=== PATIENT | female | born 1945 | race African-American/Black ===

== ENCOUNTER → 2017-09-26 | Day surgery (SDC) | payer OTHER, MEDICARE ==
--- NOTE | 2017-09-26 11:56 | RAD REPORT ---
EXAM DESCRIPTION: US - Guided FNA Non Breast - 09/26/2017 11:23 am CLINICAL HISTORY: E04.1 COMPARISON: Diagnostic ultrasound September 16 TECHNIQUE: Patient presents for ultrasound-guided fine-needle aspiration of left-sided thyroid nodul arity. Knee ultrasound-guided FNA procedure, risks and alternatives were discussed with the patient i n detail. After answering all questions, both oral and written consent were obtained. Time out proced ure was performed. Patient is on 81 milligram daily aspirin therapy. Preliminary imaging again identified the 2.4 centimeter mixed solid and cystic nodule filling much of the left lobe. The 9 x 4 mm nodule possibly containing calcifications is positioned deep to the iqra nant nodule. Anterior left neck was prepped and draped in the usual sterile fashion. Skin and deeper tissues were anesthetized with 1% lidocaine. Under direct sonographic visualization, a 25 gauge needle was advance d into the nodule. Multiple to and fro excursions of the needle tip were made directed to the solid c omponents within the nodule. Liver for additional 25 gauge needle aspirations of the nodule again all directed towards the solid components. During the course of the procedure small amount of intra cyst ic hemorrhage was observed layering in the dependent portion of the cyst. Over the course of the exam ination and when observed 5-10 minutes after conclusion of the procedure, overall size of the mixed s olid and cystic nodule had not changed. The smaller 9 x 4 millimeter nodule could not be accessed. The nodule was only 4 mm in transverse jose meter which would be the pathway of the needle. Additionally, the dominant nodule would have to be tr aversed in order to access the smaller nodule. This would increase the likelihood of additional hemor rhage both within and outside of the nodule. There was no hematoma or hemorrhagic component in the tolentino perficial neck soft tissues along the needle pathway. IMPRESSION: Ultrasound-guided fine-needle aspiration was performed of the dominant 2.4 centimeter so lid and cystic nodule. All obtained material was given to pathology for histology/ cytology assessmen t. A small amount of hemorrhage was observed within the substance of the nodule. This did not cause over all enlargement of the nodule and was contained within the nodule itself. The previously detailed smaller 9 x 4 mm nodule with possible calcification could not be accessed due to the deep positioning, small 4 millimeter transverse diameter needle pass and the need to repeated ly traverse the dominant nodule in order to access the smaller nodule.
== END ==
LOC: FNA 10:10
PROVIDERS: ATTEND Otolaryngology
PROC: 0G9G3ZX Drainage of Left Thyroid Gland Lobe, Percutaneous Approach, Diagnostic (ICD-10-PCS; principal; 2017-09-26)
PROC: BG44ZZZ Ultrasonography of Thyroid Gland (ICD-10-PCS; 2017-09-26)
DX: E04.1 Nontoxic single thyroid nodule (principal)
CPT/HCPCS: 76942; 88162

== ENCOUNTER 2017-10-28 10:39 | Emergency (ER) | payer OTHER, MEDICARE ==
--- NOTE | 2017-10-28 12:44 | RAD REPORT ---
EXAM DESCRIPTION: Najma Single View10/28/2017 12:11 pm CLINICAL HISTORY: Chest pain COMPARISON: Two 3 FINDINGS: Calcified granulomas are present within the left lung. The lungs appear clear of acute inf iltrate. The heart is mildly enlarged IMPRESSION: No acute abnormalities displayed
[2017-10-28 12:52] LABS: Absolute Lymphocytes (CBC) 1.4 K/uL (0.7-4.9); Absolute Monocytes 0.3 K/uL (0.1-1.3); Absolute Neutrophil 2.1 K/uL (1.8-8.0); Eosinophils % 2.5 % (0-4.4); Hematocrit 38.6 % (36.0-45.0); Lymphocytes % 34.6 % (15.3-44.8); MCH 32.2 pg (27.0-35.0); MCV 96.9 fL (80-100); Monocytes % 8.7 % (3.3-12.3); RBC Red Blood Cell Count 3.98 M/uL (3.86-4.86)
[2017-10-28 12:57] LABS: Protime INR 1.13
[2017-10-28 13:04] LABS: Potassium 3.8 mEq/L (3.6-5.0)
[2017-10-28 13:10] LABS: Albumin 3.8 g/dL (3.2-5.5); Bilirubin Direct 0.1 mg/dL (0-0.2); Bilirubin Total 0.7 mg/dL (0.3-1.2); Protein, Total 7.5 g/dL (6.0-8.3)
[2017-10-28 13:13] LABS: CKMB Creatine Kinase MB 1.1 ng/ml (0.3-4.0)
[2017-10-28 14:09] LABS: Urine Blood NEGATIVE (NEG); Urine Glucose NEGATIVE (NEG); Urine Protein NEGATIVE (NEG); Urine Specific Gravity 1.015 (1.005-1.030)
--- NOTE | 2017-10-28 14:53 | RAD REPORT ---
EXAM DESCRIPTION: CT - Head Brain Wo Cont - 10/28/2017 2:41 pm CLINICAL HISTORY: Weakness, dizziness, syncope COMPARISON: MRI August 2017 TECHNIQUE: Axial 5 mm thick images of the head were obtained without IV contrast. All CT scans are performed using dose optimization technique as appropriate and may include automated exposure control or mA/KV adjustment according to patient size. FINDINGS: No intracranial hemorrhage, mass, edema or shift of mid-line structures. No acute cortical based infarction. No cortical edema or sulcal effacement. Atrophy and chronic ischemic changes are m ild and match the recent MRI study. Arterial and physiologic calcifications are present. Ventricles a re normal in size. Mastoid air cells are clear. Right side ethmoid mucosal thickening present. No acute bony findings. IMPRESSION: Mild atrophy and chronic ischemic change matching the August MRI study. No acute intracra nial finding.
--- NOTE | 2017-10-28 15:03 | ER ---
Nurse's Notes [facility] Name: Lisa Camacho Age: 72 yrs Sex: Female : 1945 Arrival Date: 10/28/2017 Time: 10:44 Bed 7 Private MD: Quincy Cabrera V Diagnosis: Weakness Presentation: 10/28 10:47 Presenting complaint: Patient states: "I have been having dizzy spells and no energy hb for a few weeks now, the last few days it has been worse and I feel weak all over." Denies headache/fever. Ambulated triage with steady gait, - facial droop, - slurred speech, - arm drift, bilat excelsior cutter strong and equal. 10:47 Method Of Arrival: Ambulatory hb 10:50 Transition of care: patient was not received from another setting of care. Onset of hb symptoms is unknown. Risk Assessment: Do you want to hurt yourself or someone else? Patient reports no desire to harm self or others. 10:50 Acuity: ERIKA 3 hb 10:52 Initial Sepsis Screen: Does the patient meet any 2 criteria? No. Patient's initial hb sepsis screen is negative. Does the patient have a suspected source of infection? No. Patient's initial sepsis screen is negative. Care prior to arrival: None. Historical: - Allergies: 10:50 PENICILLINS; hb - PMHx: 10:50 Hyperlipidemia; Hypertension; hb - PSHx: 10:50 Hysterectomy; Cholecystectomy; back side growth removed; hb - Immunization history:: Adult Immunizations up to date. - Social history:: Smoking status: Patient/guardian denies using tobacco. - Ebola Screening: : No symptoms or risks identified at this time. Screenin:33 Abuse screen: Denies threats or abuse. Nutritional screening: No deficits noted. tw2 Tuberculosis screening: No symptoms or risk factors identified. Fall Risk None identified. Assessment: 11:35 General: Appears in no apparent distress. obese, well groomed, Behavior is calm, tw2 cooperative, appropriate for age. Pain: Denies pain. Neuro: Level of Consciousness is awake, alert, obeys commands, Oriented to person, place, time, situation. Cardiovascular: Denies diaphoresis, shortness of breath, Heart tones S1 S2 Capillary refill < 3 seconds Patient's skin is warm and dry. Respiratory: Airway is patent Respiratory effort is even, unlabored, Respiratory pattern is regular, symmetrical, Breath sounds are clear bilaterally. GI: No signs and/or symptoms were reported involving the gastrointestinal system. Abdomen is round non-distended, obese, Bowel sounds present X 4 quads. : No signs and/or symptoms were reported regarding the genitourinary system. Derm: Skin is intact, is healthy with good turgor, Skin temperature is warm. Musculoskeletal: Range of motion: intact in all extremities. 11:54 Reassessment: Patient appears in no apparent distress at this time. No changes from tw2 previously documented assessment. Patient and/or family updated on plan of care and expected duration. Pain level reassessed. Patient is alert, oriented x 3, equal unlabored respirations, skin warm/dry/pink. 13:26 Reassessment: Patient appears in no apparent distress at this time. No changes from tw2 previously documented assessment. Patient and/or family updated on plan of care and expected duration. Pain level reassessed. Patient is alert, oriented x 3, equal unlabored respirations, skin warm/dry/pink. 13:58 Reassessment: provider notified, pt would like update of results at this time. tw2 14:22 Reassessment: Patient appears in no apparent distress at this time. No changes from tw2 previously documented assessment. Patient and/or family updated on plan of care and expected duration. Pain level reassessed. Patient is alert, oriented x 3, equal unlabored respirations, skin warm/dry/pink. Vital Signs: 10:49 BP 148 / 103; Pulse 82; Resp 18; Temp 97.4; Pulse Ox 100% on R/A; Weight 86.64 kg; hb Height 5 ft. 3 in. (160.02 cm); Pain 0/10; 11:53 BP 103 / 46; Pulse 88; Resp 17; Pulse Ox 97% on R/A; tw2 12:38 BP 124 / 75; Pulse 57; Resp 15; Pulse Ox 100% ; em1 13:26 BP 131 / 76; Pulse 61; Resp 16; Pulse Ox 95% on R/A; tw2 14:22 BP 147 / 75; Pulse 54; Resp 17; Pulse Ox 98% on R/A; tw2 10:49 Body Mass Index 33.83 (86.64 kg, 160.02 cm) ED Course: 10:44 Patient arrived in ED. sb2 10:44 Quincy Cabrera MD is Private Physician. sb2 10:48 Cheko Joshua MD is Attending Physician. kdr 10:52 Triage completed. hb 10:53 Arm band placed on left wrist. hb 11:30 Placed in gown. Bed in low position. Adult w/ patient. manager underwriting on. Pulse ox on. tw2 NIBP on. Warm blanket given. 11:32 Carito Godwin, WINSTON is Primary Nurse. tw2 12:12 XRAY Chest (1 view) In Process Unspecified. EDMS 12:15 Missed attempt(s): 22 gauge in right antecubital area. per Rafa, Tech. Bleeding tw2 controlled, band aid applied, catheter tip intact. Missed attempt(s): 20 gauge in left antecubital area. per Rafa, Tech. Bleeding controlled, band aid applied, catheter tip intact. Missed attempt(s): 20 gauge in right antecubital area. SCOTTIE Jason Adv student with direct observation by Rafa, Tech at this time.. Missed attempt(s): 22 gauge in right antecubital area. per SCOTTIE Jason Adv student with direct observation by Rafa, Tech. 12:30 Missed attempt(s): 22 gauge in left forearm. Charge nurse Ramona, notified of need for tw2 IV at this time.. Bleeding controlled, band aid applied, catheter tip intact. 14:27 Basic Metabolic Panel Sent. sv 14:27 Ckmb Sent. sv 14:27 CPK Sent. sv 14:27 LFT's Sent. sv 14:41 CT Head Brain wo Cont In Process Unspecified. EDMS 15:02 Quincy Cabrera MD is Referral Physician. kdr 15:14 No provider procedures requiring assistance completed. IV discontinued, intact, tw2 bleeding controlled, No redness/swelling at site. Pressure dressing applied. Administered Medications: No medications were administered Outcome: 15:03 Discharge ordered by . kdr 15:15 Discharged to home ambulatory, with family. tw2 15:15 Condition: stable 15:15 Discharge instructions given to patient, family, Instructed on discharge instructions, follow up and referral plans. Demonstrated understanding of instructions, follow-up care. 15:15 Patient left the ED. tw2 Signatures: Dispatcher [facility] Pinky Alcocer, RN RN Cheko Joshua MD MD [facility] Rafa Avery em1 Teresa Miramontes RN RN Carito Godwin RN RN tw2 Chata Patel sb2 Corrections: (The following items were deleted from the chart) 10:52 10:47 Presenting complaint: Patient states: "I have no energy and have been having hb dizzy spells for a few weeks." Denies headache/fever hb 10:54 10:47 Presenting complaint: Patient states: "I have been having dizzy spells and no hb energy for a few weeks now, the last few days it has been worse and I feel weak all over." Denies headache/fever. Ambulated triage with steady gait, - facial droop, - slurred speech, bilat excelsior cutter strong and equal hb
--- NOTE | 2017-10-28 15:03 | EDPHYS ---
Physician Documentation [facility] Name: Lisa Camacho Age: 72 yrs Sex: Female : 1945 Arrival Date: 10/28/2017 Time: 10:44 Bed 7 Private MD: Quincy Cabrera V ED Physician Cheko Joshua HPI: 10/28 20:04 This 72 yrs old Black Female presents to ER via Ambulatory with complaints of Weakness. kdr 20:04 The patient presents to the emergency department with weakness of the entire body, kdr generalized weakness. Onset: The symptoms/episode began/occurred suddenly, 10 day(s) ago. Context: occurred at home, occurred while the patient was doing normal activity. Associated signs and symptoms: Pertinent positives: dizziness, Pertinent negatives: altered mental status, chills, fever, headache, neck stiffness, double vision, visual field changes, loss of vision. Severity of symptoms: At their worst the symptoms were mild in the emergency department the symptoms have resolved. Patient's baseline: Neuro: alert and fully oriented, Motor: no deficits, Ambulation: walks with assist only, Speech: normal for age. The patient has not experienced similar symptoms in the past. The patient has not recently seen a physician. Historical: - Allergies: 10:50 PENICILLINS; hb - PMHx: 10:50 Hyperlipidemia; Hypertension; hb - PSHx: 10:50 Hysterectomy; Cholecystectomy; back side growth removed; hb - Immunization history:: Adult Immunizations up to date. - Social history:: Smoking status: Patient/guardian denies using tobacco. - Ebola Screening: : No symptoms or risks identified at this time. ROS: 20:04 Constitutional: Negative for fever, chills, and weight loss, Eyes: Negative for injury, kdr pain, redness, and discharge, ENT: Negative for injury, pain, and discharge, Neck: Negative for injury, pain, and swelling, Cardiovascular: Negative for chest pain, palpitations, and edema, Respiratory: Negative for shortness of breath, cough, wheezing, and pleuritic chest pain, Abdomen/GI: Negative for abdominal pain, nausea, vomiting, diarrhea, and constipation, Back: Negative for injury and pain, : Negative for injury, bleeding, discharge, and swelling, MS/Extremity: Negative for injury and deformity, Skin: Negative for injury, rash, and discoloration, Psych: Negative for depression, anxiety, suicide ideation, homicidal ideation, and hallucinations, Allergy/Immunology: Negative for hives, rash, and allergies, Endocrine: Negative for neck swelling, polydipsia, polyuria, polyphagia, and marked weight changes, Hematologic/Lymphatic: Negative for swollen nodes, abnormal bleeding, and unusual bruising. 20:04 Neuro: Positive for dizziness, weakness, Negative for altered mental status, gait disturbance, headache, hearing loss, loss of consciousness, numbness, seizure activity, speech changes, syncope, near syncope, tingling, tinnitus, tremor, visual changes. Exam: 20:04 Constitutional: This is a well developed, well nourished patient who is awake, alert, kdr and in no acute distress. Head/Face: Normocephalic, atraumatic. Eyes: Pupils equal round and reactive to light, extra-ocular motions intact. Lids and lashes normal. Conjunctiva and sclera are non-icteric and not injected. Cornea within normal limits. Periorbital areas with no swelling, redness, or edema. Neck: Trachea midline, no thyromegaly or masses palpated, and no cervical lymphadenopathy. Supple, full range of motion without nuchal rigidity, or vertebral point tenderness. No Meningismus. Chest/axilla: Normal chest wall appearance and motion. Nontender with no deformity. No lesions are appreciated. Cardiovascular: Regular rate and rhythm with a normal S1 and S2. No gallops, murmurs, or rubs. Normal PMI, no JVD. No pulse deficits. Respiratory: Lungs have equal breath sounds bilaterally, clear to auscultation and percussion. No rales, rhonchi or wheezes noted. No increased work of breathing, no retractions or nasal flaring. Abdomen/GI: Soft, non-tender, with normal bowel sounds. No distension or tympany. No guarding or rebound. No evidence of tenderness throughout. Back: No spinal tenderness. No costovertebral tenderness. Full range of motion. Skin: Warm, dry with normal turgor. Normal color with no rashes, no lesions, and no evidence of cellulitis. MS/ Extremity: Pulses equal, no cyanosis. Neurovascular intact. Full, normal range of motion. Psych: Awake, alert, with orientation to person, place and time. Behavior, mood, and affect are within normal limits. 20:04 Neuro: Orientation: is normal, Mentation: is normal, Memory: appropriate for stated age, Cranial nerves: is grossly normal based on the patient's age, no acute changes, Motor: is normal, Sensation: is normal, Gait: appropriate for age, needs assistance. Vital Signs: 10:49 BP 148 / 103; Pulse 82; Resp 18; Temp 97.4; Pulse Ox 100% on R/A; Weight 86.64 kg; hb Height 5 ft. 3 in. (160.02 cm); Pain 0/10; 11:53 BP 103 / 46; Pulse 88; Resp 17; Pulse Ox 97% on R/A; tw2 12:38 BP 124 / 75; Pulse 57; Resp 15; Pulse Ox 100% ; em1 13:26 BP 131 / 76; Pulse 61; Resp 16; Pulse Ox 95% on R/A; tw2 14:22 BP 147 / 75; Pulse 54; Resp 17; Pulse Ox 98% on R/A; tw2 10:49 Body Mass Index 33.83 (86.64 kg, 160.02 cm) hb MDM: 15:03 Patient medically screened. kdr 20:04 Data reviewed: vital signs, nurses notes, lab test result(s), EKG, radiologic studies. kdr Counseling: I had a detailed discussion with the patient and/or guardian regarding: the historical points, exam findings, and any diagnostic results supporting the discharge/admit diagnosis, lab results, radiology results, the need for outpatient follow up. Special discussion: I discussed with the patient/guardian in detail that at this point there is no indication for admission to the hospital. It is understood, however, that if the symptoms persist or worsen the patient needs to return immediately for re-evaluation. 10/28 11:38 Order name: Basic Metabolic Panel [facility] 10/28 11:38 Order name: BNP; Complete Time: 14: [facility] 10/28 11:38 Order name: CBC with Diff; Complete Time: 14: [facility] 10/28 11:38 Order name: Ckmb [facility] 10/28 11:38 Order name: CPK [facility] 10/28 11:38 Order name: LFT's [facility] 10/28 11:38 Order name: Magnesium; Complete Time: 14: [facility] 10/28 11:38 Order name: PT-INR; Complete Time: 14: [facility] 10/28 11:38 Order name: Ptt, Activated; Complete Time: 14: [facility] 10/28 11:38 Order name: Troponin (emerg Dept Use Only); Complete Time: 14: [facility] 10/28 11:39 Order name: Basic Metabolic Panel; Complete Time: 14: [facility] 10/28 11:39 Order name: CKMB Creatine Kinase MB; Complete Time: 14: [facility] 10/28 11:39 Order name: Creatine Phosphokinase; Complete Time: 14: [facility] 10/28 11:39 Order name: Liver (Hepatic) Function; Complete Time: 14: [facility] 10/28 11:38 Order name: XRAY Chest (1 view); Complete Time: 14: [facility] 10/28 11:38 Order name: EKG; Complete Time: 11:39 [facility] 10/28 11:38 Order name: Cardiac monitoring; Complete Time: 11:55 [facility] 10/28 11:38 Order name: EKG - Nurse/Tech; Complete Time: 11:55 [facility] 10/28 11:38 Order name: IV Saline Lock; Complete Time: 11:55 [facility] 10/28 11:38 Order name: Labs collected and sent; Complete Time: 11:55 [facility] 10/28 11:38 Order name: O2 Per Protocol; Complete Time: 11:55 [facility] 10/28 11:38 Order name: O2 Sat Monitoring; Complete Time: 11:55 [facility] 10/28 11:38 Order name: Urine Dipstick-Ancillary (obtain specimen); Complete Time: 13:56 [facility] 10/28 14:02 Order name: CT Head Brain wo Cont; Complete Time: 14:55 [facility] 10/28 14:05 Order name: Urine Dipstick--Ancillary (enter results); Complete Time: 14:35 ag Administered Medications: No medications were administered Disposition: 10/28/17 15:03 Discharged to Home. Impression: Weakness. - Condition is Stable. - Discharge Instructions: Weakness, [id number]. - Medication Reconciliation Form, Thank You Letter form. - Follow up: Quincy Cabrera MD; When: 48 Hours; Reason: If symptoms return, Further diagnostic work-up, Recheck today's complaints, Continuance of care, Re-evaluation by your physician. - Problem is an ongoing problem. - Symptoms are resolved. Signatures: Dispatcher [employer] EDReinaldo Sigalain, MD MD kdr Teresa Miramontes, WINSTON RN Carito Godwin RN RN tw2 Corrections: (The following items were deleted from the chart) 15:15 15:03 10/28/2017 15:03 Discharged to Home. Impression: Weakness. Condition is Stable. tw2 Forms are Medication Reconciliation Form, Thank You Letter, Antibiotic Education, Prescription Opioid Use. Follow up: Quincy Cabrera; When: 48 Hours; Reason: If symptoms return, Further diagnostic work-up, Recheck today's complaints, Continuance of care, Re-evaluation by your physician. Problem is an ongoing problem. Symptoms are resolved. kdr
--- NOTE | 2017-10-28 16:10 | EKG ---
Test Date: 2017-10-28 Test Time: 11:34:17 Sugar Trucker: SYDNEY MEASUREMENT RESULTS: Intervals: Rate: 60 WI: 140 QRSD: 102 QT: 418 QTc: 418 [place]: P: 22 WI: 140 QRS: 46 T: 54 INTERPRETIVE STATEMENTS: Normal sinus rhythm Normal ECG Compared to ECG 11/03/2015 15:43:17 Sinus bradycardia no longer present Electronically Signed On 10-28-17 16:09:15 CDT by Theo Fajardo
== END 2017-10-28 15:15 | disposition home or self-care (01) ==
LOC: ER 10:39
DX: R53.1 Weakness (principal); I10 Essential (primary) hypertension; Z88.0 Allergy status to penicillin
CPT/HCPCS: 36415; 70450; 71045; 80048; 80076; 81003; 82550; 82553; 83735; 83880; 84484; 85025; 85610; 85730; 93005; 99284

== ENCOUNTER 2017-11-10 06:45 | Emergency (ER) | payer OTHER, MEDICARE ==
[2017-11-10 07:35] LABS: Absolute Lymphocytes (CBC) 0.8 K/uL (0.7-4.9); Absolute Monocytes 0.6 K/uL (0.1-1.3); Absolute Neutrophil 2.7 K/uL (1.8-8.0); Basophils % 0.9 % (0-1.3); Eosinophils % 2.2 % (0-4.4); Hematocrit 31.8 % (36.0-45.0); Lymphocytes % 18.5 % (15.3-44.8); MCH 32.2 pg (27.0-35.0); MCV 97.2 fL (80-100); MPV 12.2 fL (7.6-11.3); Monocytes % 14.5 % (3.3-12.3); RBC Red Blood Cell Count 3.27 M/uL (3.86-4.86)
[2017-11-10 07:55] LABS: ALT/SGPT 22 U/L (12-78); AST/SGOT 34 U/L (15-37); Albumin 2.7 g/dL (3.4-5.0); Alkaline Phosphatase 47 U/L (45-117); BUN Blood Urea Nitrogen 15 mg/dL (7-18); Bicarbonate 29 mmol/L (21-32); Bilirubin Direct 0.2 mg/dL (0-0.2); Bilirubin Total 0.7 mg/dL (0.2-1.0); Glucose Level 77 mg/dL (74-106); Lipase 41 U/L (73-393); Potassium 3.4 mmol/L (3.5-5.1); Sodium Level 137 mmol/L (136-145)
--- NOTE | 2017-11-10 08:13 | RAD REPORT ---
EXAM DESCRIPTION: CT - Stone Protocol - 11/10/2017 7:33 am CLINICAL HISTORY: Left-sided back and flank pain for 1 month, prior hysterectomy and cholecystectomy COMPARISON: CT imaging October 2013 TECHNIQUE: Axial 5 mm thick images were obtained without oral or IV contrast. The [id number] span s the entirety of the system including uppermost abdomen and lung bases. All CT scans are performed using dose optimization technique as appropriate and may include automated exposure control or mA/KV adjustment according to patient size. FINDINGS: No hydronephrosis is present and no obstructing ureteral calculi. No suspicious renal mass es. Isodense masses and pyelonephritis are not excluded on a stone protocol CT scan. Urinary bladder is mostly contracted. Numerous pelvic floor phleboliths are present. Uterus is absent. Ovaries are po gregorio visualized and probably atrophic. Ovaries are potentially surgically absent. In the left-side of the abdomen and pelvis there is a 15 cm CC x 11 cm AP x 12 cm TR heterogeneous so lid mass. There is some heterogeneity in attenuation. Enhancement characteristics cannot be assessed. A single 5 mm calcification is seen centrally within this mass. There is some stranding or edema ebony ng the margins. The mass appears to be intraperitoneal rather than retroperitoneal in origin. The mas s displaces adjacent structures. Masses unassociated with the kidney. No bulky lymphadenopathy seen. Imaged portions of the liver, spleen and pancreas show no suspicious findings on non-contrast imaging . Cholecystectomy clips are present. No biliary tree dilatation. No significant adrenal finding. No acute bowel finding identifiable. The appendix is seen and normal. No hernia identified. No free air, pneumatosis or free fluid. Disc and bony degenerative changes are present. Prominent facet joint changes are seen. No acute or p athologic bone process identified. Minimal scarring and atelectasis changes in each lung base. No acute lung base finding. Heart size is upper normal. Minimal pericardial thickening or effusion. Findings telephoned to the referring clinician [id number] hours. IMPRESSION: Large 15 centimeter soft tissue mass in the left side abdomen and pelvis displacing flavio cent structures. Calcification is present within the central portion of the mass. The mass, which appears to be intraperitoneal rather than retroperitoneal, does not have a specific o rgan of origin. By history the patient indicated no anticoagulation history. Sarcoma, lymphoma or oth er malignant mass primary considerations. Hematoma is possible though is usually more heterogeneous a t this size. Enhancement characteristics cannot be made on a noncontrast study. No hydronephrosis, obstructing calculus or acute finding. Isodense masses and pyelonephritis are n ot excluded.
[2017-11-10 08:55] LABS: Urine Bacteria 20-50 /HPF (<20); Urine Culture Reflex Order NOT NEEDED
[2017-11-10 08:56] LABS: Urine Amorphous Sediment 1+ /HPF (NONE SEEN); Urine Mucus 1+ /HPF (NONE SEEN)
[2017-11-10 09:29] LABS: Blood Morphology Comment NOT SEEN (NOT SEEN); Platelet Estimate DECR; Urine White Blood Cell Casts OK
[2017-11-10] MEDS ORDERED: ONDANSETRON 4 MG/2 ML VIAL ONE (09:39)
[2017-11-10] MEDS ORDERED: MORPHINE 4 MG/ML SYR ONE (09:39)
--- NOTE | 2017-11-10 10:12 | EDPHYS ---
Physician Documentation [facility] Name: Lisa Camacho Age: 72 yrs Sex: Female : 1945 Arrival Date: 11/10/2017 Time: 06:46 Bed 15 Private MD: Quincy Cabrera V ED Physician Joel Du HPI: 11/10 07:30 This 72 yrs old Black Female presents to ER via EMS with complaints of Abdominal Pain, pm1 flank pain. 07:30 The patient presents with abdominal pain in the left lower quadrant. Onset: The pm1 symptoms/episode began/occurred 6 month(s) ago. The symptoms do not radiate. Associated signs and symptoms: Pertinent positives: urinary frequency with small amounts, Pertinent negatives: nausea, vomiting, and diarrhea, fever. The symptoms are described as achy. Modifying factors: The symptoms are alleviated by nothing, the symptoms are aggravated by nothing. Severity of pain: in the emergency department the pain is unchanged. The patient has not experienced similar symptoms in the past. The patient has been recently seen by a physician: the patient's primary care provider, 2 week(s) ago, with similar presenting complaints. Historical: - Allergies: 06:59 PENICILLINS; ea - Home Meds: 06:59 carvedilol oral oral [Active]; pravastatin oral oral [Active]; ea - PMHx: 06:59 Hyperlipidemia; Hypertension; ea - PSHx: 06:59 Hysterectomy; Cholecystectomy; back side growth removed; ea - Immunization history:: Adult Immunizations up to date. - Social history:: Smoking status: Patient/guardian denies using tobacco. - Ebola Screening: : No symptoms or risks identified at this time. ROS: 07:30 Constitutional: Negative for fever, chills, and weight loss, Eyes: Negative for injury, pm1 pain, redness, and discharge, ENT: Negative for injury, pain, and discharge, Neck: Negative for injury, pain, and swelling, Cardiovascular: Negative for chest pain, palpitations, and edema, Respiratory: Negative for shortness of breath, cough, wheezing, and pleuritic chest pain. 07:30 MS/Extremity: Negative for injury and deformity, Skin: Negative for injury, rash, and discoloration, Neuro: Negative for headache, weakness, numbness, tingling, and seizure. 07:30 Abdomen/GI: Positive for abdominal pain, Negative for nausea, vomiting, and diarrhea. 07:30 Back: Positive for flank pain, bilaterally, Negative for decreased range of motion, radiated pain. 07:30 : Positive for urinary frequency, small amounts. Exam: 07:30 Constitutional: This is a well developed, well nourished patient who is awake, alert, pm1 and in no acute distress. Head/Face: Normocephalic, atraumatic. 07:30 Eyes: Pupils equal round and reactive to light, extra-ocular motions intact. Lids and pm1 lashes normal. Conjunctiva and sclera are non-icteric and not injected. Cornea within normal limits. Periorbital areas with no swelling, redness, or edema. ENT: Nares patent. No nasal discharge, no septal abnormalities noted. Tympanic membranes are normal and external auditory canals are clear. Oropharynx with no redness, swelling, or masses, exudates, or evidence of obstruction, uvula midline. Mucous membranes moist. Neck: Trachea midline, no thyromegaly or masses palpated, and no cervical lymphadenopathy. Supple, full range of motion without nuchal rigidity, or vertebral point tenderness. No Meningismus. Chest/axilla: Normal chest wall appearance and motion. Nontender with no deformity. No lesions are appreciated. Cardiovascular: Regular rate and rhythm with a normal S1 and S2. No gallops, murmurs, or rubs. No pulse deficits. Respiratory: Lungs have equal breath sounds bilaterally, clear to auscultation and percussion. No rales, rhonchi or wheezes noted. No increased work of breathing, no retractions or nasal flaring. 07:30 Back: No spinal tenderness. No costovertebral tenderness. Full range of motion. Skin: Warm, dry with normal turgor. Normal color with no rashes, no lesions, and no evidence of cellulitis. MS/ Extremity: Pulses equal, no cyanosis. Neurovascular intact. Full, normal range of motion. 07:30 Abdomen/GI: Inspection: abdomen appears normal, Bowel sounds: normal, Palpation: abdomen is soft and non-tender, mass, that is nontender, of the left upper quadrant and left lower quadrant, rebound tenderness, is not appreciated. 07:30 Neuro: Orientation: is normal, Motor: is normal, moves all fours, Gait: is steady, at a normal pace, without difficulty. Vital Signs: 06:46 BP 132 / 77; Pulse 71; Resp 18 S; Temp 99.6(O); Pulse Ox 99% on R/A; Weight 86.64 kg jd3 (R); Height 5 ft. 3 in. (160.02 cm); Pain 8/10; 07:56 BP 139 / 75; Pulse 68; Resp 16 S; Pulse Ox 98% on R/A; Pain 10/10; aa5 08:30 BP 145 / 70; Pulse 64; Resp 16 S; Pulse Ox 98% on R/A; aa5 09:26 BP 154 / 75; Pulse 78; Resp 18 S; Pulse Ox 97% on R/A; aa5 10:40 BP 150 / 71; Pulse 70; Resp 16 S; Temp 98.9(TE); Pulse Ox 98% on R/A; Pain 10/10; aa5 06:46 Body Mass Index 33.83 (86.64 kg, 160.02 cm) jd3 MDM: 06:47 Patient medically screened. pm1 09:46 Data reviewed: vital signs. Data interpreted: Pulse oximetry: on room air is 97 %. pm1 Interpretation: normal. 09:46 Physician consultation: Tim Travis MD was contacted at 09:35, regarding consult, pm1 patient's condition, in the emergency department to see patient at 09:35, Told Dr. Travis that she does not want to stay in the hospital. Dr. Travis evaluated the patient and believes it is appropriate for the patient to follow up on outpatient basis with him if she does not want to stay in the hospital. 11/10 06:53 Order name: Basic Metabolic Panel; Complete Time: 08:03 pm11/10 06:53 Order name: CBC with Diff; Complete Time: 09:45 pm1 11/10 06:53 Order name: Creatinine for Radiology; Complete Time: 08:03 pm1 11/10 06:53 Order name: Hepatic Function; Complete Time: 08:03 pm1 11/10 06:53 Order name: Lipase; Complete Time: 08:03 pm11/10 07:38 Order name: CBC Smear Scan; Complete Time: 09:45 EDMS 11/10 06:53 Order name: IV Saline Lock; Complete Time: 07:31 pm1 11/10 06:53 Order name: CT Stone Protocol; Complete Time: 08:16 pm1 11/10 07:46 Order name: Urine Dipstick--Ancillary (enter results) bd 11/10 07:46 Order name: Urine Microscopic Only; Complete Time: 08:56 bd 11/10 07:46 Order name: Urine Culture bd 11/10 06:53 Order name: Labs collected and sent; Complete Time: 07:31 pm1 11/10 06:53 Order name: Urine Dipstick-Ancillary (obtain specimen); Complete Time: 07:56 pm1 Administered Medications: 10:00 Not Given (Patient Refused): morphine 4 mg IVP once aa5 10:01 Not Given (Patient Refused): Zofran 4 mg IVP once; over 2 minutes aa5 Disposition: 11/10/17 10:11 Discharged to Home. Impression: Intraperitoneal abdominal mass, Urinary tract infection, site not specified. - Condition is Stable. - Discharge Instructions: Abdominal Pain, Adult, Urinary Tract Infection. - Prescriptions for Cipro 500 mg Oral Tablet - take 1 tablet by ORAL route every 12 hours for 7 days; 14 tablet. Tramadol 50 mg Oral Tablet - take 1 tablet by ORAL route every 8 hours as needed; 12 tablet. - Medication Reconciliation Form, Thank You Letter, Antibiotic Education, Prescription Opioid Use form. - Follow up: Emergency Department; When: As needed; Reason: Worsening of condition. Follow up: Quincy aCbrera MD; When: 2 - 3 days; Reason: Recheck today's complaints, Continuance of care, Re-evaluation by your physician. Follow up: Tim Travis MD; When: 2 - 3 days; Reason: Recheck today's complaints, Continuance of care, Re-evaluation by your physician. - Problem is new. - Symptoms have improved. Addendum: 11/11/2017 13:27 Co-signature as Attending Physician, Joel Du MD Available for consultation at p s1 all times. . Signatures: Dispatcher [employer] Colleen Montgomery RN RN iw Stevan Huerta NP CAR RACER pm1 Melva Simms RN RN ea Singer, Phillip, MD MD ps1 Carolina Batista RN aa5 Corrections: (The following items were deleted from the chart) 11/10 10:12 10:11 11/10/2017 10:11 Discharged to Home. Impression: Intraperitoneal abdominal pm1 massUrinary tract infection, site not specified. Condition is Stable. Forms are Medication Reconciliation Form, Thank You Letter, Antibiotic Education, Prescription Opioid Use. Follow up: Emergency Department; When: As needed; Reason: Worsening of condition. Follow up: Quincy Cabrera; When: 2 - 3 days; Reason: Recheck today's complaints, Continuance of care, Re-evaluation by your physician. Follow up: Tim Travis; When: 2 - 3 days; Reason: Recheck today's complaints, Continuance of care, Re-evaluation by your physician. pm1 11:13 10:12 11/10/2017 10:11 Discharged to Home. Impression: Intraperitoneal abdominal iw massUrinary tract infection, site not specified. Condition is Stable. Forms are Medication Reconciliation Form, Thank You Letter, Antibiotic Education, Prescription Opioid Use. Follow up: Emergency Department; When: As needed; Reason: Worsening of condition. Follow up: Quincy Cabrera; When: 2 - 3 days; Reason: Recheck today's complaints, Continuance of care, Re-evaluation by your physician. Follow up: Tim Travis; When: 2 - 3 days; Reason: Recheck today's complaints, Continuance of care, Re-evaluation by your physician. Problem is new. Symptoms have improved. pm1
--- NOTE | 2017-11-10 10:12 | ER ---
Nurse's Notes [facility] Name: Lisa Camacho Age: 72 yrs Sex: Female : 1945 Arrival Date: 11/10/2017 Time: 06:46 Bed 15 Private MD: Quincy Cabrera V Diagnosis: Urinary tract infection, site not specified;Intraperitoneal abdominal mass Presentation: 11/10 06:42 Presenting complaint: EMS states: Pt complaining of lower abdominal lower back pain for ea a month, reported she has had abdominal pain for a month but today it was worse. Transition of care: patient was not received from another setting of care. Onset of symptoms was November 10, 2017. Risk Assessment: Do you want to hurt yourself or someone else? Patient reports no desire to harm self or others. Initial Sepsis Screen: Does the patient meet any 2 criteria? No. Patient's initial sepsis screen is negative. Does the patient have a suspected source of infection? No. Patient's initial sepsis screen is negative. Care prior to arrival: None. 06:42 Method Of Arrival: EMS: [facility] ea 06:42 Acuity: ERIKA 3 ea Triage Assessment: 06:59 General: Appears uncomfortable, Behavior is calm, cooperative, appropriate for age. ea Pain: Complains of pain in lumbar area, left low back and right low back Pain currently is 8 out of 10 on a pain scale. Quality of pain is described as aching. EENT: No signs and/or symptoms were reported regarding the EENT system. Neuro: Level of Consciousness is awake, alert, obeys commands, Oriented to person, place, time, situation. Cardiovascular: Heart tones S1 S2 present Patient's skin is warm and dry. Respiratory: Airway is patent Respiratory effort is even, unlabored, Respiratory pattern is regular, symmetrical, Breath sounds are clear bilaterally. GI: Abdomen is Bowel sounds present X 4 quads. Abd is soft X 4 quads Abdomen is tender to palpation in suprapubic area. : Reports urinary frequency. Derm: Skin is dry, Skin is normal, Skin temperature is warm. Musculoskeletal: No signs and/or symptoms reported regarding the musculoskeletal system. Historical: - Allergies: 06:59 PENICILLINS; ea - Home Meds: 06:59 carvedilol oral oral [Active]; pravastatin oral oral [Active]; ea - PMHx: 06:59 Hyperlipidemia; Hypertension; ea - PSHx: 06:59 Hysterectomy; Cholecystectomy; back side growth removed; ea - Immunization history:: Adult Immunizations up to date. - Social history:: Smoking status: Patient/guardian denies using tobacco. - Ebola Screening: : No symptoms or risks identified at this time. Screenin:53 Abuse screen: Denies threats or abuse. Nutritional screening: No deficits noted. jd3 Tuberculosis screening: No symptoms or risk factors identified. Fall Risk Ambulatory Aid- None/Bed Rest/Nurse Assist (0 pts). Gait- Normal/Bed Rest/Wheelchair (0 pts) Mental Status- Oriented to own ability (0 pts). Assessment: 07:20 General: Appears comfortable, Behavior is calm, cooperative. Pain: Complains of pain in aa5 low back area, RLQ, and LLQ Pain does not radiate. Pain currently is 10 out of 10 on a pain scale. Quality of pain is described as pt states "it's a nagging pain" Pain began 3-4 months ago Is continuous. Neuro: Level of Consciousness is awake, alert, obeys commands, Oriented to person, place, time, situation. Cardiovascular: Heart tones S1 S2 present Rhythm is regular. Respiratory: Airway is patent Respiratory effort is even, unlabored, Respiratory pattern is regular, symmetrical, Breath sounds are clear bilaterally. GI: Abdomen is round non-distended, Bowel sounds present X 4 quads. Abd is soft X 4 quads Abdomen is tender to palpation in left lower quadrant. : Reports urinary incontinence x 2-3 months ago Denies burning with urination. EENT: No signs and/or symptoms were reported regarding the EENT system. Derm: Skin is dry, Skin is normal, Skin temperature is warm. Musculoskeletal: Range of motion: intact in all extremities. 07:57 Reassessment: Patient and/or family updated on plan of care and expected duration. Pain aa5 level reassessed. Pain: Pain currently is 10 out of 10 on a pain scale. Neuro: Level of Consciousness is awake, alert, obeys commands, Oriented to person, place, time, situation. Respiratory: Airway is patent Respiratory effort is even, unlabored, Respiratory pattern is regular, symmetrical. Derm: Skin is dry, Skin is normal, Skin temperature is warm. 08:30 Reassessment: Patient and/or family updated on plan of care and expected duration. Pain aa5 level reassessed. Reassessment: Pt currently sitting up in bed watching TV. . Pain: Pain currently is 10 out of 10 on a pain scale. Neuro: Level of Consciousness is awake, alert, obeys commands, Oriented to person, place, time, situation. Respiratory: Airway is patent Respiratory effort is even, unlabored, Respiratory pattern is regular, symmetrical. Derm: Skin is dry, Skin is normal, Skin temperature is warm. 09:00 Reassessment: BALLISTICS TESTER speaking to pt about need for admission and about CT findings. Pt aa5 appears upset pt states "I was just here two weeks ago for the same thing and they didn't find out anything wrong and now you guys are basically telling me I have cancer, I can't believe someone just found this out, it is unbelievable". Pt states "I want to wait for my son to make a decision about the admission to the hospital".. 09:30 Reassessment: Pt refused morphine. Pt states "the surgeon came and he said he is going aa5 to send me home" . Neuro: Level of Consciousness is awake, alert, obeys commands, Oriented to person, place, time, situation. Respiratory: Airway is patent Respiratory effort is even, unlabored, Respiratory pattern is regular, symmetrical. Derm: Skin is dry, Skin is normal, Skin temperature is warm. 10:30 Reassessment: Pt requesting for BALLISTICS TESTER to speak to her son about plan of care. BALLISTICS TESTER was aa5 notified. . 10:30 Neuro: Level of Consciousness is awake, alert, obeys commands, Oriented to person, aa5 place, time, situation. Respiratory: Airway is patent Respiratory effort is even, unlabored, Respiratory pattern is regular, symmetrical. Derm: Skin is dry, Skin is normal, Skin temperature is warm. Vital Signs: 06:46 BP 132 / 77; Pulse 71; Resp 18 S; Temp 99.6(O); Pulse Ox 99% on R/A; Weight 86.64 kg jd3 (R); Height 5 ft. 3 in. (160.02 cm); Pain 8/10; 07:56 BP 139 / 75; Pulse 68; Resp 16 S; Pulse Ox 98% on R/A; Pain 10/10; aa5 08:30 BP 145 / 70; Pulse 64; Resp 16 S; Pulse Ox 98% on R/A; aa5 09:26 BP 154 / 75; Pulse 78; Resp 18 S; Pulse Ox 97% on R/A; aa5 10:40 BP 150 / 71; Pulse 70; Resp 16 S; Temp 98.9(TE); Pulse Ox 98% on R/A; Pain 10/10; aa5 06:46 Body Mass Index 33.83 (86.64 kg, 160.02 cm) jd3 ED Course: 06:42 Patient has correct armband on for positive identification. Bed in low position. Call ea light in reach. Side rails up X2. 06:42 Patient placed in an exam room, on a stretcher, on pulse oximetry. ea 06:46 Patient arrived in ED. ds1 06:46 Quincy Cabrera MD is Private Physician. ds1 06:47 Stevan Huerta NP is PHCP. pm1 06:47 Joel Du MD is Attending Physician. pm1 06:55 Triage completed. ea 07:12 Carolina Batista, WINSTON is Primary Nurse. aa5 07:25 Initial lab(s) drawn, by vt, sent to lab. Inserted saline lock: 22 gauge in left wrist, aa5 using aseptic technique. 07:33 CT completed. Patient moved to CT via wheelchair. Patient moved back from CT. cw1 07:34 CT Stone Protocol In Process Unspecified. EDMS 08:02 No provider procedures requiring assistance completed. aa5 10:07 Quincy Cabrera MD is Referral Physician. pm1 10:07 Tim Travis MD is Referral Physician. pm1 11:05 IV discontinued, intact, bleeding controlled, No redness/swelling at site. Pressure aa5 dressing applied. Administered Medications: 10:00 Not Given (Patient Refused): morphine 4 mg IVP once aa5 10:01 Not Given (Patient Refused): Zofran 4 mg IVP once; over 2 minutes aa5 Outcome: 10:11 Discharge ordered by . pm1 11:10 Discharged to home ambulatory, with family. aa5 11:10 Condition: stable 11:10 Discharge instructions given to patient, family, Instructed on discharge instructions, follow up and referral plans. medication usage, Demonstrated understanding of instructions, follow-up care, medications, Prescriptions given X 2. 11:13 Patient left the ED. iw Addendum: 11/14/2017 07:39 Addendum: Culture Results: Positive urine culture. Bacteria is resistant to, has i w intermediate sensitivity, or is not tested against prescribed antibiotics. Report given to IRAM for further evaluation and then to wind energy engineer for follow up with patient. Phone call Attempt #1 no answer, busy signal. Signatures: Dispatcher [employer] EDUT Modesta Ulloa ds1 Colleen Chan, RN RN iw Carolina Batista RN RN aa5 Reva Bower cw1 Stevan Huerta NP BALLISTICS TESTER pm1 Melva Simms RN RN ea Davies, Jonathon RN RN jd3 Corrections: (The following items were deleted from the chart) 11/10 08:02 07:20 : Reports urinary incontinence x 2-3 months ago aa5 aa5 09:00 Reassessment: BALLISTICS TESTER speaking to pt about need for admission and about CT findings. aa5 Pt appears upset pt states "I was just here two weeks ago for the same thing and they didn't find out anything wrong and now you guys are basically telling me I have cancer, I can't believe someone just found this out, it is unbelievable". Pt states "I want to wait for my son to make a decision about the admission to the hospital".. iw
--- NOTE | 2017-11-10 10:43 | CON ---
Date of Consultation: 11/10/2017 Brief History Of Present Illness: The patient is a 72-year-old female, who presents to the hospital with worsening back pain on the left and right flank area beginning yesterday. She states that the pain got significantly worse. She woke up due to the pain this morning and had some profuse sweating. She came to the emergency room with weakness and swelling and the above-stated fla nk pain. She does not have significant abdominal pain, but she does have abdominal tenderness by her description on the left side. She has been having this problem off and on for approximately 1 year. She has had a 70-pound weight loss over the past year. Denies night sweats. Prior to this, she kaur s started eating healthier, but she has not been on any significant exercise plan or weight loss paxton men per se. She has had no change in bowel or bladder habits other than having some incontinence of gas. She has had no burning, dysuria or urinary tract symptoms; however, she does have occasional in continence to urine at times to which she starts wearing adult undergarments for protection. She has had no fever or chills. She has had decreased appetite, but no nausea or vomiting. No sick contact s. No recent travel. She has no other complaints at this time. Past Medical History: Significant for hyperlipidemia, hypertension. Allergies: PENICILLIN. Past Surgical History: Includes hysterectomy, cholecystectomy, and an epidermal cyst removal and cat aract surgery. Home Medications: The patient cannot recall her medications at this time. Family History: Noncontributory. Social History: She denies smoking, alcohol, recreational drug use. Review of Systems: A 10-point review of systems other than HPI, denies. Physical Examination: General: At the time of my examination, she is awake, alert, oriented. Psychiatric: She is appropriate and conversive. HEENT: She is normocephalic. Her sclerae are anicteric. Her mucous members are moist. Her orophar ynx is clear. Neck: Supple. No JVD. Chest: Symmetric. Cardiovascular: Regular rate and rhythm. Pulmonary: Clear to auscultation bilaterally. Abdomen: Soft. There is a palpable mass in the left lower quadrant/left upper quadrant of the abdom en, large, firm and tender to palpation. It does not cross the midline, but is easily palpable corre sponding to CT findings below. She has no rebound, no guarding, no peritoneal signs. Her abdomen is generally obese. Extremities: No clubbing, cyanosis, or edema. Skin: Warm and dry. Laboratory Data: Reveals white blood cell count of 4.2, hemoglobin 10.6, hematocrit 31.8, platelet c ount is 98, neutrophils are 63.9. Her sodium is 137, potassium 3.4, chloride 103, carbon dioxide 29, BUN 15, creatinine 0.7, glucose is 77, calcium 8.5. Total bilirubin 0.7, AST 34, ALT 22, alk phos 4 7, lipase is 41. Her urinalysis is currently pending; however, 20/ bacteria have been returned. S he had a CT scan for the abdomen and pelvis without contrast, officially read as a large 15 cm soft t issue mass in the left side of abdomen and pelvis displacing adjacent structures calcifications prese nt within the central portion of mass. The mass which appears to be intraperitoneal rather than retr operitoneal does not have a specific origin by history. The patient indicated no anticoagulation his tory, sarcoma lymphoma, or other malignancy masses, primary consideration. Hematoma is possible, alt gaetano usually more heterogeneous at this size, enhancement characteristics cannot be made on a noncon trast study. No hydronephrosis, obstructing calculus, or other findings. Isodense mass or pyelon ephritis is not excluded. The patient had a colonoscopy with Dr. Blue by report 2-3 years ago, i she states she believes was normal. Assessment And Plan: This is a 72-year-old female, who presents with a large abdominal mass and some minimal flank pain at this time. 1.IV fluid hydration. 2.The patient requires workup for this intraabdominal mass; however, her clinical exam is not signif icant necessitating an admission by my examination. She is desiring to leave and go home at this [facility] and continue workup as an outpatient. I have stated that as long as her pain is under control and she is able to tolerate diet and liquids, I would agree that she would be a candidate for an outpatie nt workup for this large mass, which has likely been there for a significant period of time. Therefo re, I have recommended the patient to follow up with me this week for continued workup and we will or omaira additional imaging and workup for this mass. I explained risks, benefits, and alternatives of th e above stated plan. The patient agrees to proceed as indicated. Thank you for this interesting consultation. ROBERTA/ROMINA Voice ID: [id number] Report ID: [id number]
[2017-11-10 14:20] LABS: Urine Blood 1+ (NEG); Urine Glucose NEGATIVE (NEG); Urine Protein 1+ (NEG); Urine Specific Gravity 1.015 (1.005-1.030); Urine pH 5.5 (5.0-7.0)
== END 2017-11-10 11:13 | disposition home or self-care (01) ==
LOC: ER 06:45
DX: N39.0 Urinary tract infection, site not specified (principal); R19.09 Other intra-abdominal and pelvic swelling, mass and lump; I10 Essential (primary) hypertension; E78.5 Hyperlipidemia, unspecified; Z88.0 Allergy status to penicillin
CPT/HCPCS: 36415; 74176; 76377; 80048; 80076; 81003; 81015; 83690; 85025; 87077; 87086; 87088; 87186; 99284; J2405

== ENCOUNTER 2018-04-17 10:07 | Emergency (ER) | payer OTHER, MEDICARE ==
--- OUTSIDE RECORDS SUMMARY | 2018-04-17 10:10 | XMS REPORT | Clinical Summary ---
:1945 Author Organization [facility] Address [address] [place] [address] Care Team Providers Name Role Phone Asked, No Pcp Primary Care Provider Unavailable Allergies Active Allergy Reactions Severity Noted Date Comments Penicillins Itching 2007 unknown Medications Medication Sig Dispensed Refills Start Date End Date Status traMADol (ULTRAM) Take 50 mg by 0 Active 50 mg tablet mouth every 6 (six) hours as needed for moderate pain. escitalopram Take 10 mg by 0 Active (LEXAPRO) 10 MG mouth daily. tablet oxybutynin Take 5 mg by 0 Active (DITROPAN) 5 MG mouth 3 (three) tablet times a day. aspirin (ECOTRIN) Take 81 mg by 0 Active 81 MG enteric mouth daily. coated tablet pravastatin Take 10 mg by 0 Active (PRAVACHOL) 10 MG mouth 2 (two) tablet times a day. carvedilol (COREG) Take 12.5 mg by 0 Active 12.5 MG tablet mouth 2 (two) times a day with meals. ciprofloxacin Take 500 mg by 0 Active (CIPRO) 500 MG mouth 2 (two) tablet times a day. magnesium oxide Take 400 mg by 0 11/22/19 Discontinued (MAG-OX) 400 mg mouth daily. 18 tablet acetaminophen Take 1 tablet 30 tablet 0 11/29/2017 12/15/19 (TYLENOL EXTRA (500 mg total) by 18 STRENGTH) 500 MG mouth every 6 tablet (six) hours as needed for mild pain for up to 15 days. docusate sodium Take 1 capsule 60 capsule 0 11/29/2017 11/30/19 Discontinued (COLACE) 100 MG (100 mg total) by 18 capsule mouth 2 (two) times a day for 30 days. docusate sodium Take 1 capsule 60 capsule 0 11/29/2017 12/30/19 (COLACE) 100 MG (100 mg total) by 18 capsule mouth 2 (two) times a day as needed for constipation for up to 30 days. 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 Anesthesia Event General Surgery Natalia Mcdowell MD 11/21/2017 Surgery General Surgery Roni Jamison EXPLORATORY MD Matteo LAPAROTOMY WITH EXCISION OF INTRA ABDOMINAL MASS 11/21/2017 - Hospital Encounter General Surgery Roni Jamison Abdominal mass, 11/29/2017 MD Matteo unspecified abdominal location 11/12/2017 Pre-Admit Testing Pre-Admission Roni Jamison Preop examination Appointment Testing MD Matteo (Primary Dx) 11/12/2017 Office Visit General Surgery Roni Jamison Left lower quadrant MD Matteo abdominal mass (Primary Dx) after 04/16/2017 Social History Tobacco Use Types Packs/Day Years Used Date Never Smoker Smokeless Tobacco: Never Used Alcohol Use Drinks/Week oz/Week Comments No Sex Assigned at Date Recorded Not on file Job Start Date Occupation Industry Not on file Not on file Not on file Travel History Travel Start Travel End No recent travel history available. Last Filed Vital Signs Vital Sign Reading Time Taken Blood Pressure 126/75 12/05/2017 3:46 PM CDT Pulse 73 12/05/2017 3:46 PM CDT Temperature 36.9 C (98.4 F) 11/29/2017 12:36 PM CDT Respiratory Rate 18 11/29/2017 12:36 PM CDT Oxygen Saturation 94% 11/29/2017 12:36 PM CDT Inhaled Oxygen Concentration - - Weight 78 kg (172 lb) 12/05/2017 3:46 PM CDT Height 160 cm (5' 3") 12/05/2017 3:46 PM CDT Body Mass Index 30.47 12/05/2017 3:46 PM CDT Plan of Treatment Health Maintenance Due Date Last Done Comments BREAST CANCER SCREENING 1995 COLON CANCER SCREENING 1995 SHINGRIX VACCINE (1 of 2) 1995 ZOSTER VACCINE 2005 PNEUMOCOCCAL POLYSACCHARIDE VACCINE AGE 65 AND OVER 2010 PNEUMOCOCCAL-13 2010 INFLUENZA VACCINE 12/18/2017 Procedures Procedure Name Priority Date/Time Associated Comments Diagnosis ZZESTIMATED GFR Routine 11/29/2017 4:00 Results for this AM CDT procedure are in the results section. PHOSPHORUS LEVEL Routine 11/29/2017 4:00 Results for this AM CDT procedure are in the results section. MAGNESIUM LEVEL Routine 11/29/2017 4:00 Results for this AM CDT procedure are in the results section. HC COMPLETE BLD COUNT Routine 11/29/2017 4:00 Results for this W/AUTO DIFF AM CDT procedure are in the results section. BASIC METABOLIC PANEL Routine 11/29/2017 4:00 Results for this AM CDT procedure are in the results section. HC COMPLETE BLD COUNT Routine 11/28/2017 5:25 Results for this W/AUTO DIFF AM CDT procedure are in the results section. ZZESTIMATED GFR Routine 11/28/2017 4:00 Results for this AM CDT procedure are in the results section. PHOSPHORUS LEVEL Routine 11/28/2017 4:00 Results for this AM CDT procedure are in the results section. MAGNESIUM LEVEL Routine 11/28/2017 4:00 Results for this AM CDT procedure are in the results section. BASIC METABOLIC PANEL Routine 11/28/2017 4:00 Results for this AM CDT procedure are in the results section. LACTIC ACID LEVEL Timed 11/27/2017 6:56 Results for this AM CDT procedure are in the results section. LACTIC ACID LEVEL Timed 11/27/2017 12:56 Results for this AM CDT procedure are in the results section. ZZESTIMATED GFR STAT 11/26/2017 9:40 Results for this PM CDT procedure are in the results section. PHOSPHORUS LEVEL STAT 11/26/2017 9:40 Results for this PM CDT procedure are in the results section. HC COMPLETE BLD COUNT STAT 11/26/2017 9:40 Results for this W/AUTO DIFF PM CDT procedure are in the results section. LACTIC ACID LEVEL STAT 11/26/2017 9:40 Results for this PM CDT procedure are in the results section. MAGNESIUM LEVEL STAT 11/26/2017 9:40 Results for this PM CDT procedure are in the results section. BASIC METABOLIC PANEL STAT 11/26/2017 9:40 Results for this PM CDT procedure are in the results section. XR CHEST 1 VW STAT 11/26/2017 7:34 Results for this PORTABLE PM CDT procedure are in the results section. CT ABDOMEN PELVIS WO STAT 11/26/2017 1:07 Results for this CONTRAST PM CDT procedure are in the results section. XR ABDOMEN 1 VW STAT 11/26/2017 10:05 Results for this PORTABLE AM CDT procedure are in the results section. ZZESTIMATED GFR Routine 11/26/2017 3:24 Results for this AM CDT procedure are in the results section. HC COMPLETE BLD COUNT Routine 11/26/2017 3:24 Results for this W/AUTO DIFF AM CDT procedure are in the results section. PHOSPHORUS LEVEL Routine 11/26/2017 3:24 Results for this AM CDT procedure are in the results section. MAGNESIUM LEVEL Routine 11/26/2017 3:24 Results for this AM CDT procedure are in the results section. BASIC METABOLIC PANEL Routine 11/26/2017 3:24 Results for this AM CDT procedure are in the results section. ZZESTIMATED GFR Routine 11/25/2017 3:00 Results for this AM CDT procedure are in the results section. BASIC METABOLIC PANEL Routine 11/25/2017 3:00 Results for this AM CDT procedure are in the results section. HC COMPLETE BLD COUNT Routine 11/24/2017 4:30 Results for this W/AUTO DIFF AM CDT procedure are in the results section. ZZESTIMATED GFR Routine 11/24/2017 4:00 Results for this AM CDT procedure are in the results section. MAGNESIUM LEVEL Routine 11/24/2017 4:00 Results for this AM CDT procedure are in the results section. PHOSPHORUS LEVEL Routine 11/24/2017 4:00 Results for this AM CDT procedure are in the results section. BASIC METABOLIC PANEL Routine 11/24/2017 4:00 Results for this AM CDT procedure are in the results section. ZZESTIMATED GFR Routine 11/23/2017 4:00 Results for this AM CDT procedure are in the results section. BASIC METABOLIC PANEL Routine 11/23/2017 4:00 Results for this AM CDT procedure are in the results section. PHOSPHORUS LEVEL Routine 11/23/2017 4:00 Results for this AM CDT procedure are in the results section. MAGNESIUM LEVEL Routine 11/23/2017 4:00 Results for this AM CDT procedure are in the results section. HC COMPLETE BLD COUNT Routine 11/23/2017 3:45 Results for this W/AUTO DIFF AM CDT procedure are in the results section. ZZESTIMATED GFR Routine 11/22/2017 12:05 Results for this AM CDT procedure are in the results section. BASIC METABOLIC PANEL Routine 11/22/2017 12:05 Results for this AM CDT procedure are in the results section. PHOSPHORUS LEVEL Routine 11/22/2017 12:05 Results for this AM CDT procedure are in the results section. MAGNESIUM LEVEL Routine 11/22/2017 12:05 Results for this AM CDT procedure are in the results section. HC COMPLETE BLD COUNT Routine 11/22/2017 12:05 Results for this W/AUTO DIFF AM CDT procedure are in the results section. SURGICAL PATHOLOGY Routine 11/21/2017 1:16 Results for this REQUEST PM CDT procedure are in the results section. [place] AN ELECTIVE Routine 11/21/2017 8:34 ENDOTRACHEAL AIRWAY AM CDT Procedure Note - Natalia Mcdowell, MD - 11/21/2017 8:34 AM CDT Airway Performed by: NATALIA MCDOWELL Authorized by: NATALIA MCDOWELL Location: OR Urgency: Elective Difficult Airway: No Preoxygenated with 100% O2: Yes C-spine Precautions Maintained Throughout: Yes Mask Ventilation: Easy mask Final Airway Type: Endotracheal airway Final Endotracheal Airway: ETT Technique Used: Direct laryngoscopy Blade Type: Hernandez Laryngoscope Blade/Videolaryngoscope Blade Size: 2 ETT Size (mm): 7.0 Measured from: Lips ETT to Lips (cm): 21 Placement Verified by: CO2 detection, direct visualization and equal breath sounds Laryngoscopic view: Grade I - full view of glottis Rapid Sequence Induction (RSI): No Modified RSI: No Number of Attempts at Approach: 1 CYSTO STENT INSERTION 11/21/2017 7:30 AM CDT Abdominal mass, unspecified abdominal location Case Notes DR. MONTESINOS WORKING 1ST EST [address] MONTESINOS WORKING 1ST EST 30 MINS LAPAROTOMY, EXPLORATORY 11/21/2017 7:30 AM CDT Abdominal mass, unspecified abdominal location Case Notes DR. MONTESINOS WORKING 1ST EST [address] MONTESINOS WORKING 1ST EST 30 MINS ECG PRE/POST OP Routine 11/12/2017 5:53 PM Preop examination Results for this CDT procedure are in the results section. PREPARE RBC Routine 11/12/2017 5:44 PM Results for this CDT procedure are in the results section. ZZESTIMATED GFR Routine 11/12/2017 5:44 PM Results for this CDT procedure are in the results section. PROTHROMBIN TIME WITH Routine 11/12/2017 5:44 PM Preop examination Results for this INR CDT procedure are in the results section. PARTIAL THROMBOPLASTIN Routine 11/12/2017 5:44 PM Preop examination Results for this TIME (PTT) CDT procedure are in the results section. TYPE AND SCREEN Routine 11/12/2017 5:44 PM Preop examination Results for this CDT procedure are in the results section. HEMOGLOBIN A1C Routine 11/12/2017 5:44 PM Preop examination Results for this CDT procedure are in the results section. HC COMPLETE BLD COUNT Routine 11/12/2017 5:44 PM Preop examination Results for this W/AUTO DIFF CDT procedure are in the results section. COMPREHENSIVE METABOLIC Routine 11/12/2017 5:44 PM Preop examination Results for this PANEL CDT procedure are in the results section. CT ABD/PELVIC EXTERNAL Routine 11/10/2017 7:29 AM Results for this STUDY CDT procedure are in the results section. after 04/16/2017 Results Estimated GFR (11/29/2017 4:00 AM CDT)Only the most recent of9 resultswithin the time period is included. GFR Non Af Amer >90 mL/min/1.73 m2 [facility] DEPARTMENT OF PATHOLOGY AND GENOMIC MEDICINE GFR Af Amer >90 mL/min/1.73 m2 [facility] DEPARTMENT OF Comment: PATHOLOGY AND GENOMIC Chronic kidney disease: <60 mL/min/1.73m2 MEDICINE Kidney failure: <15 mL/min/1.73m2 The estimated GFR is calculated from the IDMS-traceable Modification of Diet in Renal Disease Equation. The accuracy of the calculation is poor when the creatinine is normal. Calculated values >90 mL/min/1.73m2 are not reported. This equation has not been validated in children (<18 years), women, the elderly (>70 years), or ethnic groups other than Caucasians and Americans. Specimen Plasma specimen Performing Organization Address City/State/Zipcode Phone Number [facility] DEPARTMENT OF PATHOLOGY AND [address] [place] [address] [place] [facility] CBC with platelet and differential (11/29/2017 4:00 AM CDT)Only the most recent of8 resultswithin the time period is included. WBC 7.38 4.50 - 11.00 k/uL [facility] DEPARTMENT OF PATHOLOGY AND GENOMIC MEDICINE RBC 2.90 (L) 4.20 - 5.50 m/uL [facility] DEPARTMENT OF PATHOLOGY AND GENOMIC MEDICINE HGB 9.5 (L)Comment: 12.0 - 16.0 g/dL [facility] DEPARTMENT OF [facility] PATHOLOGY AND GENOMIC checked. MEDICINE HCT 29.3 (L) 37.0 - 47.0 % [facility] DEPARTMENT OF PATHOLOGY AND GENOMIC MEDICINE MCV 101.0 (H) 82.0 - 100.0 fL [facility] DEPARTMENT OF PATHOLOGY AND GENOMIC MEDICINE MCH 32.8 27.0 - 34.0 pg [facility] DEPARTMENT OF PATHOLOGY AND GENOMIC MEDICINE MCHC 32.4 31.0 - 37.0 g/dL [facility] DEPARTMENT OF PATHOLOGY AND GENOMIC MEDICINE RDW - SD 50.6 37.0 - 55.0 fL [facility] DEPARTMENT OF PATHOLOGY AND GENOMIC MEDICINE MPV 11.6 8.8 - 13.2 fL [facility] DEPARTMENT OF PATHOLOGY AND GENOMIC MEDICINE Platelet count 226 150 - 400 k/uL [facility] DEPARTMENT OF PATHOLOGY AND GENOMIC MEDICINE Nucleated RBC 0.00 /100 WBC [facility] DEPARTMENT OF PATHOLOGY AND GENOMIC MEDICINE Neutrophils 56.2 39.0 - 69.0 % [facility] DEPARTMENT OF PATHOLOGY AND GENOMIC MEDICINE Lymphocytes 24.1 (L) 25.0 - 45.0 % [facility] DEPARTMENT OF PATHOLOGY AND GENOMIC MEDICINE Monocytes 9.6 0.0 - 10.0 % [facility] DEPARTMENT OF PATHOLOGY AND GENOMIC MEDICINE Eosinophils 9.2 (H) 0.0 - 5.0 % [facility] DEPARTMENT OF PATHOLOGY AND GENOMIC MEDICINE Basophils 0.4 0.0 - 1.0 % [facility] DEPARTMENT OF PATHOLOGY AND GENOMIC MEDICINE Immature granulocytes 0.5Comment: "Immature 0.0 - 1.0 % [facility] DEPARTMENT OF granulocytes" PATHOLOGY AND GENOMIC (promyelocytes, MEDICINE myelocytes, metamyelocytes) Specimen Blood Performing Organization Address City/[facility]/Zipcode Phone Number [facility] DEPARTMENT OF PATHOLOGY AND [address] [place] [address] Phosphorus level (11/29/2017 4:00 AM CDT)Only the most recent of7 resultswithin the time period is included. Phosphorus 2.8 2.4 - 4.5 mg/dL [facility] DEPARTMENT OF PATHOLOGY AND GENOMIC MEDICINE Specimen Plasma specimen Performing Organization Address [facility] Phone Number [facility] DEPARTMENT OF PATHOLOGY AND [address] [place] [address] Magnesium level (11/29/2017 4:00 AM CDT)Only the most recent of7 resultswithin the time period is included. Magnesium 1.9 1.6 - 2.4 mg/dL [facility] DEPARTMENT OF PATHOLOGY AND GENOMIC MEDICINE Specimen Plasma specimen Performing Organization Address [facility] Phone Number [facility] DEPARTMENT OF PATHOLOGY AND [address] [place] [address] Basic metabolic panel (11/29/2017 4:00 AM CDT)Only the most recent of8 resultswithin the time period is included. Sodium 140 135 - 148 mEq/L [facility] DEPARTMENT OF PATHOLOGY AND GENOMIC MEDICINE Potassium 3.6 3.5 - 5.0 mEq/L [facility] DEPARTMENT OF PATHOLOGY AND GENOMIC MEDICINE Chloride 103 98 - 112 mEq/L [facility] DEPARTMENT OF PATHOLOGY AND GENOMIC MEDICINE CO2 29 24 - 31 mEq/L [facility] DEPARTMENT OF PATHOLOGY AND GENOMIC MEDICINE Anion gap 8@ANIO 7 - 15 mEq/L [facility] DEPARTMENT OF PATHOLOGY AND GENOMIC MEDICINE BUN 3 (L) 8 - 23 mg/dL [facility] DEPARTMENT OF PATHOLOGY AND GENOMIC MEDICINE Creatinine 0.6 0.5 - 0.9 mg/dL [facility] DEPARTMENT OF PATHOLOGY AND GENOMIC MEDICINE Glucose 92 65 - 99 mg/dL [facility] DEPARTMENT OF PATHOLOGY AND GENOMIC MEDICINE Calcium 8.3 (L) 8.8 - 10.2 mg/dL [facility] DEPARTMENT OF PATHOLOGY AND GENOMIC MEDICINE Specimen Plasma specimen Performing Organization Address [facility] Phone Number [facility] DEPARTMENT OF PATHOLOGY AND [address] [place] [address] Lactic acid level (11/27/2017 6:56 AM CDT)Only the most recent of3 resultswithin the time period is included. Lactic acid 1.5 0.5 - 2.2 mmol/L [facility] DEPARTMENT OF PATHOLOGY AND GENOMIC MEDICINE Specimen Blood Performing Organization Address [facility] Phone Number [facility] DEPARTMENT OF PATHOLOGY AND [address] [place] [address] GENOMIC MEDICINE XR Chest 1 Vw Portable (11/26/2017 7:34 PM CDT) Narrative Performed At EXAMINATION:XR CHEST 1 VW PORTABLE [facility] CLINICAL HISTORY:Cough, Hypoxia COMPARISON:None IMPRESSION: There is a poor inspiratory effort.There is cardiomegaly and mild mediastinal widening.Pulmonary vessels are minimally prominent with only basilar atelectasis and no infiltrate. [facility]-[id number] Procedure Note Interface, Radiology Results Incoming - 11/26/2017 7:46 PM CDT EXAMINATION: XR CHEST 1 VW PORTABLE CLINICAL HISTORY: Cough, Hypoxia COMPARISON: None IMPRESSION: There is a poor inspiratory effort. There is cardiomegaly and mild mediastinal widening. Pulmonary vessels are minimally prominent with only basilar atelectasis and no infiltrate. [facility]-[id number] Performing Organization Address [facility] Phone Number [facility] [address] [place] [address] CT Abdomen Pelvis Wo Contrast (11/26/2017 1:07 PM CDT) Narrative Performed At EXAMINATION:CT ABDOMEN PELVIS WO CONTRAST [facility] CLINICAL HISTORY:Abd distension TECHNIQUE: Multiple axial images of the abdomen and pelvis were obtained without intravenous administration of iodinated contrast. Sagittal and coronal computerized reformatted images were also obtained. The lack of intravenous contrast reduces the sensitivity of detecting solid organ disease.. All CT images were acquired using low-dose technique with automated exposure control. COMPARISON: November 10, 2017 FINDINGS: Abdomen: 1.There are postsurgical changes involving the abdomen with superficial amber anteriorly and interval resection of a left retroperitoneal mass. 2.Air and fluid filled distention proximal to mid small bowel loops and gaseous distention of the stomach. Distal small bowel loops in the right abdomen are decompressed. Findings are concerning for a low-grade small bowel obstruction or partial obstruction. Large bowel loops are of normal caliber or relatively decompressed and therefore ileus is thought to be unlikely. 3.Mild wall thickening at the gastroduodenal junction may relate to mild inflammatory change. The appearance is unchanged relative to November 10, 2017.. 4.Limited images to the lung bases demonstrates cardiomegaly with small bilateral pleural effusions and patchy volume loss in the lung bases bilaterally. 5.There is mild to moderate degree mesenteric edema and subcutaneous edema with a small amount of intraperitoneal fluid. 6.No evidence for free intraperitoneal air. 7.Cholecystectomy. Kidneys appear normal. No hydronephrosis. Pancreas and adrenal glands are unremarkable. Pelvis: 1.Small focus of air within the bladder likely relates to recent instrumentation. 2.A pelvic mass or fluid collection is not identified. 3.Osseous structures are unchanged relative to prior. IMPRESSION: 1.Fluid and air filled distention of proximal to mid small bowel loops in addition to gaseous distention of the stomach. Positioning of an NG tube is satisfactory. The findings are likely related to low-grade small bowel obstruction or partial small bowel obstruction. Large bowel loops are of normal caliber. [facility]-[id number] Procedure Note [facility], Radiology Results - 11/26/2017 1:40 PM CDT EXAMINATION: CT ABDOMEN PELVIS WO CONTRAST CLINICAL HISTORY: Abd distension TECHNIQUE: Multiple axial images of the abdomen and pelvis were obtained without intravenous administration of iodinated contrast. Sagittal and coronal computerized reformatted images were also obtained. The lack of intravenous contrast reduces the sensitivity of detecting solid organ disease.. All CT images were acquired using low-dose technique with automated exposure control. COMPARISON: November 10, 2017 FINDINGS: Abdomen: 1. There are postsurgical changes involving the abdomen with superficial amber anteriorly and interval resection of a left retroperitoneal mass. 2. Air and fluid filled distention proximal to mid small bowel loops and gaseous distention of the stomach. Distal small bowel loops in the right abdomen are decompressed. Findings are concerning for a low-grade small bowel obstruction or partial obstruction. Large bowel loops are of normal caliber or relatively decompressed and therefore ileus is thought to be unlikely. 3. Mild wall thickening at the gastroduodenal junction may relate to mild inflammatory change. The appearance is unchanged relative to November 10, 2017.. 4. Limited images to the lung bases demonstrates cardiomegaly with small bilateral pleural effusions and patchy volume loss in the lung bases bilaterally. 5. There is mild to moderate degree mesenteric edema and subcutaneous edema with a small amount of intraperitoneal fluid. 6. No evidence for free intraperitoneal air. 7. Cholecystectomy. Kidneys appear normal. No hydronephrosis. Pancreas and adrenal glands are unremarkable. Pelvis: 1. Small focus of air within the bladder likely relates to recent instrumentation. 2. A pelvic mass or fluid collection is not identified. 3. Osseous structures are unchanged relative to prior. IMPRESSION: 1. Fluid and air filled distention of proximal to mid small bowel loops in addition to gaseous distention of the stomach. Positioning of an NG tube is satisfactory. The findings are likely related to low-grade small bowel obstruction or partial small bowel obstruction. Large bowel loops are of normal caliber. [facility]-[id number] Performing Organization Address City/[facility]/Zipcode Phone Number [facility] [address] [place] [address] XR Abdomen 1 Vw Portable (11/26/2017 10:05 AM CDT) Narrative Performed At EXAM:XR ABDOMEN 1 VW PORTABLE [facility] CLINICAL:nausea vomiting COMPARISON:None. IMPRESSION: 1.Dilated loops of small bowel in the midabdomen. Small air noted in the colon. Likely marked ileus versus small bowel obstruction. Recommend attention on follow-up. 2.Cholecystectomy. Surgical clips in the left abdomen and midline skin amber. 3.Degenerative changes in the spine most prominent in the lower lumbar levels. 4.Limited evaluation with hemidiaphragms incompletely imaged but no appreciable free air. [facility]-[id number] Procedure Note [facility], Radiology Results Incoming - 11/26/2017 10:28 AM CDT EXAM: XR ABDOMEN 1 VW PORTABLE CLINICAL: nausea vomiting COMPARISON: None. IMPRESSION: 1. Dilated loops of small bowel in the midabdomen. Small air noted in the colon. Likely marked ileus versus small bowel obstruction. Recommend attention on follow-up. 2. Cholecystectomy. Surgical clips in the left abdomen and midline skin amber. 3. Degenerative changes in the spine most prominent in the lower lumbar levels. 4. Limited evaluation with hemidiaphragms incompletely imaged but no appreciable free air. [facility]-[id number] Performing Organization Address City/[facility]/Zipcode Phone Number [facility] [address] [place] [address] Surgical pathology request (11/21/2017 1:16 PM CDT) [facility] DEPARTMENT OF PATHOLOGY AND GENOMIC MEDICINE Surgical pathology report See link below for PDF [facility] DEPARTMENT OF Lab Report PATHOLOGY AND GENOMIC MEDICINE Result status This is Final Report to [facility] DEPARTMENT OF [id number] PATHOLOGY AND GENOMIC MEDICINE Performing Organization Address City/State/Zipcode Phone Number [facility] DEPARTMENT OF PATHOLOGY AND [address] [place] [id number] [facility] [employer] ECG Pre/Post Op (11/12/2017 5:53 PM CDT) Ventricular rate 54 [facility] MUSE Atrial rate 54 [facility] MUSE W[place] interval 96 [facility] MUSE QRSD interval 104 [facility] MUSE QT interval 424 [facility] MUSE QTC interval 402 [facility] MUSE P axis 1 41 [facility] MUSE QRS axis 1 18 [facility] MUSE T wave axis 5 [facility] MUSE EKG impression Sinus bradycardia with short [place]-Moderate voltage criteria for LVH, may be normal variant-Inferior infarct , age undetermined-Anterolateral infarct , age undetermined-Abnormal ECG-No previous ECGs availa [facility] MUSE ble- Performing Organization Address City/[facility] Phone Number [facility] MUSE [address] [place] [address] Partial thromboplastin time, activated (11/12/2017 5:44 PM CDT) PTT 39.8 (H) 23.0 - 36.0 sec [facility] DEPARTMENT OF PATHOLOGY Comment: AND [employer] [facility] PTT therapeutic range for unfractionated heparin is 61.0-112.0 seconds which corresponds to Anti-Xa 0.3-0.7 U/ml. Specimen Blood Performing Organization Address City/[facility] Phone Number [facility] DEPARTMENT OF PATHOLOGY AND [address] [place] [phone] [facility] Prothrombin time with INR (11/12/2017 5:44 PM CDT) Prothrombin time 14.9 12.0 - 15.0 sec [facility] DEPARTMENT OF PATHOLOGY AND GENOMIC MEDICINE INR 1.2 [facility] DEPARTMENT OF Comment: PATHOLOGY AND GENOMIC The International Normalized Ratio (INR) is a therapeutic MEDICINE monitoring tool for patients who are stable on oral anticoagulant therapy. An INR of 2.0-3.0 is suggested for deep vein thrombosis/pulmonary embolism. Specimen Blood Performing Organization Address City/[facility]/Zipcode Phone Number [facility] DEPARTMENT OF PATHOLOGY AND [address] [place] [address] [employer] Prepare RBC (11/12/2017 5:44 PM CDT) Product name Red Blood Cells -1, [facility] DEPARTMENT OF Leukored PATHOLOGY AND GENOMIC MEDICINE Unit number [id number] [facility] DEPARTMENT OF PATHOLOGY AND GENOMIC MEDICINE Product code [id number] [facility] DEPARTMENT OF PATHOLOGY AND GENOMIC MEDICINE Dispense status Returned to BB not [facility] DEPARTMENT OF transfused PATHOLOGY AND GENOMIC MEDICINE Blood expiration date [facility] DEPARTMENT OF PATHOLOGY AND GENOMIC MEDICINE Blood type code 6200 [facility] DEPARTMENT OF PATHOLOGY AND GENOMIC MEDICINE Blood type A POSITIVE [facility] DEPARTMENT OF PATHOLOGY AND GENOMIC MEDICINE Product name Red Blood Cells -1, [facility] DEPARTMENT OF Leukored PATHOLOGY AND GENOMIC MEDICINE Unit number [id number] [facility] DEPARTMENT OF PATHOLOGY AND GENOMIC MEDICINE Product code [id number] [facility] DEPARTMENT OF PATHOLOGY AND GENOMIC MEDICINE Dispense status Returned to BB not [facility] DEPARTMENT OF transfused PATHOLOGY AND GENOMIC MEDICINE Blood expiration date [facility] DEPARTMENT OF PATHOLOGY AND GENOMIC MEDICINE Blood type code 6200 [facility] DEPARTMENT OF PATHOLOGY AND GENOMIC MEDICINE Blood type A POSITIVE [facility] DEPARTMENT OF PATHOLOGY AND GENOMIC MEDICINE Performing Organization Address City/State/Zipcode Phone Number [facility] DEPARTMENT OF PATHOLOGY AND [address] [place] [address] GENOMIC MEDICINE Type and screen (11/12/2017 5:44 PM CDT) ABO grouping A [facility] DEPARTMENT OF PATHOLOGY AND GENOMIC MEDICINE Rh type POS [facility] DEPARTMENT OF PATHOLOGY AND GENOMIC MEDICINE Antibody screen (gel) NEG [facility] DEPARTMENT OF PATHOLOGY AND GENOMIC MEDICINE Specimen Blood Performing Organization Address City/[facility] Phone Number [facility] DEPARTMENT OF PATHOLOGY AND [address] [place], [place] [phone] [facility] Hemoglobin A1c (11/12/2017 5:44 PM CDT) Hemoglobin A1C 4.7 4.0 - 5.6 % [facility] DEPARTMENT OF PATHOLOGY Comment: AND GENOMIC MEDICINE HbA1c cutoffs for diagnosing diabetes: 4.0% - 5.6%=normal 5.7% - 6.4%=increased risk for diabetes (prediabetes) >=6.5%=diabetes Goals for glycemic control (ADA 2016) < 7.0%Target for non adults with diabetes. More or less stringent targets may be appropriate for individual patients. <7.5% Target for Children and adolescents with type 1 diabetes. Specimen Blood Performing Organization Address City/State/Zipcode Phone Number [facility] DEPARTMENT OF PATHOLOGY AND [address] [place] [phone] [facility] [facility] Comprehensive metabolic panel (11/12/2017 5:44 PM CDT) Sodium 137 135 - 148 mEq/L [facility] DEPARTMENT OF PATHOLOGY AND GENOMIC MEDICINE Potassium 3.8 3.5 - 5.0 mEq/L [facility] DEPARTMENT OF PATHOLOGY AND GENOMIC MEDICINE Chloride 96 (L) 98 - 112 mEq/L [facility] DEPARTMENT OF PATHOLOGY AND GENOMIC MEDICINE CO2 31 24 - 31 mEq/L [facility] DEPARTMENT OF PATHOLOGY AND GENOMIC MEDICINE Anion gap 10@ANIO 7 - 15 mEq/L [facility] DEPARTMENT OF PATHOLOGY AND GENOMIC MEDICINE BUN 9 8 - 23 mg/dL [facility] DEPARTMENT OF PATHOLOGY AND GENOMIC MEDICINE Creatinine 0.6 0.5 - 0.9 mg/dL [facility] DEPARTMENT OF PATHOLOGY AND GENOMIC MEDICINE Glucose 78 65 - 99 mg/dL [facility] DEPARTMENT OF PATHOLOGY AND GENOMIC MEDICINE Calcium 8.9 8.8 - 10.2 mg/dL [facility] DEPARTMENT OF PATHOLOGY AND GENOMIC MEDICINE Protein 6.9 6.3 - 8.3 g/dL [facility] DEPARTMENT OF Comment: PATHOLOGY AND GENOMIC [place] 4.6-7.0 g/dL MEDICINE 1 week 4.4-7.6 g/dL 7 months-1year5.1-7.3 g/dL 1-2 years5.6-7.5 g/dL >3 years6.0-8.0 g/dL 18-150 6.3-8.3 g/dL Albumin 2.9 (L) 3.5 - 5.0 g/dL [facility] DEPARTMENT OF PATHOLOGY AND GENOMIC MEDICINE A/G ratio 0.7 0.7 - 3.8 [facility] DEPARTMENT OF PATHOLOGY AND GENOMIC MEDICINE Alkaline phosphatase 46 35 - 104 U/L [facility] DEPARTMENT OF PATHOLOGY AND GENOMIC MEDICINE AST 21 10 - 35 U/L [facility] DEPARTMENT OF PATHOLOGY AND GENOMIC MEDICINE ALT 16 5 - 50 U/L [facility] DEPARTMENT OF PATHOLOGY AND GENOMIC MEDICINE Total bilirubin 0.3 0.0 - 1.2 mg/dL [facility] DEPARTMENT OF PATHOLOGY AND GENOMIC MEDICINE Specimen Plasma specimen Performing Organization Address City/State/Zipcode Phone Number [facility] DEPARTMENT OF PATHOLOGY AND [address] [place] [address] [facility] CT Abd/Pelvic External Study (11/10/2017 7:29 AM CDT) Narrative Performed At This exam was not acquired at a [facility] facility and has not been [facility] interpreted by a [facility] Provider.The exam was imported into our imaging system for comparisons purposes. Performing Organization Address City/State/Zipcode Phone Number [facility] [address] [facility] [place] [address] after 04/16/2017 Insurance Payer Benefit Plan / Group Subscriber ID Type Phone Address MEDICARE MEDICARE PART A AND B xxxxxxxxxx Medicare [place], [place] A[place] AARP SUPPLEMENT xxxxxxxxxxx Commercial ([place]) [address] [place] [phone] Advance Directives Patient has advance care planning documents on file. For more information, please contact:Isael Espinoza[address] [place] [address]
--- NOTE | 2018-04-17 11:03 | RAD REPORT ---
EXAM DESCRIPTION: CT - Head C Spine Mpr Wo Con - 04/17/2018 10:36 am CLINICAL HISTORY: Head and neck injury status post fall. Head and neck pain COMPARISON: October 2017 TECHNIQUE: Computed axial tomography of the head and cervical spine was obtained. Sagittal and coronal reconstruction was performed. All CT scans are performed using dose optimization technique as appropriate and may include automated exposure control or mA/KV adjustment according to patient size. FINDINGS: A left parietal scalp hematoma is present without underlying skull fracture. An intracranial bleed is not seen. The ventricles are normal in caliber. An extra-axial fluid collect ion is not noted.Fluid within the visualized sinuses and mastoids is not seen A cervical fracture is not visualized. No dislocation is noted. Spondylosis involves the cervical spi ne. 26 millimeter nodule is present within the left lobe of the thyroid gland. In was visualized on a thy roid ultrasound August 2017 IMPRESSION: No acute intracranial abnormality is seen. A cervical fracture is not visualized. If the patient continues to have symptoms to suggest intracra nial /spinal cord pathology then MRI would be recommended
--- NOTE | 2018-04-17 11:57 | ER ---
Nurse's Notes [facility] Name: Lisa Camacho Age: 73 yrs Sex: Female : 1945 Arrival Date: 04/17/2018 Time: 10:10 Bed 2 Private MD: Diagnosis: Other slipping, tripping and stumbling and falls;Superficial injury of head;Scalp hematoma Presentation: 04/17 10:10 Presenting complaint: EMS states: FALL IN PARKING LOT. Transition of care: patient was bp not received from another setting of care. Onset of symptoms was April 17, 2018 at 09:30. Risk Assessment: Do you want to hurt yourself or someone else? Patient reports no desire to harm self or others. Initial Sepsis Screen: Does the patient meet any 2 criteria? No. Patient's initial sepsis screen is negative. Does the patient have a suspected source of infection? No. Patient's initial sepsis screen is negative. Care prior to arrival: BANDAGE. 10:10 Method Of Arrival: EMS: [facility] bp 10:10 Acuity: ERIKA 3 bp Triage Assessment: 10:12 General: Appears in no apparent distress. comfortable, Behavior is calm, cooperative, bp appropriate for age. Pain: Complains of pain in back of head. Historical: - Allergies: 10:12 PENICILLINS; bp - Home Meds: 10:12 carvedilol Oral [Active]; pravastatin Oral [Active]; bp - PMHx: 10:12 Hyperlipidemia; Hypertension; bp - Immunization history:: Adult Immunizations up to date, Last tetanus immunization: unknown. - Social history:: Smoking status: Patient/guardian denies using tobacco. - Ebola Screening: : Patient negative for fever greater than or equal to 101.5 degrees Fahrenheit, and additional compatible Ebola Virus Disease symptoms Patient denies exposure to infectious person Patient denies travel to an Ebola-affected area in the 21 days before illness onset No symptoms or risks identified at this time. Screenin:44 Abuse screen: Denies threats or abuse. Denies injuries from another. Nutritional bp screening: No deficits noted. Tuberculosis screening: No symptoms or risk factors identified. Fall Risk None identified. Assessment: 10:15 General: Appears in no apparent distress. comfortable, Behavior is calm, cooperative, bp appropriate for age. General: SEE TRIAGE NOTE. 73YO BF S/P FALL FROM STANDING, NO LOC, NOT ON BLOOD THINNERS. 12:27 Reassessment: D/C ON HOLD, SCALP LAC REBLEEDING. bp 13:46 Reassessment: BLEEDING CONTROLLED, NEW DRESSING IN PLACE. PT D/C HOME WITH FAMILY, DX bp WITH SCALP INJURY. Vital Signs: 10:12 BP 188 / 77; Pulse 53; Resp 16; Temp 98; Pulse Ox 100% ; Weight 72.57 kg; Height 5 ft. bp 3 in. (160.02 cm); 11:55 BP 190 / 78; Pulse 64; Resp 16; Pulse Ox 100% ; bp 13:47 BP 189 / 78; Pulse 51; Resp 16; Pulse Ox 98% ; bp 10:12 Body Mass Index 28.34 (72.57 kg, 160.02 cm) bp ED Course: 10:10 Patient arrived in ED. bp 10:11 Triage completed. bp 10:16 Arm band placed on. bp 10:27 Cheko Joshua MD is Attending Physician. kdr 10:36 CT completed. Patient tolerated procedure well. Patient moved to CT via stretcher. jg6 10:37 Head C Spine Mpr Wo Con In Process Unspecified. EDMS 10:43 Jeremi Francois, RN is Primary Nurse. bp 10:44 Patient has correct armband on for positive identification. Bed in low position. Call bp light in reach. Side rails up X2. 11:00 Wound care: to laceration located on back of head was cleaned with Hibiclens, Patient bp tolerated well. 11:54 Wound care: to laceration located on back of head was dressed with Neosporin. bp 13:47 No provider procedures requiring assistance completed. Patient did not have IV access bp during this emergency room visit. Administered Medications: No medications were administered Outcome: 11:56 Discharge ordered by . kdr 13:46 Discharged to home via wheelchair, with family. bp 13:46 Condition: stable 13:46 Discharge instructions given to patient, family, Instructed on discharge instructions, follow up and referral plans. medication usage, wound care, Demonstrated understanding of instructions, follow-up care, medications, wound care, Prescriptions given X 1. 13:52 Patient left the ED. bp Signatures: Dispatcher [employer] EDMS Cheko Joshua MD MD kdr Jeremi Francois, RN RN Marnie Brown jg6
--- NOTE | 2018-04-17 11:57 | EDPHYS ---
Physician Documentation [facility] Name: Lisa Camacho Age: 73 yrs Sex: Female : 1945 Arrival Date: 04/17/2018 Time: 10:10 Bed 2 Private MD: ED Physician Cheko Joshua HPI: 04/17 11:51 This 73 yrs old Black Female presents to ER via EMS with complaints of Fall Injury. kdr 11:51 Details of fall: The patient fell from an upright position, while walking. Onset: The kdr symptoms/episode began/occurred suddenly, just prior to arrival. Associated injuries: The patient sustained injury to the head, contusion, hematoma, laceration, pain, swelling, tenderness. Severity of symptoms: At their worst the symptoms were mild, in the emergency department the symptoms are unchanged. The patient has not experienced similar symptoms in the past. The patient has not recently seen a physician. The patient was walking up stairs and lost her balance and fell backwards down two steps. No LOC, no other injuries. Historical: - Allergies: 10:12 PENICILLINS; bp - Home Meds: 10:12 carvedilol Oral [Active]; pravastatin Oral [Active]; bp - PMHx: 10:12 Hyperlipidemia; Hypertension; bp - Immunization history:: Adult Immunizations up to date, Last tetanus immunization: unknown. - Social history:: Smoking status: Patient/guardian denies using tobacco. - Ebola Screening: : Patient negative for fever greater than or equal to 101.5 degrees Fahrenheit, and additional compatible Ebola Virus Disease symptoms Patient denies exposure to infectious person Patient denies travel to an Ebola-affected area in the 21 days before illness onset No symptoms or risks identified at this time. ROS: 11:51 Constitutional: Negative for fever, chills, and weight loss, Eyes: Negative for injury, kdr pain, redness, and discharge, ENT: Negative for injury, pain, and discharge, Neck: Negative for injury, pain, and swelling, Cardiovascular: Negative for chest pain, palpitations, and edema, Respiratory: Negative for shortness of breath, cough, wheezing, and pleuritic chest pain, Abdomen/GI: Negative for abdominal pain, nausea, vomiting, diarrhea, and constipation, Back: Negative for injury and pain, : Negative for injury, bleeding, discharge, and swelling, MS/Extremity: Negative for injury and deformity, Neuro: Negative for headache, weakness, numbness, tingling, and seizure activity. Psych: Negative for depression, anxiety, suicide ideation, homicidal ideation, and hallucinations, Allergy/Immunology: Negative for hives, rash, and allergies, Endocrine: Negative for neck swelling, polydipsia, polyuria, polyphagia, and marked weight changes, Hematologic/Lymphatic: Negative for swollen nodes, abnormal bleeding, and unusual bruising. 11:51 Skin: Positive for ecchymosis, hematoma, laceration(s), swelling, of the left parietal area and right parietal area. Exam: 11:51 Constitutional: This is a well developed, well nourished patient who is awake, alert, kdr and in no acute distress. Eyes: Pupils equal round and reactive to light, extra-ocular motions intact. Lids and lashes normal. Conjunctiva and sclera are non-icteric and not injected. Cornea within normal limits. Periorbital areas with no swelling, redness, or edema. ENT: Nares patent. No nasal discharge, no septal abnormalities noted. Tympanic membranes are normal and external auditory canals are clear. Oropharynx with no redness, swelling, or masses, exudates, or evidence of obstruction, uvula midline. Mucous membranes moist. Neck: Trachea midline, no thyromegaly or masses palpated, and no cervical lymphadenopathy. Supple, full range of motion without nuchal rigidity, or vertebral point tenderness. No Meningismus. Chest/axilla: Normal chest wall appearance and motion. Nontender with no deformity. No lesions are appreciated. Cardiovascular: Regular rate and rhythm with a normal S1 and S2. No gallops, murmurs, or rubs. Normal PMI, no JVD. No pulse deficits. Respiratory: Lungs have equal breath sounds bilaterally, clear to auscultation and percussion. No rales, rhonchi or wheezes noted. No increased work of breathing, no retractions or nasal flaring. Abdomen/GI: Soft, non-tender, with normal bowel sounds. No distension or tympany. No guarding or rebound. No evidence of tenderness throughout. Back: No spinal tenderness. No costovertebral tenderness. Full range of motion. Skin: Warm, dry with normal turgor. Normal color with no rashes, no lesions, and no evidence of cellulitis. MS/ Extremity: Pulses equal, no cyanosis. Neurovascular intact. Full, normal range of motion. Neuro: Awake and alert, GCS 15, oriented to person, place, time, and situation. Cranial nerves II-XII grossly intact. Motor strength 5/5 in all extremities. Sensory grossly intact. Cerebellar exam normal. Normal gait. Psych: Awake, alert, with orientation to person, place and time. Behavior, mood, and affect are within normal limits. 11:51 Head/face: Noted is abrasion(s), that are mild, of the left side of the back of head and left occipital area, contusion, hematoma, swelling, of the left side of the back of head and left occipital area, tenderness. Vital Signs: 10:12 BP 188 / 77; Pulse 53; Resp 16; Temp 98; Pulse Ox 100% ; Weight 72.57 kg; Height 5 ft. bp 3 in. (160.02 cm); 11:55 BP 190 / 78; Pulse 64; Resp 16; Pulse Ox 100% ; bp 13:47 BP 189 / 78; Pulse 51; Resp 16; Pulse Ox 98% ; bp 10:12 Body Mass Index 28.34 (72.57 kg, 160.02 cm) bp MDM: 11:51 Data reviewed: vital signs, nurses notes, radiologic studies. Counseling: I had a kdr detailed discussion with the patient and/or guardian regarding: the historical points, exam findings, and any diagnostic results supporting the discharge/admit diagnosis, radiology results, the need for outpatient follow up. 11:56 Patient medically screened. [facility] 04/17 10:37 Order name: Head C Spine Mpr Wo Con; Complete Time: 11:51 EDMS Administered Medications: No medications were administered Disposition: 04/17/18 11:56 Discharged to Home. Impression: Other slipping, tripping and stumbling and falls, Superficial injury of head, Scalp hematoma. - Condition is Stable. - Discharge Instructions: Hematoma, Acaw-[id number], Head Injury, Adult, Jiru-ef-Rgyn, Facial or Scalp Contusion, [id number]-ci-[id number]. - Prescriptions for Clindamycin HCl 150 mg Oral Capsule - take 1 capsule by ORAL route every 6 hours for 3 days; 12 capsule. - Medication Reconciliation Form, Thank You Letter, Antibiotic Education form. - Follow up: Private Physician; When: 2 - 3 days; Reason: If symptoms return, Further diagnostic work-up, Recheck today's complaints, Continuance of care, Re-evaluation by your physician. - Problem is new. - Symptoms have improved. Signatures: Dispatcher [employer] [facility] Cheko Joshua MD MD kdr Jeremi Francois, RN RN bp Corrections: (The following items were deleted from the chart) 10:37 10:17 Head Brain Wo Cont+CT.RAD.BRZ ordered. [facility] 13:52 11:56 04/17/2018 11:56 Discharged to Home. Impression: Other slipping, tripping and bp stumbling and falls; Superficial injury of head; Scalp hematoma. Condition is Stable. Forms are Medication Reconciliation Form, Thank You Letter, Antibiotic Education, Prescription Opioid Use. Follow up: Private Physician; When: 2 - 3 days; Reason: If symptoms return, Further diagnostic work-up, Recheck today's complaints, Continuance of care, Re-evaluation by your physician. Problem is new. Symptoms have improved. kdr
== END 2018-04-17 13:52 | disposition home or self-care (01) ==
LOC: ER 10:07
DX: S00.03XA Contusion of scalp, initial encounter (principal); W10.8XXA Fall (on) (from) other stairs and steps, initial encounter; Y93.01 Activity, walking, marching and hiking; Y92.9 Unspecified place or not applicable; Z88.0 Allergy status to penicillin; I10 Essential (primary) hypertension; E78.5 Hyperlipidemia, unspecified
CPT/HCPCS: 70450; 72125; 99284

== ENCOUNTER 2018-08-20 12:58 | Emergency (ER) | payer OTHER, MEDICARE ==
--- NOTE | 2018-08-20 14:20 | RAD REPORT ---
EXAM DESCRIPTION: CT - Head Brain Wo Cont - 08/20/2018 2:11 pm CLINICAL HISTORY: HEADACHE COMPARISON: Head Brain Wo Cont dated 10/28/2017; Sinus Wo Cont dated 10/23/2016 TECHNIQUE: All CT scans are performed using dose optimization technique as appropriate and may inclu de automated exposure control or mA/KV adjustment according to patient size. FINDINGS: No intracranial hemorrhage, hydrocephalus or extra-axial fluid collection. Mild generalize d brain atrophy is present with mild periventricular and deep white matter chronic microvascular isch emic changes. No areas of brain edema or evidence of midline shift. Right ethmoid air cells are opacified. The paranasal sinuses and mastoids otherwise clear. The calvar ium is intact. IMPRESSION: No acute intracranial abnormality. Right ethmoid air cell opacification, chronic.
--- NOTE | 2018-08-20 15:12 | ER ---
Nurse's Notes [facility] Name: Lisa Camacho Age: 73 yrs Sex: Female : 1945 Arrival Date: 08/20/2018 Time: 13:01 Bed 26 Private MD: Kathleen Phelan F Diagnosis: Headache Presentation: 08/20 13:05 Presenting complaint: Patient states: headache to back of head that began this morning, aa5 denies nausea/denies vomiting. Transition of care: patient was not received from another setting of care. Onset of symptoms was August 20, 2018. Risk Assessment: Do you want to hurt yourself or someone else? Patient reports no desire to harm self or others. Initial Sepsis Screen: Does the patient meet any 2 criteria? No. Patient's initial sepsis screen is negative. Does the patient have a suspected source of infection? No. Patient's initial sepsis screen is negative. Care prior to arrival: None. 13:05 Method Of Arrival: Ambulatory aa5 13:05 Acuity: ERIKA 3 aa5 Triage Assessment: 15:15 Headache History: Denies prior headaches. General: Appears in no apparent distress. rv comfortable, Behavior is calm, cooperative. Pain: Pain Pain began today Also complains of no other associated symptoms. Historical: - Allergies: 13:06 PENICILLINS; aa5 - Home Meds: 15:10 escitalopram oxalate 10 mg oral tab 1 tab once daily [Active]; tramadol 50 mg Oral tab rv 1 tab as needed [Active]; carvedilol 3.125 mg oral tab .5 tab 2 times per day [Active]; donepezil 5 mg oral tab 1 tab once daily [Active]; losartan-hydrochlorothiazide 100-12.5 mg oral tab 1 tab once daily [Active]; aspirin 81 mg Oral chew 1 tab once daily [Active]; atorvastatin 10 mg oral tab 1 tab once daily [Active]; ampicillin 500 mg Oral cap 1 cap every 6 hours [Active]; folic acid 1 mg Oral tab 1 tab once daily [Active]; memantine 5 mg oral tab 1 tabs daily [Active]; Vitamin D Oral 2000 unit [Active]; - PMHx: 13:06 Hyperlipidemia; Hypertension; aa5 - PSHx: 15:10 Unable to obtain; rv - Immunization history:: Flu vaccine is up to date. - Social history:: Smoking status: Patient/guardian denies using tobacco. - Ebola Screening: : No symptoms or risks identified at this time. - Family history:: not pertinent. - Hospitalizations: : No recent hospitalization is reported. Screenin:15 Abuse screen: Denies threats or abuse. Denies injuries from another. Nutritional rv screening: No deficits noted. Tuberculosis screening: No symptoms or risk factors identified. Fall Risk None identified. Assessment: 15:14 General: Appears in no apparent distress. comfortable, Behavior is calm, cooperative. rv Pain: Complains of pain in top of head. Neuro: Level of Consciousness is awake, alert, obeys commands, Oriented to person, place, time, situation. Cardiovascular: Capillary refill < 3 seconds. Respiratory: Airway is patent. GI: No signs and/or symptoms were reported involving the gastrointestinal system. : No signs and/or symptoms were reported regarding the genitourinary system. EENT: No signs and/or symptoms were reported regarding the EENT system. Derm: Skin is intact. Musculoskeletal: No signs and/or symptoms reported regarding the musculoskeletal system. Vital Signs: 13:06 BP 166 / 76; Pulse 54; Resp 18 S; Temp 99.0(O); Pulse Ox 96% on R/A; Weight 79.38 kg aa5 (R); Height 5 ft. 3 in. (160.02 cm) (R); Pain 5/10; 13:06 Body Mass Index 31.00 (79.38 kg, 160.02 cm) aa5 Stephanie Coma Score: 15:07 Eye Response: spontaneous(4). Verbal Response: oriented(5). Motor Response: obeys rn commands(6). Total: 15. ED Course: 13:01 Patient arrived in ED. mr 13:01 Quincy Cabrera MD is Private Physician. mr 13:01 Kathleen Phelan MD is Private Physician. mr 13:05 Arm band placed on. aa5 13:06 Triage completed. aa5 14:08 CT completed. Patient tolerated procedure well. Patient moved to CT via wheelchair. [id number] Patient taken to lobby, Patient moved back from CT. 14:11 CT Head Brain wo Cont In Process Unspecified. EDMS 14:55 Kirill Castaneda MD is Attending Physician. rn 15:15 Patient has correct armband on for positive identification. Bed in low position. Call rv light in reach. Side rails up X 1. Pulse ox on. NIBP on. 15:16 No provider procedures requiring assistance completed. Patient did not have IV access rv during this emergency room visit. Administered Medications: No medications were administered Outcome: 15:12 Discharge ordered by . rn 15:16 Discharged to home ambulatory. rv 15:16 Condition: good 15:16 Discharge instructions given to patient, family, Instructed on discharge instructions, follow up and referral plans. Demonstrated understanding of instructions, follow-up care. 16:01 Patient left the ED. rv Signatures: Dispatcher [employer] EDSD Sneha Del Cid Roman, MD MD rn Calderon, Audri, RN RN aa5 ySed Chau RN RN Marnie [id number]
--- NOTE | 2018-08-20 15:12 | EDPHYS ---
Physician Documentation [facility] Name: Lisa Camacho Age: 73 yrs Sex: Female : 1945 Arrival Date: 08/20/2018 Time: 13:01 Bed 26 Private MD: Kathleen Phelan F ED Physician Kirill Castaneda HPI: 08/20 15:07 This 73 yrs old Black Female presents to ER via Ambulatory with complaints of Headache. rn 15:07 The patient complains of pain to the top of head. The patient describes the headache as rn aching. Onset: The symptoms/episode began/occurred 3 week(s) ago. Associated signs and symptoms: Pertinent negatives: altered mental status, fever, neck stiffness, vision changes, vision loss, vomiting, weakness, vertigo. The symptoms are alleviated by nothing. the symptoms are aggravated by nothing. The patient has experienced similar episodes in the past. Reports fell and hit head 3 weeks ago, normal ct head at that time, since then has been having headaches, told to get repeat CT head, lost her order, went back for another order, told to come to ER. Reports intermittent dizziness and feels like has urinary infection, is actually being treated for UTI by pcp. . Historical: - Allergies: 13:06 PENICILLINS; aa5 - Home Meds: 15:10 escitalopram oxalate 10 mg oral tab 1 tab once daily [Active]; tramadol 50 mg Oral tab rv 1 tab as needed [Active]; carvedilol 3.125 mg oral tab .5 tab 2 times per day [Active]; donepezil 5 mg oral tab 1 tab once daily [Active]; losartan-hydrochlorothiazide 100-12.5 mg oral tab 1 tab once daily [Active]; aspirin 81 mg Oral chew 1 tab once daily [Active]; atorvastatin 10 mg oral tab 1 tab once daily [Active]; ampicillin 500 mg Oral cap 1 cap every 6 hours [Active]; folic acid 1 mg Oral tab 1 tab once daily [Active]; memantine 5 mg oral tab 1 tabs daily [Active]; Vitamin D Oral 2000 unit [Active]; - PMHx: 13:06 Hyperlipidemia; Hypertension; aa5 - PSHx: 15:10 Unable to obtain; rv - Immunization history:: Flu vaccine is up to date. - Social history:: Smoking status: Patient/guardian denies using tobacco. - Ebola Screening: : No symptoms or risks identified at this time. - Family history:: not pertinent. - Hospitalizations: : No recent hospitalization is reported. ROS: 15:07 Constitutional: Negative for fever, chills, and weight loss, Eyes: Negative for injury, rn pain, redness, and discharge, Neck: Negative for injury, pain, and swelling, Cardiovascular: Negative for chest pain, palpitations, and edema, Respiratory: Negative for shortness of breath, cough, wheezing, and pleuritic chest pain, Abdomen/GI: Negative for abdominal pain, nausea, vomiting, diarrhea, and constipation, MS/Extremity: Negative for injury and deformity, Skin: Negative for injury, rash, and discoloration, Neuro: + headache, negative for weakness/seizure Exam: 15:07 Constitutional: This is a well developed, well nourished patient who is awake, alert, rn and in no acute distress. Head/Face: Normocephalic, atraumatic. Eyes: Pupils equal round and reactive to light, extra-ocular motions intact. Lids and lashes normal. Conjunctiva and sclera are non-icteric and not injected. Cornea within normal limits. Periorbital areas with no swelling, redness, or edema. Cardiovascular: Regular rate and rhythm, No pulse deficits. Respiratory: Lungs have equal breath sounds bilaterally, clear to auscultation Skin: Warm, dry with normal turgor. Normal color with no rashes, no lesions, and no evidence of cellulitis. MS/ Extremity: Pulses equal, no cyanosis. Neurovascular intact. Full, normal range of motion. Equal circumference. Neuro: Awake and alert, GCS 15, oriented to person, place, time, and situation. Cranial nerves II-XII grossly intact. Motor strength 5/5 in all extremities. Sensory grossly intact. Cerebellar exam normal. Vital Signs: 13:06 BP 166 / 76; Pulse 54; Resp 18 S; Temp 99.0(O); Pulse Ox 96% on R/A; Weight 79.38 kg aa5 (R); Height 5 ft. 3 in. (160.02 cm) (R); Pain 5/10; 13:06 Body Mass Index 31.00 (79.38 kg, 160.02 cm) aa5 Stephanie Coma Score: 15:07 Eye Response: spontaneous(4). Verbal Response: oriented(5). Motor Response: obeys rn commands(6). Total: 15. MDM: 14:55 Patient medically screened. rn 15:07 Differential diagnosis: hypertensive headache, migraine, tension headache, vasomotor rn headache. Data reviewed: vital signs, nurses notes, radiologic studies, CT scan, and as a result, I will discharge patient. Counseling: I had a detailed discussion with the patient and/or guardian regarding: the historical points, exam findings, and any diagnostic results supporting the discharge/admit diagnosis, radiology results, the need for outpatient follow up, to return to the emergency department if symptoms worsen or persist or if there are any questions or concerns that arise at home. Special discussion: I discussed with the patient/guardian in detail that at this point there is no indication for admission to the hospital. It is understood, however, that if the symptoms persist or worsen the patient needs to return immediately for re-evaluation. Based on the history and exam findings, there is no indication for further emergent testing or inpatient evaluation. I discussed with the patient/guardian the need to see the primary care provider for further evaluation of the symptoms. ED course: Normal ct head, already being treated for UTI by PCP, on abx, recommended f/u with pcp for medication reconciliation and evaluation if continues. . 08/20 13:57 Order name: CT Head Brain wo Cont; Complete Time: 14:56 aa5 Administered Medications: No medications were administered Disposition: 08/20/18 15:12 Discharged to Home. Impression: Headache. - Condition is Stable. - Discharge Instructions: General Headache Without Cause, Hypertension. - Medication Reconciliation Form, Thank You Letter, Antibiotic Education, Prescription Opioid Use form. - Follow up: Private Physician; When: As needed; Reason: Recheck today's complaints, Re-evaluation by your physician. - Problem is an ongoing problem. - Symptoms are unchanged. Signatures: Dispatcher [employer] EDMS Kirill Castaneda MD MD rn Calderon, Audri, RN RN aa5 Syed Chau RN RN rv Corrections: (The following items were deleted from the chart) 16:01 15:12 08/20/2018 15:12 Discharged to Home. Impression: Headache. Condition is Stable. rv Forms are Medication Reconciliation Form, Thank You Letter, Antibiotic Education, Prescription Opioid Use. Follow up: Private Physician; When: As needed; Reason: Recheck today's complaints, Re-evaluation by your physician. Problem is an ongoing problem. Symptoms are unchanged. rn
--- OUTSIDE RECORDS SUMMARY | 2018-08-20 16:05 | XMS REPORT | Clinical Summary ---
:1945 Author Organization [facility] Address [address] [place] [address] Care Team Providers Name Role Phone Asked, [...] MD Matteo abdominal mass (Primary Dx) after 08/19/2017 Social History Tobacco Use Types Packs/Day Years [...] CANCER SCREENING 1995 COLON CANCER SCREENING 1995 SHINGLES VACCINES (#1) 1995 65+ PNEUMOCOCCAL VACCINE (1 of 2 - PCV13) 2010 PNEUMOCOCCAL POLYSACCHARIDE VACCINE AGE 65 AND OVER 2010 INFLUENZA VACCINE 12/18/2018 Procedures Procedure Name Priority Date/Time Associated Comments [...] CDT procedure are in the results section. [place] AN ELECTIVE Routine 11/21/2017 8:34 [address]WAY [...] procedure are in the results section. after 08/19/2017 Results Estimated GFR (11/29/2017 4:00 AM CDT)Only the most recent of9 resultswithin the time period is included. GFR Non Af Amer >90 mL/min/1.73 m2 [facility] DEPARTMENT OF PATHOLOGY AND GENOMIC MEDICINE GFR Af Amer >90 mL/min/1.73 m2 [facility] DEPARTMENT OF Comment: PATHOLOGY AND GENOMIC Chronic [...] Americans. Specimen Plasma specimen Performing Organization Address City/[facility]/Zipcode Phone Number [facility] DEPARTMENT OF PATHOLOGY AND [address] [place] [address] GENOMIC MEDICINE CBC with platelet and differential (11/29/2017 4:00 AM CDT)Only the most recent of8 resultswithin the time period is included. WBC 7.38 4.50 - 11.00 k/uL [facility] DEPARTMENT OF PATHOLOGY AND GENOMIC MEDICINE RBC 2.90 (L) 4.20 - 5.50 m/uL [facility] DEPARTMENT OF PATHOLOGY AND GENOMIC MEDICINE HGB 9.5 (L)Comment: 12.0 - 16.0 g/dL [facility] DEPARTMENT OF Results [facility] PATHOLOGY AND GENOMIC checked. MEDICINE HCT 29.3 (L) 37.0 - 47.0 % [facility] DEPARTMENT OF PATHOLOGY AND GENOMIC MEDICINE MCV 101.0 (H) 82.0 - 100.0 fL [facility] DEPARTMENT OF PATHOLOGY AND GENOMIC MEDICINE MCH 32.8 27.0 - 34.0 pg [facility] DEPARTMENT OF PATHOLOGY AND GENOMIC MEDICINE MCHC 32.4 31.0 - 37.0 g/dL [facility] DEPARTMENT OF PATHOLOGY AND GENOMIC MEDICINE RDW - SD 50.6 37.0 - 55.0 fL [facility] DEPARTMENT OF PATHOLOGY AND GENOMIC MEDICINE MPV 11.6 8.8 - 13.2 fL [facility] DEPARTMENT OF PATHOLOGY AND GENOMIC MEDICINE Platelet count 226 150 - 400 k/uL [facility] DEPARTMENT OF PATHOLOGY AND GENOMIC MEDICINE Nucleated RBC 0.00 /100 WBC [facility] DEPARTMENT OF PATHOLOGY AND GENOMIC MEDICINE Neutrophils 56.2 39.0 - 69.0 % [facility] DEPARTMENT OF PATHOLOGY AND GENOMIC MEDICINE Lymphocytes 24.1 (L) 25.0 - 45.0 % [facility] DEPARTMENT OF PATHOLOGY AND GENOMIC MEDICINE Monocytes 9.6 0.0 - 10.0 % [facility] DEPARTMENT OF PATHOLOGY AND GENOMIC MEDICINE Eosinophils 9.2 (H) 0.0 - 5.0 % [facility] DEPARTMENT OF PATHOLOGY AND GENOMIC MEDICINE Basophils 0.4 0.0 - 1.0 % [facility] DEPARTMENT OF PATHOLOGY AND GENOMIC MEDICINE Immature granulocytes 0.5Comment: "Immature 0.0 - 1.0 % [facility] DEPARTMENT OF granulocytes" PATHOLOGY AND GENOMIC (promyelocytes, MEDICINE myelocytes, metamyelocytes) Specimen Blood Performing Organization Address City/State/Zipcode Phone Number [facility] DEPARTMENT OF PATHOLOGY AND [address] [place] [address] GENOMIC [facility] Phosphorus level (11/29/2017 4:00 AM CDT)Only the most recent of7 resultswithin the time period is included. Phosphorus 2.8 2.4 - 4.5 mg/dL [facility] DEPARTMENT OF PATHOLOGY AND GENOMIC MEDICINE Specimen Plasma specimen Performing Organization Address [facility] [place] Phone Number [facility] DEPARTMENT OF PATHOLOGY AND [address] [place] [address] Magnesium level (11/29/2017 4:00 AM CDT)Only the most recent of7 resultswithin the time period is included. Magnesium 1.9 1.6 - 2.4 mg/dL [facility] DEPARTMENT OF PATHOLOGY AND GENOMIC MEDICINE Specimen Plasma specimen Performing Organization Address [facility] [place] Phone Number [facility] DEPARTMENT OF PATHOLOGY AND [address] [place] [address] Basic metabolic panel (11/29/2017 4:00 AM CDT)Only the most recent of8 resultswithin the time period is included. Sodium 140 135 - 148 mEq/L [facility] DEPARTMENT OF PATHOLOGY AND GENOMIC MEDICINE Potassium 3.6 3.5 - 5.0 mEq/L [facility] DEPARTMENT OF PATHOLOGY AND GENOMIC MEDICINE Chloride 103 98 - 112 mEq/L [facility] DEPARTMENT OF PATHOLOGY AND GENOMIC MEDICINE CO2 29 24 - 31 mEq/L [facility] DEPARTMENT OF PATHOLOGY AND GENOMIC MEDICINE Anion gap 8@ANIO 7 - 15 mEq/L [facility] DEPARTMENT OF PATHOLOGY AND GENOMIC MEDICINE BUN 3 (L) 8 - 23 mg/dL [facility] DEPARTMENT OF PATHOLOGY AND GENOMIC MEDICINE Creatinine 0.6 0.5 - 0.9 mg/dL [facility] DEPARTMENT OF PATHOLOGY AND GENOMIC MEDICINE Glucose 92 65 - 99 mg/dL [facility] DEPARTMENT OF PATHOLOGY AND GENOMIC MEDICINE Calcium 8.3 (L) 8.8 - 10.2 mg/dL [facility] DEPARTMENT OF PATHOLOGY AND GENOMIC MEDICINE Specimen Plasma specimen Performing Organization Address [facility] [place] Phone Number [facility] DEPARTMENT OF PATHOLOGY AND [address] [place] [address] Lactic acid level (11/27/2017 6:56 AM CDT)Only the most recent of3 resultswithin the time period is included. Lactic acid 1.5 0.5 - 2.2 mmol/L [facility] DEPARTMENT OF PATHOLOGY AND GENOMIC MEDICINE Specimen Blood Performing Organization Address City/[facility]ode Phone Number [facility] DEPARTMENT OF PATHOLOGY AND [address] [place] [address] GENOMIC MEDICINE XR Chest 1 Vw Portable (11/26/2017 7:34 PM CDT) Narrative Performed At EXAMINATION:XR CHEST 1 VW PORTABLE [facility] CLINICAL HISTORY:Cough, Hypoxia COMPARISON:None IMPRESSION: There is a poor inspiratory effort.There is cardiomegaly and mild mediastinal widening.Pulmonary vessels are minimally prominent with only basilar atelectasis and no infiltrate. [facility]-[id number] Procedure Note Hm Interface, Radiology Results Incoming - 11/26/2017 7:46 PM CDT EXAMINATION: XR CHEST 1 VW PORTABLE CLINICAL HISTORY: Cough, Hypoxia COMPARISON: None IMPRESSION: There is a poor inspiratory effort. There is cardiomegaly and mild mediastinal widening. Pulmonary vessels are minimally prominent with only basilar atelectasis and no infiltrate. [facility]-[id number] Performing Organization Address [facility] Centercoid Phone Number [facility] [address] [place] [address] CT Abdomen Pelvis Wo Contrast (11/26/2017 1:07 [...] Large bowel loops are of normal caliber. [facility]-[id number] Procedure Note [facility], Radiology Results - 11/26/2017 1:40 PM CDT [...] Large bowel loops are of normal caliber. [facility]-[id number] Performing Organization Address City/[facility]/Zipcode Phone Number [facility] [address] [place] [address] XR Abdomen 1 Vw Portable (11/26/2017 10:05 [...] incompletely imaged but no appreciable free air. [facility]-[id number] Procedure Note [facility], Radiology Results Incoming - 11/26/2017 10:28 AM [...] incompletely imaged but no appreciable free air. [facility]-[id number] Performing Organization Address City/State/Zipcode Phone Number [facility] [address] [place] [address] Surgical pathology request (11/21/2017 1:16 PM CDT) [facility] DEPARTMENT OF PATHOLOGY AND GENOMIC MEDICINE Surgical pathology report See link below for PDF [facility] DEPARTMENT OF Lab Report PATHOLOGY AND GENOMIC MEDICINE Result status This is Final Report to [facility] DEPARTMENT OF [id number] PATHOLOGY AND GENOMIC MEDICINE Performing Organization Address City/State/Zipcode Phone Number [facility] DEPARTMENT OF PATHOLOGY AND [address] [place] [address] [facility] [employer] ECG Pre/Post Op (11/12/2017 5:53 PM CDT) Ventricular rate 54 [facility] MUSE Atrial rate 54 [facility] MUSE [place] interval 96 [facility] MUSE QRSD interval 104 [facility] MUSE QT interval 424 [facility] MUSE QTC interval 402 [facility] MUSE P axis 1 41 [facility] MUSE QRS axis 1 18 [facility] MUSE T wave axis 5 [facility] MUSE EKG impression Sinus bradycardia with short [place]-Moderate voltage criteria for LVH, may be normal variant-Inferior infarct , age undetermined-Anterolateral infarct , age undetermined-Abnormal ECG-No previous ECGs availa [facility] MUSE ble- Performing Organization Address City/[facility] Centercode Phone Number [facility] MUSE [address] [place] [address] Partial thromboplastin time, activated (11/12/2017 5:44 PM CDT) PTT 39.8 (H) 23.0 - 36.0 sec [facility] DEPARTMENT OF PATHOLOGY Comment: AND GENOMIC MEDICINE PTT therapeutic range for unfractionated heparin is 61.0-112.0 seconds which corresponds to Anti-Xa 0.3-0.7 U/ml. Specimen Blood Performing Organization Address City/[facility] Centercode Phone Number [facility] DEPARTMENT OF PATHOLOGY AND [address] [place] [address] [facility] Prothrombin time with INR (11/12/2017 5:44 PM CDT) Prothrombin time 14.9 12.0 - 15.0 sec [facility] DEPARTMENT OF PATHOLOGY AND GENOMIC MEDICINE INR 1.2 [facility] DEPARTMENT OF Comment: PATHOLOGY AND GENOMIC The International Normalized Ratio (INR) is a therapeutic MEDICINE monitoring tool for patients who are stable on oral anticoagulant therapy. An INR of 2.0-3.0 is suggested for deep vein thrombosis/pulmonary embolism. Specimen Blood Performing Organization Address City/[facility]/Zipcode Phone Number [facility] DEPARTMENT OF PATHOLOGY AND [address] [place] [address] [employer] Prepare RBC (11/12/2017 5:44 PM CDT) Product name Red Blood Cells -1, [facility] DEPARTMENT OF Leukored PATHOLOGY AND GENOMIC MEDICINE Unit number [id number] [facility] DEPARTMENT OF PATHOLOGY AND GENOMIC MEDICINE Product code [id number] [facility] DEPARTMENT OF PATHOLOGY AND GENOMIC MEDICINE Dispense status Returned to BB not [facility] DEPARTMENT OF transfused PATHOLOGY AND GENOMIC MEDICINE Blood expiration date [facility] DEPARTMENT OF PATHOLOGY AND GENOMIC MEDICINE Blood type code 6200 [facility] DEPARTMENT OF PATHOLOGY AND GENOMIC MEDICINE Blood type A POSITIVE [facility] DEPARTMENT OF PATHOLOGY AND GENOMIC MEDICINE Product name Red Blood Cells -1, [facility] DEPARTMENT OF Leukored PATHOLOGY AND GENOMIC MEDICINE Unit number [id number] [facility] DEPARTMENT OF PATHOLOGY AND GENOMIC MEDICINE Product code [id number] [facility] DEPARTMENT OF PATHOLOGY AND GENOMIC MEDICINE Dispense status Returned to BB not [facility] DEPARTMENT OF transfused PATHOLOGY AND GENOMIC MEDICINE Blood expiration date [facility] DEPARTMENT OF PATHOLOGY AND GENOMIC MEDICINE Blood type code 6200 [facility] DEPARTMENT OF PATHOLOGY AND GENOMIC MEDICINE Blood type A POSITIVE [facility] DEPARTMENT OF PATHOLOGY AND GENOMIC MEDICINE Performing Organization Address City/State/Zipcode Phone Number [facility] DEPARTMENT OF PATHOLOGY AND [address] [place] [address] GENOMIC MEDICINE Type and screen (11/12/2017 5:44 PM CDT) ABO grouping A [facility] DEPARTMENT OF PATHOLOGY AND GENOMIC MEDICINE Rh type POS [facility] DEPARTMENT OF PATHOLOGY AND GENOMIC MEDICINE Antibody screen (gel) NEG [facility] DEPARTMENT OF PATHOLOGY AND GENOMIC MEDICINE Specimen Blood Performing Organization Address City/[facility]ercode Phone Number [facility] DEPARTMENT OF PATHOLOGY AND [address] [place], [place] [id number] [facility] Hemoglobin A1c (11/12/2017 5:44 PM CDT) Hemoglobin A1C 4.7 4.0 - 5.6 % [facility] DEPARTMENT OF PATHOLOGY Comment: AND GENOMIC MEDICINE [...] Blood Performing Organization Address City/State/Zipcode Phone Number [facility] DEPARTMENT OF PATHOLOGY AND [address] [place] [address] [employer] MEDICINE Comprehensive metabolic panel (11/12/2017 5:44 PM CDT) Sodium 137 135 - 148 mEq/L [facility] DEPARTMENT OF PATHOLOGY AND GENOMIC MEDICINE Potassium 3.8 3.5 - 5.0 mEq/L [facility] DEPARTMENT OF PATHOLOGY AND GENOMIC MEDICINE Chloride 96 (L) 98 - 112 mEq/L [facility] DEPARTMENT OF PATHOLOGY AND GENOMIC MEDICINE CO2 31 24 - 31 mEq/L [facility] DEPARTMENT OF PATHOLOGY AND GENOMIC MEDICINE Anion gap 10@ANIO 7 - 15 mEq/L [facility] DEPARTMENT OF PATHOLOGY AND GENOMIC MEDICINE BUN 9 8 - 23 mg/dL [facility] DEPARTMENT OF PATHOLOGY AND GENOMIC MEDICINE Creatinine 0.6 0.5 - 0.9 mg/dL [facility] DEPARTMENT OF PATHOLOGY AND GENOMIC MEDICINE Glucose 78 65 - 99 mg/dL [facility] DEPARTMENT OF PATHOLOGY AND GENOMIC MEDICINE Calcium 8.9 8.8 - 10.2 mg/dL [facility] DEPARTMENT OF PATHOLOGY AND GENOMIC MEDICINE Protein 6.9 6.3 - 8.3 g/dL [facility] DEPARTMENT OF Comment: PATHOLOGY AND GENOMIC [place] 4.6-7.0 g/dL MEDICINE 1 week 4.4-7.6 g/dL 7 months-1year5.1-7.3 g/dL 1-2 years5.6-7.5 g/dL >3 years6.0-8.0 g/dL 18-150 6.3-8.3 g/dL Albumin 2.9 (L) 3.5 - 5.0 g/dL [facility] DEPARTMENT OF PATHOLOGY AND GENOMIC MEDICINE A/G ratio 0.7 0.7 - 3.8 [facility] DEPARTMENT OF PATHOLOGY AND GENOMIC MEDICINE Alkaline phosphatase 46 35 - 104 U/L [facility] DEPARTMENT OF PATHOLOGY AND GENOMIC MEDICINE AST 21 10 - 35 U/L [facility] DEPARTMENT OF PATHOLOGY AND GENOMIC MEDICINE ALT 16 5 - 50 U/L [facility] DEPARTMENT OF PATHOLOGY AND GENOMIC MEDICINE Total bilirubin 0.3 0.0 - 1.2 mg/dL [facility] DEPARTMENT OF PATHOLOGY AND GENOMIC MEDICINE Specimen Plasma specimen Performing Organization Address City/State/Zipcode Phone Number [facility] DEPARTMENT OF PATHOLOGY AND [address] [place] [address] [facility] CT Abd/Pelvic External Study (11/10/2017 7:29 AM CDT) Narrative Performed At This exam was not acquired at a [facility] facility and has not been [facility] interpreted by a [employer] Provider.The exam was imported into our imaging system for comparisons purposes. Performing Organization Address City/State/Zipcode Phone Number [facility] [address] [place] [address] after 08/19/2017 Insurance Payer Benefit Plan / Group Subscriber ID Type Phone Address MEDICARE MEDICARE PART A AND B xxxxxxxxxx Medicare [place], [place] AAR AARP SUPPLEMENT xxxxxxxxxxx [address] ([place]) [address] [place] [address] Advance Directives Patient has advance care planning documents on file. For more information, please contact:Isael Espinoza[address] [place] [address]
== END 2018-08-20 16:01 | disposition home or self-care (01) ==
LOC: ER 12:58
DX: R51 Headache (principal); E78.5 Hyperlipidemia, unspecified; I10 Essential (primary) hypertension; Z88.0 Allergy status to penicillin
CPT/HCPCS: 70450; 99284

== ENCOUNTER 2019-09-11 | Observation (INO) | payer OTHER, MEDICARE | END 2019-09-11 17:10 | disposition home or self-care (01) | PROVIDERS: ADMIT Internal Medicine | CPT/HCPCS: 36415; 70553; 71045; 71275; 80048; 80076; 81015; 83735; 83880; 84484; 85025; 85049; 85610; 87070; 87077; 87081; 87086; 87088; 87186; 87804; 90471; 90670; 93005; 94760; 96365; 96368; 99285; A9577; G0378; J0456; J0696; J1650; J7030; Q9967; U0002 ==

== ENCOUNTER 2019-09-27 09:49 | Emergency (ER) | payer OTHER, MEDICARE ==
--- OUTSIDE RECORDS SUMMARY | 2019-09-27 09:51 | XMS REPORT | Clinical Summary ---
:1945 Author Organization [employer] Address [address] [place] [address] Care Team Providers Name Role Phone Asked, Pcp Primary Care Provider Unavailable Allergies Active Allergy Reactions Severity Noted Date Comments Penicillins Itching 2007 unknown Medications Medication Sig Dispensed Refills Start Date End Date Status traMADol (ULTRAM) 50 mg Take 50 mg by 0 Active tablet mouth every 6 (six) hours as needed for moderate pain. escitalopram (LEXAPRO) Take 10 mg by 0 Active 10 MG tablet mouth daily. oxybutynin (DITROPAN) 5 Take 5 mg by 0 Active MG tablet mouth 3 (three) times a day. aspirin (ECOTRIN) 81 MG Take 81 mg by 0 Active enteric coated tablet mouth daily. pravastatin (PRAVACHOL) Take 10 mg by 0 Active 10 MG tablet mouth 2 (two) times a day. carvedilol (COREG) 12.5 Take 12.5 mg by 0 Active MG tablet mouth 2 (two) times a day with meals. ciprofloxacin (CIPRO) Take 500 mg by 0 Active 500 MG tablet mouth 2 (two) times a day. 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 Last Filed Vital Signs Not on file Plan of Treatment Health Maintenance Due Date Last Done Comments BREAST CANCER SCREENING 1995 COLONOSCOPY SCREENING 1995 SHINGLES VACCINES (#1) 1995 65+ PNEUMOCOCCAL VACCINE (1 of 2 - PCV13) 2010 INFLUENZA VACCINE 12/19/2019 Results Not on fileafter 09/26/2018 Insurance Payer Benefit Plan / Subscriber ID Effective Dates Phone Addre ss Type Group MEDICARE MEDICARE PART A xxxxxxxxxx 2010-Present YASMANY HINES Medicare AND B AARP AARP SUPPLEMENT xxxxxxxxxxx 2017-Present [address] ([address]) [address] [place] [id number] Advance Directives For more information, please contact: [phone] Type Date Recorded Patient [employer] Explanati on Advance Directives, Living Will and 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
--- NOTE | 2019-09-27 11:16 | RAD REPORT ---
EXAM DESCRIPTION: RAD - Chest Single View - 09/27/2019 11:01 am CLINICAL HISTORY: SOB Chest pain. COMPARISON: Chest Single View dated 09/11/2019; Chest Single View dated 10/28/2017; Chest Single View dated 11/03/2015; CHEST SINGLE VIEW dated 11/07/2013 FINDINGS: Portable technique limits examination quality. The lungs are underinflated with atelectasis in the lung bases. The heart is mildly prominent size. N o displaced fractures. IMPRESSION: No acute intrathoracic process suspected.
[2019-09-27 11:46] LABS: Urine Blood NEGATIVE (NEG); Urine Glucose NEGATIVE (NEG); Urine Protein NEGATIVE (NEG)
[2019-09-27 12:04] LABS: Urine Bacteria <20 /HPF (<20); Urine Culture Reflex Order NOT NEEDED; Urine RBC <5 /HPF (NONE SEEN)
[2019-09-27 12:05] LABS: Protime INR 1.02
[2019-09-27 12:08] LABS: Absolute Lymphocytes (CBC) 1.4 K/uL (0.7-4.9); Basophils % 1.1 % (0-1.3); Hematocrit 38.6 % (36.0-45.0); Lymphocytes % 38.1 % (15.3-44.8); MPV 11.9 fL (7.6-11.3); RBC Red Blood Cell Count 3.85 M/uL (3.86-4.86)
--- NOTE | 2019-09-27 12:15 | RAD REPORT ---
EXAM DESCRIPTION: CT - Head Brain Wo Cont - 09/27/2019 12:03 pm CLINICAL HISTORY: HEADACHE Headache, drowsiness COMPARISON: Head Brain Wo Cont dated 08/20/2018; Head Brain Wo Cont dated 10/28/2017; Brain W/Wo Cont d ated 09/11/2019 TECHNIQUE: All CT scans are performed using dose optimization technique as appropriate and may inclu de automated exposure control or mA/KV adjustment according to patient size. FINDINGS: No intracranial hemorrhage, hydrocephalus or extra-axial fluid collection.Mild generalized brain atrophy is present with mild periventricular and deep white matter chronic microvascular ische adam changes.No areas of brain edema or evidence of midline shift. Right anterior ethmoid and frontal sinus is opacified. The calvarium is intact. IMPRESSION: No acute intracranial abnormality.
[2019-09-27 12:18] LABS: ALT/SGPT 33 U/L (12-78); AST/SGOT 24 U/L (15-37); Albumin 3.6 g/dL (3.4-5.0); Alkaline Phosphatase 71 U/L (45-117); BUN Blood Urea Nitrogen 18 mg/dL (7-18); Bicarbonate 28 mmol/L (21-32); Bilirubin Direct 0.2 mg/dL (0-0.2); Bilirubin Total 0.7 mg/dL (0.2-1.0); Glucose Level 79 mg/dL (74-106); Magnesium 2.1 mg/dL (1.8-2.4); NT PRO-BNP 197 pg/mL (<125); Potassium 3.7 mmol/L (3.5-5.1); Protein, Total 7.8 g/dL (6.4-8.2); Sodium Level 142 mmol/L (136-145); Troponin (Emerg Dept Use Only) < 0.02 ng/mL (0.0-0.045)
[2019-09-27 12:31] LABS: Blood Morphology Comment NOT SEEN (NOT SEEN); Platelet Estimate DECR; Urine White Blood Cell Casts OK
[2019-09-27] MEDS ORDERED: ACETAMINOPHEN 325 MG TABLET ONE (12:43)
--- NOTE | 2019-09-27 13:25 | EDPHYS ---
Physician Documentation [facility] Name: Lisa Camacho Age: 74 yrs Sex: Female : 1945 Arrival Date: 09/27/2019 Time: 09:52 Bed 18 Private MD: Quincy Cabrera V ED Physician Joshua Johnson HPI: 09/26 10:51 This 74 yrs old Black Female presents to ER via Wheelchair with complaints of Headache, pm1 Shortness of breath. 10:51 The patient complains of pain to the forehead. The patient describes the headache as pm1 aching. Onset: The symptoms/episode began/occurred 0630 this AM after making breakfast. Associated signs and symptoms: Pertinent positives: malaise, shortness of breath, dizziness, Pertinent negatives: fever, nausea, vomiting, chest pain, cough. The symptoms are alleviated by nothing. the symptoms are aggravated by nothing. Patient called her son and she told him that she did not feel well. Patient's only current symptom is headache. Historical: - Allergies: 10:02 PENICILLINS; hb - Home Meds: 10:02 aspirin 81 mg Oral chew 1 tab once daily [Active]; atorvastatin 10 mg Oral tab 1 tab hb once daily [Active]; carvedilol 3.125 mg Oral tab 0.5 tab 2 times per day [Active]; donepezil 5 mg Oral tab 1 tab once daily [Active]; escitalopram oxalate 10 mg Oral tab 1 tab once daily [Active]; folic acid 1 mg Oral tab 1 tab once daily [Active]; Hydralazine Oral [Active]; losartan-hydrochlorothiazide 100-12.5 mg Oral tab 1 tab once daily [Active]; memantine 5 mg Oral tab 1 tabs daily [Active]; tramadol 50 mg Oral tab 1 tab as needed [Active]; Vitamin D Oral 2000 unit [Active]; - PMHx: 10:02 Hypertension; Hyperlipidemia; sarcoma; Alzheimers; hb - PSHx: 10:02 sarcoma surgery; hb - Immunization history:: Adult Immunizations up to date. - Social history:: Smoking status: Patient denies any tobacco usage or history of. ROS: 10:51 ENT: Negative for injury, pain, and discharge, Neck: Negative for injury, pain, and pm1 swelling, Cardiovascular: Negative for chest pain, palpitations, and edema. 10:51 Abdomen/GI: Negative for abdominal pain, nausea, vomiting, diarrhea, and constipation, Back: Negative for injury and pain, : Negative for injury, bleeding, discharge, and swelling, MS/Extremity: Negative for injury and deformity, Skin: Negative for injury, rash, and discoloration. 10:51 Constitutional: Positive for malaise, Negative for body aches, chills, fever, poor PO intake. 10:51 Respiratory: Positive for shortness of breath, Negative for cough, sputum production, wheezing. 10:51 Neuro: Positive for dizziness, headache, Negative for numbness, tingling, weakness. Exam: 10:51 Constitutional: This is a well developed, well nourished patient who is awake, alert, pm1 and in no acute distress. Head/Face: Normocephalic, atraumatic. Neck: Trachea midline, no thyromegaly or masses palpated, and no cervical lymphadenopathy. Supple, full range of motion without nuchal rigidity, or vertebral point tenderness. No Meningismus. Chest/axilla: Normal chest wall appearance and motion. Nontender with no deformity. No lesions are appreciated. 10:51 Respiratory: Lungs have equal breath sounds bilaterally, clear to auscultation and percussion. No rales, rhonchi or wheezes noted. No increased work of breathing, no retractions or nasal flaring. Abdomen/GI: Soft, non-tender, with normal bowel sounds. No distension or tympany. No guarding or rebound. No evidence of tenderness throughout. 10:51 Back: No spinal tenderness. No costovertebral tenderness. Full range of motion. Skin: Warm, dry with normal turgor. Normal color with no rashes, no lesions, and no evidence of cellulitis. MS/ Extremity: Pulses equal, no cyanosis. Neurovascular intact. Full, normal range of motion. 10:51 Cardiovascular: Exam negative for acute changes, Rate: normal, Rhythm: regular, Pulses: no pulse deficits are appreciated, Heart sounds: normal, Edema: is not appreciated. 10:51 Neuro: Exam negative for acute changes, Orientation: is normal, Mentation: is normal, Motor: is normal, moves all fours, Gait: is steady, at a normal pace, without difficulty. Vital Signs: 10:00 BP 143 / 61; Pulse 59; Resp 16; Temp 97.8; Pulse Ox 95% on R/A; Weight 90.72 kg; Height hb 5 ft. 3 in. (160.02 cm); Pain 10/10; 10:16 BP 152 / 62; Pulse 62; Resp 16; Pulse Ox 100% ; ah 11:30 BP 156 / 80; Pulse 65; Resp 16; Pulse Ox 95% ; ah 12:30 BP 171 / 79; Pulse 57; Resp 17; Pulse Ox 95% ; ah 13:30 BP 165 / 78; Pulse 60; Resp 18; Pulse Ox 96% ; ah 10:00 Body Mass Index 35.43 (90.72 kg, 160.02 cm) hb MDM: 10:09 Patient medically screened. tyrone 13:24 Data reviewed: vital signs. Data interpreted: Pulse oximetry: on room air is 100 %. pm1 Interpretation: normal. Counseling: I had a detailed discussion with the patient and/or guardian regarding: the historical points, exam findings, and any diagnostic results supporting the discharge/admit diagnosis, lab results, radiology results, the need for outpatient follow up, to return to the emergency department if symptoms worsen or persist or if there are any questions or concerns that arise at home. 09/26 10:49 Order name: Basic Metabolic Panel; Complete Time: 12:20 pm1 09/26 10:49 Order name: CBC with Diff; Complete Time: 12:33 pm1 09/26 10:49 Order name: LFT's; Complete Time: 12:20 pm09/26 10:49 Order name: Magnesium; Complete Time: 12:20 pm09/26 10:49 Order name: NT PRO-BNP; Complete Time: 12:20 pm09/26 10:49 Order name: PT-INR; Complete Time: 12:20 pm09/26 10:49 Order name: Troponin (emerg Dept Use Only); Complete Time: 12:20 pm1 09/26 10:49 Order name: XRAY Chest (1 view); Complete Time: 11:27 pm1 09/26 10:49 Order name: EKG; Complete Time: 10:49 pm1 09/26 10:49 Order name: CT Head Brain wo Cont; Complete Time: 12:20 pm09/26 10:49 Order name: Urine Microscopic Only; Complete Time: 12:20 pm09/26 11:43 Order name: Urine Dipstick--Ancillary (enter results); Complete Time: 11:49 tt3 09/26 12:10 Order name: CBC Smear Scan; Complete Time: 12:33 EDMS 09/26 10:49 Order name: Cardiac monitoring; Complete Time: 11:24 pm1 09/26 10:49 Order name: EKG - Nurse/Tech; Complete Time: 12:35 pm1 09/26 10:49 Order name: IV Saline Lock; Complete Time: 12:03 pm1 09/26 10:49 Order name: Labs collected and sent; Complete Time: 12:03 pm1 09/26 10:49 Order name: O2 Per Protocol; Complete Time: 12:03 pm1 09/26 10:49 Order name: O2 Sat Monitoring; Complete Time: 12:03 pm1 09/26 10:49 Order name: Urine Dipstick-Ancillary (obtain specimen); Complete Time: 12:03 pm1 Administered Medications: 12:38 Drug: Tylenol 650 mg Route: PO; 13:42 Follow up: Response: No adverse reaction; Pain is decreased Disposition: 09/27/19 13:25 Discharged to Home. Impression: Headache, Shortness of breath, Malaise and fatigue. - Condition is Stable. - Discharge Instructions: General Headache Without Cause, Shortness of Breath, Fatigue. - Medication Reconciliation Form, Thank You Letter, Antibiotic Education, Prescription Opioid Use form. - Follow up: Emergency Department; When: As needed; Reason: Worsening of condition. Follow up: Private Physician; When: 2 - 3 days; Reason: Recheck today's complaints, Continuance of care, Re-evaluation by your physician. - Problem is new. - Symptoms have improved. Addendum: 09/28/2019 20:21 Co-signature as Attending Physician, Joshua Johnson MD I agree with the assessment and c kaur plan of care. Signatures: Dispatcher [employer] Joshua Thomas MD MD cha Marinas, Patrick, ISAURA NIGHT MONITOR pm1 Teresa Miramontes, RN WINSTON Nicolette Fajardo RN RN Corrections: (The following items were deleted from the chart) 09/26 13:26 13:25 09/27/2019 13:25 Discharged to Home. Impression: Headache; Shortness of breath. pm1 Condition is Stable. Forms are Medication Reconciliation Form, Thank You Letter, Antibiotic Education, Prescription Opioid Use. Follow up: Emergency Department; When: As needed; Reason: Worsening of condition. Follow up: Private Physician; When: 2 - 3 days; Reason: Recheck today's complaints, Continuance of care, Re-evaluation by your physician. Problem is new. Symptoms have improved. pm1 14:29 13:26 09/27/2019 13:25 Discharged to Home. Impression: Headache; Shortness of breath; ah Malaise and fatigue. Condition is Stable. Discharge Instructions: General Headache Without Cause, Shortness of Breath, Fatigue. Forms are Medication Reconciliation Form, Thank You Letter, Antibiotic Education, Prescription Opioid Use. Follow up: Emergency Department; When: As needed; Reason: Worsening of condition. Follow up: Private Physician; When: 2 - 3 days; Reason: Recheck today's complaints, Continuance of care, Re-evaluation by your physician. Problem is new. Symptoms have improved. pm1
--- NOTE | 2019-09-27 13:25 | ER ---
Nurse's Notes [facility] Name: Lisa Camacho Age: 74 yrs Sex: Female : 1945 Arrival Date: 09/27/2019 Time: 09:52 Bed 18 Private MD: Quincy Cabrera V Diagnosis: Headache;Shortness of breath;Malaise and fatigue Presentation: 09/26 10:00 Chief complaint: Malaise, SOB, dizziness, headache, and chest tightness upon waking hb today. Coronavirus screen: Patient denies a cough. Patient reports shortness of breath or difficulty breathing. Patient denies measured and/or subjective temperature greater than 100.4F prior to today's visit. Patient denies travel on a cruise ship or to a country the [facility] currently lists as an affected area. Patient denies contact with known and/or suspected case of COVID-19. Ebola Screen: No symptoms or risks identified at this time. Initial Sepsis Screen: Does the patient meet any 2 criteria? No. Patient's initial sepsis screen is negative. Does the patient have a suspected source of infection? No. Patient's initial sepsis screen is negative. Risk Assessment: Do you want to hurt yourself or someone else? Patient reports no desire to harm self or others. Onset of symptoms was September 27, 2019. 10:00 Method Of Arrival: Wheelchair hb 10:00 Acuity: ERIKA 3 hb Historical: - Allergies: 10:02 PENICILLINS; hb - Home Meds: 10:02 aspirin 81 mg Oral chew 1 tab once daily [Active]; atorvastatin 10 mg Oral tab 1 tab hb once daily [Active]; carvedilol 3.125 mg Oral tab 0.5 tab 2 times per day [Active]; donepezil 5 mg Oral tab 1 tab once daily [Active]; escitalopram oxalate 10 mg Oral tab 1 tab once daily [Active]; folic acid 1 mg Oral tab 1 tab once daily [Active]; Hydralazine Oral [Active]; losartan-hydrochlorothiazide 100-12.5 mg Oral tab 1 tab once daily [Active]; memantine 5 mg Oral tab 1 tabs daily [Active]; tramadol 50 mg Oral tab 1 tab as needed [Active]; Vitamin D Oral 2000 unit [Active]; - PMHx: 10:02 Hypertension; Hyperlipidemia; sarcoma; Alzheimers; hb - PSHx: 10:02 sarcoma surgery; hb - Immunization history:: Adult Immunizations up to date. - Social history:: Smoking status: Patient denies any tobacco usage or history of. Screenin:30 Abuse screen: Denies threats or abuse. Nutritional screening: No deficits noted. Tuberculosis screening: No symptoms or risk factors identified. Fall Risk None identified. Assessment: 10:25 General: Appears in no apparent distress. Behavior is calm, cooperative, appropriate for age. Pain: Complains of pain in generalized headache. Neuro: Level of Consciousness is awake, alert, Oriented to person, place, time. Cardiovascular: Heart tones S1 S2 present Capillary refill < 3 seconds Patient's skin is warm and dry. Pulses are palpable in right radial artery and left radial artery Rhythm is sinus rhythm. Respiratory: Airway is patent Respiratory effort is even, unlabored, Respiratory pattern is regular, symmetrical, Breath sounds are clear bilaterally. GI: No signs and/or symptoms were reported involving the gastrointestinal system. : No signs and/or symptoms were reported regarding the genitourinary system. EENT: No signs and/or symptoms were reported regarding the EENT system. Derm: No signs and/or symptoms reported regarding the dermatologic system. Musculoskeletal: No signs and/or symptoms reported regarding the musculoskeletal system. 11:30 Reassessment: Pt lying in bed resting and awaiting results of labs and radiology at this time. 13:12 Reassessment: Pt assisted out of bed and walked to the restroom. 13:43 Reassessment: Pt given discharge instructions. No prescriptions given. Advised to follow up with PCP soon. Pt voiced understanding. Vital Signs: 10:00 BP 143 / 61; Pulse 59; Resp 16; Temp 97.8; Pulse Ox 95% on R/A; Weight 90.72 kg; Height hb 5 ft. 3 in. (160.02 cm); Pain 10/10; 10:16 BP 152 / 62; Pulse 62; Resp 16; Pulse Ox 100% ; ah 11:30 BP 156 / 80; Pulse 65; Resp 16; Pulse Ox 95% ; 12:30 BP 171 / 79; Pulse 57; Resp 17; Pulse Ox 95% ; 13:30 BP 165 / 78; Pulse 60; Resp 18; Pulse Ox 96% ; 10:00 Body Mass Index 35.43 (90.72 kg, 160.02 cm) hb ED Course: 09:52 Patient arrived in ED. mr 09:52 Quincy Cabrera MD is Private Physician. mr 10:01 Triage completed. hb 10:02 Arm band placed on. hb 10:08 Stevan Huerta NP is PHCP. pm1 10:08 Joshua Johnson MD is Attending Physician. pm1 11:02 XRAY Chest (1 view) In Process Unspecified. EDMS 11:11 Nicolette Fajardo, RN is Primary Nurse. ah 11:47 Radiology exam delayed due to nurse starting iv,etc \T\ this time. umberto to call when bq pts ready. 11:50 Inserted saline lock: 22 gauge in left antecubital area, using aseptic technique. Blood hb collected. 12:01 CT completed. Patient tolerated procedure well. Patient moved back from CT. bq 12:03 CT Head Brain wo Cont In Process Unspecified. EDMS 12:30 Patient has correct armband on for positive identification. Placed in gown. Bed in low ah position. Call light in reach. Side rails up X2. 12:31 environmental monitoring specialist on. Pulse ox on. NIBP on. ah 14:15 No provider procedures requiring assistance completed. IV discontinued, intact, ah bleeding controlled, No redness/swelling at site. Pressure dressing applied. Administered Medications: 12:38 Drug: Tylenol 650 mg Route: PO; ah 13:42 Follow up: Response: No adverse reaction; Pain is decreased Outcome: 13:25 Discharge ordered by MD. pm1 14:20 Discharged to home ambulatory. ah 14:20 Condition: good 14:20 Discharge instructions given to patient, Instructed on discharge instructions, follow up and referral plans. Demonstrated understanding of instructions, follow-up care. 14:29 Patient left the ED. Signatures: Dispatcher [employer] EDAK Sneha Del Cid Betty bq Stevan Huerta, ISAURA SALES PERFORMANCE ANALYST pm1 Umberto Miramontes RN RN Nicolette Fajardo RN RN
[2019-09-27 14:43] VITALS: TEMP 97.8
[2019-09-27 14:49] VITALS: BP 165/78; O2SAT 96
--- NOTE | 2019-09-28 18:47 | EKG ---
Test Date: 2019-09-27 Test Time: 12:27:41 Quenching Car Operator: ZOEY MEASUREMENT RESULTS: Intervals: Rate: 52 NH: 152 QRSD: 100 QT: 426 QTc: 396 Dequincy: P: 33 NH: 152 QRS: 44 T: 52 INTERPRETIVE STATEMENTS: Sinus bradycardia Otherwise normal ECG Compared to ECG 09/11/2019 00:04:36 Sinus arrhythmia no longer present T-wave abnormality no longer present Electronically Signed On 09-28-19 18:44:37 CDT by Jesus Crespo
== END 2019-09-27 14:29 | disposition home or self-care (01) ==
LOC: ER 09:49
DX: R51 Headache (principal); R06.02 Shortness of breath; R53.81 Other malaise; R53.83 Other fatigue; Z88.0 Allergy status to penicillin; I10 Essential (primary) hypertension; E78.5 Hyperlipidemia, unspecified; G30.9 Alzheimer's disease, unspecified
CPT/HCPCS: 36415; 70450; 71045; 80048; 80076; 81003; 81015; 83735; 83880; 84484; 85025; 85610; 93005; 99285

== ENCOUNTER 2019-11-26 14:57 | Observation (INO) | payer OTHER, MEDICARE ==
[2019-11-26] MEDS ORDERED: NA CHLORIDE 0.9% 500 ML ONE (16:29)
--- NOTE | 2019-11-26 17:15 | RAD REPORT ---
EXAM DESCRIPTION: RAD - Chest Single View - 11/26/2019 5:07 pm CLINICAL HISTORY: DIZZINESS Chest pain. COMPARISON: Chest Single View dated 09/27/2019; Chest Single View dated 09/11/2019; Chest Single View dated 10/28/2017; Chest Single View dated 11/03/2015 FINDINGS: Portable technique limits examination quality. Mild interstitial pulmonary edema. The heart is moderately enlarged. No displaced fractures. IMPRESSION: Mild CHF.
[2019-11-26 17:17] LABS: Absolute Lymphocytes (CBC) 0.8 K/uL (0.7-4.9); Hematocrit 37.4 % (36.0-45.0); Lymphocytes % 27.6 % (15.3-44.8); Protime INR 1.09; RBC Red Blood Cell Count 3.66 M/uL (3.86-4.86)
[2019-11-26 17:19] LABS: Albumin 3.3 g/dL (3.4-5.0); Bilirubin Direct 0.3 mg/dL (0-0.2); Bilirubin Total 0.9 mg/dL (0.2-1.0); Magnesium 2.1 mg/dL (1.8-2.4); Potassium 3.5 mmol/L (3.5-5.1); Protein, Total 6.8 g/dL (6.4-8.2); Troponin (Emerg Dept Use Only) 0.02 ng/mL (0.0-0.045)
--- OUTSIDE RECORDS SUMMARY | 2019-11-26 17:41 | XMS REPORT | Clinical Summary ---
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
--- NOTE | 2019-11-26 17:58 | RAD REPORT ---
EXAM DESCRIPTION: CT - Head Brain Wo Cont - 11/26/2019 5:50 pm CLINICAL HISTORY: Dizziness. Headache, drowsiness, dizziness COMPARISON: Head Brain Wo Cont dated 09/27/2019; Head Brain Wo Cont dated 08/20/2018 TECHNIQUE: All CT scans are performed using dose optimization technique as appropriate and may inclu de automated exposure control or mA/KV adjustment according to patient size. FINDINGS: No intracranial hemorrhage, hydrocephalus or extra-axial fluid collection.Small right fron delano area of gliosis is seen. Mild periventricular and deep white matter chronic microvascular ischemi c changes are evident.No areas of brain edema or evidence of midline shift. Right frontal and ethmoid sinus opacification is noted. The paranasal sinuses and mastoids are otherw ise clear. The calvarium is intact. IMPRESSION: No acute intracranial abnormality. Chronic sinusitis right frontoethmoidal region.
--- NOTE | 2019-11-26 19:02 | EDPHYS ---
Physician Documentation [facility] Name: Lisa Camacho Age: 74 yrs Sex: Female : 1945 Arrival Date: 11/26/2019 Time: 15:34 Bed 17 Private MD: ED Physician Cheko Joshua HPI: 11/25 16:20 This 74 yrs old Black Female presents to ER via Ambulatory with complaints of Dizziness.cp 16:20 The patient presents with dizziness, feeling faint, lightheadedness. cp 16:20 Onset: The symptoms/episode began/occurred today. cp 16:20 Context: occurred while the patient was sitting, just prior to the episode the patient cp experienced no apparent symptoms. Modifying factors: the symptoms are aggravated by standing up. Associated signs and symptoms: Pertinent positives: near-syncope, Pertinent negatives: abdominal pain, chest pain, confusion, diaphoresis, numbness, palpitations, shortness of breath, syncope. Severity of symptoms: in the emergency department the symptoms have improved markedly. Patient's baseline: Neuro: alert and fully oriented, Motor: no deficits, Ambulation: walks without assistance, Speech: normal. Historical: - Allergies: 15:44 PENICILLINS; ca1 - Home Meds: 15:44 aspirin 81 mg Oral chew 1 tab once daily [Active]; atorvastatin 10 mg Oral tab 1 tab ca1 once daily [Active]; carvedilol 3.125 mg Oral tab 0.5 tab 2 times per day [Active]; donepezil 5 mg Oral tab 1 tab once daily [Active]; escitalopram oxalate 10 mg Oral tab 1 tab once daily [Active]; folic acid 1 mg Oral tab 1 tab once daily [Active]; Hydralazine Oral [Active]; losartan-hydrochlorothiazide 100-12.5 mg Oral tab 1 tab once daily [Active]; memantine 5 mg Oral tab 1 tabs daily [Active]; tramadol 50 mg Oral tab 1 tab as needed [Active]; Vitamin D Oral 2000 unit [Active]; - PMHx: 15:44 Alzheimers; Hyperlipidemia; Hypertension; sarcoma; ca1 - PSHx: 15:44 sarcoma surgery; ca1 - Immunization history:: Adult Immunizations up to date. - Social history:: Smoking status: Patient denies any tobacco usage or history of. ROS: 16:30 Constitutional: Negative for body aches, chills, fever, poor PO intake. cp 16:30 Eyes: Negative for injury, pain, redness, and discharge. cp 16:30 ENT: Negative for ear pain, sore throat, difficulty swallowing, difficulty handling cp secretions. 16:30 Cardiovascular: Negative for chest pain, edema, palpitations. 16:30 Respiratory: Negative for cough, shortness of breath, wheezing. 16:30 Abdomen/GI: Negative for abdominal pain, nausea, vomiting, and diarrhea, constipation, black/tarry stool, rectal bleeding. 16:30 Back: Negative for radiated pain. 16:30 : Negative for urinary symptoms. 16:30 Neuro: Positive for dizziness, near syncope, Negative for altered mental status, gait disturbance, headache, seizure activity, speech changes, syncope, weakness. 16:30 All other systems are negative. Exam: 16:13 ECG was reviewed by the Attending Physician. cp 16:33 Constitutional: The patient appears in no acute distress, alert, awake, cp non-diaphoretic, non-toxic, well developed, well nourished. 16:33 Head/Face: Normocephalic, atraumatic. cp 16:33 Eyes: Periorbital structures: appear normal, Pupils: equal, round, and reactive to light and accomodation, Extraocular movements: intact throughout, Conjunctiva: normal, no exudate, no injection, Sclera: no appreciated abnormality, Lids and lashes: appear normal, bilaterally. 16:33 ENT: External ear(s): are unremarkable, Ear canal(s): are normal, clear, TM's: dullness, bilaterally, Nose: is normal, Mouth: Lips: moist, Oral mucosa: pink and intact, moist, Posterior pharynx: is normal, airway is patent, no erythema, no exudate. 16:33 Neck: ROM/movement: is normal, is supple, without pain, no range of motions limitations, no nuchal rigidity. 16:33 Chest/axilla: Inspection: normal, Palpation: is normal, no crepitus, no tenderness. 16:33 Cardiovascular: Rate: bradycardic, Rhythm: regular, Pulses: Pulses are 2+ in right radial artery and left radial artery. Edema: is not appreciated, JVD: is not appreciated. 16:33 Respiratory: the patient does not display signs of respiratory distress, Respirations: normal, no use of accessory muscles, no retractions, labored breathing, is not present, Breath sounds: are clear throughout, no decreased breath sounds, no stridor, no wheezing. 16:33 Abdomen/GI: Inspection: abdomen appears normal, Palpation: abdomen is soft and non-tender, in all quadrants. 16:33 Neuro: Orientation: to person, place \T\ time. Mentation: is normal, Cerebellar function: is grossly normal, Motor: moves all fours, strength is normal, Sensation: is normal, Gait: is steady. Vital Signs: 15:40 BP 131 / 90; Pulse 45; Resp 16 S; Temp 98.3(TE); Pulse Ox 95% on R/A; Weight 90.72 kg ca1 (R); Height 5 ft. 0 in. (152.40 cm) (R); 16:17 BP 148 / 67 LA (auto/lg); Pulse 52; Resp 19; Pulse Ox 96% on R/A; jp3 16:50 BP 152 / 63; Pulse 55; Resp 18; Pulse Ox 95% ; ll1 17:30 BP 161 / 72; Pulse 49; Resp 18; Pulse Ox 95% on R/A; ll1 19:39 BP 179 / 89; Pulse 60; Resp 18; Pulse Ox 95% on R/A; ll1 19:44 BP 188 / 73 RA Supine (auto/lg); Pulse 54; Resp 14; Pulse Ox 93% on R/A; jp3 19:46 BP 200 / 71 RA Sitting (auto/lg); Pulse 53; Resp 15; Pulse Ox 96% on R/A; jp3 19:48 BP 190 / 79 RA Standing (auto/lg); Pulse 53; Resp 14; Pulse Ox 93% on R/A; jp3 21:05 BP 167 / 74; Pulse 51; Resp 15; Pulse Ox 94% ; ll1 21:29 BP 167 / 74; Pulse 58; Resp 16; Pulse Ox 95% ; ll1 23:20 BP 166 / 71; Pulse 50; Resp 16; Pulse Ox 95% ; ll1 23:23 Temp 97.5(TE); ll1 15:40 Body Mass Index 39.06 (90.72 kg, 152.40 cm) ca1 MDM: 16:04 Patient medically screened. cp 17:00 Differential diagnosis: cardiac arrhythmia, CVA, GI bleed, hypovolemia, idiopathic cp dizziness, cardiac arrythmia. 18:07 Physician consultation: Quincy Cabrera MD was called at 18:00, left message on voice mail cp to return call to discuss patient. 18:49 Physician consultation: Quincy Cabrera MD was called at 18:45, was contacted at 18:45, cp regarding admission, patient's condition, requests patient be evaluated by DR Puga in ED and re consult to discuss patient. 18:55 Data reviewed: vital signs, nurses notes, lab test result(s), EKG, radiologic studies, cp CT scan, plain films, I have discussed the patient's presentation/case with the attending Emergency Department Physician; and as a result, I will admit patient. 18:55 Test interpretation: by ED physician or midlevel provider: ECG. 11/25 16:17 Order name: Basic Metabolic Panel 11/25 16:17 Order name: CBC with Diff 11/25 16:17 Order name: LFT's 11/25 16:17 Order name: Magnesium 11/25 16:17 Order name: NT PRO-BNP 11/25 16:17 Order name: PT-INR 11/25 16:17 Order name: Troponin (emerg Dept Use Only) 11/25 16:17 Order name: Urine Microscopic Only 11/25 17:19 Order name: Basic Metabolic Panel; Complete Time: 17:33 EDMS 11/25 17:34 Interpretation: Normal except: GFR 81; CA 8.4. 11/25 17:19 Order name: Liver (Hepatic) Function; Complete Time: 17:33 EDMS 11/25 17:34 Interpretation: Normal except: BILID 0.3; ALB 3.3; A/G 0.9. 11/25 17:19 Order name: Troponin (Emerg Dept Use Only); Complete Time: 17:33 EDMS 11/25 17:34 Interpretation: Reviewed. 11/25 17:19 Order name: NT PRO-BNP; Complete Time: 17:33 EDMS 11/25 17:19 Order name: Magnesium; Complete Time: 17:33 EDMS 11/25 17:22 Order name: Protime (+INR); Complete Time: 17:33 EDMS 11/25 16:17 Order name: XRAY Chest (1 view) 11/25 16:17 Order name: CT Head Brain wo Cont cp 11/25 17:18 Order name: RAD; Complete Time: 17:33 EDMS 11/25 17:24 Order name: CBC with Automated Diff; Complete Time: 19:53 EDMS 11/25 17:34 Interpretation: Normal except: WBC 2.9; RBC 3.66; MCV 102.1; PLT 100; MPV 12.0. cp 11/25 19:38 Order name: Urine Dipstick--Ancillary (enter results) mw2 11/25 19:43 Order name: Manual Differential; Complete Time: 19:53 EDMS 11/25 20:14 Order name: Urine Microscopic Only; Complete Time: 21:06 EDMS 11/25 21:06 Interpretation: Normal except: UWBC 5-10. cp 11/25 22:00 Order name: Troponin I EDWV 11/25 22:01 Order name: Urine Dipstick-Ancillary EDWV 11/25 23:27 Order name: Basic Metabolic Panel EDWV 11/25 23:27 Order name: Basic Metabolic Panel EDWV 11/25 23:27 Order name: CBC with Automated Diff EDMS 11/25 23:27 Order name: CBC with Automated Diff EDMS 11/25 23:27 Order name: Troponin I EDWV 11/25 23:27 Order name: Troponin I EDWV 11/25 23:32 Order name: Urine Culture EDWV 11/25 16:17 Order name: EKG; Complete Time: 21:19 11/25 16:17 Order name: Cardiac monitoring; Complete Time: 16:48 11/25 16:17 Order name: EKG - Nurse/Tech; Complete Time: 16:48 11/25 16:17 Order name: IV Saline Lock; Complete Time: 16:48 cp 11/25 16:17 Order name: Labs collected and sent; Complete Time: 16:48 cp 11/25 16:17 Order name: O2 Per Protocol; Complete Time: 16:48 cp 11/25 16:17 Order name: O2 Sat Monitoring; Complete Time: 16:47 cp 11/25 16:17 Order name: Urine Dipstick-Ancillary (obtain specimen); Complete Time: 19:38 cp 11/25 16:39 Order name: Orthostatics; Complete Time: 20:01 cp 11/25 17:58 Order name: CT; Complete Time: 18:53 EDMS 11/25 18:53 Interpretation: Report reviewed. cp 11/25 19:54 Order name: Diet Heart Healthy; Complete Time: 21:23 cp 11/25 23:27 Order name: Regular EDMS 11/25 23:27 Order name: EKG Electrocardiogram EDMS 11/25 23:27 Order name: EKG Electrocardiogram EDMS 11/25 23:27 Order name: EKG Electrocardiogram EDMS 11/25 23:27 Order name: EKG Electrocardiogram EDMS EC:13 Rate is 48 beats/min. Rhythm is regular. OK interval is normal. QRS interval is cp prolonged at 102 msec. QT interval is normal. Interpreted by me. Reviewed by me. Administered Medications: 16:47 Drug: NS 0.9% 250 ml Route: IV; Rate: bolus; Site: left hand; ll1 19:38 Follow up: Response: No adverse reaction; RASS: Alert and Calm (0); IV Status: ll1 Completed infusion; IV Intake: 250ml 16:47 Drug: NS 0.9% 250 ml Route: IV; Rate: 125 ml/hr; Site: left hand; ll1 23:24 Follow up: Response: No adverse reaction; RASS: Alert and Calm (0); IV Status: ll1 Completed infusion; IV Intake: 250ml 20:18 Drug: Tylenol 650 mg Route: PO; ll1 23:24 Follow up: Response: No adverse reaction; Pain is decreased; RASS: Alert and Calm (0) ll1 Disposition: 11/26 15:34 Co-signature as Attending Physician, Cheko Joshua MD I agree with the assessment and kdr plan of care. Disposition: 11/26/19 19:01 Hospitalization ordered by Quincy Cabrera for Observation. Preliminary diagnosis are Dizziness and giddiness, Bradycardia, unspecified. - Bed requested for Telemetry/MedSurg (observation). - Status is Observation. dm5 - Condition is Stable. - Problem is new. - Symptoms have improved. Signatures: Dispatcher [employer] EDMS Halle Ortiz RN RN dmCheko Beltran MD MD kdr Page, Corey, PA PA cp Garcia, Cindy, RN RN Nakita Smyth RN RN [facility] Nataliia Godoy RN RN ll1 Corrections: (The following items were deleted from the chart) 11/25 17:34 17:33 Normal except: GFR 81. cp cp 23:19 19:01 Hospitalization Ordered by Quincy Cabrera MD for Observation. Preliminary diagnosis cg is Dizziness and giddiness; Bradycardia, unspecified. Bed requested for Telemetry/MedSurg (observation). Status is Observation. Condition is Stable. Problem is new. Symptoms have improved. cp 11/26 05:22 11/25 23:19 11/26/2019 19:01 Hospitalization Ordered by Quincy Cabrera MD for cg Observation. Preliminary diagnosis is Dizziness and giddiness; Bradycardia, unspecified. Bed requested for [facility] ER HOLD. Status is Observation. Condition is Stable. Problem is new. Symptoms have improved. cg 11/26 06:42 05:22 11/26/2019 19:01 Hospitalization Ordered by Quincy Cabrera MD for Observation. dm5 Preliminary diagnosis is Dizziness and giddiness; Bradycardia, unspecified. Bed requested for Telemetry/MedSurg (observation). Status is Observation. Condition is Stable. Problem is new. Symptoms have improved. cg
--- NOTE | 2019-11-26 19:02 | ER ---
Nurse's Notes [facility] Name: Lisa Camacho Age: 74 yrs Sex: Female : 1945 Arrival Date: 11/26/2019 Time: 15:34 Bed 17 Private MD: Diagnosis: Dizziness and giddiness;Bradycardia, unspecified Presentation: 11/25 15:40 Chief complaint: Patient states: About 45 minutes ago, started feeling dizzy and ca1 lightheaded. Reports nausea. Denies chest pain. Coronavirus screen: Proceed with normal triage. Patient denies a cough. Patient denies shortness of breath or difficulty breathing. Patient denies measured and/or subjective temperature greater than 100.4F prior to today's visit. Patient denies travel on a cruise ship or to a country the [facility] currently lists as an affected area. Patient denies contact with known and/or suspected case of COVID-19. Ebola Screen: Patient negative for fever greater than or equal to 101.5 degrees Fahrenheit, and additional compatible Ebola Virus Disease symptoms Patient denies exposure to infectious person. Patient denies travel to an Ebola-affected area in the 21 days before illness onset. No symptoms or risks identified at this time. Initial Sepsis Screen: Does the patient meet any 2 criteria? No. Patient's initial sepsis screen is negative. Does the patient have a suspected source of infection? No. Patient's initial sepsis screen is negative. Risk Assessment: Do you want to hurt yourself or someone else? Patient reports no desire to harm self or others. Onset of symptoms was November 26, 2019. 15:40 Method Of Arrival: Ambulatory ca1 15:40 Acuity: ERIKA 2 ca1 Historical: - Allergies: 15:44 PENICILLINS; ca1 - Home Meds: 15:44 aspirin 81 mg Oral chew 1 tab once daily [Active]; atorvastatin 10 mg Oral tab 1 tab ca1 once daily [Active]; carvedilol 3.125 mg Oral tab 0.5 tab 2 times per day [Active]; donepezil 5 mg Oral tab 1 tab once daily [Active]; escitalopram oxalate 10 mg Oral tab 1 tab once daily [Active]; folic acid 1 mg Oral tab 1 tab once daily [Active]; Hydralazine Oral [Active]; losartan-hydrochlorothiazide 100-12.5 mg Oral tab 1 tab once daily [Active]; memantine 5 mg Oral tab 1 tabs daily [Active]; tramadol 50 mg Oral tab 1 tab as needed [Active]; Vitamin D Oral 2000 unit [Active]; - PMHx: 15:44 Alzheimers; Hyperlipidemia; Hypertension; sarcoma; ca1 - PSHx: 15:44 sarcoma surgery; ca1 - Immunization history:: Adult Immunizations up to date. - Social history:: Smoking status: Patient denies any tobacco usage or history of. Screenin:49 Abuse screen: Denies threats or abuse. Nutritional screening: No deficits noted. ll1 Tuberculosis screening: No symptoms or risk factors identified. Fall Risk None identified. IV access (20 points). Ambulatory Aid- None/Bed Rest/Nurse Assist (0 pts). Gait- Weak (10 pts.). Total Martinez Fall Scale indicates Low Risk Score (25-44 pts). Fall prevention measures have been instituted. Side Rails Up X 2 1:1 attendant Assigned to Pt. Frequent Obs/Assesments occuring As available Patient and Family Educated on Fall Prevention Program and strategies. Assessment: 16:48 General: Appears in no apparent distress. Behavior is calm, cooperative, appropriate ll1 for age. Pain: Denies pain. Neuro: Level of Consciousness is awake, alert, obeys commands, Oriented to person, place, time, situation, Family Support Specialist are equal bilaterally Moves all extremities. Full function Gait is steady, Speech is normal, Facial symmetry appears normal, Pupils are PERRLA, Reports dizziness, resolved now. Cardiovascular: No deficits noted. Respiratory: No deficits noted. GI: Abdomen is flat, Bowel sounds present X 4 quads. Abd is soft and non tender X 4 quads. Reports diarrhea. 17:45 Reassessment: Patient appears in no apparent distress at this time. No changes from ll1 previously documented assessment. Patient and/or family updated on plan of care and expected duration. Pain level reassessed. Patient is alert, oriented x 3, equal unlabored respirations, skin warm/dry/pink. 18:45 Reassessment: Patient appears in no apparent distress at this time. No changes from ll1 previously documented assessment. Patient and/or family updated on plan of care and expected duration. Pain level reassessed. Patient is alert, oriented x 3, equal unlabored respirations, skin warm/dry/pink. 19:41 Reassessment: Patient appears in no apparent distress at this time. No changes from ll1 previously documented assessment. Patient and/or family updated on plan of care and expected duration. Pain level reassessed. Patient is alert, oriented x 3, equal unlabored respirations, skin warm/dry/pink. admitted, awaiting room number. 20:40 Reassessment: Patient appears in no apparent distress at this time. No changes from ll1 previously documented assessment. Patient and/or family updated on plan of care and expected duration. Pain level reassessed. Patient is alert, oriented x 3, equal unlabored respirations, skin warm/dry/pink. 21:29 Reassessment: Patient appears in no apparent distress at this time. No changes from ll1 previously documented assessment. Patient and/or family updated on plan of care and expected duration. Pain level reassessed. Patient is alert, oriented x 3, equal unlabored respirations, skin warm/dry/pink. 22:30 Reassessment: No changes from previously documented assessment. Patient and/or family ll1 updated on plan of care and expected duration. Pain level reassessed. Patient is alert, oriented x 3, equal unlabored respirations, skin warm/dry/pink. 23:30 Reassessment: Patient appears in no apparent distress at this time. No changes from ll1 previously documented assessment. Patient and/or family updated on plan of care and expected duration. Pain level reassessed. Patient is alert, oriented x 3, equal unlabored respirations, skin warm/dry/pink. Vital Signs: 15:40 BP 131 / 90; Pulse 45; Resp 16 S; Temp 98.3(TE); Pulse Ox 95% on R/A; Weight 90.72 kg ca1 (R); Height 5 ft. 0 in. (152.40 cm) (R); 16:17 BP 148 / 67 LA (auto/lg); Pulse 52; Resp 19; Pulse Ox 96% on R/A; jp3 16:50 BP 152 / 63; Pulse 55; Resp 18; Pulse Ox 95% ; ll1 17:30 BP 161 / 72; Pulse 49; Resp 18; Pulse Ox 95% on R/A; ll1 19:39 BP 179 / 89; Pulse 60; Resp 18; Pulse Ox 95% on R/A; ll1 19:44 BP 188 / 73 RA Supine (auto/lg); Pulse 54; Resp 14; Pulse Ox 93% on R/A; jp3 19:46 BP 200 / 71 RA Sitting (auto/lg); Pulse 53; Resp 15; Pulse Ox 96% on R/A; jp3 19:48 BP 190 / 79 RA Standing (auto/lg); Pulse 53; Resp 14; Pulse Ox 93% on R/A; jp3 21:05 BP 167 / 74; Pulse 51; Resp 15; Pulse Ox 94% ; ll1 21:29 BP 167 / 74; Pulse 58; Resp 16; Pulse Ox 95% ; ll1 23:20 BP 166 / 71; Pulse 50; Resp 16; Pulse Ox 95% ; ll1 23:23 Temp 97.5(TE); ll1 15:40 Body Mass Index 39.06 (90.72 kg, 152.40 cm) ca1 ED Course: 15:34 Patient arrived in ED. fj1 15:42 Triage completed. ca1 15:44 Arm band placed on right wrist. ca1 15:59 Nataliia Godoy, WINSTON is Primary Nurse. ll1 16:03 Joshua Horne PA is PHCP. cp 16:03 Cheko Joshua MD is Attending Physician. cp 16:11 Patient maintains SpO2 saturation greater than 95% on room air. jp3 16:12 Placed in gown. Bed in low position. Call light in reach. Side rails up X 1. Side rails jp3 up X2. Warm blanket given. Verbal reassurance given. school bus monitor on. Pulse ox on. NIBP on. 16:12 EKG done, by ED staff, reviewed by Joshua NIX. jp3 16:48 Inserted saline lock: 22 gauge in left hand, using aseptic technique. Blood collected. ll1 19:01 Quincy Cabrera MD is Hospitalizing Provider. cp 20:00 Diet: Patient given snack. Patient given water. Tolerated well. jp3 23:25 No provider procedures requiring assistance completed. Patient admitted, IV remains in ll1 place. Administered Medications: 16:47 Drug: NS 0.9% 250 ml Route: IV; Rate: bolus; Site: left hand; ll1 19:38 Follow up: Response: No adverse reaction; RASS: Alert and Calm (0); IV Status: ll1 Completed infusion; IV Intake: 250ml 16:47 Drug: NS 0.9% 250 ml Route: IV; Rate: 125 ml/hr; Site: left hand; 1 23:24 Follow up: Response: No adverse reaction; RASS: Alert and Calm (0); IV Status: ll1 Completed infusion; IV Intake: 250ml 20:18 Drug: Tylenol 650 mg Route: PO; ll1 23:24 Follow up: Response: No adverse reaction; Pain is decreased; RASS: Alert and Calm (0) ll1 Intake: 19:38 IV: 250ml; Total: 250ml. ll1 23:24 IV: 250ml; Total: 500ml. 1 Outcome: 19:01 Decision to Hospitalize by Provider. marta 11/26 06:42 Patient left the ED. dm5 Signatures: Halle Ortiz, RN RN dm5 Joshua Horne PA PA cp Pisarski, Jacob jp3 Nakita Smyth RN RN ca1 Hector Jarquin fj1 Nataliia Godoy RN RN ll1 Corrections: (The following items were deleted from the chart) 11/25 15:51 15:40 Acuity: ERIKA 3 ca1 ca1
[2019-11-26 19:42] LABS: Blood Morphology Comment NOT SEEN (NOT SEEN); Platelet Estimate DECR
[2019-11-26 20:13] LABS: Urine Bacteria <20 /HPF (<20); Urine RBC <5 /HPF (NONE SEEN)
[2019-11-26 20:14] LABS: Urine Culture Reflex Order REFLEXED; Urine Mucus 1+ /HPF (NONE SEEN)
[2019-11-26] MEDS ORDERED: ACETAMINOPHEN 325 MG TABLET ONE (20:21)
[2019-11-26 22:01] LABS: Urine Blood NEGATIVE (NEG); Urine Glucose NEGATIVE (NEG); Urine Protein NEGATIVE (NEG); Urine Specific Gravity 1.015 (1.005-1.030)
[2019-11-27 04:18] LABS: Absolute Lymphocytes (CBC) 1.5 K/uL (0.7-4.9); Basophils % 0.9 % (0-1.3); Hematocrit 37.3 % (36.0-45.0); MPV 11.9 fL (7.6-11.3); RBC Red Blood Cell Count 3.69 M/uL (3.86-4.86)
[2019-11-27 04:36] LABS: Potassium 3.6 mmol/L (3.5-5.1)
[2019-11-27] MEDS ORDERED: ASPIRIN EC 81 MG TAB PO SCH (09:00)
[2019-11-27 10:23] VITALS: BP 186/79; TEMP 98.3
[2019-11-27 10:47] VITALS: O2SAT 98
--- NOTE | 2019-11-27 12:24 | P.SSS ---
Patient History Date of Service: 11/27/19 Reason for admission: DIZZY History of Present Illness: MS. RAMESH HAS HTN, DEMENTIA AND GOT SOMEWHAT DIZZY SO SHE CALLED AMBULANCE. ER DOCTOR HEBER AND PA DECIDED TO ADMIT HER DESPITE MY REFUSAL I DON'T THINK THAT HR OF 45 NEEDS ADMISSION WITH SINUS BRADYCARDIA. I ASKED THEM TO STOP COREG BUT SHE GOT ADMITTED ANY WAY. I TOLD HER NOT TO CALL AMBULANCE OR GO TO ER FOR MINOR ISSUES. SHE LIVES ALONE , SHE GETS SCARED WITH ANY SS AND CALLS AMBULA NCE. Allergies Penicillins Allergy (Verified 09/11/19 06:36) Unknown Home Medications: Atorvastatin Calcium 1 tab PO DAILY 09/11/19 Donepezil HCl 1 tab PO DAILY 09/11/19 Escitalopram [Lexapro*] 10 mg PO DAILY 09/11/19 Folic Acid 1 tab PO DAILY 09/11/19 Hydralazine [Apresoline*] 50 mg PO TID 09/11/19 Memantine HCl 1 tab PO BID 09/11/19 traMADol HCL [Ultram*] 1 tab PO BID PRN 09/11/19 Losartan Potassium 100 mg PO DAILY #90 tablet 11/27/19 - Past Medical/Surgical History Diabetic: No -: Hyperlipidemia -: HTN -: Sarcoma -: Alzheimer's early stage -: sarcoma sx - Family History Mother -: Hypertension - Social History Alcohol use: No CD- Drugs: No Review of Systems 10-point ROS is otherwise unremarkable Physical Examination - Vital Signs Temperature: 98.3 F Blood Pressure: 186/79 Pulse: 54 Respirations: 16 Pulse Ox (%): 99 - Physical Exam General: Alert, In no apparent distress HEENT: Atraumatic, PERRLA, Mucous membr. moist/pink, EOMI, Sclerae nonicteric Neck: Supple, 2+ carotid pulse no bruit, No LAD, Without JVD or thyroid abnormality Respiratory: Clear to auscultation bilaterally, Normal air movement Cardiovascular: Regular rate/rhythm, Normal S1 S2 Gastrointestinal: Normal bowel sounds, No tenderness Musculoskeletal: No tenderness Integumentary: No rashes Neurological: Normal gait, Normal speech, Normal strength at 5/5 x4 extr, Normal tone, Normal affect Lymphatics: No axilla or inguinal lymphadenopathy - Studies Laboratory Data (last 24 hrs) 11/26/19 21:19: Troponin I 0.02 11/26/19 16:45: PT 12.8 H, INR 1.09 11/26/19 16:45: WBC 2.9 L, Hgb 12.4, Hct 37.4, Plt Count 100 L 11/26/19 16:45: Sodium 142, Potassium 3.5, BUN 11, Creatinine 0.83, Glucose 103, Magnesium 2.1, Total Bilirubin 0.9, AST 22, ALT 37, Alkaline Phosphatase 65 11/26/19 16:17: PT Cancelled, INR Cancelled 11/26/19 16:17: WBC Cancelled, Hgb Cancelled, Hct Cancelled, Plt Count Cancelled 11/26/19 16:17: Sodium Cancelled, Potassium Cancelled, BUN Cancelled, Creatinine Cancelled, Glucose Cancelled, Magnesium Cancelled, Total Bilirubin Cancelled, AST Cancelled, ALT Cancelled, Alkaline Phosphatase Cancelled - Diagnosis (Problem(s)) (1) Dizzy Current Visit: Yes Status: Acute Plan: MAY OR MAY NOT BE RELATED TO COREG. STOPPED IT SHE HAS BRADYCARDIA. STOPPED HCTZ ALSO. FU IN OFFICE IN A WEEK. CAROTIDS HAVE NO BRUIT. (2) Alzheimer disease Current Visit: No Status: Chronic (3) HTN (hypertension) Current Visit: No Status: Chronic Qualifiers: - Disposition Disposition: ROUTINE DISCHARGE Condition: FAIR Patient Discharge Instructions: STOP CARVEDILOL. STOP LOSARTAN HCT. START LOSARTAN 100 MG DAILY.
== END 2019-11-27 12:39 | disposition home or self-care (01) ==
LOC: ER 14:57 → ERHOLD 11-27 00:50 → 2ND 11-27 06:30
PROVIDERS: ADMIT Internal Medicine; ATTEND Internal Medicine
DX: R42 Dizziness and giddiness (principal); R00.1 Bradycardia, unspecified; G30.9 Alzheimer's disease, unspecified; F02.80 Dementia in other diseases classified elsewhere, unspecified severity, without behavioral disturbance, psychotic disturbance, mood disturbance, and anxiety; Z11.59 Encounter for screening for other viral diseases; J32.2 Chronic ethmoidal sinusitis; J32.1 Chronic frontal sinusitis; I11.0 Hypertensive heart disease with heart failure; I50.9 Heart failure, unspecified; E78.5 Hyperlipidemia, unspecified; Z79.82 Long term (current) use of aspirin; Z79.899 Other long term (current) drug therapy
CPT/HCPCS: 96361; 87088; 85025 ×2; 87086; 80048 ×2; 36415 ×2; 83735; 85610; 80076; 87077; 87186; 84484 ×3; 83880; 70450; 71045; 96360; 99285; U0002; J7040; G0378 ×2; 81003; 81015

== ENCOUNTER 2020-05-24 06:12 | Emergency (ER) | payer OTHER, MEDICARE ==
--- OUTSIDE RECORDS SUMMARY | 2020-05-24 06:14 | XMS REPORT | Clinical Summary ---
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; Service: General ; Laterality: N/A; CYSTO STENT INSERTION 11/21/2017 N/A Procedure: CYSTO, BILATERAL STENT INSERTION; Surg raimundo: Rudolph Mcguire MD; L ocation: [facility]; Service: Ur ology; Laterality: N/A; Medical History Medical History Date Comments HTN (hypertension) HLD (hyperlipidemia) Anesthesia NHAP/NFHAP Anxiety High cholesterol Back pain found tumor in abdom en Wears dentures full at top and part ial in bottom Social History Tobacco Use Types Packs/Day Years Used Date Never Smoker Smokeless Tobacco: Never Used Alcohol Use Drinks/Week oz/Week Comments No Sex Assigned at Date Recorded Not on file Last Filed Vital Signs Not on file Plan of Treatment Health Maintenance Due Date Last Done Comments COVID-19 VACCINE (#1) 1961 BREAST CANCER SCREENING 1995 COLONOSCOPY SCREENING 1995 SHINGLES VACCINES (#1) 1995 65+ PNEUMOCOCCAL VACCINE (1 of - PPSV23) 2010 INFLUENZA VACCINE 12/19/2019 Results Not on fileafter 05/24/2019 Insurance Payer Benefit Plan / Subscriber ID Effective Dates Phone Addre ss Type Group MEDICARE MEDICARE PART A [id number] 2010-Present YASMANY HINES Medicare AND B AARP AARP SUPPLEMENT [id number] 2017-Present Commercial (Home) [address] [place] [id number] Advance Directives For more information, please contact: [phone] Type Date 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
--- OUTSIDE RECORDS SUMMARY | 2020-05-24 06:15 | XMS REPORT | Continuity of Care Document ---
:1945 Author Organization [facility] t Address [address] [place] [address] Care Team Providers Name Role Phone Shaunna BRADY Primary Care Physician Unavailable SYSTEM, NOT IN Attending Clinician Unavailable Luis Antonio IGLESIAS Attending Clinician Unavailable Shaunna BRADY Attending Clinician Unavailable Payers Payer Name Policy Type Policy Number Effective Date Expiration Date S yesenia MEDICARE PART A [id number] 2010 AND B 00:00:00 AARP-SECONDARY [id number] 2017 ONLY 00:00:00 Problems Condition Condition Condition Status Onset Resolution Last Treating Co mments Source Name Details Category Date Date Treatment Clinician Date Retroperit Retroperit Disease Active [place] resendiz mass resendiz mass 7-05 Me thodi 00:00: st 00 Abdominal Abdominal Disease Active Luis ston mass mass 6-26 Methodi 00:00: st 00 Allergies, Adverse Reactions, Alerts Allergy Allergy Status Severity Reaction(s) Onset Inactive Treating Comm ents Source Name Type Date Date Clinician Penicill Propensi Active Itching unknown [place] ins ty to 927 Methodi adverse 00:00: st reaction 00 s to drug Social History Social Habit Start Date Stop Date Quantity Comments Source Sex Assigned At [facility] ethodi Tobacco use and 2017-12-05 2017-12-05 Never used [facility] ethodist exposure 00:00:00 00:00:00 Alcohol intake 2017-12-05 2017-12-05 Current [facility] thodist 00:00:00 00:00:00 non-drinker of alcohol (finding) Smoking Status Start Date Stop Date Source Never smoker [place] [facility] t Medications Ordered Filled Start Stop Current Ordering Indication Dosage Frequency Signature Comments Components Source Medication Medication Date Date Medication? Clinician (SIG) Name Name traMADol 2018-0 Yes 50mg Q6H Take 50 mg Luis ston (ULTRAM) 50 7-13 by mouth Meth jin mg tablet 14:58: every 6 st 24 (six) hours as needed for moderate pain. escitalopra 2018-0 Yes 10mg QD Take 10 mg [place] m (LEXAPRO) 7-13 by mouth Meth jin 10 MG 14:58: daily. st tablet 24 oxybutynin 2018-0 Yes 5mg [id number] Take 5 mg [place] (DITROPAN) 7-13 [id number] by mouth 3 Methodi 5 MG tablet 14:58: 3D (three) st 24 times a day. aspirin 2018-0 Yes 81mg QD Take 81 mg [place] (ECOTRIN) 7-13 by mouth Method i 81 MG 14:58: daily. st enteric 24 coated tablet pravastatin 2017-0 Yes 10mg Q.5D Take 10 mg [place] (PRAVACHOL) 7-13 by mouth 2 Me thodi 10 MG 14:58: (two) st tablet 24 times a day. carvedilol 2018-0 Yes 12.5mg Q.5D Take 12.5 [place] (COREG) 7-13 mg by Methodi 12.5 MG 14:58: mouth 2 st tablet 24 (two) times a day with meals. ciprofloxac 2017-0 Yes 500mg Q.5D Take 500 [place] in (CIPRO) 7-13 mg by Methodi 500 MG 14:58: mouth 2 st tablet 24 (two) times a day. Vital Signs Vital Name Observation Time Observation Value Comments Source WEIGHT 2020-01-28 10:56:44 89.6 kg Procedures This patient has no known procedures. Plan of Care Planned Activity Planned Date Details Comments Source Future Scheduled 2019-12-19 INFLUENZA VACCINE [facility] acrrillo [facility] 00:00:00 [code = INFLUENZA VACCINE] Future Scheduled 2010 65+ PNEUMOCOCCAL [facility] 00:00:00 VACCINE (1 of 1 - PPSV23) [code = 65+ PNEUMOCOCCAL VACCINE (1 of 1 - PPSV23)] Future Scheduled 1995 BREAST CANCER [facility] thodist Test 00:00:00 SCREENING [code = BREAST CANCER SCREENING] Future Scheduled 1995 COLONOSCOPY SCREENING [place] [facility] 00:00:00 [code = COLONOSCOPY SCREENING] Future Scheduled 1995 SHINGLES VACCINES (#1) [facility] 00:00:00 [code = SHINGLES VACCINES (#1)] Future Scheduled 1961 COVID-19 VACCINE (#1) [facility] 00:00:00 [code = COVID-19 VACCINE (#1)] Encounters Start End Encounter Admission Attending Care Care Encounter Source Date/Time Date/Time Type Type Clinicians Facility Department ID 2020-01-29 Outpatient [facility], GAVINO MANCIA [id number] 20:22:38 LILA carrillo 2020-01-28 2020-01-28 [facility] [id number] 07:11:52 23:59:00 BIANCA carrillo 2020-01-28 2020-01-28 [facility] [id number] 10:15:42 11:42:57 ARAMIS carrillo 2020-01-28 2020-01-28 [facility] [id number] 06:58:36 07:10:00 BIANCA carrillo 2020-01-28 2020-01-28 Outpatient URQUIOLA, [place] MANCIA [id number] 06:31:12 06:57:00 BIANCA carrillo 2019-10-03 2019-10-03 [facility] G[facility] MANCIA [id number] 09:06:18 23:59:00 ARAMIS carrillo Results This patient has no known results.
[2020-05-24 07:51] LABS: Albumin 3.1 g/dL (3.4-5.0); Bilirubin Direct 0.2 mg/dL (0-0.2); Bilirubin Total 0.8 mg/dL (0.2-1.0); Potassium 3.9 mmol/L (3.5-5.1)
[2020-05-24 08:03] LABS: Urine RBC NONE SEEN /HPF (NONE SEEN)
[2020-05-24 08:04] LABS: Urine Bacteria <20 /HPF (<20); Urine Mucus 2+ /HPF (NONE SEEN)
[2020-05-24 08:17] LABS: SARS-COV-2 RT PCR NEGATIVE (NEGATIVE)
[2020-05-24 08:30] LABS: Urine Blood NEGATIVE (NEG); Urine Glucose NEGATIVE (NEG); Urine Protein 1+ (NEG); Urine Specific Gravity >1.030 (1.005-1.030)
--- NOTE | 2020-05-24 08:30 | RAD REPORT ---
EXAM DESCRIPTION: CT - Abdomen Pelvis W Contrast - 05/24/2020 8:11 am CLINICAL HISTORY: Abdominal pain COMPARISON: 2017 TECHNIQUE: Computed axial tomography of the abdomen pelvis was obtained. 100 cc Isovue-300 was admin istered intravenously. Oral contrast was not requested which limits evaluation of bowel. All CT scans are performed using dose optimization technique as appropriate and may include automated exposure control or mA/KV adjustment according to patient size. FINDINGS: The liver, spleen, pancreas, adrenal and kidneys appear unremarkable. Cholecystectomy. Fluid is present throughout large and small bowel. The wall of several loops of small bowel is mildly to moderately thickened. The appendix is fluid filled and mildly dilated. No adjacent stranding Mild anterior subluxation L4 on L5 IMPRESSION: Fluid throughout large and small bowel. The wall of several loops of small bowel is mild ly to moderately thickened probably indicating inflammation. Appendix is fluid-filled and mildly dilated. This probably is secondary to fluid within the adjacent cecum entering a normal appendix. An early appendicitis can also have this appearance and should be c orrelated clinically
[2020-05-24 08:54] LABS: Absolute Lymphocytes (CBC) 0.7 K/uL (0.7-4.9); Basophils % 0.9 % (0-1.3); Lymphocytes % 19.2 % (15.3-44.8); MPV 10.7 fL (7.6-11.3); RBC Red Blood Cell Count 3.82 M/uL (3.86-4.86)
[2020-05-24] MEDS ORDERED: CIPROFLOXACIN 400mg IV 400 MG/200 ML BAG IV ONE (09:17)
[2020-05-24] MEDS ORDERED: METRONIDAZOLE 500mg IVPB 500 MG/100 ML BAG IV ONE (09:18)
--- NOTE | 2020-05-24 09:27 | ER ---
Nurse's Notes [facility] Name: Lisa Camacho Age: 75 yrs Sex: Female : 1945 Arrival Date: 05/24/2020 Time: 06:14 Bed 15 Private MD: Diagnosis: Noninfective gastroenteritis and colitis, unspecified;Abdominal tenderness;Essential (primary) hypertension;Urinary tract infection, site not specified Presentation: 05/24 06:23 Chief complaint: Patient states: I have had yellow, liquid stool that began about two sg weeks ago, worsening over night. pt reports has had to change her brief twice this morning as the liquid stool just keeps coming out. Denies N/V/Fever/Chills or pain for triage, denies no recent use of abx, reports taking her normal medications as ordered. Coronavirus screen: Client denies travel out of the [place] in the last 14 days. At this time, the client does not indicate any symptoms associated with coronavirus-19. Ebola Screen: Patient negative for fever greater than or equal to 101.5 degrees Fahrenheit, and additional compatible Ebola Virus Disease symptoms Patient denies exposure to infectious person. Patient denies travel to an Ebola-affected area in the 21 days before illness onset. No symptoms or risks identified at this time. Initial Sepsis Screen: Does the patient meet any 2 criteria? No. Patient's initial sepsis screen is negative. Does the patient have a suspected source of infection? No. Patient's initial sepsis screen is negative. Risk Assessment: Do you want to hurt yourself or someone else? Patient reports no desire to harm self or others. Onset of symptoms was May 24, 2020. Care prior to arrival: None. Transition of care: patient was not received from another setting of care. 06:23 Method Of Arrival: Ambulatory sg 06:23 Acuity: ERIKA 3 sg Triage Assessment: 07:00 General: Appears in no apparent distress. comfortable, Behavior is cooperative, bp appropriate for age, anxious, RECD REPORT FROM VIDA MONTERO. Pain: Denies pain. EENT: No deficits noted. Neuro: No deficits noted. Cardiovascular: No deficits noted. Respiratory: No deficits noted. GI: Reports diarrhea. : No signs and/or symptoms were reported regarding the genitourinary system. Derm: No deficits noted. Musculoskeletal: No deficits noted. Historical: - Allergies: 06:23 PENICILLINS; sg - PMHx: 06:23 Alzheimers; Hyperlipidemia; Hypertension; sarcoma; sg - PSHx: 06:23 sarcoma surgery; sg - Immunization history:: Adult Immunizations up to date. - Social history:: Smoking status: Patient denies any tobacco usage or history of. - Family history:: not pertinent. - Hospitalizations: : No recent hospitalization is reported. Screenin:00 Abuse screen: Denies threats or abuse. Denies injuries from another. Nutritional bp screening: No deficits noted. Tuberculosis screening: No symptoms or risk factors identified. Fall Risk None identified. Assessment: 07:00 General: SEE TRIAGE NOTE. bp 07:30 Reassessment: Patient appears in no apparent distress at this time. No changes from bp previously documented assessment. Patient and/or family updated on plan of care and expected duration. Pain level reassessed. Patient is alert, oriented x 3, equal unlabored respirations, skin warm/dry/pink. CT ON HOLD FOR PIV PLACEMENT. 08:41 Reassessment: Patient appears in no apparent distress at this time. No changes from bp previously documented assessment. Patient and/or family updated on plan of care and expected duration. Pain level reassessed. Patient is alert, oriented x 3, equal unlabored respirations, skin warm/dry/pink. LABS REDRAWN AND SENT. 09:34 Reassessment: Patient appears in no apparent distress at this time. No changes from bp previously documented assessment. Patient and/or family updated on plan of care and expected duration. Pain level reassessed. Patient is alert, oriented x 3, equal unlabored respirations, skin warm/dry/pink. D/C ON HOLD FOR ABX COMPLETION. 10:46 Reassessment: IV ABX COMPLETED. PT D/C HOME AMBULATORY, DX WITH GASTROENTERITIS AND bp COLITIS. Vital Signs: 06:20 BP 152 / 72; Pulse 89; Resp 16; Temp 97.9; Pulse Ox 100% on R/A; Pain 0/10; sg 07:30 BP 122 / 61; Pulse 57; Resp 16; Pulse Ox 97% ; bp 08:41 BP 125 / 105; Pulse 68; Resp 16; Pulse Ox 98% ; bp 09:30 BP 158 / 79; Pulse 71; Resp 16; Pulse Ox 97% ; bp 10:30 BP 151 / 84; Pulse 66; Resp 17; Temp 98; Pulse Ox 97% ; bp ED Course: 06:14 Patient arrived in ED. ag3 06:18 Kirill Castaneda MD is Attending Physician. rn 06:23 Arm band placed on. sg 06:25 Triage completed. sg 06:38 Vida Edwards RN is Primary Nurse. ll2 07:00 Patient has correct armband on for positive identification. Bed in low position. Call bp light in reach. Side rails up X2. 07:01 Primary Nurse role handed off by Vida Edwards RN bp 07:01 Jeremi Francois, RN is Primary Nurse. bp 07:08 Report given to WINSTON joy. ll2 07:08 COVID swab sent to lab. ll2 07:27 Attending Physician role handed off by Kirill Castaneda MD tyrone 07:27 Joshua Johnson MD is Attending Physician. tyrone 08:02 Inserted saline lock: 22 gauge in right wrist, using aseptic technique. ,using aseptic sv technique. diffusics Flushed right with 2 ml normal saline. 08:11 Abdomen In Process Unspecified. EDMS 09:15 Warm blanket given. Pulse ox on. NIBP on. mh5 09:15 EKG done, by ED staff, reviewed by Joshua Johnson MD. 5 09:27 Quincy Cabrera MD is Referral Physician. tyrone 10:30 No provider procedures requiring assistance completed. IV discontinued, intact, bp bleeding controlled, No redness/swelling at site. Pressure dressing applied. Administered Medications: 09:05 Drug: Flagyl 500 mg Volume: 100 ml; Route: IVPB; Rate: 200 ml/hr; Infused Over: 30 bp mins; Site: right forearm; 10:05 Follow up: IV Status: Completed infusion; IV Intake: 100ml bp 09:40 Drug: Cipro 400 mg Volume: 200 ml; Route: IVPB; Infused Over: 60 mins; Site: right bp forearm; 11:02 Follow up: IV Status: Completed infusion; IV Intake: 200ml bp Intake: 10:05 IV: 100ml; Total: 100ml. bp 11:02 IV: 200ml; Total: 300ml. bp Outcome: :27 Discharge ordered by MD. tyrone 10:30 Discharged to home ambulatory. bp 10:30 Condition: stable 10:30 Discharge instructions given to patient, Instructed on discharge instructions, follow up and referral plans. medication usage, Demonstrated understanding of instructions, follow-up care, medications, Prescriptions given X 4. 11:03 Patient left the ED. bp Signatures: Dispatcher [employer] Pinky Alcocer, RN RN Chuy Quesada RN RN sg Anderson, Corey, MD MD cha Nieto, Roman, MD MD rn Martinez, Maria 5 Jeremi Francois RN RN bp Maricarmen Zhu ag3 Vida Edwards RN RN ll2 Corrections: (The following items were deleted from the chart) 10:47 10:46 Reassessment: PT D/C HOME AMBULATORY, DX WITH DIARRHEA bp bp 10:47 10:46 Reassessment: IV ABX COMPLETED. PT D/C HOME AMBULATORY, DX WITH DIARRHEA bp bp
--- NOTE | 2020-05-24 09:27 | EDPHYS ---
Physician Documentation [facility] Name: Lisa Camacho Age: 75 yrs Sex: Female : 1945 Arrival Date: 05/24/2020 Time: 06:14 Bed 15 Private MD: ALLAN Physician Joshua Johnson HPI: 05/24 06:26 This 75 yrs old Black Female presents to ER via Ambulatory with complaints of Diarrhea. rn 06:26 The patient presents to the emergency department with diarrhea, 4 times today, rn abdominal pain, of the right lower quadrant and left lower quadrant, described as achy, crampy, and does not radiate. Onset: The symptoms/episode began/occurred this morning. Possible causes: unknown. The symptoms are aggravated by nothing. The symptoms are alleviated by nothing. Associated signs and symptoms: Pertinent positives: diarrhea, Pertinent negatives: constipation, fever, GI bleeding. Severity of symptoms: At their worst the symptoms were mild in the emergency department the symptoms are unchanged. The patient has not experienced similar symptoms in the past. The patient has not recently seen a physician. Reports crampy lower abd pain and diarrhea, yellow, non-bloody, began this AM. Denies fever. No recent abx or new medication. . Historical: - Allergies: 06:23 PENICILLINS; sg - PMHx: 06:23 Alzheimers; Hyperlipidemia; Hypertension; sarcoma; sg - PSHx: 06:23 sarcoma surgery; sg - Immunization history:: Adult Immunizations up to date. - Social history:: Smoking status: Patient denies any tobacco usage or history of. - Family history:: not pertinent. - Hospitalizations: : No recent hospitalization is reported. ROS: 06:26 Constitutional: Negative for fever, chills, and weight loss, Eyes: Negative for injury, rn pain, redness, and discharge, Neck: Negative for injury, pain, and swelling, Cardiovascular: Negative for chest pain, palpitations, and edema, Respiratory: Negative for shortness of breath, cough, wheezing, and pleuritic chest pain, Abdomen/GI: Negative for nausea, vomiting, and constipation, Back: Negative for injury and pain, : Negative for injury, bleeding, discharge, and swelling, MS/Extremity: Negative for injury and deformity, Skin: Negative for injury, rash, and discoloration, Neuro: Negative for headache, weakness, numbness, tingling, and seizure. Exam: 06:26 Constitutional: This is a well developed, well nourished patient who is awake, alert, rn and in no acute distress. Head/Face: Normocephalic, atraumatic. ENT: MMM Cardiovascular: Regular rate and rhythm. No pulse deficits. Respiratory: Speaking full sentences, unlabored. No increased work of breathing, no retractions or nasal flaring. Abdomen/GI: soft, mild bilateral lower abd tenderness, no masses or rebound Skin: Warm, dry MS/ Extremity: Pulses equal, no cyanosis. Neuro: Awake and alert, GCS 15 09:11 ECG was reviewed by the Attending Physician. [facility] Vital Signs: 06:20 BP 152 / 72; Pulse 89; Resp 16; Temp 97.9; Pulse Ox 100% on R/A; Pain 0/10; sg 07:30 BP 122 / 61; Pulse 57; Resp 16; Pulse Ox 97% ; bp 08:41 BP 125 / 105; Pulse 68; Resp 16; Pulse Ox 98% ; bp 09:30 BP 158 / 79; Pulse 71; Resp 16; Pulse Ox 97% ; bp 10:30 BP 151 / 84; Pulse 66; Resp 17; Temp 98; Pulse Ox 97% ; bp MDM: 06:18 Patient medically screened. rn 06:54 Differential diagnosis: colits, diverticulitis, COVID, viral syndrome, proctitis. rn 06:54 Transition of care: After a detail discussion of the patient's case, care is rn transferred to Joshua Johnson MD. 08:52 Data reviewed: vital signs, nurses notes, lab test result(s), EKG, radiologic studies. [facility] Data interpreted: maintainer operator: rate is 68 beats/min, rhythm is regular, Pulse oximetry: on room air is 98 %. Test interpretation: by ED physician or midlevel provider: ECG, plain radiologic studies. Counseling: I had a detailed discussion with the patient and/or guardian regarding: the historical points, exam findings, and any diagnostic results supporting the discharge/admit diagnosis, lab results, radiology results. 09:02 Physician consultation: Quincy Cabrera MD. [facility] 05/24 06:26 Order name: Basic Metabolic Panel; Complete Time: 08:36 rn 05/24 06:26 Order name: CBC with Diff; Complete Time: 09:02 rn 05/24 06:26 Order name: Hepatic Function; Complete Time: 08:36 rn 05/24 06:26 Order name: Lipase; Complete Time: 08:36 rn 05/24 06:26 Order name: Urine Microscopic Only; Complete Time: 08:36 rn 05/24 06:30 Order name: Abdomen ; Complete Time: 08:36 EDMS 05/24 07:30 Order name: Urine Dipstick--Ancillary (enter results); Complete Time: 08:36 bd 05/24 07:43 Order name: CREATININE WHOLE BLOOD; Complete Time: 08:36 EDMS 05/24 08:06 Order name: Urine Culture EDMS 05/24 08:17 Order name: COVID-19/FLU A+B; Complete Time: 08:36 EDMS 05/24 06:26 Order name: IV Saline Lock; Complete Time: 08:02 rn 05/24 06:26 Order name: Labs collected and sent; Complete Time: 07:30 rn 05/24 06:26 Order name: Urine Dipstick-Ancillary (obtain specimen); Complete Time: 07:30 rn 05/24 08:07 Order name: Labs - recollect needed: recollect cbc; Complete Time: 08:42 bd 05/24 08:54 Order name: EKG; Complete Time: 08:54 tyrone 05/24 08:54 Order name: EKG - Nurse/Tech; Complete Time: 09:11 tyrone EC:11 Rate is 74 beats/min. Rhythm is regular. QRS Kemp is Normal. DE interval is normal. QRS tyrone interval is normal. QT interval is normal. No Q waves. T waves are Normal. No ST changes noted. Clinical impression: Normal ECG and No evidence of ischemia. Interpreted by me. Reviewed by me. Administered Medications: 09:05 Drug: Flagyl 500 mg Volume: 100 ml; Route: IVPB; Rate: 200 ml/hr; Infused Over: 30 bp mins; Site: right forearm; 10:05 Follow up: IV Status: Completed infusion; IV Intake: 100ml bp 09:40 Drug: Cipro 400 mg Volume: 200 ml; Route: IVPB; Infused Over: 60 mins; Site: right bp forearm; 11:02 Follow up: IV Status: Completed infusion; IV Intake: 200ml bp Disposition: 05/24/20 09:27 Discharged to Home. Impression: Noninfective gastroenteritis and colitis, unspecified, Abdominal tenderness, Essential (primary) hypertension, Urinary tract infection, site not specified. - Condition is Stable. - Discharge Instructions: Abdominal Pain, Adult, Food Choices to Help Relieve Diarrhea, Adult, Hypertension, Viral Gastroenteritis, Adult, Viral Gastroenteritis, Adult, Wmhb-ox-Rokg, Abdominal Pain, Adult, Trjw-zk-Mdot, Hypertension, Nmzz-vv-Mozg, Managing Your Hypertension. - Prescriptions for Bentyl 20 mg Oral Tablet - take 1 tablet by ORAL route every 6 hours As needed; 20 tablet. Cipro 250 mg Oral Tablet - take 1 tablet by ORAL route every 12 hours; 14 tablet. Flagyl 500 mg Oral Tablet - take 1 tablet by ORAL route every 8 hours for 7 days; 21 tablet. Pepcid 20 mg Oral Tablet - take 1 tablet by ORAL route every 12 hours for 10 days; 20 tablet. - Medication Reconciliation Form, Thank You Letter, Antibiotic Education, Prescription Opioid Use form. - Follow up: Quincy Cabrera; When: Tomorrow; Reason: Recheck today's complaints, Continuance of care, Re-evaluation by your physician. - Problem is new. - Symptoms have improved. Signatures: Dispatcher [employer] EDMS Lisa Benites Steven, WINSTON RN Joshua Moore MD MD cha Nieto, Roman, MD MD rn Peltier, WINSTON Blood RN bp Corrections: (The following items were deleted from the chart) 06:35 06:32 Abdomen Pelvis W Con+CT.RAD.BRZ ordered. EDME EDMS 07:25 06:43 CORONAVIRUS+MR.LAB.BRZ ordered. EDME EDMS 08:37 06:43 Influenza Screen (A \T\ B)+BA.LAB.BRZ ordered. EDME EDMS 09:29 09:27 05/24/2020 09:27 Discharged to Home. Impression: Noninfective gastroenteritis and tyrone colitis, unspecified; Abdominal tenderness; Essential (primary) hypertension. Condition is Stable. Discharge Instructions: Abdominal Pain, Adult, Food Choices to Help Relieve Diarrhea, Adult, Viral Gastroenteritis, Adult, Viral Gastroenteritis, Adult, Vkob-vx-Frot, Abdominal Pain, Adult, Avvm-jk-Ljdr, Hypertension, Hypertension, Knvt-vh-Mxpd, Managing Your Hypertension. Prescriptions for Bentyl 20 mg Oral Tablet - take 1 tablet by ORAL route every 6 hours As needed; 20 tablet, Cipro 250 mg Oral Tablet - take 1 tablet by ORAL route every 12 hours; 14 tablet, Flagyl 500 mg Oral Tablet - take 1 tablet by ORAL route every 8 hours for 7 days; 21 tablet, Pepcid 20 mg Oral Tablet - take 1 tablet by ORAL route every 12 hours for 10 days; 20 tablet. and Forms are Medication Reconciliation Form, Thank You Letter, Antibiotic Education, Prescription Opioid Use. Follow up: Quincy Cabrera; When: Tomorrow; Reason: Recheck today's complaints, Continuance of care, Re-evaluation by your physician. Problem is new. Symptoms have improved. tyrone 11:03 09:29 05/24/2020 09:27 Discharged to Home. Impression: Noninfective gastroenteritis and bp colitis, unspecified; Abdominal tenderness; Essential (primary) hypertension; Urinary tract infection, site not specified. Condition is Stable. Discharge Instructions: Abdominal Pain, Adult, Food Choices to Help Relieve Diarrhea, Adult, Viral Gastroenteritis, Adult, Viral Gastroenteritis, Adult, Nuoh-np-Zbtw, Abdominal Pain, Adult, Przs-pn-Oake, Hypertension, Hypertension, Xbzi-zi-Pitn, Managing Your Hypertension. Prescriptions for Bentyl 20 mg Oral Tablet - take 1 tablet by ORAL route every 6 hours As needed; 20 tablet, Cipro 250 mg Oral Tablet - take 1 tablet by ORAL route every 12 hours; 14 tablet, Flagyl 500 mg Oral Tablet - take 1 tablet by ORAL route every 8 hours for 7 days; 21 tablet, Pepcid 20 mg Oral Tablet - take 1 tablet by ORAL route every 12 hours for 10 days; 20 tablet. and Forms are Medication Reconciliation Form, Thank You Letter, Antibiotic Education, Prescription Opioid Use. Follow up: Quincy Cabrera; When: Tomorrow; Reason: Recheck today's complaints, Continuance of care, Re-evaluation by your physician. Problem is new. Symptoms have improved. tyrone
[2020-05-24 11:16] VITALS: O2SAT 97
[2020-05-24 11:17] VITALS: BP 151/84; TEMP 98
--- NOTE | 2020-05-25 06:33 | EKG ---
Test Date: 2020-05-24 Test Time: 09:03:55 Legal Biller: GERRI MEASUREMENT RESULTS: Intervals: Rate: 74 MT: 168 QRSD: 100 QT: 410 QTc: 455 Townsend: P: 55 MT: 168 QRS: 44 T: 58 INTERPRETIVE STATEMENTS: Normal sinus rhythm Normal ECG Compared to ECG 11/26/2019 16:05:49 Sinus bradycardia no longer present Electronically Signed On 05-25-20 06:31:52 BUSINESS OFFICE MANAGER by Jesus Crespo
== END 2020-05-24 11:03 | disposition home or self-care (01) ==
LOC: ER 06:12
DX: K52.9 Noninfective gastroenteritis and colitis, unspecified (principal); N39.0 Urinary tract infection, site not specified; I10 Essential (primary) hypertension; G30.9 Alzheimer's disease, unspecified; F02.80 Dementia in other diseases classified elsewhere, unspecified severity, without behavioral disturbance, psychotic disturbance, mood disturbance, and anxiety; Z88.0 Allergy status to penicillin; Z20.828 Contact with and (suspected) exposure to other viral communicable diseases
CPT/HCPCS: 93005; 87088; 85025; 87086; 80048; 36415; 82565; 80076; 83690; 0240U; 74177; Q9967; J0744; 81003; 81015; 96365; 99284

== ENCOUNTER 2020-10-14 19:30 | Emergency (ER) | payer MEDICARE, OTHER ==
--- OUTSIDE RECORDS SUMMARY | 2020-10-14 21:08 | XMS REPORT | Continuity of Care Document ---
:1945 Author Organization [facility] t Address [address] [place] [address] Care Team Providers Name Role Phone Shaunna BRADY Primary Care Physician Unavailable SYSTEM, NOT IN Attending Clinician Unavailable Shaunna BRADY Attending Clinician Unavailable Luis Antonio IGLESIAS Attending Clinician Unavailable Payers Payer Name Policy Type Policy Number Effective Date Expiration Date S ource MEDICARE PART A [id number] 2010 AND B 00:00:00 [employer]-SECONDARY [id number] 2017 ONLY 00:00:00 Problems Condition Condition Condition [...] Date Date Clinician Penicill Propensi Active Itching 2006- unknown [place] ty to 02-13 Methodi adverse 00:00: st reaction 00 s to drug Social History Social Habit Start Date Stop Date Quantity Comments Source Tobacco use and 2017-12-05 2017-12-05 Never used [facility] ethodist exposure 00:00:00 00:00:00 Alcohol intake 2017-12-05 2017-12-05 Current [facility] thodist 00:00:00 00:00:00 non-drinker of alcohol (finding) Sex [birth year] Isael Dias ethodist 00:00:00 00:00:00 Smoking Status Start Date Stop Date Source Never smoker Isael Mccrackenis t Medications Ordered Filled Start Stop Current Ordering Indication Dosage Frequency Signature Comments Components Source Medication Medication Date Date Medication? Clinician (SIG) Name Name escitalopra 2018- Yes 10mg QD Take 10 mg Isael dias (LEXAPRO) 7-13 by mouth Meth jin 10 MG 14:58: daily. st tablet 24 oxybutynin 2018-0 Yes 5mg [id number] Take 5 mg [place] (DITROPAN) 7-13 [id number] by mouth 3 Methodi 5 MG tablet 14:58: 3D (three) st 24 times a day. aspirin 2017-0 Yes 81mg QD Take 81 mg Charles saha (ECOTRIN) 7-13 by mouth Method i 81 MG 14:58: daily. st enteric 24 coated tablet pravastatin 2017- Yes 10mg Q.5D Take 10 mg [place] (PRAVACHOL) 7-13 by mouth 2 Me thodi 10 MG 14:58: (two) st tablet 24 times a day. carvedilol 2017-0 Yes 12.5mg Q.5D Take 12.5 [place] (COREG) 7-13 mg by Methodi 12.5 MG 14:58: mouth 2 st tablet 24 (two) times a day with meals. ciprofloxac 2018-0 Yes 500mg Q.5D Take 500 [place] (CIPRO) 7-13 mg by Methodi 500 MG 14:58: mouth 2 st tablet 24 (two) times a day. traMADol 2017-0 Yes 50mg Q6H Take 50 mg Luis ston (ULTRAM) 50 7-13 by mouth Meth jin mg tablet 14:58: every 6 st 24 (six) hours as needed for moderate pain. Vital Signs Vital Name Observation Time Observation Value Comments Source WEIGHT 2020-01-28 10:56:44 89.6 kg Procedures This patient has no known procedures. Plan of Care Planned Activity Planned Date Details Comments Source Future Scheduled 2020-12-18 INFLUENZA VACCINE [facility] [facility] 00:00:00 [code = INFLUENZA VACCINE] Future Scheduled 1995 BREAST CANCER [place] [facility] Test 00:00:00 SCREENING [code = BREAST CANCER SCREENING] Future Scheduled 1995 COLONOSCOPY SCREENING [place] [facility] 00:00:00 [code = COLONOSCOPY SCREENING] Future Scheduled 1995 SHINGLES VACCINES (#1) [facility] [place] [facility] 00:00:00 [code = SHINGLES VACCINES (#1)] Future Scheduled 1963 Hepatitis C screening [facility] [place] [facility] 00:00:00 (procedure) [code = 696099295] Future Scheduled 1957 COVID-19 VACCINE (1) [place] [facility] 00:00:00 [code = COVID-19 VACCINE (1)] Future Scheduled 1951 65+ PNEUMOCOCCAL [place] [facility] 00:00:00 VACCINE (1 of 2 - PPSV23) [code = 65+ PNEUMOCOCCAL VACCINE (1 of 2 - PPSV23)] Encounters Start End Encounter Admission Attending Care Care Encounter Source Date/Time Date/Time Type Type Clinicians Facility Department ID 2020-01-29 Outpatient SYSTEM, GAVINO MANCIA [id number] 20:22:38 LILA carrillo 2020-08-15 2020-08-15 Outpatient RAFFIRJOHANNAJORGE, GAVINO MDA [id number] 14:45:57 17:20:42 ARAMIS carrillo 2020-08-13 2020-08-13 Outpatient EL URQUIOLA, GAVINO MDA [id number] 06:40:00 23:59:00 BIANCA erazoo n 2020-08-13 2020-08-13 Outpatient EL URQUIOLA, GAVINO MDA [id number] 06:15:00 06:39:00 BIANCA Senior rso n 2020-01-28 2020-01-28 Outpatient EL URQUIOLA, GAVINO MDA [id number] 07:11:52 23:59:00 BIANCA Senior rso n 2020-01-28 2020-01-28 Outpatient EL ZARZOUR, GAVINO MDA [id number] 10:15:42 11:42:57 ARAMIS carrillo 2020-01-28 2020-01-28 Outpatient EL URQUIOLA, GAVINO MDA [id number] 06:58:36 07:10:00 BIANCA Senior rso n 2020-01-28 2020-01-28 Outpatient EL URQUIOLA, GAVINO MDA [id number] 06:31:12 06:57:00 BIANCA erazoo n 2019-10-03 2019-10-03 Outpatient MORRO BRADY MDA MDA [id number] 09:06:18 23:59:00 ARAMIS carrillo Results This patient has no known results.
[2020-10-14 23:54] LABS: Absolute Lymphocytes (CBC) 1.9 K/uL (0.7-4.9); Basophils % 0.9 % (0-1.3); Hematocrit 40.1 % (36.0-45.0); Lymphocytes % 35.6 % (15.3-44.8); MPV 10.4 fL (7.6-11.3); RBC Red Blood Cell Count 3.96 M/uL (3.86-4.86)
[2020-10-14 23:56] LABS: Protime INR 0.99
[2020-10-15 00:04] LABS: Bilirubin Direct 0.2 mg/dL (0-0.2); Bilirubin Total 0.8 mg/dL (0.2-1.0); Potassium 4.1 mmol/L (3.5-5.1); Protein, Total 7.3 g/dL (6.4-8.2)
[2020-10-15 01:14] LABS: Urine Blood Negative (Negative); Urine Glucose Negative (Negative); Urine Protein Trace (Negative); Urine Specific Gravity 1.025 (1.005-1.030); Urine pH 5.5 (5.0-7.0)
[2020-10-15 01:37] LABS: Urine Bacteria 20-50 /HPF (<20); Urine Mucus 3+ /HPF (NONE SEEN)
--- NOTE | 2020-10-15 01:51 | ER ---
Nurse's Notes [facility] Name: Lisa Camacho Age: 75 yrs Sex: Female : 1945 Arrival Date: 10/14/2020 Time: 19:32 Bed 17 Private MD: Diagnosis: Urinary tract infection, site not specified Presentation: 10/14 20:24 Chief complaint: Patient states: has been having rectal bleeding and this evening it iw was coming out a lot and then it stopped after while, has had colonoscopy in the past and it was normal, bleeding was bright red, is also having some abd pain. Coronavirus screen: At this time, the client does not indicate any symptoms associated with coronavirus-19. Ebola Screen: Patient negative for fever greater than or equal to 101.5 degrees Fahrenheit, and additional compatible Ebola Virus Disease symptoms Patient denies exposure to infectious person. Patient denies travel to an Ebola-affected area in the 21 days before illness onset. No symptoms or risks identified at this time. Initial Sepsis Screen: Does the patient meet any 2 criteria? No. Patient's initial sepsis screen is negative. Does the patient have a suspected source of infection? No. Patient's initial sepsis screen is negative. Risk Assessment: Do you want to hurt yourself or someone else? Patient reports no desire to harm self or others. Onset of symptoms was October 14, 2020. 20:24 Method Of Arrival: Ambulatory iw 20:24 Acuity: ERIKA 3 iw Historical: - Allergies: 20:30 PENICILLINS; iw - Home Meds: 20:30 losartan-hydrochlorothiazide 50-12.5 mg oral tab once daily [Active]; hydralazine 25 mg iw oral tab 2 times per day [Active]; escitalopram oxalate 10 mg Oral tab 1 tab once daily [Active]; carvedilol 3.125 mg Oral tab 0.5 tab daily [Active]; donepezil 5 mg Oral tab 1 tab once daily [Active]; memantine 10 mg oral tab 2 times per day [Active]; tramadol 50 mg Oral tab 1 tab twice a day [Active]; folic acid 1 mg Oral tab 1 tab twice a day [Active]; losartan-hydrochlorothiazide 100-12.5 mg oral tab 1 tab once daily [Active]; aspirin 81 mg Oral chew 1 tab once daily [Active]; - PMHx: 20:30 Alzheimers; Hyperlipidemia; Hypertension; sarcoma; iw - PSHx: 20:30 sarcoma surgery; iw - Immunization history:: Client reports receiving the 2nd dose of the Covid vaccine. - Social history:: Smoking status: Patient denies any tobacco usage or history of. Screenin/29 02:17 Abuse screen: Denies threats or abuse. Nutritional screening: No deficits noted. ad1 Tuberculosis screening: No symptoms or risk factors identified. Fall Risk None identified. Assessment: 10/14 23:35 Reassessment:. General: Appears in no apparent distress. Behavior is calm, cooperative. ad1 Pain: Complains of pain in lower abdomen tenderness. Neuro: No deficits noted. Level of Consciousness is awake, alert, obeys commands, Oriented to person, place, time, situation. Cardiovascular:. Cardiovascular: Reports None. Respiratory: No deficits noted. Airway is patent Trachea midline. GI: Reports normal bowel movement today and blood noted when wiping to rectal area. Reports abdominal pain to lower abdomen. 10/15 01:00 Reassessment: Patient appears in no apparent distress at this time. No changes from ad1 previously documented assessment. Patient and/or family updated on plan of care and expected duration. Pain level reassessed. Patient is alert, oriented x 3, equal unlabored respirations, skin warm/dry/pink. Vital Signs: 10/14 20:24 BP 115 / 58; Pulse 48; Resp 16; Temp 97.6; Pulse Ox 100% on R/A; Weight 68.04 kg; iw Height 5 ft. 4 in. (162.56 cm); 23:30 BP 118 / 60; Pulse 56; Resp 18; Pulse Ox 98% ; ad1 10/15 01:00 BP 123 / 73; Pulse 50; Resp 18; Pulse Ox 100% ; ad1 02:15 BP 160 / 90; Pulse 51; Resp 18; Pulse Ox 94% ; ad1 10/14 20:24 Body Mass Index 25.75 (68.04 kg, 162.56 cm) iw ED Course: 10/14 19:32 Patient arrived in ED. am4 20:27 Triage completed. iw 20:30 Arm band placed on. iw 22:50 Joshua Horne PA is PHCP. cp 22:50 Gerardo Gallo MD is Attending Physician. cp 23:30 Inserted saline lock: 22 gauge in left antecubital area, using aseptic technique. Blood ea collected. 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 ad1 10/15 00:55 CT Abd/Pelvis - IV Contrast Only In Process Unspecified. EDMS 02:17 IV discontinued. ad1 02:19 Patient has correct armband on for positive identification. ad1 Administered Medications: 01:53 Drug: Rocephin (cefTRIAXone) 1 grams Route: IV; Rate: calculated rate; Site: left ad1 antecubital; Outcome: 01:50 Discharge ordered by MD. cp 02:16 Discharged to home ambulatory. ad1 02:16 Condition: good 02:16 Discharge instructions given to patient, Instructed on discharge instructions, follow up and referral plans. medication usage, Demonstrated understanding of instructions, follow-up care, medications, Prescriptions given X 1. 02:19 Patient left the ED. ad1 Addendum: 10/17/2020 09:26 Addendum: Culture Results: Positive urine culture. Bacteria is resistant to, has s v intermediate sensitivity, or is not tested against prescribed antibiotics. Report given to IRAM for further evaluation and then to greeter for follow up with patient. Phone call Attempt #1 contact made, new prescription called in to [facility] in . Signatures: Dispatcher [employer] Pinky Alcocer RN Colleen Villanueva RN RN iw DelToro, Anna, RN RN ad1 Joshua Horne PA PA cp Antunez, Elena, Vannesa Wan RN, ea 4
--- NOTE | 2020-10-15 01:51 | EDPHYS ---
Physician Documentation [facility] Name: Lisa Camacho Age: 75 yrs Sex: Female : 1945 Arrival Date: 10/14/2020 Time: 19:32 Bed 17 Private MD: ED Physician Gerardo Gallo HPI: 10/14 23:15 This 75 yrs old Black Female presents to ER via Ambulatory with complaints of Rectal cp Bleeding. 23:15 The patient presents to the emergency department blood when wiping after using restroom cp today. 23:15 Abdominal pain: described as achy, located in the right lower quadrant and left lower cp quadrant, that does not radiate. Associated signs and symptoms: Pertinent negatives: constipation, diarrhea, fever, syncope, vomiting, chest pain. Historical: - Allergies: 20:30 PENICILLINS; iw - Home Meds: 20:30 losartan-hydrochlorothiazide 50-12.5 mg oral tab once daily [Active]; hydralazine 25 mg iw oral tab 2 times per day [Active]; escitalopram oxalate 10 mg Oral tab 1 tab once daily [Active]; carvedilol 3.125 mg Oral tab 0.5 tab daily [Active]; donepezil 5 mg Oral tab 1 tab once daily [Active]; memantine 10 mg oral tab 2 times per day [Active]; tramadol 50 mg Oral tab 1 tab twice a day [Active]; folic acid 1 mg Oral tab 1 tab twice a day [Active]; losartan-hydrochlorothiazide 100-12.5 mg oral tab 1 tab once daily [Active]; aspirin 81 mg Oral chew 1 tab once daily [Active]; - PMHx: 20:30 Alzheimers; Hyperlipidemia; Hypertension; sarcoma; iw - PSHx: 20:30 sarcoma surgery; iw - Immunization history:: Client reports receiving the 2nd dose of the Covid vaccine. - Social history:: Smoking status: Patient denies any tobacco usage or history of. ROS: 23:20 Constitutional: Negative for body aches, chills, fever, poor PO intake. cp 23:20 Eyes: Negative for injury, pain, redness, and discharge. cp 23:20 ENT: Negative for ear pain, sore throat, difficulty swallowing, difficulty handling cp secretions. 23:20 Cardiovascular: Negative for chest pain. 23:20 Respiratory: Negative for cough, shortness of breath, wheezing. 23:20 Abdomen/GI: Positive for abdominal pain, Negative for nausea, vomiting, and diarrhea. 23:20 Neuro: Negative for altered mental status, headache, syncope, weakness. 23:20 All other systems are negative. Exam: 23:25 Constitutional: The patient appears in no acute distress, alert, awake, comfortable, cp non-toxic, well developed, well nourished. 23:25 Head/Face: Normocephalic, atraumatic. cp 23:25 Eyes: Periorbital structures: appear normal, Conjunctiva: normal, no exudate, no injection, Sclera: no appreciated abnormality, Lids and lashes: appear normal, bilaterally. 23:25 ENT: External ear(s): are unremarkable, Nose: is normal, Posterior pharynx: Airway: no evidence of obstruction, patent. 23:25 Chest/axilla: Inspection: normal, Palpation: is normal, no crepitus, no tenderness. 23:25 Cardiovascular: Rate: bradycardic, Rhythm: regular. 23:25 Respiratory: the patient does not display signs of respiratory distress, Respirations: normal, no use of accessory muscles, no retractions, labored breathing, is not present. 23:25 Abdomen/GI: Inspection: abdomen appears normal, Bowel sounds: active, all quadrants, Palpation: soft, in all quadrants, mild abdominal tenderness, in the right lower quadrant and left lower quadrant, rebound tenderness, is not appreciated, voluntary guarding, is not appreciated, involuntary guarding, is not appreciated, Rectal exam: Stool: brown, guaiac negative. 23:25 Neuro: Orientation: to person, place \T\ time. Mentation: is normal, Motor: moves all fours, strength is normal. Vital Signs: 20:24 BP 115 / 58; Pulse 48; Resp 16; Temp 97.6; Pulse Ox 100% on R/A; Weight 68.04 kg; iw Height 5 ft. 4 in. (162.56 cm); 23:30 BP 118 / 60; Pulse 56; Resp 18; Pulse Ox 98% ; ad1 10/15 01:00 BP 123 / 73; Pulse 50; Resp 18; Pulse Ox 100% ; ad1 02:15 BP 160 / 90; Pulse 51; Resp 18; Pulse Ox 94% ; ad1 10/14 20:24 Body Mass Index 25.75 (68.04 kg, 162.56 cm) iw MDM: 10/14 22:54 Patient medically screened. 10/15 00:00 Differential diagnosis: diverticulitis, hemorrhoids, UTI, lower GI bleed. 01:49 Data reviewed: vital signs, nurses notes, lab test result(s), radiologic studies, CT cp scan. Counseling: I had a detailed discussion with the patient and/or guardian regarding: the historical points, exam findings, and any diagnostic results supporting the discharge/admit diagnosis, lab results, radiology results, to return to the emergency department if symptoms worsen or persist or if there are any questions or concerns that arise at home. 01:49 ED course: VSS. H/H stable, guaiac test negative. Will discharge to home for continued cp monitoring and treat uti with oral antibiotics. 10/14 23:07 Order name: Basic Metabolic Panel; Complete Time: 00:23 10/15 01:43 Interpretation: Normal except: CL 111; GFR 80. 10/14 23:07 Order name: CBC with Diff; Complete Time: 00:23 10/15 01:43 Interpretation: Normal except: MCV 101.1; PLT 137. 10/14 23:07 Order name: Hepatic Function; Complete Time: 00:23 10/15 01:43 Interpretation: Normal except: ALB 3.0; GLOB 4.3; A/G 0.7. 10/14 23:07 Order name: Lipase; Complete Time: 00:23 10/14 23:07 Order name: PT-INR; Complete Time: 00:23 cp 10/14 23:07 Order name: Ptt, Activated; Complete Time: 00:23 cp 10/14 23:07 Order name: IV Saline Lock; Complete Time: 23:40 10/14 23:07 Order name: Labs collected and sent; Complete Time: 23:40 10/14 23:07 Order name: Urine Dipstick-Ancillary (obtain specimen); Complete Time: 01:16 10/14 23:07 Order name: Urine Microscopic Only; Complete Time: 01:38 10/15 01:38 Interpretation: Normal except: UWBC 10-20; URBC 5-10; UBACT 20-50; SQEPI 5-10; MUCUS 3+. 10/15 00:23 Order name: CT Abd/Pelvis - IV Contrast Only cp 10/15 01:13 Order name: Urine Dipstick-Ancillary; Complete Time: 01:38 EDPR 10/15 01:39 Interpretation: Normal except: UKET Trace; UPROT Trace; U NIT Positive; UESTR Trace. cp 10/15 01:39 Order name: Urine Culture EDPR 10/14 23:07 Order name: Cath; Complete Time: 01:16 cp Administered Medications: 01:53 Drug: Rocephin (cefTRIAXone) 1 grams Route: IV; Rate: calculated rate; Site: left ad1 antecubital; Disposition: 07:45 Co-signature as Attending Physician, Gerardo Gallo MD. [email or web address] Disposition: 10/15/20 01:50 Discharged to Home. Impression: Urinary tract infection, site not specified. - Condition is Stable. - Discharge Instructions: Urinary Tract Infection, Adult. - Prescriptions for Cipro 500 mg Oral Tablet - take 1 tablet by ORAL route every 12 hours for 7 days; 14 tablet. - Medication Reconciliation Form, Thank You Letter, Antibiotic Education, Prescription Opioid Use form. - Follow up: Private Physician; When: 2 - 3 days; Reason: Recheck today's complaints. - Problem is new. - Symptoms have improved. Signatures: Dispatcher [employer] [facility] Colleen Chan RN RN Tina Jackson RN RN ad1 Joshua oHrne PA PA cp Holmes, Maurice, MD MD [email or web address] Corrections: (The following items were deleted from the chart) 02:19 01:50 10/15/2020 01:50 Discharged to Home. Impression: Urinary tract infection, site ad1 not specified. Condition is Stable. Forms are Medication Reconciliation Form, Thank You Letter, Antibiotic Education, Prescription Opioid Use. Follow up: Private Physician; When: 2 - 3 days; Reason: Recheck today's complaints. Problem is new. Symptoms have improved. cp
[2020-10-15] MEDS ORDERED: CEFTRIAXONE/SWI 1gm 1 GM/10 ML SYR ONE (02:06)
[2020-10-15 02:24] VITALS: TEMP 97.6
[2020-10-15 02:28] VITALS: BP 160/90; O2SAT 94
--- NOTE | 2020-10-15 20:37 | RAD REPORT ---
EXAM DESCRIPTION: CT - Abdomen Pelvis W Contrast - 10/15/2020 6:30 am CLINICAL HISTORY: 75 years, Female, ABD PAIN COMPARISON: 05/24/2020. TECHNIQUE: Contrast-enhanced images of the abdomen and pelvis were performed utilizing 2 mm slice th ickness at 2 mm interval reconstruction from the lung bases to the ischial tuberosities after the adm inistration of IV contrast. In addition delayed portal venous phase/venous phase was also generated. In addition multiplanar reformats in the coronal and sagittal plane were obtained and reviewed. This exam was performed according to our departmental dose-optimization protocol, which includes auto mated exposure control, adjustment of the mA and/or kV according to patient size and/or use of iterat abdulaziz reconstruction technique. FINDINGS: The lung bases demonstrate to be clear. There is a small left diaphragmatic eventration The liver, pancreas, spleen and adrenal glands demonstrate to be unremarkable, no focal lesions are n oted. Surgical clips within the gallbladder fossa corresponding to previous cholecystectomy. There is no evidence for biliary duct. The kidneys demonstrate normal uptake of contrast media with no evidence for hydronephrosis. Grossly the unopacified stomach, small bowel and large bowel demonstrate to be within normal limits. There is no evidence for bowel dilatation/or free air. The appendix was not visualized. The urinary bladder demonstrate to be unremarkable. The uterus is absent. There are no adnexal mass es. The aorta demonstrate minimal atherosclerotic disease extending into the aortic bifurcation. Surgical clips are identified within the left periaortic area perhaps suggesting lymph node dissectio n. There is no retroperitoneal lymphadenopathy. There is no evidence for ascites and/or significant a bnormal fluid collections. The bone windows demonstrate diffuse bony osteopenia. There is minimal deg enerative disc disease at L4-S1. There is degenerative grade 1 spondylolisthesis at L4/L5. IMPRESSION: No acute abnormality seen to explain the patient's abdominal pain. Small left diaphragmatic eventration. Status post cholecystectomy and hysterectomy. Electronically signed by: Gene Scherer MD 10/15/2020 1:07 AM CDT Due to temporary technical issues with the PACS/Fluency reporting system, reports are being signed by the in house radiologists without review as a courtesy to insure prompt reporting. The interpreting radiologist is fully responsible for the content of the report.
== END 2020-10-15 02:19 | disposition home or self-care (01) ==
LOC: ER 19:30
DX: N39.0 Urinary tract infection, site not specified (principal); G30.9 Alzheimer's disease, unspecified; F02.80 Dementia in other diseases classified elsewhere, unspecified severity, without behavioral disturbance, psychotic disturbance, mood disturbance, and anxiety; E78.5 Hyperlipidemia, unspecified; I10 Essential (primary) hypertension; Z85.9 Personal history of malignant neoplasm, unspecified
CPT/HCPCS: 87088; 85025; 87086; 80048; 36415; 85610; 80076; 85730; 87077; 87186; 83690; 74177; 96374; 99284; Q9967; J0696; 81003; 81015

== ENCOUNTER 2022-07-06 08:17 | Emergency (ER) | payer OTHER ==
--- OUTSIDE RECORDS SUMMARY | 2022-07-06 08:20 | XMS REPORT | Continuity of Care Document ---
:1945 Author Organization [facility] t Address [address] [place] [address] Care Team Providers Name Role Phone [phone] Primary Care Physician Unavailable SYSTEM, PROVIDER NOT IN Attending Clinician Unavailable BIANCA IGLESIAS Attending Clinician Unavailable ARAMIS BRADY Attending Clinician Unavailable RUBEN HANSEN Attending Clinician Unavailable Payers Payer Name Policy Type Policy Number Effective Date Expiration Date S ouraida MEDICARE PART A AND [id number] 2010 B 00:00:00 MEDICARE PART A \T\ [id number] 2010 B 00:00:00 [facility] [id number] 2012 MEDICARE SUPPLEMENT 00:00:00 [employer]-SECONDARY ONLY [id number] 2017 00:00:00 Problems Condition Condition Condition Status Onset Resolution Last Treating Co mments Source Name Details Category Date Date Treatment Clinician Date Retroperit Retroperit Disease Active M ethodi resendiz mass resendiz mass -[facility] 00:00: Hospita 00 l Abdominal Abdominal Disease Active Met [facility]odi mass mass [facility] 00:00: Hospita 00 l Allergies, Adverse Reactions, Alerts Allergy Allergy Status Severity Reaction(s) Onset Inactive Treating Comm ents Source Name Type Date Date Clinician PENICILL Drug Active ITCHING Univers INS Class - ity of 00:00: [address] Penicill Propensi Active Itching unknown Meth jin ins ty to 02-13 st adverse 00:00: Hospita reaction 00 l s to drug Social History Social Habit Start Date Stop Date Quantity Comments Source Alcohol intake 2017-12-05 2017-12-05 Current Religion 00:00:00 00:00:00 non-drinker of Hospital alcohol (finding) Tobacco use and 2017-11-12 2017-11-12 Smokeless tobacco Me [facility] exposure 00:00:00 00:00:00 non-user Hospital Sex Ass[birth year] At [birth year] Religion 00:00:00 00:00:00 Hospital Smoking Status Start Date Stop Date Source Never smoked tobacco Religion H ospital Medications Ordered Filled Start Stop Current Ordering Indication Dosage Frequency Signature Comments Components Source Medication Medication Date Date Medication? Clinician (SIG) Name Name escitalopra Yes 10mg QD Take 10 mg [facility] (LEXAPRO) 7-[address] 10 MG 14:58: daily. Hospita tablet 24 l oxybutynin 2017-0 Yes 5mg [id number] Take 5 mg [facility] (DITROPAN) 7-[id number] mouth [address] 5 MG tablet 14:58: 3D (three) Hos francisco 24 times a l day. aspirin 2017-0 Yes 81mg QD Take 81 mg Meth jin (ECOTRIN) 7-[address] 81 MG 14:58: daily. Hospita enteric 24 l coated tablet pravastatin 2017-0 Yes 10mg Q.5D Take 10 mg [facility] (PRAVACHOL) 7-[address] 10 MG 14:58: (two) Hospita tablet 24 times a l day. carvedilol 2018-0 Yes 12.5mg Q.5D Take 12.5 [facility] (COREG) 7-[address] 12.5 MG 14:58: mouth 2 Hospita tablet 24 (two) l times a day with meals. ciprofloxac 2018-0 Yes 500mg Q.5D Take 500 M ethodi in (CIPRO) 7-[address] 500 MG 14:58: mouth 2 Hospita tablet 24 (two) l times a day. traMADol 2018-0 Yes 50mg Q6H Take 50 mg Met hodi (ULTRAM) 50 7-[address] mg tablet 14:58: every 6 Hospi ta 24 (six) l hours as needed for moderate pain. Vital Signs Vital Name Observation Time Observation Value Comments Source WEIGHT 2020-01-28 10:56:44 89.6 kg Procedures This patient has no known procedures. Plan of Care Planned Activity Planned Date Details Comments Source Future Scheduled 2022-05-03 COVID-19 VACCINE (#1) [facility] Test 01:22:26 [code = COVID-19 VACCINE (#1)] Future Scheduled 2022-05-03 SHINGLES VACCINES (1 Met [facility] Test 01:22:26 of 2) [code = SHINGLES VACCINES (1 of 2)] Future Scheduled 2022-05-03 65+ P[facility]UMOCOCCAL [facility] Test 01:22:26 VACCINE (1 - PCV) [code = 65+ PNEUMOCOCCAL VACCINE (1 - PCV)] Future Scheduled 2022-05-03 INFLUENZA VACCINE [facility] Test 01:22:26 [code = INFLUENZA VACCINE] Encounters Start End Encounter Admission Attending Care Care Encounter Source Date/Time Date/Time Type Type Clinicians Facility Department ID 2020-01-29 Outpatient SYSTEM, GAVINO MANCIA [id number] 20:22:38 LILA carrillo 2021-08-19 2021-08-19 Outpatient MORRO URQULISA, GAVINO MDA [id number] 06:34:36 23:59:00 BIANCA Parrish rso n 2021-08-19 2021-08-19 Outpatient MORRO URQULISA, GAVINO MDA [id number] 06:06:29 06:33:00 BIANCA Parrish rso n 2021-04-25 2021-04-25 Outpatient MORRO BRADY GAVINO MDA [id number] 17:48:21 17:48:25 ARAMIS carrillo 2021-04-15 2021-04-15 Outpatient EL URQUIOLAlley, GAVINO MDA [id number] 06:26:03 23:59:00 BIANCA Parrish rso n 2021-04-15 2021-04-15 Outpatient EL URQULISA GAVINO MDA [id number] 06:15:00 06:25:00 BIANCA Parrish rso n 2020-12-12 2020-12-12 Outpatient MORRO BRADY GAVINO MDA [id number] 14:46:20 17:06:45 ARAMIS carrillo 2020-12-10 2020-12-10 Outpatient EL URQUIOLA, MDA MDA [id number] 06:15:00 23:59:00 BIANCA Senior rso n 2020-12-10 2020-12-10 Outpatient EL URQUIOLA, MDA MDA [id number] 06:04:33 06:14:00 BIANCASIMEON Senior rso n 2020-08-16 2020-08-16 Outpatient Olya HANSEN, [facility] [id number] Univers 10:50:00 10:50:00 RUBEN [facility] 2020-08-15 2020-08-15 Outpatient EL ZARZOUR, MDA MDA [id number] MD 14:45:57 17:20:42 ARAMIS carrillo 2020-08-13 2020-08-13 Outpatient EL URQUIOLA, MDA MDA [id number] 06:40:00 23:59:00 BIANCASIMEON Senior rso n 2020-08-13 2020-08-13 Outpatient EL URQUIOLA, MDA MDA [id number] 06:15:00 06:39:00 BIANCASIMEON Senior rso n 2020-07-26 2020-07-26 Outpatient [facility] [id number] Univers 10:40:00 10:40:00 [facility] 2020-01-28 2020-01-28 Outpatient EL URQUIOLA, MDA MDA [id number] 07:11:52 23:59:00 BIANCASIMEON Pisanoe rso n 2020-01-28 2020-01-28 Outpatient EL ZARZOUR, MDA MDA [id number] 10:15:42 11:42:57 ARAMIS carrillo 2020-01-28 2020-01-28 Outpatient EL URQUIOLA, MDA MDA [id number] 06:58:36 07:10:00 BIANCASIMEON Pisanoe rso n 2020-01-28 2020-01-28 Outpatient EL URQUIOLA, MDA MDA [id number] 06:31:12 06:57:00 BIANCA Parrish rso n 2019-10-03 2019-10-03 Outpatient EL ZARZOUR, MDA MDA [id number] 09:06:18 23:59:00 ARAMIS carrillo Results This patient has no known results.
--- NOTE | 2022-07-06 08:58 | RAD REPORT ---
EXAM DESCRIPTION: CT - CTHCSPWOC - 07/06/2022 8:46 am CLINICAL HISTORY: Trauma, head and neck injury. unwitnessed fall/ COMPARISON: Head C Spine Mpr Wo Con dated 04/17/2018; Brain W/Wo Cont dated 09/11/2019 TECHNIQUE: Axial 5 mm thick images of the head were obtained. Axial 2 mm thick images of the cervical spine were obtained with sagittal and coronal reconstruction images generated and reviewed. All CT scans are performed using dose optimization technique as appropriate and may include automated exposure control or mA/KV adjustment according to patient size. FINDINGS: CT HEAD WITHOUT CONTRAST: No acute hemorrhage, hydrocephalus or extra-axial collection is identified.No areas of brain edema or midline shift. Chronic small vessel ischemic changes. Atrophy versus encephalomalacia in the tempora l lobes. Encephalomalacia in the anterior right frontal lobe. The paranasal sinuses and mastoids are clear.The calvarium is intact. CT CERVICAL SPINE WITHOUT CONTRAST: No fracture or traumatic subluxation.No prevertebral soft tissues swelling is identified. Multilevel degenerative changes are present in the spine. Neural foraminal narrowing noted bilaterally at C5-6. Loss of the normal cervical lordosis. IMPRESSION: No acute intracranial or cervical spine findings.
[2022-07-06 09:25] LABS: Albumin 2.6 g/dL (3.4-5.0); Bilirubin Total 0.4 mg/dL (0.2-1.0); Potassium 3.8 mmol/L (3.5-5.1); Protein, Total 6.1 g/dL (6.4-8.2)
[2022-07-06 09:27] LABS: Troponin High Sensitivity 18.4 pg/mL (<58.9)
[2022-07-06 09:39] LABS: Absolute Lymphocytes (CBC) 1.2 K/uL (0.7-4.9); Hematocrit 36.5 % (36.0-45.0); Lymphocytes % 40.2 % (15.3-44.8); MCV 100.6 fL (80-100); MPV 9.2 fL (7.6-11.3); RBC Red Blood Cell Count 3.63 M/uL (3.86-4.86)
--- NOTE | 2022-07-06 10:21 | EDPHYS ---
Physician Documentation [facility] Name: Lisa Camacho Age: 77 yrs Sex: Female : 1945 Arrival Date: 07/06/2022 Time: 08:20 Bed 2 Private MD: ED Physician Keegan Garg HPI: 07/06 08:34 This 77 yrs old Black Female presents to ER via EMS with complaints of Fall Injury. rt 08:34 Onset: The symptoms/episode began/occurred at an unknown time. Unable to obtain HPI due rt to baseline dementia. [facility] They checked the cameras, patient was reportedly seen on the ground. The fall was unwitnessed. They state that they believe that the patient hit her head. Denies any specific injuries. Unknown how long the patient has been down on the ground for. Patient is without complaints but dementia limits history taking.. Historical: - Allergies: 08:21 PENICILLINS; hb - Home Meds: 08:21 aspirin 81 mg Oral chew 1 tab once daily [Active]; atorvastatin 10 mg Oral tab 1 tab hb once daily [Active]; carvedilol 3.125 mg Oral tab 0.5 tab daily [Active]; donepezil 5 mg Oral tab 1 tab once daily [Active]; escitalopram oxalate 10 mg Oral tab 1 tab once daily [Active]; folic acid 1 mg Oral tab 1 tab twice a day [Active]; hydralazine 25 mg Oral tab 2 times per day [Active]; losartan-hydrochlorothiazide 50-12.5 mg Oral tab once daily [Active]; losartan-hydrochlorothiazide 100-12.5 mg Oral tab 1 tab once daily [Active]; memantine 10 mg Oral tab 2 times per day [Active]; tramadol 50 mg Oral tab 1 tab twice a day [Active]; Vitamin D Oral 2000 unit [Active]; Xarelto 20 mg oral tab 1 tab once daily [Active]; - PMHx: 08:21 Alzheimers; Hyperlipidemia; Hypertension; sarcoma; hb - Immunization history:: Adult Immunizations up to date. - Social history:: Smoking status: Patient denies any tobacco usage or history of. - Unable to obtain history due to: baseline dementia. ROS: 08:34 Unable to obtain ROS due to baseline dementia. rt Exam: 08:34 Constitutional: This is a well developed, well nourished patient who is awake, alert, rt and in no acute distress. Head/Face: Normocephalic, atraumatic. Neck: Trachea midline, no thyromegaly or masses palpated, and no cervical lymphadenopathy. Supple, full range of motion without nuchal rigidity, or vertebral point tenderness. No Meningismus. Chest/axilla: Normal chest wall appearance and motion. Nontender with no deformity. No lesions are appreciated. Cardiovascular: Regular rate and rhythm with a normal S1 and S2. No gallops, murmurs, or rubs. Normal PMI, no JVD. No pulse deficits. Respiratory: Lungs have equal breath sounds bilaterally, clear to auscultation and percussion. No rales, rhonchi or wheezes noted. No increased work of breathing, no retractions or nasal flaring. Abdomen/GI: Soft, non-tender, with normal bowel sounds. No distension or tympany. No guarding or rebound. No evidence of tenderness throughout. Back: No spinal tenderness. No costovertebral tenderness. Full range of motion. 08:34 Musculoskeletal/extremity: Is able to move, range both hips without difficulty, pain. 08:34 Neuro: Awake, oriented x1, reportedly at baseline, moves all 4 extremities equally. 08:49 ECG was reviewed by the Attending Physician. rt Vital Signs: 08:20 BP 142 / 66; Pulse 60; Resp 16; Temp 98.3; Pulse Ox 96% on R/A; Weight 99.79 kg; Height hb 5 ft. 4 in. (162.56 cm); Pain 0/10; 09:41 BP 124 / 79; Pulse 63; Resp 22; Pulse Ox 96% on R/A; hb 11:47 BP 120 / 67; Pulse 66; Resp 17; Pulse Ox 99% on R/A; hb 08:20 Body Mass Index 37.76 (99.79 kg, 162.56 cm) hb MDM: 08:26 Patient medically screened. rt 10:26 Differential diagnosis: closed head injury, fracture. Data reviewed: vital signs, rt nurses notes, radiologic studies. Test considered but Not performed: X-ray: Patient able to fully range all extremities without pain or tenderness, low suspicion for pelvic, hip, shoulder fracture.. Historians other than the Patient: EMS: All history obtained per EMS. Counseling: I had a detailed discussion with the patient and/or guardian regarding: the historical points, exam findings, and any diagnostic results supporting the discharge/admit diagnosis, lab results, radiology results, the need for outpatient follow up. 07/06 08:33 Order name: CBC with Automated Diff; Complete Time: 10:18 EDMS 07/06 08:33 Order name: Comprehensive Metabolic Panel; Complete Time: 10:18 EDMS 07/06 08:21 Order name: EKG; Complete Time: 11:46 rt 07/06 08:21 Order name: EKG - Nurse/Tech; Complete Time: 08:34 rt 07/06 08:33 Order name: EKG Electrocardiogram EDMS 07/06 08:33 Order name: Creatine Phosphokinase; Complete Time: 10:18 EDMS 07/06 08:33 Order name: Troponin High Sensitivity; Complete Time: 10:18 EDMS 07/06 08:35 Order name: Head C Spine Mpr Wo Con; Complete Time: 10:18 EDMS EC:49 Rate is 62 beats/min. Rhythm is regular, Normal Sinus Rhythm with No ectopy. QRS [place] rt is Normal. ME interval is normal. QRS interval is normal. QT interval is normal. No Q waves. T waves are Normal. No ST changes noted. Interpreted by me. Administered Medications: No medications were administered Disposition Summary: 07/06/22 10:20 Discharge Ordered Location: Home rt Problem: new rt Symptoms: are unchanged rt Condition: Stable rt Diagnosis - Fall on same level, unspecified rt Followup: rt - With: Private Physician - When: 2 - 3 days - Reason: Discharge Instructions: - Discharge Summary Sheet rt - Fall Prevention in the Home, Adult rt Forms: - Medication Reconciliation Form rt - Thank You Letter rt - Antibiotic Education rt - Prescription Opioid Use rt Signatures: Dispatcher [employer] EDMS Teresa Miramontes RN RN Keegan Garg MD MD rt Corrections: (The following items were deleted from the chart) 08:33 08:33 CT HEAD,C-SPINT W/O ordered. EDMS EDMS 11:49 11:46 Head C Spine MPR Wo Con+CT.RAD.BRZ ordered. EDMS EDMS
--- NOTE | 2022-07-06 10:21 | ER ---
Nurse's Notes [facility] Name: Lisa Camacho Age: 77 yrs Sex: Female : 1945 Arrival Date: 07/06/2022 Time: 08:20 Bed 2 Private MD: Diagnosis: Fall on same level, unspecified Presentation: 07/06 08:20 Chief complaint: EMS states: long term staff noted fall on video camera this morning, no obvious injuries. Pt AOx1 at baseline, denies pain. Negative LOC. Coronavirus screen: At this time, the client does not indicate any symptoms associated with coronavirus-19. Ebola Screen: No symptoms or risks identified at this time. Initial Sepsis Screen: Does the patient meet any 2 criteria? No. Patient's initial sepsis screen is negative. Does the patient have a suspected source of infection? No. Patient's initial sepsis screen is negative. Risk Assessment: Do you want to hurt yourself or someone else? Patient reports no desire to harm self or others. Onset of symptoms was July 06, 2022. 08:20 Method Of Arrival: EMS: [facility] 08:20 Acuity: ERIKA 3 Triage Assessment: 08:21 General: Appears in no apparent distress. Behavior is calm, cooperative. Pain: Denies hb pain. EENT: No deficits noted. No signs and/or symptoms were reported regarding the EENT system. Neuro: Level of Consciousness is awake, alert, obeys commands, confused, Oriented to person. Cardiovascular: Patient's skin is warm and dry. Respiratory: Respiratory effort is even, unlabored, Respiratory pattern is regular, symmetrical. GI: No deficits noted. No signs and/or symptoms were reported involving the gastrointestinal system. : No deficits noted. No signs and/or symptoms were reported regarding the genitourinary system. Derm: Skin is pink, warm \T\ dry. Musculoskeletal: No deficits noted. No signs and/or symptoms reported regarding the musculoskeletal system. Historical: - Allergies: 08:21 PENICILLINS; hb - Home Meds: 08:21 aspirin 81 mg Oral chew 1 tab once daily [Active]; atorvastatin 10 mg Oral tab 1 tab hb once daily [Active]; carvedilol 3.125 mg Oral tab 0.5 tab daily [Active]; donepezil 5 mg Oral tab 1 tab once daily [Active]; escitalopram oxalate 10 mg Oral tab 1 tab once daily [Active]; folic acid 1 mg Oral tab 1 tab twice a day [Active]; hydralazine 25 mg Oral tab 2 times per day [Active]; losartan-hydrochlorothiazide 50-12.5 mg Oral tab once daily [Active]; losartan-hydrochlorothiazide 100-12.5 mg Oral tab 1 tab once daily [Active]; memantine 10 mg Oral tab 2 times per day [Active]; tramadol 50 mg Oral tab 1 tab twice a day [Active]; Vitamin D Oral 2000 unit [Active]; Xarelto 20 mg oral tab 1 tab once daily [Active]; - PMHx: 08:21 Alzheimers; Hyperlipidemia; Hypertension; sarcoma; hb - Immunization history:: Adult Immunizations up to date. - Social history:: Smoking status: Patient denies any tobacco usage or history of. - Unable to obtain history due to: baseline dementia. Screenin:07 [facility] ED Fall Risk Assessment (Adult) Score/Fall Risk Level 3 or more points = High hb Risk Oriented to surroundings, Maintained a safe environment, Educated pt \T\ family on fall prevention, incl call for assistance when getting out of bed, Utilized family, sitter, or virtual lumber driver as indicated. Abuse screen: Denies threats or abuse. Denies injuries from another. Nutritional screening: No deficits noted. Tuberculosis screening: No symptoms or risk factors identified. Assessment: 09:07 General: See triage assessment . hb 10:00 Reassessment: Patient appears in no apparent distress at this time. No changes from hb previously documented assessment. Patient and/or family updated on plan of care and expected duration. Pain level reassessed. 11:00 Reassessment: Patient appears in no apparent distress at this time. No changes from hb previously documented assessment. Patient and/or family updated on plan of care and expected duration. Pain level reassessed. 11:14 Reassessment: Report called to Elan MONTERO at [facility], awaiting transport at this time. hb Vital Signs: 08:20 BP 142 / 66; Pulse 60; Resp 16; Temp 98.3; Pulse Ox 96% on R/A; Weight 99.79 kg; Height hb 5 ft. 4 in. (162.56 cm); Pain 0/10; 09:41 BP 124 / 79; Pulse 63; Resp 22; Pulse Ox 96% on R/A; hb 11:47 BP 120 / 67; Pulse 66; Resp 17; Pulse Ox 99% on R/A; hb 08:20 Body Mass Index 37.76 (99.79 kg, 162.56 cm) hb ED Course: 08:20 Patient arrived in ED. hb 08:20 Keegan Garg MD is Attending Physician. rt 08:20 Patient has correct armband on for positive identification. Placed in gown. Bed in low mm9 position. Call light in reach. Side rails up X2. Warm blanket given. Client placed on continuous cardiac and pulse oximetry monitoring. NIBP monitoring applied. laboratory monitor on. Pulse ox on. NIBP on. 08:21 Triage completed. hb 08:34 EKG done, by ED staff, reviewed by Keegan Garg MD. mm9 08:48 Head C Spine Mpr Wo Con In Process Unspecified. EDMS 09:02 Troponin High Sensitivity Sent. mm9 09:02 CBC with Automated Diff Sent. mm9 09:02 Comprehensive Metabolic Panel Sent. mm9 09:02 Creatine Phosphokinase Sent. mm9 09:03 Initial lab(s) drawn, by ne, sent to lab. Inserted saline lock: 22 gauge in left mm9 antecubital area, using aseptic technique. Blood collected. 09:06 Teresa Miramontes RN is Primary Nurse. hb 09:06 Arm band placed on. hb 11:18 No provider procedures requiring assistance completed. IV discontinued, intact, hb bleeding controlled, No redness/swelling at site. Administered Medications: No medications were administered Medication: 09:07 VIS not applicable for this client. hb Outcome: 10:20 Discharge ordered by . rt 11:18 [facility]charged to [facility]. hb 11:18 Condition: stable 11:18 Discharge instructions given to patient, family, Instructed on discharge instructions, follow up and referral plans. medication usage, Demonstrated understanding of instructions, follow-up care, medications. 12:13 Patient left the ED. hb Signatures: Dispatcher [employer] EDMD Teresa Miramontes, Courtney Hernandez RN mm9 Keegan Garg MD MD rt
[2022-07-06 12:18] VITALS: TEMP 98.3
[2022-07-06 12:20] VITALS: BP 120/67; O2SAT 99
--- NOTE | 2022-07-09 12:47 | EKG ---
Test Date: 2022-07-06 Test Time: 08:32:05 Paleontological Helper: GERRI MEASUREMENT RESULTS: Intervals: Rate: 62 MT: 144 QRSD: 98 QT: 422 QTc: 428 [place]: P: 25 MT: 144 QRS: 40 T: 89 INTERPRETIVE STATEMENTS: Normal sinus rhythm Normal ECG Compared to ECG 05/24/2020 09:03:55 No significant changes Electronically Signed On 07-09-22 12:38:45 TECHNICAL SUPPORT COORDINATOR by Jaden Mock
== END 2022-07-06 12:13 | disposition home or self-care (01) ==
LOC: ER 08:17
DX: Z04.3 Encounter for examination and observation following other accident (principal); W18.30XA Fall on same level, unspecified, initial encounter
CPT/HCPCS: 36415; 70450; 72125; 80053; 82550; 84484; 85025; 93005; 99284

== ENCOUNTER 2022-08-03 10:13 | Emergency (ER) | payer OTHER ==
--- OUTSIDE RECORDS SUMMARY | 2022-08-03 10:16 | XMS REPORT | Continuity of Care Document ---
:1945 Author Organization [facility] t Address [address] [place] [address] Care Team Providers Name Role Phone Asked, No Pcp Primary Care Physician Unavailable SYSTEM, PROVIDER NOT IN Attending Clinician Unavailable BIANAC IGLESIAS Attending Clinician Unavailable ARAMIS BRADY Attending Clinician Unavailable RUBEN HANSEN Attending Clinician Unavailable Payers Payer Name Policy Type Policy Number Effective Date Expiration Date S yesenia MEDICARE PART A AND [id number] 2010 B 00:00:00 MEDICARE PART A \T\ [id number] 2010 B 00:00:00 [facility] [id number] 2012 MEDICARE SUPPLEMENT 00:00:00 [employer]-SECONDARY ONLY [id number] 2017 00:00:00 Problems Condition Condition Condition Status Onset Resolution Last Treating Co mments Source Name Details Category Date Date Treatment Clinician Date Retroperit Retroperit Disease Active M ethodi resendiz mass resendiz mass [facility] 00:00: Hospita 00 l Abdominal Abdominal Disease Active Met hodi mass mass - [facility] 00:00: Hospita 00 l Allergies, Adverse Reactions, Alerts Allergy Allergy Status Severity Reaction(s) Onset Inactive Treating Comm ents Source Name Type Date Date Clinician PENICILL Drug Active ITCHING Univers INS Class - ity of 00:00: [address] [facility] Penicill Propensi Active Itching unknown Meth jin ins ty to 02-13 st adverse 00:00: Hospita reaction 00 l s to drug Social History Social Habit Start Date Stop Date Quantity Comments Source Alcohol intake 2017-12-05 2017-12-05 Current Shinto 00:00:00 00:00:00 non-drinker of Hospital alcohol (finding) Tobacco use and 2017-11-12 2017-11-12 Smokeless tobacco Me [facility] exposure 00:00:00 00:00:00 non-user Hospital Sex Assigned At [birth year] Shinto 00:00:00 00:00:00 Hospital Smoking Status Start Date Stop Date Source Never smoked tobacco [facility] Medications Ordered Filled Start Stop Current Ordering Indication Dosage Frequency Signature Comments Components Source Medication Medication Date Date Medication? Clinician (SIG) Name Name oxybutynin 2018-0 Yes 5mg [id number] Take 5 mg Methodi (DITROPAN) 7-13 [id number] mouth [address] 5 MG tablet 14:58: 3D (three) Hos [place] 24 times a l day. aspirin 2017-0 Yes 81mg QD Take 81 mg Meth jin (ECOTRIN) 7-[address] 81 MG 14:58: daily. Hospita enteric 24 l coated tablet pravastatin 2018-0 Yes 10mg Q.5D Take 10 mg Methodi [...] tablet 24 (two) l times a day. escitalopra 2018-0 Yes 10mg QD Take 10 mg Methodi m (LEXAPRO) 7-[address] 10 MG 14:58: daily. Hospita tablet 24 l oxybutynin 2018-0 Yes 5mg Q.[id number] Take 5 mg Methodi (DITROPAN) 7-13 [id number] mouth [address] 5 MG tablet 14:58: 3D (three) Hos [place] 24 times a l day. aspirin 2018-0 Yes 81mg QD Take 81 mg Meth jin (ECOTRIN) 7-[address] 81 MG 14:58: daily. Hospita enteric 24 l coated tablet pravastatin 2018-0 Yes 10mg Q.5D Take 10 mg Methodi (PRAVACHOL) 7-[address] 10 MG 14:58: (two) Hospita tablet 24 times a l day. traMADol 2018-0 Yes 50mg Q6H Take 50 mg Met hodi (ULTRAM) 50 7-[address] mg tablet 14:58: every 6 Hospi ta 24 (six) l hours as needed for moderate pain. carvedilol 2018-0 Yes 12.5mg Q.5D Take 12.5 [...] l hours as needed for moderate pain. escitalopra 2018-0 Yes 10mg QD Take 10 mg Methodi m (LEXAPRO) 7-[address] 10 MG 14:58: daily. Hospita tablet 24 l Vital Signs Vital Name Observation Time Observation Value Comments Source WEIGHT 2020-01-28 10:56:44 89.6 kg Procedures This patient has no known procedures. Plan of Care Planned Activity Planned Date Details Comments Source Future Scheduled 2022-05-03 COVID-19 VACCINE (#1) [facility] Hospital Test 01:22:26 [code = COVID-19 VACCINE (#1)] Future Scheduled 2022-05-03 SHINGLES VACCINES (1 [facility] Hospital Test 01:22:26 of 2) [code = SHINGLES VACCINES (1 of 2)] Future Scheduled 2022-05-03 65+ [facility]OCOCC[address] [facility] Test 01:22:26 VACCINE (1 - PCV) [code = 65+ PNEUMOCOCCAL VACCINE (1 - PCV)] Future Scheduled 2022-05-03 INFLUENZA VACCINE [facility] Test 01:22:26 [code = INFLUENZA VACCINE] Future Scheduled 2022-05-03 COVID-19 VACCINE (#1) [facility] Hospital Test 01:22:26 [code = COVID-19 VACCINE (#1)] Future Scheduled 2022-05-03 SHINGLES VACCINES (1 [facility] Hospital Test 01:22:26 of 2) [code = SHINGLES VACCINES (1 of 2)] Future Scheduled 2022-05-03 65+ PNEUMOCOCCAL [facility] Hospital Test 01:22:26 VACCINE (1 - PCV) [code = 65+ PNEUMOCOCCAL VACCINE (1 - PCV)] Future Scheduled 2022-05-03 INFLUENZA VACCINE Method [facility] Hospital Test 01:22:26 [code = INFLUENZA VACCINE] Encounters Start End Encounter Admission Attending Care Care Encounter Source Date/Time Date/Time Type Type Clinicians Facility Department ID 2020-01-29 Outpatient SYSTEM, MDA GAVINO [id number] 20:22:38 LILA carrillo 2021-08-19 2021-08-19 Outpatient MORRO URQULISA, MDA MDA [id number] 06:34:36 23:59:00 BIANCA Senior rso n 2021-08-19 2021-08-19 Outpatient EL URQULISA, MDA MDA [id number] 06:06:29 06:33:00 BIANCA Senior rso n 2021-04-25 2021-04-25 Outpatient MORRO BRADY, MDA MDA [id number] 17:48:21 17:48:25 ARAMIS carrillo 2021-04-15 2021-04-15 Outpatient EL URQUIOLA, MDA MDA [id number] 06:26:03 23:59:00 BIANCA Senior rso n 2021-04-15 2021-04-15 Outpatient EL URQUIOLA, MDA MDA [id number] 06:15:00 06:25:00 BIANCA Senior rso n 2020-12-12 2020-12-12 Outpatient EL RAFFIRROSHAN, MDA MDA [id number] 14:46:20 17:06:45 ARAMIS carrillo 2020-12-10 2020-12-10 Outpatient EL URQUIOLA, MDA MDA [id number] 06:15:00 23:59:00 BIANCA Senior rso n 2020-12-10 2020-12-10 Outpatient EL URQUIOLA, MDA MDA [id number] 06:04:33 06:14:00 BIANCA Senior rso n 2020-08-16 2020-08-16 Outpatient Olya HANSEN, [facility] [id number] Univers 10:50:00 10:50:00 RUBEN [facility] 2020-08-15 2020-08-15 Outpatient EL ZARZOUR, MDA MDA [id number] 14:45:57 17:20:42 ARAMIS carrillo 2020-08-13 2020-08-13 Outpatient EL URQUIOLA, MDA MDA [id number] 06:40:00 23:59:00 BIANCASIMEON Pisanoe rso n 2020-08-13 2020-08-13 Outpatient EL URQUIOLA, MDA MDA [id number] 06:15:00 06:39:00 BIANCA Senior rso n 2020-07-26 2020-07-26 Outpatient [facility] [id number] 10:40:00 10:40:00 [facility] 2020-01-28 2020-01-28 Outpatient EL URQUIOLA, MDA MDA [id number] 07:11:52 23:59:00 BIANCASIMEON Pisanoe rso n 2020-01-28 2020-01-28 Outpatient EL ZARZOUR, MDA MDA [id number] 10:15:42 11:42:57 ARAMIS carrillo 2020-01-28 2020-01-28 Outpatient EL URQUIOLA, MDA MDA [id number] 06:58:36 07:10:00 BIANCASIMEON Pisanoe rso n 2020-01-28 2020-01-28 Outpatient EL URQUIOLA, MDA MDA [id number] 06:31:12 06:57:00 BIANCASIMEON Pisanoe rso n 2019-10-03 2019-10-03 Outpatient EL ZARZOUR, MDA MDA [id number] 09:06:18 23:59:00 ARAMIS carrillo Results This patient has no known results.
[2022-08-03] MEDS ORDERED: IPRATROPIUM BROM 0.5MG/2.5ML ONE (10:34)
[2022-08-03] MEDS ORDERED: LEVALBUTEROL 1.25 MG/3 ML NEB ONE (10:34)
--- NOTE | 2022-08-03 11:35 | RAD REPORT ---
EXAM DESCRIPTION: [facility] Single View08/03/2022 11:14 am CLINICAL HISTORY: Cough;Congestion COMPARISON: Chest Single View dated 11/26/2019; Chest Single View dated 09/27/2019; Chest Single View d ated 09/11/2019; Chest Single View dated 10/28/2017 TECHNIQUE: Portable AP view of the chest. FINDINGS: Mild patchy bibasilar airspace opacities more pronounced on the right. There could be a sm all right pleural effusion. No pneumothorax or left-sided effusion. The cardiomediastinal contours ar e unremarkable. IMPRESSION: Right more than left patchy bibasilar airspace opacities, could reflect atelectasis or p neumonia.
--- NOTE | 2022-08-03 11:35 | RAD REPORT ---
EXAM DESCRIPTION: CT - [id number] - 08/03/2022 10:57 am CLINICAL HISTORY: Trauma, head and neck injury. PAIN COMPARISON: Head C Spine Mpr Wo Con dated 07/06/2022; Head C Spine Mpr Wo Con dated 04/17/2018 TECHNIQUE: Axial thin cut noncontrast CT images of the head were obtained. Axial thin cut noncontrast CT images of the cervical spine were obtained. Multiplanar reformatted images were generated and reviewed. All CT scans are performed using dose optimization technique as appropriate and may include automated exposure control or mA/KV adjustment according to patient size. FINDINGS: Motion artifact somewhat limits evaluation. Repeat imaging at attempted. CT HEAD WITHOUT CONTRAST: No acute hemorrhage, hydrocephalus or extra-axial collection is identified.Moderate diffuse parenchym al volume loss. Nonspecific periventricular and deep white matter hypodensities, stable in extent, mo st suggestive of chronic small vessel ischemic changes. Partially empty sella again noted,No areas of brain edema or midline shift. The paranasal sinuses and mastoids are clear.The calvarium is intact. CT CERVICAL SPINE WITHOUT CONTRAST: No fracture or subluxation.No prevertebral soft tissues swelling is identified. Mild multilevel dege nerative changes. IMPRESSION: No acute traumatic intracranial or cervical spine findings. Chronic findings as above.
[2022-08-03 13:16] LABS: Absolute Lymphocytes (CBC) 0.9 K/uL (0.7-4.9); Hematocrit 40.2 % (36.0-45.0); Lymphocytes % 20.6 % (15.3-44.8); MCV 99.6 fL (80-100); MPV 9.3 fL (7.6-11.3); RBC Red Blood Cell Count 4.03 M/uL (3.86-4.86)
[2022-08-03 13:36] LABS: Potassium 3.9 mEq/L (3.5-5.1)
--- NOTE | 2022-08-03 14:04 | ER ---
Nurse's Notes [facility] Name: Lisa Camacho Age: 77 yrs Sex: Female : 1945 Arrival Date: 08/03/2022 Time: 10:14 Bed 14 Private MD: Diagnosis: Fall on same level from slipping, tripping and stumbling without subsequent striking against object;Cervicalgia;Pneumonia, unspecified organism Presentation: 08/03 10:14 Chief complaint: EMS states: Fall in the bathroom. Denies LOC. Pt has no complaints at this time. Pt takes Xarelto, but has been held since yesterday due to her hemorrhoids. Care prior to arrival: None. Mechanism of Injury: Fall from standing position. Trauma event details: Injury occurred: [place] long term. 10:14 Acuity: ERIKA 3 ss 10:14 Method Of Arrival: Stretcher ss 10:17 Coronavirus screen: Client denies travel out of the [place] in the last 14 days. Ebola ss Screen: Patient denies exposure to infectious person. Patient denies travel to an Ebola-affected area in the 21 days before illness onset. Initial Sepsis Screen: Does the patient meet any 2 criteria? No. Patient's initial sepsis screen is negative. Does the patient have a suspected source of infection? No. Patient's initial sepsis screen is negative. Risk Assessment: Do you want to hurt yourself or someone else? Patient reports no desire to harm self or others. Onset of symptoms was August 03, 2022. Historical: - Allergies: 10:17 PENICILLINS; ss - PMHx: 10:17 Alzheimers; Hyperlipidemia; Hypertension; sarcoma; ss - Immunization history:: Adult Immunizations up to date. - Social history:: Smoking status: unknown. Screenin:14 Abuse screen: Denies threats or abuse. Denies injuries from another. Tuberculosis ss screening: Never had TB. Primary Survey: 10:14 NO uncontrolled hemorrhage observed. A: The client is awake and alert. The airway is ss patent. Airway: patent. Disability Client is alert. Assessment: 11:25 Reassessment: client is 80% on room air. placed on 4L via NC and is now 97%. kc6 12:00 General: Appears in no apparent distress. comfortable, Behavior is calm, cooperative, eh3 appropriate for age. Pain: Denies pain. Neuro: Level of Consciousness is awake, alert, obeys commands, Oriented to person, place, time, situation. Cardiovascular: Capillary refill < 3 seconds Patient's skin is warm and dry. Respiratory: Airway is patent Respiratory effort is even, unlabored, Respiratory pattern is regular, symmetrical. GI: Abdomen is round non-distended. : No signs and/or symptoms were reported regarding the genitourinary system. EENT: No signs and/or symptoms were reported regarding the EENT system. Derm: Skin is pink, warm \T\ dry. Musculoskeletal: Circulation, motion, and sensation intact. Vital Signs: 10:20 BP 117 / 73; Pulse 60; Resp 20; Temp 98.2(TE); Pulse Ox 100% on R/A; ss 11:25 BP 101 / 87; Pulse 55; Resp 20 S; Pulse Ox 95% on 4 lpm NC; kc6 ED Course: 10:14 Patient arrived in ED. ss 10:14 Patient has correct armband on for positive identification. ss 10:14 Patient maintains SpO2 saturation greater than 95% on room air. ss 10:16 Triage completed. ss 10:17 Arm band placed on right wrist. ss 10:19 Keegan Garg MD is Attending Physician. rt 10:24 Isabelle Pringle FNP-C is PHCP. kb 10:58 CT Head C Spine In Process Unspecified. EDMS 11:16 Chest Single View XRAY In Process Unspecified. EDMS 12:02 Elva Bernard, WINSTON is Primary Nurse. eh3 13:14 Inserted saline lock: 20 gauge in right antecubital area, using aseptic technique. ss ,using aseptic technique. US guided Blood collected. 13:14 CBC with Diff Sent. ss 13:14 Basic Metabolic Panel Sent. ss 13:14 Lactate w/ 2H reflex if indic. Sent. ss 13:14 Blood Culture Adult (2) Sent. ss Administered Medications: 10:31 Drug: Levalbuterol Inhalation 1.25 mg Route: Inhalation; hb 10:31 Drug: Ipratropium Inhalation Aerosol 0.5 mg Route: Inhalation; hb Outcome: 14:03 Discharge ordered by . kb Signatures: Dispatcher [employer] EDMS Isabelle Pringle FNP-C FNP-Ckb Smirch, Shelby, RN RN ss Teresa Miramontes RN RN hb Elva Bernard, RN RN eh3 Ciarra Hall, RN RN kc6 Keegan Garg MD MD rt
--- NOTE | 2022-08-03 14:04 | EDPHYS ---
Physician Documentation [facility] Name: Lisa Camacho Age: 77 yrs Sex: Female : 1945 Arrival Date: 08/03/2022 Time: 10:14 Bed 14 Private MD: ED Physician Keegan Garg Historical: - Allergies: 08/03 10:17 PENICILLINS; ss - PMHx: 10:17 Alzheimers; Hyperlipidemia; Hypertension; sarcoma; ss - Immunization history:: Adult Immunizations up to date. - Social history:: Smoking status: unknown. Vital Signs: 10:20 BP 117 / 73; Pulse 60; Resp 20; Temp 98.2(TE); Pulse Ox 100% on R/A; ss 11:25 BP 101 / 87; Pulse 55; Resp 20 S; Pulse Ox 95% on 4 lpm NC; kc6 MDM: 10:22 Patient medically screened. rt 13:40 Data reviewed: vital signs, nurses notes. kb 08/03 10:26 Order name: CT Head C Spine; Complete Time: 11:40 kb 08/03 10:26 Order name: Chest Single View XRAY; Complete Time: 11:40 kb 08/03 11:43 Order name: Blood Culture Adult (2) kb 08/03 11:43 Order name: CBC with Diff; Complete Time: 13:21 kb 08/03 11:43 Order name: Lactate w/ 2H reflex if indic.; Complete Time: 13:35 kb 08/03 11:43 Order name: Basic Metabolic Panel; Complete Time: 13:36 kb Administered Medications: 10:31 Drug: Levalbuterol Inhalation 1.25 mg Route: Inhalation; hb 10:31 Drug: Ipratropium Inhalation Aerosol 0.5 mg Route: Inhalation; hb Disposition: 11:40 Co-signature as Attending Physician, Keegan Garg MD I reviewed the patient's care rt provided by Advanced Practice Provider \T\ agree w/ the diagnosis \T\ care plan. I personally saw the pt \T\ performed a substantive portion of the visit, incldng all aspects of the (History/Exam/Medical Decision Making). PA/MATERIALS ASSOCIATE's history reviewed, patient interviewed, and examined. HPI: Patient history is limited due to dementia, reportedly fell, possible head injury. No other acute complaints at this time. My personal exam of patient reveals: No posterior cervical midline tenderness I agree with assessment and care plan and confirm the diagnosis (es) above. Disposition Summary: 08/03/22 14:03 Discharge Ordered Location: Home kb Condition: Stable kb Diagnosis - Fall on same level from slipping, tripping and stumbling without subsequent kb striking against object - Cervicalgia kb - Pneumonia, unspecified organism kb Followup: kb - With: Emergency Department - When: As needed - Reason: Worsening of condition Followup: kb - With: Private Physician - When: 2 - 3 days - Reason: Recheck today's complaints, Continuance of care, Re-evaluation by your physician Discharge Instructions: - Discharge Summary Sheet kb - Community-Acquired Pneumonia, Adult, [id number] kb - Head Injury, Adult, [id number] kb Forms: - Medication Reconciliation Form kb - Thank You Letter kb - Antibiotic Education kb - Prescription Opioid Use kb Prescriptions: - Zithromax 500 mg Oral Tablet - take 1 tablet by ORAL route once daily for 5 days; 5 tablet; Refills: 0, kb Product Selection Permitted Signatures: Dispatcher [employer] EDMS Isabelle Pringle, DARK ROOM ATTENDANT-C DARK ROOM ATTENDANT-Ckb Ramona Thomason, WINSTON RN Teresa Champagne, RN RN Elva Bernard, WINSTON MONTERO 3 Keegan Garg MD MD rt
[2022-08-03 20:26] VITALS: O2SAT 99
[2022-08-03 20:29] VITALS: BP 125/71
== END 2022-08-03 15:32 | disposition home or self-care (01) ==
LOC: ER 10:13
DX: M54.2 Cervicalgia (principal); J18.9 Pneumonia, unspecified organism; W01.10XA Fall on same level from slipping, tripping and stumbling with subsequent striking against unspecified object, initial encounter; G30.9 Alzheimer's disease, unspecified; F02.80 Dementia in other diseases classified elsewhere, unspecified severity, without behavioral disturbance, psychotic disturbance, mood disturbance, and anxiety; Z88.0 Allergy status to penicillin
CPT/HCPCS: 87040; 85025; 80048; 36415; 83605; 70450; 72125; 71045; 99285; J7614; J7644

== ENCOUNTER 2022-08-10 17:38 | Emergency (ER) | payer OTHER ==
--- OUTSIDE RECORDS SUMMARY | 2022-08-10 17:41 | XMS REPORT | Continuity of Care Document ---
:1945 Author Organization [facility] t Address [address] [facility] Daniel. [address] [place] [address] Care Team Providers Name Role Phone [phone] Primary Care Physician Unavailable SYSTEM, PROVIDER NOT IN Attending Clinician Unavailable BIANCA IGLESIAS Attending Clinician Unavailable ARAMIS BRADY Attending Clinician Unavailable RUBEN HANSEN Attending Clinician Unavailable Payers Payer Name Policy Type Policy Number Effective Date Expiration Date S yesenia MEDICARE PART A AND [id number] 2010 B 00:00:00 MEDICARE PART A \T\ [id number] 2010 B 00:00:00 [facility] [id number] 2012 MEDICARE SUPPLEMENT 00:00:00 AARP-SECONDARY ONLY [id number] 2017 00:00:00 Problems Condition Condition Condition Status [...] Univers INS Class - ity of 00:00: [address] [place] [facility] Propensi Active Itching unknown Meth jin ins ty to 02-13 st adverse 00:00: Hospita reaction 00 l s to drug Social History Social Habit Start Date Stop Date Quantity Comments Source Alcohol intake 2017-12-05 2017-12-05 Current Quaker 00:00:00 00:00:00 non-drinker of Hospital alcohol (finding) Tobacco use and 2017-11-12 2017-11-12 Smokeless tobacco [facility] exposure 00:00:00 00:00:00 non-user Hospital Sex Ass[birth year] At [birth year] [facility] 00:00:00 00:00:00 Hospital Smoking Status Start Date Stop Date Source Never smoked tobacco [facility] Medications Ordered Filled Start Stop Current Ordering Indication Dosage Frequency Signature Comments Components Source Medication Medication Date Date Medication? Clinician (SIG) Name Name oxybutynin 2018-0 Yes 5mg [id number] Take 5 mg Methodi (DITROPAN) 7-13 [id number] by mouth 3 st 5 MG tablet [...] tablet 24 l oxybutynin 2018-0 Yes 5mg Q.[id number] Take 5 mg [facility] (DITROPAN) 7-13 [id number] by mouth 3 st 5 MG tablet [...] MG 14:58: daily. Hospita tablet 24 l escitalopra 2018-0 Yes 10mg QD Take 10 mg Methodi m (LEXAPRO) 7-[address] 10 MG 14:58: daily. Hospita tablet 24 l oxybutynin 2018-0 Yes 5mg Q.[id number] Take 5 mg [facility] (DITROPAN) 7-13 [id number] by mouth 3 [address] 5 MG tablet [...] tablet 24 times a l day. carvedilol 2018- Yes 12.5mg Q.5D Take 12.5 [facility] (COREG) 7-[address] 12.5 MG 14:58: mouth 2 Hospita tablet 24 (two) l times a day with meals. ciprofloxac 2018- Yes 500mg Q.5D Take 500 M ethodi in (CIPRO) 7-[address] 500 MG 14:58: mouth 2 Hospita tablet 24 (two) l times a day. traMADol Yes 50mg Q6H Take 50 mg Met [...] Source Future Scheduled 2022-05-03 COVID-19 VACCINE (#1) [facility] Test 01:22:26 [code = COVID-19 VACCINE (#1)] Future Scheduled 2022-05-03 SHINGLES VACCINES (1 Met [facility] Test 01:22:26 of 2) [code = SHINGLES VACCINES (1 of 2)] Future Scheduled 2022-05-03 65+ PNEUMOCOCCAL [facility] Test 01:22:26 VACCINE (1 - PCV) [code = 65+ PNEUMOCOCCAL VACCINE (1 - PCV)] Future Scheduled 2022-05-03 INFLUENZA VACCINE Method [facility] Test 01:22:26 [code = INFLUENZA VACCINE] Future Scheduled 2022-05-03 COVID-19 VACCINE (#1) [facility] Test 01:22:26 [code = COVID-19 VACCINE (#1)] Future Scheduled 2022-05-03 SHINGLES VACCINES (1 Met [facility] Test 01:22:26 of 2) [code = SHINGLES VACCINES (1 of 2)] Future Scheduled 2022-05-03 65+ PNEUMOCOCCAL [facility] Hospital Test 01:22:26 VACCINE (1 - PCV) [code = 65+ PNEUMOCOCCAL VACCINE (1 - PCV)] Future Scheduled 2022-05-03 INFLUENZA VACCINE [facility] Test 01:22:26 [code = INFLUENZA VACCINE] Future Scheduled 2022-05-03 COVID-19 VACCINE (#1) [facility] Test 01:22:26 [code = COVID-19 VACCINE (#1)] Future Scheduled 2022-05-03 SHINGLES VACCINES (1 [facility] Test 01:22:26 of 2) [code = [...] Facility Department ID 2020-01-29 Outpatient SYSTEM, GAVINO GAVINO [id number] 20:22:38 LILA carrillo 2021-08-19 2021-08-19 Outpatient MORRO IGLESIAS, GAVINO MDA [id number] 06:34:36 23:59:00 BIANCA Senior rso n 2021-08-19 2021-08-19 Outpatient MORRO IGLESIAS, GAVINO MDA [id number] 06:06:29 06:33:00 BIANCA Senior rso n 2021-04-25 2021-04-25 Outpatient MORRO BRADY MDA MDA [id number] 17:48:21 17:48:25 ARAMIS carrillo 2021-04-15 2021-04-15 Outpatient EL URQUIOLAlley, MDA MDA [id number] 06:26:03 23:59:00 BIANCA Senior rso n 2021-04-15 2021-04-15 Outpatient EL URQUIOLAlley, GAVINO MDA [id number] 06:15:00 06:25:00 BIACNA Senior rso n 2020-12-12 2020-12-12 Outpatient MORRO BARDY, GAVINO MDA [id number] 14:46:20 17:06:45 ARAMIS carrillo 2020-12-10 2020-12-10 Outpatient EL URQULISA, GAVINO MDA [id number] 06:15:00 23:59:00 BIANCA Senior rso n 2020-12-10 2020-12-10 Outpatient EL URQUIOLA, MDA MDA [id number] 06:04:33 06:14:00 BIANCA Senior rso n 2020-08-16 2020-08-16 Outpatient Olya HANSEN, [facility] [id number] Univers 10:50:00 10:50:00 RUBEN [facility] 2020-08-15 2020-08-15 Outpatient EL ZARZOUR, MDA MDA [id number] 14:45:57 17:20:42 ARAMIS carrillo 2020-08-13 2020-08-13 Outpatient EL URQUIOLA, MDA MDA [id number] 06:40:00 23:59:00 BIANCA Senior rso n 2020-08-13 2020-08-13 Outpatient EL URQUIOLA, MDA MDA [id number] 06:15:00 06:39:00 BIANCA Senior rso n 2020-07-26 2020-07-[address] [facility] [id number] Univers 10:40:00 10:40:00 [facility] 2020-01-28 2020-01-28 Outpatient EL URQUIOLA, MDA MDA [id number] 07:11:52 23:59:00 BIANCASIMEON Senior rso n 2020-01-28 2020-01-28 Outpatient EL ZARZOUR, MDA MDA [id number] MD 10:15:42 11:42:57 ARAMIS carrillo 2020-01-28 2020-01-28 Outpatient EL URQUIOLA, MDA MDA [id number] 06:58:36 07:10:00 BIANCASIMEON Pisanoe rso n 2020-01-28 2020-01-28 Outpatient EL URQUIOLA, MDA MDA [id number] 06:31:12 06:57:00 BIANCASIMEON Pisanoe rso n 2019-10-03 2019-10-03 Outpatient EL ZARZOUR, MDA MDA [id number] 09:06:18 23:59:00 ARAMIS carrillo Results This patient has no known results.
--- NOTE | 2022-08-10 18:31 | RAD REPORT ---
EXAM DESCRIPTION: CT - Head C Spine Mpr Wo Con - 08/10/2022 6:17 pm CLINICAL HISTORY: Head and neck injury status post fall. Head and neck pain COMPARISON: August 03, 2022 TECHNIQUE: Computed axial tomography of the head and cervical spine was obtained. Sagittal and coronal reconstruction was performed. All CT scans are performed using dose optimization technique as appropriate and may include automated exposure control or mA/KV adjustment according to patient size. FINDINGS: An intracranial bleed is not seen. The ventricles are normal in caliber. No significant hypodensity within the brain. An extra-axial fluid collection is not noted. Fluid within the visualized sinuses and mastoids is not seen A cervical fracture is not visualized. No dislocation is noted. Chronic sclerosis right mandible IMPRESSION: No acute intracranial abnormality is seen. A cervical fracture is not visualized. If the patient continues to have symptoms to suggest intracranial /spinal cord pathology then MRI wou ld be recommended
--- NOTE | 2022-08-10 21:24 | ER ---
Nurse's Notes [facility] Name: Lisa Camacho Age: 77 yrs Sex: Female : 1945 Arrival Date: 08/10/2022 Time: 17:44 Bed 6 Private MD: Diagnosis: Fall on same level from slipping, tripping and stumbling without subsequent striking against object;Unspecified injury of head, initial encounter Presentation: 08/10 18:00 Chief complaint: EMS states: sent from [facility] for unwitnessed fall, pt aa5 was found on floor leaning against a wall. EMS reports pt was seen here recently for Pneumonia. Coronavirus screen: cough unrelated to allergies. Ebola Screen: Patient denies travel to an Ebola-affected area in the 21 days before illness onset. Initial Sepsis Screen: Does the patient meet any 2 criteria? No. Patient's initial sepsis screen is negative. Does the patient have a suspected source of infection? Yes: Productive cough/pneumonia. Risk Assessment: Do you want to hurt yourself or someone else? Unable to obtain. Onset of symptoms was August 10, 2022. 18:00 Acuity: ERIKA 3 aa5 18:00 Method Of Arrival: EMS: [facility] aa5 Historical: - Allergies: 18:00 PENICILLINS; aa5 - PMHx: 18:00 Alzheimers; Hyperlipidemia; Hypertension; sarcoma; aa5 - Immunization history:: Adult Immunizations unknown. - Social history:: Smoking status: unknown. Screenin:00 Abuse screen: No signs of abuse noted. aa5 18:00 [facility] ED Fall Risk Assessment (Adult) History of falling in the last 3 months, aa5 including since admission Yes- physiologic fall (2 pts) Confusion or Disorientation Yes (5 pts) Score/Fall Risk Level 3 or more points = High Risk Oriented to surroundings, Maintained a safe environment, Educated pt \T\ family on fall prevention, incl call for assistance when getting out of bed, Assessed \T\ reinforced patient's understanding of fall precautions, Hourly rounding (assess needs \T\ fall precautionary measures) done. Nutritional screening: No deficits noted. Tuberculosis screening: No symptoms or risk factors identified. Assessment: 18:00 General: Appears comfortable, Behavior is calm, cooperative. Pain: Denies pain. Neuro: aa5 Level of Consciousness is awake, obeys commands, confused, Oriented to person, Speech is normal. Cardiovascular: Heart tones S1 S2 present Rhythm is regular. Respiratory: Airway is patent Respiratory effort is even, unlabored, Respiratory pattern is regular, symmetrical, Wet cough noted, recently diagnosed with Pneumonia. GI: Abdomen is obese, Bowel sounds present X 4 quads. Abd is soft and non tender X 4 quads. : No signs and/or symptoms were reported regarding the genitourinary system. EENT: absence of teeth noted . Derm: Skin is dry, Skin is normal, Skin temperature is warm. 18:09 Reassessment: Pt to CT . aa5 20:18 Reassessment: Contacted [facility] to request transportation back to facility, Janiya carlisle will call back with an ETA. 21:56 Reassessment: No changes from previously documented assessment. Patient and/or family vc1 updated on plan of care and expected duration. Pain level reassessed. [facility] ambulance at bedside to transport patient back to [place], report given to Janiya. Vital Signs: 18:00 BP 107 / 79; Pulse 80; Resp 20 S; Temp 99.5(O); Pulse Ox 94% on R/A; aa5 21:58 BP 110 / 80; Pulse 78; Resp 20; Pulse Ox 95% ; vc1 ED Course: 17:44 Patient arrived in ED. kb 17:44 Isabelle Pringle FNP-C is [facility]. kb 17:44 Keegan Garg MD is Attending Physician. kb 18:00 Arm band placed on. aa5 18:00 Patient has correct armband on for positive identification. Bed in low position. Call aa5 light in reach. Side rails up X2. Pulse ox on. NIBP on. 18:06 Carolina Batista, RN is Primary Nurse. aa5 18:08 Triage completed. aa5 18:18 CT Head C Spine In Process Unspecified. EDMS 19:00 Report given to WINSTON Spencer. aa5 22:00 No provider procedures requiring assistance completed. Patient did not have IV access vc1 during this emergency room visit. Administered Medications: No medications were administered Medication: 22:01 VIS not applicable for this client. vc1 Outcome: 19:43 Discharge ordered by . kb 22:00 Discharged to fdc. Report called to Janiya carlisle 22:00 Condition: good 22:00 Instructed on the need for admit. 22:01 Patient left the ED. vc1 Signatures: Dispatcher [employer] EDIsabelle Lau, NUBIA-C CONCRETE SCULPTOR-Carolina Hurley, RN RN aa5 Johanna Ribeiro RN RN vc1
--- NOTE | 2022-08-10 21:24 | EDPHYS ---
Physician Documentation [facility] Name: Lisa Camacho Age: 77 yrs Sex: Female : 1945 Arrival Date: 08/10/2022 Time: 17:44 Bed 6 Private MD: ED Physician Keegan Garg HPI: 08/10 20:23 This 77 yrs old Black Female presents to ER via EMS with complaints of Fall Injury. kb 20:23 Details of fall: The patient fell from an upright position, while walking. Onset: The kb symptoms/episode began/occurred just prior to arrival. Associated injuries: The patient sustained injury to the head. Severity of symptoms: At their worst the symptoms were mild, in the emergency department the symptoms are unchanged. The patient has not experienced similar symptoms in the past. The patient has not recently seen a physician. half-way staff reported to EMS that pt slipped in the bathroom and hit her head. Denies loc. Pt ambulatory with normal gait for her. Mentation normal for her, pt has history of dementia. Pt denies any pain. Historical: - Allergies: 18:00 PENICILLINS; aa5 - PMHx: 18:00 Alzheimers; Hyperlipidemia; Hypertension; sarcoma; aa5 - Immunization history:: Adult Immunizations unknown. - Social history:: Smoking status: unknown. ROS: 20:22 Constitutional: Negative for fever, chills, and weight loss. kb 20:22 All other systems are negative. Exam: 20:22 Constitutional: This is a well developed, well nourished patient who is awake, alert, kb and in no acute distress. Head/Face: Normocephalic, atraumatic. ENT: Moist Mucous membranes Neck: Trachea midline, no thyromegaly or masses palpated, and no cervical lymphadenopathy. Supple, full range of motion without nuchal rigidity, or vertebral point tenderness. No Meningismus. Cardiovascular: Regular rate and rhythm with a normal S1 and S2. No gallops, murmurs, or rubs. No pulse deficits. Respiratory: Respirations even and unlabored. No increased work of breathing. Talking in full sentences Back: No spinal tenderness. No costovertebral tenderness. Full range of motion. Skin: Warm, dry with normal turgor. Normal color. MS/ Extremity: Pulses equal, no cyanosis. Neurovascular intact. Full, normal range of motion. 20:22 Neuro: Exam negative for acute changes, Orientation: pt is at baseline mentation. Vital Signs: 18:00 BP 107 / 79; Pulse 80; Resp 20 S; Temp 99.5(O); Pulse Ox 94% on R/A; aa5 21:58 BP 110 / 80; Pulse 78; Resp 20; Pulse Ox 95% ; vc1 MDM: 17:44 Patient medically screened. kb 20:22 Differential diagnosis: closed head injury, contusion, concussion. Data reviewed: vital kb signs, nurses notes. Historians other than the Patient: EMS: [facility]. Counseling: I had a detailed discussion with the patient and/or guardian regarding: the historical points, exam findings, and any diagnostic results supporting the discharge/admit diagnosis, radiology results, the need for outpatient follow up, a family practitioner, to return to the emergency department if symptoms worsen or persist or if there are any questions or concerns that arise at home. 08/10 17:44 Order name: CT Head C Spine; Complete Time: 20:42 kb Administered Medications: No medications were administered Disposition Summary: 08/10/22 19:43 Discharge Ordered Location: Home kb Condition: Stable kb Diagnosis - Fall on same level from slipping, tripping and stumbling without subsequent kb striking against object - Unspecified injury of head, initial encounter kb Followup: kb - With: Emergency Department - When: As needed - Reason: Worsening of condition Followup: kb - With: Private Physician - When: 2 - 3 days - Reason: Recheck today's complaints, Continuance of care, Re-evaluation by your physician Discharge Instructions: - Discharge Summary Sheet kb - Head Injury, Adult, [id number] kb Forms: - Medication Reconciliation Form kb - Thank You Letter kb - Antibiotic Education kb - Prescription Opioid Use kb - SBAR form bb Signatures: Dispatcher [employer] EDIsabelle Lau, FUEL MANAGEMENT HANDLER-C NUBIA-Carolina Hurley, RN RN aa5 Corrections: (The following items were deleted from the chart) 20:24 20:23 half-way staff reported to EMS that pt slipped in the bathroom and hit her kb head. Denies loc. . kb
[2022-08-10 22:17] VITALS: TEMP 99.5
[2022-08-10 22:18] VITALS: BP 110/80; O2SAT 95
== END 2022-08-10 22:01 | disposition home or self-care (01) ==
LOC: ER 17:38
DX: S09.90XA Unspecified injury of head, initial encounter (principal); W01.0XXA Fall on same level from slipping, tripping and stumbling without subsequent striking against object, initial encounter; I10 Essential (primary) hypertension; G30.9 Alzheimer's disease, unspecified; F02.80 Dementia in other diseases classified elsewhere, unspecified severity, without behavioral disturbance, psychotic disturbance, mood disturbance, and anxiety; Z88.0 Allergy status to penicillin
CPT/HCPCS: 70450; 72125; 99283

== ENCOUNTER 2022-11-02 12:47 | Observation (INO) | payer OTHER ==
--- OUTSIDE RECORDS SUMMARY | 2022-11-02 12:50 | XMS REPORT | Continuity of Care Document ---
:1945 Author Organization [facility] t Address [address] [facility] [place] [address] Care Team Providers Name Role Phone Asked, No Pcp Primary Care Physician Unavailable SYSTEM, PROVIDER NOT IN Attending Clinician Unavailable BIANCA IGLESIAS Attending Clinician Unavailable ARAMIS BRADY Attending Clinician Unavailable RUBEN HANSEN Attending Clinician Unavailable Payers Payer Name Policy Type Policy Number Effective Date Expiration Date S yesenia MEDICARE PART A AND [id number] 2010 B 00:00:00 MEDICARE PART A \T\ [id number] 2010 B 00:00:00 [facility] [id number] 2012 MEDICARE SUPPLEMENT 00:00:00 AARP-SECONDARY ONLY [id number] 2017 00:00:00 Problems Condition Condition Condition Status [...] Univers INS Class - ity of 00:00: [address] [place] Penic[place] Propensi Active Itching unknown Meth jin ins ty to 02-13 st adverse 00:00: Hospita reaction 00 l s to drug Social History Social Habit Start Date Stop Date Quantity Comments Source [facility] orientation [facility] identity [facility] History of Social 2018-04-02 2018-04-[address] function 00:00:00 00:00:00 Hospital Alcohol intake 2017-12-05 2017-12-05 Current Scientologist 00:00:00 00:00:00 non-drinker of Hospital alcohol (finding) Tobacco use and 2017-11-12 2017-11-12 Smokeless Scientologist exposure 00:00:00 00:00:00 tobacco non-user Hospital Sex Assigned At [birth year] Scientologist 00:00:00 00:00:00 Hospital Smoking Status Start Date Stop Date Source Never smoked tobacco [facility]spital Medications Ordered Filled Start Stop Current Ordering Indication Dosage Frequency Signature Comments Components Source Medication Medication Date Date Medication? Clinician (SIG) Name Name oxybutynin 2018-0 Yes 5mg Q.[id number] Take 5 mg [facility] (DITROPAN) 7-13 [id number] by mouth 3 st 5 MG tablet [...] tablet 24 (two) l times a day. oxybutynin 2018-0 Yes 5mg Q.[id number] Take 5 mg [facility] (DITROPAN) 7-13 [id number] by mouth 3 st 5 MG tablet [...] tablet 24 l oxybutynin 2018-0 Yes 5mg Q.36962447 Take 5 mg [facility] (DITROPAN) 7-13 [id number] by mouth 3 st 5 MG tablet [...] tablet 24 l oxybutynin 2018-0 Yes 5mg Q.[id number] Take 5 mg [facility] (DITROPAN) 7-13 [id number] by mouth 3 st 5 MG tablet [...] MG 14:58: daily. Hospita tablet 24 l traMADol 2018-0 Yes 50mg Q6H Take 50 [...] Planned Date Details Comments Source Future Scheduled 2022-08-23 COVID-19 VACCINE (#1) [facility] Test 05:06:22 [code = COVID-19 VACCINE (#1)] Future Scheduled 2022-08-23 SHINGLES VACCINES (1 Met [facility] Test 05:06:22 of 2) [code = SHINGLES VACCINES (1 of 2)] Future Scheduled 2022-08-23 65+ [facility]AL [facility] 05:06:22 VACCINE (1 - PCV) [code = 65+ PNEUMOCOCCAL VACCINE (1 - PCV)] Future Scheduled 2022-08-23 INFLUENZA VACCINE Method [facility] Test 05:06:22 [code = INFLUENZA VACCINE] Future Scheduled 2022-05-03 COVID-19 VACCINE (#1) [facility] Test 01:22:26 [code = COVID-19 VACCINE (#1)] Future Scheduled 2022-05-03 SHINGLES VACCINES (1 Met [facility] Test 01:22:26 of 2) [code = SHINGLES VACCINES (1 of 2)] Future Scheduled 2022-05-03 65+ [facility]CCAL [facility] Test 01:22:26 VACCINE (1 - PCV) [code = 65+ PNEUMOCOCCAL VACCINE (1 - PCV)] Future Scheduled 2022-05-03 INFLUENZA VACCINE [facility] Test 01:22:26 [code = INFLUENZA VACCINE] Future Scheduled 2022-05-03 COVID-19 VACCINE (#1) [facility] Test 01:22:26 [code = COVID-19 VACCINE (#1)] Future Scheduled 2022-05-03 SHINGLES VACCINES ([address] [facility] Test 01:22:26 of 2) [code = SHINGLES VACCINES (1 of 2)] Future Scheduled 2022-05-03 65+ [facility]CCAL [facility] Test 01:22:26 VACCINE (1 - PCV) [code = 65+ PNEUMOCOCCAL VACCINE (1 - PCV)] Future Scheduled 2022-05-03 INFLUENZA VACCINE [facility] Test 01:22:26 [code = INFLUENZA VACCINE] Future Scheduled 2022-05-03 COVID-19 VACCINE (#1) [facility] Test 01:22:26 [code = COVID-19 VACCINE (#1)] Future Scheduled 2022-05-03 SHINGLES VACCINES ([address] [facility] Test 01:22:26 of 2) [code = SHINGLES VACCINES (1 of 2)] Future Scheduled 2022-05-03 65+ PNEUMOCOCCAL [facility] Test 01:22:26 VACCINE (1 - PCV) [code = 65+ PNEUMOCOCCAL VACCINE (1 - PCV)] Future Scheduled 2022-05-03 INFLUENZA VACCINE [facility] Test 01:22:26 [code = INFLUENZA VACCINE] Encounters Start End Encounter Admission Attending Care Care Encounter Source Date/Time Date/Time Type Type Clinicians Facility Department ID 2020-01-29 Outpatient SYSTEM, [facility] GAVINO [id number] 20:22:38 LILA carrillo 2021-08-19 2021-08-19 Outpatient MORRO URQULISA, MDA MDA [id number] 06:34:36 23:59:00 BIANCA Senior rso n 2021-08-19 2021-08-19 Outpatient MORRO URQULISA, MDA MDA [id number] 06:06:29 06:33:00 BIANCA Senior rso n 2021-04-25 2021-04-25 Outpatient MORRO BRADY, GAVINO MDA [id number] 17:48:21 17:48:25 ARAMIS carrillo 2021-04-15 2021-04-15 Outpatient EL URQULISA, GAVINO MDA [id number] 06:26:03 23:59:00 BIANCA Senior rso lorena 2021-04-15 2021-04-15 Outpatient EL URQUIOLA, GAVINO MDA [id number] 06:15:00 06:25:00 BIANCA Senior rso n 2020-12-12 2020-12-12 Outpatient EL RAFFIRROSHAN, GAVINO MDA [id number] 14:46:20 17:06:45 ARAMIS carrillo 2020-12-10 2020-12-10 Outpatient EL URQUIOLA, MDA MDA [id number] 06:15:00 23:59:00 BIANCA Senior rso n 2020-12-10 2020-12-10 Outpatient EL URQUIOLA, MDA MDA [id number] 06:04:33 06:14:00 BIANCASIMEON Senior rso n 2020-08-16 2020-08-16 Outpatient Olya HANSEN, [facility] [id number] Univers 10:50:00 10:50:00 RUBEN [facility] 2020-08-15 2020-08-15 Outpatient EL ZARZOUR, MDA MDA [id number] MD 14:45:57 17:20:42 ARAMIS carrillo 2020-08-13 2020-08-13 Outpatient EL URQUIOLA, MDA MDA [id number] 06:40:00 23:59:00 BIANCASIMEON Pisanoe rso n 2020-08-13 2020-08-13 Outpatient EL URQUIOLA, MDA MDA [id number] 06:15:00 06:39:00 BIANCASIMEON Senior rso n 2020-07-26 2020-07-26 Outpatient [facility] [id number] Univers 10:40:00 10:40:00 [facility] 2020-01-28 2020-01-28 Outpatient EL URQUIOLA, MDA MDA [id number] 07:11:52 23:59:00 BIANCA Parrish rso n 2020-01-28 2020-01-28 Outpatient EL ZARZOUR, MDA MDA [id number] 10:15:42 11:42:57 ARAMIS carrillo 2020-01-28 2020-01-28 Outpatient EL URQUIOLA, MDA MDA [id number] 06:58:36 07:10:00 BIANCASIMEON Pisanoe rso n 2020-01-28 2020-01-28 Outpatient EL URQUIOLA, MDA MDA [id number] 06:31:12 06:57:00 BIANCA Parrish rso n 2019-10-03 2019-10-03 Outpatient EL ZARZOUR, MDA MDA [id number] MD 09:06:18 23:59:00 ARAMIS vivar n Results This patient has no known results.
--- NOTE | 2022-11-02 13:28 | RAD REPORT ---
EXAM DESCRIPTION: CT - Head Brain Wo Cont - 11/02/2022 1:18 pm CLINICAL HISTORY: Alteration of awareness/confusion COMPARISON: July 2022 TECHNIQUE: Computed axial tomography of the head was obtained. IV contrast was not requested. All CT scans are performed using dose optimization technique as appropriate and may include automated exposure control or mA/KV adjustment according to patient size. FINDINGS: Some images are degraded by patient motion artifact An intracranial bleed is not seen The ventricles are normal in caliber No extra-axial fluid collection is noted. Moderate low-density areas within periventricular, deep and subcortical white matter likely represent ischemic changes secondary to small vessel disease. Fluid within the sinuses/ mastoids is not seen. IMPRESSION: No acute intracranial abnormality is seen If patient's symptoms persist MRI of the brain would be recommended
[2022-11-02 14:17] LABS: Absolute Lymphocytes (CBC) 0.9 K/uL (0.7-4.9); Hematocrit 39.6 % (36.0-45.0); Lymphocytes % 11.9 % (15.3-44.8); MCV 100.3 fL (80-100); RBC Red Blood Cell Count 3.95 M/uL (3.86-4.86)
[2022-11-02 14:20] LABS: Protime INR 1.13
[2022-11-02 14:30] LABS: Bilirubin Direct 0.3 mg/dL (0-0.2); Bilirubin Indirect, Calculated 0.6 mg/dL (0.2-0.8); Bilirubin Total 0.9 mg/dL (0.2-1.0); Magnesium 1.9 mg/dL (1.6-2.4); Potassium 4.5 mEq/L (3.5-5.1); Protein, Total 7.2 g/dL (6.4-8.2); Troponin High Sensitivity 18.3 pg/mL (<58.9)
--- NOTE | 2022-11-02 14:41 | RAD REPORT ---
EXAM DESCRIPTION: Najma Single View11/02/2022 2:34 pm CLINICAL HISTORY: Chest pain COMPARISON: July 2022 FINDINGS: Mild left basilar opacity could represent atelectasis or infiltrate Mild chronic opacities right lung base Upper lobes appear clear Heart remains enlarged. Aorta is tortuous
--- NOTE | 2022-11-02 14:57 | RAD REPORT ---
EXAM DESCRIPTION: RAD - Pelvis - 11/02/2022 2:34 pm CLINICAL HISTORY: Pelvic pain status post injury FINDINGS: No fracture or dislocation is seen. Bones are osteoporotic If the patient continues to have symptoms to suggest an occult fracture then MRI would be recommended
--- NOTE | 2022-11-02 15:10 | ER ---
Nurse's Notes [facility] Name: Lisa Camacho Age: 77 yrs Sex: Female : 1945 Arrival Date: 11/02/2022 Time: 12:47 Bed 3 Private MD: Diagnosis: hyponatremia, possible seizure Presentation: 11/02 13:00 Chief complaint: Patient states: No complaints EMS states: Found on floor by nursing [facility] home staff. Found being restless and grunting. Nurse thought she was having a seizure and called 911. Coronavirus screen: Vaccine status: Patient reports receiving the 2nd dose of the covid vaccine. Client denies travel out of the [place] in the last 14 days. At this time, the client does not indicate any symptoms associated with coronavirus-19. Ebola Screen: Patient denies travel to an Ebola-affected area in the 21 days before illness onset. Initial Sepsis Screen: Does the patient meet any 2 criteria? No. Patient's initial sepsis screen is negative. Does the patient have a suspected source of infection? No. Patient's initial sepsis screen is negative. Risk Assessment: Do you want to hurt yourself or someone else? Patient reports no desire to harm self or others. Onset of symptoms was November 02, 2022. 13:00 Method Of Arrival: EMS [facility]10 13:00 Acuity: ERIKA 3 cm10 Historical: - Allergies: 13:00 PENICILLINS; ll1 - PMHx: 13:00 Alzheimers; Hyperlipidemia; sarcoma; Hypertension; ll1 - Immunization history:: Adult Immunizations up to date. - Social history:: Smoking status: Patient denies any tobacco usage or history of. Screenin:47 [facility] ED Fall Risk Assessment (Adult) History of falling in the last 3 months, kc6 including since admission No falls in past 3 months (0 pts) Confusion or Disorientation No (0 pts) Intoxicated or Sedated No (0 pts) Impaired Gait Yes (1 pt) Mobility Assist Device Used Yes (1 pt) Altered Elimination Yes (1 pt) Score/Fall Risk Level 0 - 2 = Low Risk Oriented to surroundings, Maintained a safe environment, Educated pt \T\ family on fall prevention, incl call for assistance when getting out of bed, Assessed \T\ reinforced patient's understanding of fall precautions, Hourly rounding (assess needs \T\ fall precautionary measures) done. Abuse screen: Denies threats or abuse. Denies injuries from another. Nutritional screening: No deficits noted. Tuberculosis screening: No symptoms or risk factors identified. Assessment: 13:47 General: Appears in no apparent distress. comfortable, obese, Behavior is cooperative, kc6 appropriate for age. Pain: Denies pain. Neuro: Level of Consciousness is awake, alert, obeys commands, Oriented to person, place, time, situation, Appropriate for age. Cardiovascular: Capillary refill < 3 seconds. Respiratory: Airway is patent Trachea midline Respiratory effort is even, unlabored, Respiratory pattern is regular, symmetrical. GI: No signs and/or symptoms were reported involving the gastrointestinal system. : No signs and/or symptoms were reported regarding the genitourinary system. EENT: No signs and/or symptoms were reported regarding the EENT system. Derm: No signs and/or symptoms reported regarding the dermatologic system. Skin is intact, Skin is pink, warm \T\ dry. Musculoskeletal: No signs and/or symptoms reported regarding the musculoskeletal system. Circulation, motion, and sensation intact. Capillary refill < 3 seconds, Range of motion: intact in all extremities. 14:46 Reassessment: Patient appears in no apparent distress at this time. No changes from kc6 previously documented assessment. Patient and/or family updated on plan of care and expected duration. Pain level reassessed. 15:43 Reassessment: Patient appears in no apparent distress at this time. No changes from kc6 previously documented assessment. Patient and/or family updated on plan of care and expected duration. Pain level reassessed. 16:35 Reassessment: Patient appears in no apparent distress at this time. No changes from kc6 previously documented assessment. Patient and/or family updated on plan of care and expected duration. Pain level reassessed. 17:40 Reassessment: attempted to call report. nurse unavailable. kc6 17:46 Reassessment: Patient appears in no apparent distress at this time. No changes from kc6 previously documented assessment. Patient and/or family updated on plan of care and expected duration. Pain level reassessed. 17:51 Reassessment: attempted to call report, nurse unavailable. starting an IV. kc6 18:10 Reassessment: attempted to call report, nurse and charge unavailable. starting an IV at kc6 this time. Vital Signs: 13:00 BP 148 / 103; Pulse 57; Resp 18; Temp 98; Pulse Ox 100% ; cm10 13:49 Resp 18 S; Pulse Ox 100% on R/A; kc6 13:49 Weight 90.72 kg; Height 5 ft. 5 in. ; kc6 15:57 BP 120 / 74; Pulse 86; Resp 18 S; Pulse Ox 98% on 2 lpm NC; kc6 13:49 Body Mass Index 33.28 (90.72 kg, 165.1 cm) kc6 ED Course: 13:00 Patient arrived in ED. eb 13:00 Alek Melendez MD is Attending Physician. jr11 13:00 Arm band placed on Patient placed in an exam room, on a stretcher. ll1 13:19 CT Head Brain wo Cont In Process Unspecified. EDMS 13:22 Ciarra Hall, WINSTON is Primary Nurse. kc6 13:48 Patient has correct armband on for positive identification. Bed in low position. Call kc6 light in reach. Side rails up X2. Adult w/ patient. 13:48 Door closed. Noise minimized. Lights dimmed. Warm blanket given. kc6 13:50 Triage completed. cm10 14:36 Chest Single View XRAY In Process Unspecified. EDMS 14:36 Pelvis XRAY In Process Unspecified. EDMS 15:09 Cisco Hartley MD is Hospitalizing Provider. jr11 18:35 No provider procedures requiring assistance completed. Patient admitted, IV remains in kc6 place. Administered Medications: 15:40 Drug: NS 0.9% IV 1000 ml Route: IV; Rate: 500 ml/hr; Site: left forearm; kc6 17:47 Follow up: Response: No adverse reaction; IV Status: Completed infusion; IV Intake: kc6 1000ml Medication: 18:35 VIS not applicable for this client. kc6 Intake: 17:47 IV: 1000ml; Total: 1000ml. kc6 Outcome: 15:09 Decision to Hospitalize by Provider. jr11 18:35 Admitted to Med/surg accompanied by tech, via stretcher, room 212, with chart, Report kc6 called to WINSTON Saini 18:35 Condition: stable 18:35 Instructed on the need for admit. 18:35 Patient left the ED. kc6 Signatures: Dispatcher [employer] EDMS Isabelle Durbin Lynsay, RN RN ll1 Alek Melendez MD MD jr11 Ciarra Hall RN RN kc6 Nisha Avery RN RN cm10
--- NOTE | 2022-11-02 15:10 | EDPHYS ---
Physician Documentation [facility] Name: Lisa Camacho Age: 77 yrs Sex: Female : 1945 Arrival Date: 11/02/2022 Time: 12:47 Bed 3 Private MD: ED Physician Alek Melendez HPI: 11/02 13:29 Patient is a 77-year-old with history of Alzheimer's dementia hypertension brought in jr11 by EMS after being found on the floor, unsure if she fell, patient says no but she also has dementia. Patient denies any pain, unable to obtain review of system.. Historical: - Allergies: 13:00 PENICILLINS; ll1 - PMHx: 13:00 Alzheimers; Hyperlipidemia; sarcoma; Hypertension; ll1 - Immunization history:: Adult Immunizations up to date. - Social history:: Smoking status: Patient denies any tobacco usage or history of. ROS: 13:29 Unable to obtain ROS due to dementia . jr11 Exam: 13:29 Constitutional: This is a well developed, well nourished patient who is awake, alert, jr11 and in no acute distress. Head/Face: Normocephalic, atraumatic. Eyes: Extra-ocular motions intact. Lids and lashes normal. Conjunctiva and sclera are non-icteric and not injected. Cornea within normal limits. Periorbital areas with no swelling, redness, or edema. Neck: Trachea midline, no thyromegaly or masses palpated, and no cervical lymphadenopathy. Supple, full range of motion without nuchal rigidity, or vertebral point tenderness. No Meningismus. Chest/axilla: Normal chest wall appearance and motion. Nontender with no deformity. No lesions are appreciated. Cardiovascular: Regular rate and rhythm with a normal S1 and S2. No gallops, murmurs, or rubs. Normal PMI, no JVD. No pulse deficits. Respiratory: Lungs have equal breath sounds bilaterally, clear to auscultation and percussion. No rales, rhonchi or wheezes noted. No increased work of breathing, no retractions or nasal flaring. Abdomen/GI: Soft, non-tender, with normal bowel sounds. No distension or tympany. No guarding or rebound. No evidence of tenderness throughout. Back: No spinal tenderness. No costovertebral tenderness. Full range of motion. Skin: Warm, dry with normal turgor. Normal color with no rashes, no lesions, and no evidence of cellulitis. Neuro: awake, moving all ext and following simple commands Vital Signs: 13:00 BP 148 / 103; Pulse 57; Resp 18; Temp 98; Pulse Ox 100% ; cm10 13:49 Resp 18 S; Pulse Ox 100% on R/A; kc6 13:49 Weight 90.72 kg; Height 5 ft. 5 in. ; kc6 15:57 BP 120 / 74; Pulse 86; Resp 18 S; Pulse Ox 98% on 2 lpm NC; kc6 13:49 Body Mass Index 33.28 (90.72 kg, 165.1 cm) 6 MDM: 13:06 Patient medically screened. [facility] 13:29 Differential Diagnosis altered mental status. Data reviewed: vital signs, nurses notes, [facility] EMS record, [facility] records. 13:33 ED course: per nursing, ?sz, back to nurse, shaking ?drooling . [facility] 13:54 ED course: EKG interpreted by me shows normal sinus rhythm, normal axis, normal [facility] intervals, no acute ST changes registered nurse cardiac interpreted by me shows normal sinus rhythm rate of 80.. 14:44 ED course: Discussed with Dr Hartley for admission, hyponatremia, acute with possible [facility] seizure. Will start NS (154 mmol/L Na), 723ml/hr will increase 0.5mEq/L/Hr. 11/02 13:06 Order name: Basic Metabolic Panel; Complete Time: 14:35 [facility] 11/02 13:06 Order name: CBC with Diff; Complete Time: 14:35 [facility] 11/02 13:06 Order name: Hepatic Function; Complete Time: 14:35 [facility] 11/02 13:06 Order name: Magnesium; Complete Time: 14:35 [facility] 11/02 13:06 Order name: Protime (+inr); Complete Time: 14:35 [facility] 11/02 13:06 Order name: Ptt, Activated; Complete Time: 14:35 [facility] 11/02 13:06 Order name: Troponin High Sensitivity; Complete Time: 14:35 [facility] 11/02 13:06 Order name: UDS [facility] 11/02 13:06 Order name: Urinalysis w/ reflexes [facility] 11/02 16:25 Order name: UR CREAT EDMS 11/02 16:25 Order name: UR SODIUM EDMS 11/02 16:25 Order name: Basic Metabolic Panel EDMS 11/02 16:25 Order name: Basic Metabolic Panel EDMS 11/02 16:25 Order name: CBC with Automated Diff EDMS 11/02 16:25 Order name: CBC with Automated Diff EDMS 11/02 16:25 Order name: Comprehensive Metabolic Panel EDMS 11/02 16:25 Order name: Comprehensive Metabolic Panel EDMS 11/02 16:25 Order name: Cortisol EDMS 11/02 16:25 Order name: Cortisol EDMS 11/02 16:25 Order name: T4 Free EDMS 11/02 16:25 Order name: T4 Free EDMS 11/02 16:25 Order name: Thyroid Stimulating Hormone EDMS 11/02 16:25 Order name: Thyroid Stimulating Hormone EDMS 11/02 13:06 Order name: CT Head Brain wo Cont; Complete Time: 13:31 [facility] 11/02 13:06 Order name: Chest Single View XRAY; Complete Time: 15:08 [facility] 11/02 13:06 Order name: Pelvis XRAY; Complete Time: 15:08 11/02 13:06 Order name: EKG; Complete Time: 13:07 11/02 16:25 Order name: CONS Physician Consult [facility] 11/02 16:25 Order name: Full Liquid [facility] 11/02 13:06 Order name: Cardiac monitoring; Complete Time: 13:23 11/02 13:06 Order name: EKG - Nurse/Tech; Complete Time: 13:46 [facility] 11/02 13:06 Order name: IV Saline Lock; Complete Time: 13:23 11/02 13:06 Order name: Labs collected and sent; Complete Time: 14:06 11/02 13:06 Order name: NPO; Complete Time: 13:23 11/02 13:06 Order name: O2 Per Protocol; Complete Time: 13:23 11/02 13:06 Order name: O2 Sat Monitoring; Complete Time: 13:23 Administered Medications: 15:40 Drug: NS 0.9% IV 1000 ml Route: IV; Rate: 500 ml/hr; Site: left forearm; kc6 17:47 Follow up: Response: No adverse reaction; IV Status: Completed infusion; IV Intake: kc6 1000ml Disposition Summary: 11/02/22 15:09 Hospitalization Ordered Hospitalization Status: Observation [facility] Provider: Cisco Hartley [facility] Location: Telemetry/MedSur (observation) [facility] Condition: Stable jr Problem: new jr11 Symptoms: are unchanged jr11 Bed/Room Type: Standard [facility] Room Assignment: [facility](11/02/22 17:19) Diagnosis - hyponatremia, possible seizure [facility] Forms: - Medication Reconciliation Form 11 - SBAR form 11 Signatures: Dispatcher [employer] Ruma Macdonald RN RN dw Nataliia Godoy RN RN ll1 Alek Melendez MD MD jr11 Ciarra Hall RN RN kc6 Nisha Avery RN RN cm10 Corrections: (The following items were deleted from the chart) 17:19 15:09 [facility] dw
[2022-11-02] MEDS ORDERED: NA CHLORIDE 0.9% 1,000 ML ONE (15:41)
[2022-11-02] MEDS ORDERED: ONDANSETRON 4 MG/2 ML VIAL IV PRN (16:20)
[2022-11-02] MEDS ORDERED: ACETAMINOPHEN 500 MG TAB PO PRN (16:20)
[2022-11-02] MEDS ORDERED: MORPHINE 2 MG/ML SYR IV PRN (16:20)
[2022-11-02] MEDS: INSULIN -REGULAR HUMAN 50 UNIT/0.5 ML ML SQ SCH ×2 (16:30→21:00)
[2022-11-02] MEDS: NA CHLORIDE 0.9% 1,000 ML IV SCH ×2 (17:00→19:53)
[2022-11-02 19:55] VITALS: BMI 34.6
--- NOTE | 2022-11-02 21:16 | P.HP ---
Certification for Inpatient Patient admitted to: Observation With expected LOS: <2 Midnights Patient will require the following post-hospital care: Other ([facility]) Practitioner: I am a practitioner with admitting privileges, knowledge of patient current condition, hospital course, and medical plan of care. Services: Services provided to patient in accordance with Admission requirements found in Title 42 Section 412.3 of the Code of Federal Regulations Patient History Date of Service: 11/02/22 Reason for admission: Questionable seizure History of Present Illness: Pt is a 77-year-old female who is been living at the skilled nursing for the last couple years who comes into the hospital after the nurses felt she was having a seizure. Patient was eating when it looked like she had choked on some food. The nurses tried to do the Heimlich maneuver on her. However, the family states that she always has a hacking cough that she does regularly over the last few months. This may have been mistaken for her choking. And she was having some dystonic reactions that the family felt may have been mistaken for a seizure. There was no incontinence. There was no tongue biting. Patient was sent to the emergency room for further evaluation. We happen to find the patient was hyponatremic. At this time, patient will be admitted to the hospital for further evaluation. Allergies Penicillins Allergy (Verified 09/11/19 06:36) Unknown Home Medications: Acetaminophen [Tylenol] 650 mg PO Q6HP PRN 11/02/22 Amlodipine [Norvasc*] 5 mg PO DAILY 11/02/22 Cholecalciferol (Vitamin D3) [Vitamin D 5,000 IU Cap*] 5,000 unit PO DAILY 11/02/22 Divalproex [Depakote Sprinkle*] 250 mg PO BID 11/02/22 Donepezil HCl 23 mg PO BEDTIME 11/02/22 Escitalopram Oxalate [Lexapro] 10 mg PO DAILY 11/02/22 Folic Acid 1 mg PO DAILY 11/02/22 Losartan/Hydrochlorothiazide [Losartan-Hctz 100-12.5 mg Tab] 1 tab PO DAILY 11/02/22 Memantine HCl [Namenda*] 10 mg PO BID 11/02/22 Mirabegron [Myrbetriq] 50 mg PO DAILY 11/02/22 Potassium Chloride [Klor-Con M20] 1 tab PO DAILY 11/02/22 Rivaroxaban [Xarelto] 20 mg PO DAILY 11/02/22 carvediloL [Coreg*] 3.125 mg PO BID 11/02/22 - Past Medical/Surgical History Diabetic: No -: Hyperlipidemia -: HTN -: Sarcoma -: Alzheimer's early stage -: sarcoma sx - Family History Mother Medical History: Hypertension - Social History Smoking Status: Unknown if ever smoked Alcohol use: No CD- Drugs: No Caffeine use: No Place of Residence: [facility] Review of Systems 10-point ROS is otherwise unremarkable Physical Examination - Vital Signs Temperature: 98 F Blood Pressure: 120/74 Pulse: 86 Respirations: 18 - Physical Exam General: Alert, In no apparent distress, Demented HEENT: Atraumatic, Normocephalic Neck: Supple, 2+ carotid pulse no bruit, JVD not distended, No Thyromegaly Respiratory: Clear to auscultation bilaterally, Normal air movement Cardiovascular: Normal pulses, Regular rate/rhythm, No murmurs Gastrointestinal: Normal bowel sounds, Soft and benign, Non-distended, No tenderness Musculoskeletal: No clubbing, No swelling, No contractures Integumentary: No rashes, No breakdown Neurological: Normal strength at 5/5 x4 extr, Sensation intact, Cranial nerves 3-12 intact - Studies Laboratory Data (last 24 hrs) 11/02/22 14:03: PT 12.4, INR 1.13, APTT 31.2 11/02/22 14:03: WBC 7.10, Hgb 13.6, Hct 39.6, Plt Count 135 L 11/02/22 14:03: Sodium 125 L, Potassium 4.5, BUN 8, Creatinine 1.23 H, Glucose 99, Magnesium 1.9, Total Bilirubin 0.9, AST 20, ALT 16, Alkaline Phosphatase 82 Assessment & Plan - Problems (Diagnosis) (1) Seizure Current Visit: Yes Status: Acute (2) Alzheimer disease Current Visit: No Status: Chronic (3) HTN (hypertension) Current Visit: No Status: Chronic - Plan Plan: 1. Continue with antiepileptics 2. IV fluids 3. DC hydrochlorothiazide. 4. Diet as tolerated 5. Advised outpatient physical therapy at the nursing facility 6. Patient will need to continue with speech therapy going forward 7. GI and DVT prophylaxis Discharge Plan: [facility] Plan to discharge in: 24 Hours - Advance Directives Does patient have a Living Will: Yes Does patient have a Durable POA for Healthcare: Yes - Code Status/Comfort Care Code Status Assessed: Yes Code Status: Full Code Critical Care: No Time Spent Managing PTS Care (In Minutes): 45
[2022-11-03 02:56] LABS: Absolute Lymphocytes (CBC) 1.6 K/uL (0.7-4.9); Hematocrit 33.3 % (36.0-45.0); Lymphocytes % 23.1 % (15.3-44.8); MCV 100.5 fL (80-100); MPV 9.4 fL (7.6-11.3); RBC Red Blood Cell Count 3.31 M/uL (3.86-4.86)
[2022-11-03 03:33] LABS: Potassium 3.8 mEq/L (3.5-5.1)
[2022-11-03 03:34] LABS: Albumin 2.2 g/dL (3.4-5.0); Bilirubin Total 0.9 mg/dL (0.2-1.0); Protein, Total 5.6 g/dL (6.4-8.2)
[2022-11-03 03:54] LABS: Thyroid Stimulating Hormone 1.75 uIU/mL (0.358-3.740)
[2022-11-03] MEDS: D5 0.9 NS 1,000 ML IV SCH ×2 (04:00→05:01)
[2022-11-03] MEDS: INSULIN -REGULAR HUMAN 50 UNIT/0.5 ML ML SQ SCH ×2 (07:30→11:30)
[2022-11-03] MEDS ORDERED: DIVALPROEX NA 125 MG CAP PO SCH (09:00)
[2022-11-03] MEDS ORDERED: hydroCHLOROthiazide 12.5 MG CAP PO SCH (09:00)
[2022-11-03] MEDS ORDERED: LOSARTAN POTASSIUM 50 MG TABLET FT SCH (09:00)
[2022-11-03] MEDS ORDERED: RIVAROXABAN 20 MG TABLET PO SCH (09:00)
[2022-11-03] MEDS ORDERED: levETIRAcetam 500 MG in NA CHLORIDE 0.9% 100 ML IV SCH (09:00)
[2022-11-03] MEDS ORDERED: AMLODIPINE 5 MG TAB PO SCH (09:00)
[2022-11-03] MEDS ORDERED: carvediloL 3.125 MG TAB PO SCH (09:00)
[2022-11-03] MEDS ORDERED: FOLIC ACID 1 MG TABLET PO SCH (09:00)
[2022-11-03] MEDS ORDERED: ESCITALOPRAM 20 MG TAB PO SCH (09:00)
[2022-11-03] MEDS ORDERED: MEMANTINE HCL 10 MG TABLET PO SCH (09:00)
[2022-11-03 09:43] VITALS: O2SAT 90
[2022-11-03 12:04] LABS: Potassium 3.8 mEq/L (3.5-5.1)
--- NOTE | 2022-11-03 12:08 | RAD REPORT ---
EXAM DESCRIPTION: RAD - Chest Single View - 11/03/2022 11:59 am CLINICAL HISTORY: rule out aspiration pneumonia Chest pain. COMPARISON: Chest Single View dated 11/02/2022; Chest Single View dated 08/03/2022; Chest Single View dated 11/26/2019; Chest Single View dated 09/27/2019 FINDINGS: Portable technique limits examination quality. The lungs are underinflated but grossly clear. The heart is mildly enlarged with tortuous thoracic ao rta. No displaced fracture.
[2022-11-03 12:39] VITALS: BP 106/67
[2022-11-03 13:36] VITALS: TEMP 97.6
[2022-11-03] MEDS ORDERED: DONEPEZIL HCL 5 MG TAB PO SCH (21:00)
--- NOTE | 2022-11-05 17:56 | EKG ---
Test Date: 2022-11-02 Test Time: 13:44:54 [employer]: MELIDA MEASUREMENT RESULTS: Intervals: Rate: 93 RI: 130 QRSD: 90 QT: 360 QTc: 447 [place]: P: 62 RI: 130 QRS: 55 T: 107 INTERPRETIVE STATEMENTS: Normal sinus rhythm Lateral infarct, age undetermined Abnormal ECG Compared to ECG 07/06/2022 08:32:05 Myocardial infarct finding now present Electronically Signed On 11-05-22 17:51:20 CDT by Jaden Mock
== END 2022-11-03 14:06 ==
LOC: ER 12:47 → ERHOLD 16:20 → 2ND 18:12
PROVIDERS: ADMIT Hospitalist; ATTEND Hospitalist
DX: R56.9 Unspecified convulsions (principal); G30.9 Alzheimer's disease, unspecified; E87.1 Hypo-osmolality and hyponatremia; F02.80 Dementia in other diseases classified elsewhere, unspecified severity, without behavioral disturbance, psychotic disturbance, mood disturbance, and anxiety; I10 Essential (primary) hypertension; Z88.0 Allergy status to penicillin
CPT/HCPCS: 96361; 85025 ×2; 80048 ×2; 36415 ×2; 83735; 85610; 82947 ×3; 80076; 85730; 84443; 84484; 84439; 80053; 82533; 70450; 71045 ×2; 72170; 96360; 99285; J1953; J7042; J7030 ×2; 93005; G0378

== ENCOUNTER 2022-11-20 18:44 | Emergency (ER) | payer OTHER ==
--- OUTSIDE RECORDS SUMMARY | 2022-11-20 18:47 | XMS REPORT | Continuity of Care Document ---
:1945 Author Organization [facility] t Address [address] [place] [address] Care Team Providers Name Role Phone [phone] Primary Care Physician Unavailable SYSTEM, PROVIDER NOT IN Attending Clinician Unavailable BIANCA IGLESIAS Attending Clinician Unavailable ARAMIS BRADY Attending Clinician Unavailable RUBEN HANSEN Attending Clinician Unavailable Payers Payer Name Policy Type Policy Number Effective Date Expiration Date S yesenia MEDICARE PART A AND [id number] 2010 B 00:00:00 MEDICARE PART A \T\ [id number] 2010 B 00:00:00 [facility] [id number] 2012 MEDICARE SUPPLEMENT 00:00:00 A[employer]-SECONDARY ONLY [id number] 2017 00:00:00 Problems Condition Condition Condition Status Onset Resolution Last Treating Co mments Source Name Details Category Date Date Treatment Clinician Date Retroperit Retroperit Disease Active M ethodi resendiz mass resendiz mass [facility] 00:00: Hosp[facility] 00 l Abdominal Abdominal Disease Active [facility] mass [facility] 00:[facility]: [facility]osp[facility] 00 l Allergies, Adverse Reactions, Alerts Allergy Allergy Status Severity Reaction(s) Onset Inactive Treating Comm ents Source Name Type Date Date Clinician Penicill Propensi Active Itching unknown Meth jin ins ty to 02-13 st adverse 00:00: Hospita reaction 00 l s to drug PENICILL Drug Active ITCHING [facility] INS Class 02-13 it[facility] of 00:00: [place] [facility] Social History Social Habit Start Date Stop Date Quantity Comments Source [facility] History of Social 2018-04-02 2018-04-[address] function 00:00:00 00:00:00 Hospital Alcohol intake 2017-12-05 2017-12-05 Current [facility] 00:00:00 00:00:00 non-drinker of Hospital alcohol (finding) Tobacco use and 2017-11-12 2017-11-12 Smokeless [facility] exposure 00:00:00 00:00:00 tobacco non-user Hospital Sex Assigned At [birth year] [facility] 00:00:[facility] Smoking Status Start Date Stop Date Source Never smoked tobacco [facility] Medications Ordered Filled Start Stop Current Ordering Indication Dosage Frequency Signature Comments Components Source Medication Medication Date Date Medication? Clinician (SIG) Name Name traMADol Yes 50mg Q6H Take 50 mg [facility] (ULTRAM) 50 7-[address] mg tablet 14:58: every 6 Hospi ta 24 (six) l hours as needed for moderate pain. escitalopra Yes 10mg QD Take 10 mg [facility] (LEXAPRO) 7-[address] 10 MG 14:58: daily. Hospita tablet 24 l oxybutynin 0 Yes 5mg Q.[id number] Take 5 mg [facility] (DITROPAN) 7-13 [id number] mouth [address] 5 MG tablet 14:58: 3D (three) Hos [place] 24 times a l day. aspirin 2018- Yes 81mg QD Take 81 mg Meth jin (ECOTRIN) 7-[address] 81 MG 14:58: daily. Hospita enteric 24 l coated tablet pravastatin 20180 Yes 10mg Q.5D Take 10 mg [facility] (PRAVACHOL) 7-[address] 10 MG 14:58: (two) Hospita tablet 24 times a l day. carvedilol 2018-0 Yes 12.5mg Q.5D Take 12.5 [facility] (COREG) 7-[address] 12.5 MG 14:58: mouth 2 Hospita tablet 24 (two) l times a day with meals. ciprofloxac 2017-0 Yes 500mg Q.5D Take 500 M [facility]i in (CIPRO) 7-[address] 500 MG 14:58: mouth 2 Hospita tablet 24 (two) l times a day. oxybutynin 2018-0 Yes 5mg Q.81206461 Take 5 mg [facility] (DITROPAN) 7-13 [id number] by mouth 3 [address] 5 MG tablet [...] tablet 24 l oxybutynin 2018-0 Yes 5mg Q.49661170 Take 5 mg [facility] (DITROPAN) 7-13 [id number] by mouth 3 st 5 MG tablet [...] tablet 24 l oxybutynin 2018-0 Yes 5mg Q.64784128 Take 5 mg [facility] (DITROPAN) 7-13 [id number] by mouth 3 [address] 5 MG tablet [...] tablet 24 l oxybutynin 2018-0 Yes 5mg Q.47728164 Take 5 mg [facility] (DITROPAN) 7-13 [id number] by mouth 3 st 5 MG tablet [...] Planned Date Details Comments Source Future Scheduled 2022-11-08 COVID-19 VACCINE (#1) [facility] Test 01:42:40 [code = COVID-19 VACCINE (#1)] Future Scheduled 2022-11-08 SHINGLES VACCINES (1 [facility] Test 01:42:40 of 2) [code = SHINGLES VACCINES (1 of 2)] Future Scheduled 2022-11-08 65+ PNEUMOCOCCAL [facility] Test 01:42:40 VACCINE (1 - PCV) [code = 65+ PNEUMOCOCCAL VACCINE (1 - PCV)] Future Scheduled 2022-11-08 INFLUENZA VACCINE [facility] 01:42:40 [code = INFLUENZA VACCINE] Future Scheduled 2022-08-23 COVID-19 VACCINE (#1) [facility] Test 05:06:22 [code = COVID-19 VACCINE (#1)] Future Scheduled 2022-08-23 SHINGLES VACCINES (1 [facility] Test 05:06:22 of 2) [code = SHINGLES VACCINES (1 of 2)] Future Scheduled 2022-08-23 65+ PNEUMOCOCCAL [facility] Test 05:06:22 VACCINE (1 - PCV) [code = 65+ PNEUMOCOCCAL VACCINE (1 - PCV)] Future Scheduled 2022-08-23 INFLUENZA VACCINE [facility] Test 05:06:22 [code = INFLUENZA VACCINE] Future Scheduled 2022-05-03 [facility]UENZA VACCINE [facility] Test 01:22:26 [code = INFLUENZA VACCINE] Future Scheduled 2022-05-03 COVID-19 VACCINE (#1) [facility] Test 01:22:26 [code = COVID-19 VACCINE (#1)] Future Scheduled 2022-05-03 SHINGLES VACCINES (1 [facility] Test 01:22:26 of 2) [code = SHINGLES VACCINES (1 of 2)] Future Scheduled 2022-05-03 65+ PNEUMOCOCCAL [facility] Test 01:22:26 VACCINE (1 - PCV) [code = 65+ PNEUMOCOCCAL VACCINE (1 - PCV)] Future Scheduled 2022-05-03 INFLUENZA VACCINE [facility] Test 01:22:26 [code = INFLUENZA VACCINE] Future Scheduled 2022-05-03 COVID-19 VACCINE (#1) [facility] Test 01:22:26 [code = COVID-19 VACCINE (#1)] Future Scheduled 2022-05-03 SHINGLES VACCINES (1 [facility] Test 01:22:26 of 2) [code = SHINGLES VACCINES (1 of 2)] Future Scheduled 2022-05-03 65+ PNEUMOCOCCAL [facility] Test 01:22:26 VACCINE (1 - PCV) [code = 65+ PNEUMOCOCCAL VACCINE (1 - PCV)] Future Scheduled 2022-05-03 INFLUENZA VACCINE [facility] Test 01:22:26 [code = INFLUENZA VACCINE] Future Scheduled 2022-05-03 COVID-19 VACCINE (#1) [facility] 01:22:26 [code = COVID-19 VACCINE (#1)] Future Scheduled 2022-05-03 SHINGLES VACCINES (1 [facility] 01:22:26 of 2) [code = SHINGLES VACCINES (1 of 2)] Future Scheduled 2022-05-03 65+ PNEUMOCOCCAL [facility] Test 01:22:26 VACCINE (1 - PCV) [code = 65+ PNEUMOCOCCAL VACCINE (1 - PCV)] Encounters Start End Encounter Admission Attending Care Care Encounter Source Date/Time Date/Time Type Type Clinicians Facility Department ID 2020-01-29 Outpatient SYSTEM, GAVINO MANCIA [id number] 20:22:38 LILA carrillo 2021-08-19 2021-08-19 Outpatient EL URQULISA, MDA MDA [id number] 06:34:36 23:59:00 BIANCA Senior rso n 2021-08-19 2021-08-19 Outpatient EL URQULISA, GAVINO MDA [id number] 06:06:29 06:33:00 BIANCA Senior rso n 2021-04-25 2021-04-25 Outpatient MORRO BRADY GAVINO MDA [id number] 17:48:21 17:48:25 ARAMIS carrillo 2021-04-15 2021-04-15 Outpatient EL URQUIOLA, MDA MDA [id number] 06:26:03 23:59:00 BIANCA Senior rso n 2021-04-15 2021-04-15 Outpatient EL URQUIOLA, GAVINO MDA [id number] 06:15:00 06:25:00 BIANCA Senior rso n 2020-12-12 2020-12-12 Outpatient EL RAFFIRROSHAN, GAVINO MDA [id number] 14:46:20 17:06:45 ARAMIS carrillo 2020-12-10 2020-12-10 Outpatient EL URQUIOLA, MDA MDA [id number] 06:15:00 23:59:00 BIANCASIMEON Senior rso n 2020-12-10 2020-12-10 Outpatient EL URQUIOLA, MDA MDA [id number] 06:04:33 06:14:00 BIANCASIMEON Senior rso n 2020-08-16 2020-08-16 Outpatient Olya HANSEN, [facility] [id number] Univers 10:50:00 10:50:00 RUBEN [facility] 2020-08-15 2020-08-15 Outpatient EL ZARZOUR, MDA MDA [id number] 14:45:57 17:20:42 ARAMIS carrillo 2020-08-13 2020-08-13 Outpatient EL URQUIOLA, MDA MDA [id number] 06:40:00 23:59:00 BIANCA Parrish rso n 2020-08-13 2020-08-13 Outpatient EL URQUIOLA, MDA MDA [id number] 06:15:00 06:39:00 BIANCA Parrish rso n 2020-07-26 2020-07-26 Outpatient [facility] [id number] 10:40:00 10:40:00 [facility] 2020-01-28 2020-01-28 Outpatient EL URQUIOLA, MDA MDA [id number] 07:11:52 23:59:00 BIANCA erazoo n 2020-01-28 2020-01-28 Outpatient EL ZARZOUR, MDA MDA [id number] 10:15:42 11:42:57 ARAMIS carrillo 2020-01-28 2020-01-28 Outpatient EL URQUIOLA, MDA MDA [id number] 06:58:36 07:10:00 BIANCA Senior rso n 2020-01-28 2020-01-28 Outpatient EL URQUIOLA, MDA MDA [id number] 06:31:12 06:57:00 BIANCA Senior rso n 2019-10-03 2019-10-03 Outpatient EL ZARZOUR, MDA MDA [id number] 09:06:18 23:59:00 ARAMIS carrillo Results This patient has no known results.
[2022-11-20 20:21] LABS: Absolute Lymphocytes (CBC) 1.1 K/uL (0.7-4.9); Hematocrit 39.3 % (36.0-45.0); Lymphocytes % 25.4 % (15.3-44.8); MCV 104.5 fL (80-100); MPV 9.9 fL (7.6-11.3); Protime INR 1.61; RBC Red Blood Cell Count 3.76 M/uL (3.86-4.86)
[2022-11-20] MEDS ORDERED: NA CHLORIDE 0.9% 1,000 ML ONE ×2 (20:35→22:21)
[2022-11-20 20:46] LABS: Albumin 2.5 g/dL (3.4-5.0); Bilirubin Direct 0.2 mg/dL (0-0.2); Bilirubin Indirect, Calculated 0.5 mg/dL (0.2-0.8); Bilirubin Total 0.7 mg/dL (0.2-1.0); Magnesium 1.8 mg/dL (1.6-2.4); Protein, Total 6.2 g/dL (6.4-8.2); Thyroid Stimulating Hormone 3.14 uIU/mL (0.358-3.740); Troponin High Sensitivity 16.3 pg/mL (<58.9)
--- NOTE | 2022-11-20 21:06 | RAD REPORT ---
EXAM DESCRIPTION: RADChest Single View11/20/2022 8:27 pm CLINICAL HISTORY: confused COMPARISON: Chest Single View dated 11/03/2022; Chest Single View dated 11/02/2022; Chest Single View dated 08/03/2022; Chest Single View dated 11/26/2019 TECHNIQUE: Portable AP view of the chest. FINDINGS: Decreased inspiratory effort. Central bronchovascular crowding, likely related to hypoinfl ation. The lungs are otherwise clear. No pneumothorax or effusion. The cardiomediastinal contours ar e unremarkable. IMPRESSION: No acute cardiopulmonary process, as above.
--- NOTE | 2022-11-20 21:30 | RAD REPORT ---
EXAM DESCRIPTION: CT - Head Brain Wo Cont - 11/20/2022 8:50 pm CLINICAL HISTORY: Declining state;Confused COMPARISON: Head Brain Wo Cont dated 11/02/2022; Head Brain Wo Cont dated 11/26/2019 TECHNIQUE: Noncontrast head CT images were obtained without IV contrast. Multiplanar reformats were generated and reviewed. All CT scans are performed using dose optimization technique as appropriate and may include automated exposure control or mA/KV adjustment according to patient size. FINDINGS: No intracranial hemorrhage, mass, or edema. Sequelae of empty sella again seen. Other midl ine structures are unremarkable. Stable ventricular caliber with overall mild diffuse parenchymal volume loss. Confluent periventricul ar and deep white matter hypodensities, nonspecific, but stable pattern, most suggestive of chronic s mall vessel ischemic changes. Areas of encephalomalacia along the basal right frontal lobe. Pronounced volume loss versus encephalo malacia involving the anterior temporal poles bilaterally. The findings are stable. Pyle-white matter differentiation elsewhere is preserved, without evidence of acute infarct. No abnormal extra-axial f luid collections. Mastoid air cells are well aerated. Polypoidal mucosal thickening along the upper aspect of the right nasal cavity, with opacification of the right frontal and anterior mastoid air cells. No acute bony findings. IMPRESSION: No evidence of an acute intracranial process. Chronic findings as above, overall stable, including areas of right basal frontal encephalomalacia, a nd pronounced volume loss versus encephalomalacia in the bilateral anterior temporal poles, findings which may represent sequelae of remote trauma.
[2022-11-21 00:50] LABS: Barbiturates NEGATIVE (NEGATIVE); Benzodiazepines NEGATIVE (NEGATIVE); Cocaine NEGATIVE (NEGATIVE); METHAMPHETAM NEGATIVE (NEGATIVE); Methadone NEGATIVE (NEGATIVE); Opiates NEGATIVE (NEGATIVE); Phencyclidine NEGATIVE (NEGATIVE); THC Cannibis NEGATIVE (NEGATIVE)
[2022-11-21 00:52] LABS: Urine Bacteria None Seen /HPF (<20); Urine Bilirubin NEGATIVE (Negative); Urine Blood 3+ (Negative); Urine Clarity Extremely Turbid (Clear); Urine Color Yellow (Yellow); Urine Crystals Unidentified Few /HPF (None Seen); Urine Glucose NEGATIVE (Negative); Urine Mucus 2+ /HPF (None Seen); Urine Protein 1+ (Negative); Urine RBC >50 /HPF (None Seen); Urine Urobilinogen 1+ (Normal); Urine WBC Clump Rare /HPF (None Seen)
--- NOTE | 2022-11-21 01:11 | ER ---
Nurse's Notes [facility] Name: Lisa Camacho Age: 77 yrs Sex: Female : 1945 Arrival Date: 11/20/2022 Time: 18:44 Bed 16 Private MD: Diagnosis: Volume depletion, unspecified;UTI/ Urinary tract infection, site not specified Presentation: 11/20 18:49 Chief complaint: EMS states: Toned out for unresponsive, pt was unresponsive on arrival jl7 and once placed on EMS stretcher has been baseline, A\T\O to self. Coronavirus screen: At this time, the client does not indicate any symptoms associated with coronavirus-19. Ebola Screen: No symptoms or risks identified at this time. Initial Sepsis Screen: Does the patient meet any 2 criteria? No. Patient's initial sepsis screen is negative. Does the patient have a suspected source of infection? No. Patient's initial sepsis screen is negative. Risk Assessment: Do you want to hurt yourself or someone else? Patient reports no desire to harm self or others. Onset of symptoms was November 20, 2022. Care prior to arrival: VSS. 18:49 Method Of Arrival: Ambulatory jl7 18:49 Acuity: ERIKA 3 jl7 Triage Assessment: 18:59 General: Appears obese, Behavior is inappropriate for age. Pain: Unable to use pain bp scale. Does not appear to understand pain scale. EENT: No deficits noted. Neuro: Oriented to none Speech INAPPROPRIATE SOUNDS, NO WORDS. Cardiovascular: No deficits noted. Respiratory: No deficits noted. GI: No signs and/or symptoms were reported involving the gastrointestinal system. : No signs and/or symptoms were reported regarding the genitourinary system. Derm: No deficits noted. Musculoskeletal: No deficits noted. Historical: - Allergies: 18:52 PENICILLINS; jl7 - PMHx: 18:52 Alzheimers; Hyperlipidemia; Hypertension; sarcoma; Atrial fibrillation; Depressive jl7 disorder; - Immunization history:: Adult Immunizations up to date. - Social history:: Smoking status: unknown. Screenin:00 [facility] ED Fall Risk Assessment (Adult) History of falling in the last 3 months, bp including since admission No falls in past 3 months (0 pts) Confusion or Disorientation Yes (5 pts). Abuse screen: Denies threats or abuse. Denies injuries from another. Nutritional screening: No deficits noted. Tuberculosis screening: No symptoms or risk factors identified. Assessment: 19:00 General: SEE TRIAGE NOTE. bp 20:48 Reassessment: No changes from previously documented assessment. Patient and/or family os updated on plan of care and expected duration. Pain level reassessed. 11/21 00:00 Reassessment: Assumed care of patient from WINSTON Almodovar. vc1 01:00 Reassessment: No changes from previously documented assessment. Patient and/or family vc1 updated on plan of care and expected duration. Pain level reassessed. 01:25 Reassessment: Notified [facility] that pt is ready for transportation back to their [facility] facility. Vital Signs: 11/20 18:49 BP 97 / 63; Resp 16; Temp 97.9; jl7 18:55 Pulse 65; Pulse Ox 96% ; jl7 20:47 BP 88 / 70; Pulse 58; Resp 17; Temp 97.8(A); Pulse Ox 99% on R/A; os 11/21 00:24 BP 134 / 75; Pulse 68; Resp 18; Pulse Ox 96% on R/A; os 01:00 BP 121 / 96; Pulse 72; Resp 19; Pulse Ox 100% ; vc1 Vitals: 11/20 20:47 Cardiac Rhythm Assessment Atrial fibrillation. os ED Course: 18:49 Patient arrived in ED. jl7 18:52 Triage completed. jl7 18:52 Arm band placed on right wrist. jl7 18:59 Jeremi Francois, WINSTON is Primary Nurse. bp 18:59 Keegan Garg MD is Attending Physician. rt 19:00 Patient has correct armband on for positive identification. Bed in low position. Call bp light in reach. Side rails up X2. 19:08 Stacey Diaz FNP-C is PHCP. snw 19:45 Note: CT exam delayed due to Nurse needing to start IV first.. ls3 20:29 XRAY Chest (1 view) In Process Unspecified. EDMS 20:45 TS Sent. os 20:46 TSH Sent. os 20:46 Blood Culture Adult (2) Sent. os 20:46 Procalcitonin Sent. os 20:46 Lactate w/ 2H reflex if indic. Sent. os 20:52 CT Head Brain wo Cont In Process Unspecified. EDMS 11/21 00:23 No provider procedures requiring assistance completed. Villar cath inserted, using os sterile technique, 16 Fr., by electrolytic etcher, balloon inflated, to gravity drainage, urine specimen collected. Inserted saline lock: 20 gauge in right antecubital area, using aseptic technique. Administered Medications: 11/20 20:45 Drug: NS 0.9% IV 1000 ml Route: IV; Rate: 1 bolus; Site: right antecubital; os 11/21 00:22 Follow up: Response: No adverse reaction os 11/20 21:14 Drug: NS 0.9% IV 500 ml Route: IV; Rate: bolus; Site: right antecubital; os 21:14 Drug: NS 0.9% IV 500 ml Route: IV; Rate: bolus; Site: right antecubital; os 11/21 00:23 Follow up: Response: No adverse reaction os 01:50 Drug: Rocephin IV 1 grams Route: IV; Rate: calculated rate; Site: right antecubital; vc1 02:05 Follow up: IV Status: Completed infusion vc1 Medication: 11/20 19:00 VIS not applicable for this client. bp Outcome: 11/21 01:10 Discharge ordered by . snbernardino 02:13 Patient left the ED. vc1 Signatures: Dispatcher [employer] EDMS Stacey Diaz, CURRICULUM AND INSTRUCTION DIRECTOR-C CURRICULUM AND INSTRUCTION DIRECTOR-Csnw Fish Horton RN RN jl7 Jeremi Francois RN RN bp Charlotte Naranjo ls3 Johanna Ribeiro RN RN vc1 Keegan Garg MD MD rt Scooby Batista RN RN os
--- NOTE | 2022-11-21 01:11 | EDPHYS ---
Physician Documentation [facility] Name: Lisa Camacho Age: 77 yrs Sex: Female : 1945 Arrival Date: 11/20/2022 Time: 18:44 Bed 16 Private MD: ED Physician Keegan Garg HPI: 11/20 19:33 This 77 yrs old Black Female presents to ER via Ambulatory with complaints of Altered snw Mental Status. 19:33 The patient presents with decreased responsiveness. Onset: The symptoms/episode snw began/occurred suddenly, today. Associated signs and symptoms: The patient has no apparent associated signs or symptoms. Patient's baseline: Neuro: alert but confused. It is unknown whether or not the patient has recently seen a physician. Historical: - Allergies: 18:52 PENICILLINS; jl7 - PMHx: 18:52 Alzheimers; Hyperlipidemia; Hypertension; sarcoma; Atrial fibrillation; Depressive jl7 disorder; - Immunization history:: Adult Immunizations up to date. - Social history:: Smoking status: unknown. ROS: 19:32 ENT: Negative for injury, pain, and discharge, Neck: Negative for injury, pain, and snw swelling, Cardiovascular: Negative for chest pain, palpitations, and edema, Respiratory: Negative for shortness of breath, cough, wheezing, and pleuritic chest pain, Abdomen/GI: Negative for abdominal pain, nausea, vomiting, diarrhea, and constipation, Back: Negative for injury and pain, : Negative for injury, bleeding, discharge, and swelling, MS/Extremity: Negative for injury and deformity, Skin: Negative for injury, rash, and discoloration, Neuro: Negative for headache, weakness, numbness, tingling, and seizure, + unresponsive x 2 episodes today, hx of dementia 19:32 Constitutional: Positive for unresponsive post shower at [place]. Exam: 19:08 Head/Face: Normocephalic, atraumatic. Eyes: Pupils equal round and reactive to light, snw extra-ocular motions intact. Lids and lashes normal. Conjunctiva and sclera are non-icteric and not injected. Cornea within normal limits. Periorbital areas with no swelling, redness, or edema. ENT: Nares patent. No nasal discharge, no septal abnormalities noted. Tympanic membranes are normal and external auditory canals are clear. Oropharynx with no redness, swelling, or masses, exudates, or evidence of obstruction, uvula midline. Mucous membranes moist. Neck: Trachea midline, no thyromegaly or masses palpated, and no cervical lymphadenopathy. Supple, full range of motion without nuchal rigidity, or vertebral point tenderness. No Meningismus. Chest/axilla: Normal chest wall appearance and motion. Nontender with no deformity. No lesions are appreciated. 19:08 Abdomen/GI: Soft, non-tender, with normal bowel sounds. No distension or tympany. No guarding or rebound. No evidence of tenderness throughout. Back: No spinal tenderness. No costovertebral tenderness. Full range of motion. 19:08 MS/ Extremity: Pulses equal, no cyanosis. Neurovascular intact. Full, normal range of motion. 19:08 Constitutional: The patient appears awake, agitated, obese. 19:08 Cardiovascular: Rate: normal, Rhythm: irregular, Edema: is not appreciated. 19:08 Respiratory: the patient does not display signs of respiratory distress, Respirations: normal, Breath sounds: are clear throughout, non-productive cough. 19:08 Skin: Appearance: Color: pale. 19:08 Neuro: Orientation: Not oriented to person, place, time, unable to test, does not answer questions. Vital Signs: 18:49 BP 97 / 63; Resp 16; Temp 97.9; jl7 18:55 Pulse 65; Pulse Ox 96% ; jl7 20:47 BP 88 / 70; Pulse 58; Resp 17; Temp 97.8(A); Pulse Ox 99% on R/A; os 0705 00:24 BP 134 / 75; Pulse 68; Resp 18; Pulse Ox 96% on R/A; os 01:00 BP 121 / 96; Pulse 72; Resp 19; Pulse Ox 100% ; vc1 MDM: 11/20 19:12 Patient medically screened. snw 11/21 01:11 Differential Diagnosis: CVA, electrolyte abnormality, hypoglycemia, sepsis, TIA, volume snw depletion. Data reviewed: vital signs, nurses notes, lab test result(s), EKG, radiologic studies. I considered the following discharge prescriptions or medication management in the emergency department Medications were administered in the Emergency Department. See MAR. Counseling: I had a detailed discussion with the patient and/or guardian regarding: the historical points, exam findings, and any diagnostic results supporting the discharge/admit diagnosis, lab results, radiology results, the need for outpatient follow up, to return to the emergency department if symptoms worsen or persist or if there are any questions or concerns that arise at home. Response to treatment: the patient's symptoms have markedly improved after treatment. Special discussion: Based on the history and exam findings, there is no indication for further emergent testing or inpatient evaluation. I discussed with the patient/guardian the need to see the primary care provider for further evaluation of the symptoms. 11/20 19:11 Order name: Basic Metabolic Panel; Complete Time: 20:48 snw 11/20 19:11 Order name: CBC with Diff; Complete Time: 20:43 snw 11/20 19:11 Order name: LFT's; Complete Time: 20:48 snw 11/20 19:11 Order name: Magnesium; Complete Time: 20:48 snw 11/20 19:11 Order name: NT PRO-BNP; Complete Time: 20:48 snw 11/20 19:11 Order name: PT-INR; Complete Time: 20:23 snw 11/20 19:11 Order name: Troponin HS; Complete Time: 20:48 snw 11/20 19:11 Order name: Urine W/Microscopic (UAM); Complete Time: 01:04 snw 11/20 19:11 Order name: Lactate w/ 2H reflex if indic.; Complete Time: 21:04 snw 11/20 19:11 Order name: Procalcitonin; Complete Time: 21:04 snw 11/20 19:11 Order name: Blood Culture Adult (2) snw 11/20 19:11 Order name: UDS; Complete Time: 01:04 snw 11/20 19:12 Order name: TSH; Complete Time: 20:48 snw 11/20 19:12 Order name: TS snw 11/21 01:02 Order name: Urine Culture EDMS 11/20 19:11 Order name: CT Head Brain wo Cont; Complete Time: 21:34 snw 11/20 19:11 Order name: XRAY Chest (1 view); Complete Time: 21:07 snw 11/20 19:11 Order name: EKG; Complete Time: 19:12 snw 11/20 19:11 Order name: Cardiac monitoring; Complete Time: 20:37 snw 11/20 19:11 Order name: EKG - Nurse/Tech; Complete Time: 20:37 snw 11/20 19:11 Order name: IV Saline Lock; Complete Time: 20:47 snw 11/20 19:11 Order name: Labs collected and sent; Complete Time: 20:47 snw 11/20 19:11 Order name: O2 Per Protocol; Complete Time: 20:37 snw 11/20 19:11 Order name: O2 Sat Monitoring; Complete Time: 20:37 snw 11/20 19:11 Order name: Villar; Complete Time: 00:23 snw 11/20 22:42 Order name: Misc. Order: please collect urine; Complete Time: 00:27 snw Administered Medications: 11/20 20:45 Drug: NS 0.9% IV 1000 ml Route: IV; Rate: 1 bolus; Site: right antecubital; os 11/21 00:22 Follow up: Response: No adverse reaction os 11/20 21:14 Drug: NS 0.9% IV 500 ml Route: IV; Rate: bolus; Site: right antecubital; os 21:14 Drug: NS 0.9% IV 500 ml Route: IV; Rate: bolus; Site: right antecubital; os 11/21 00:23 Follow up: Response: No adverse reaction os 01:50 Drug: Rocephin IV 1 grams Route: IV; Rate: calculated rate; Site: right antecubital; vc1 02:05 Follow up: IV Status: Completed infusion vc1 Disposition Summary: 11/21/22 01:10 Discharge Ordered Location: Home snw Condition: Stable snw Diagnosis - Volume depletion, unspecified snw - UTI/ Urinary tract infection, site not specified snw Followup: snw - With: Emergency Department - When: As needed - Reason: Worsening of condition Followup: snw - With: Private Physician - When: 2 - 3 days - Reason: Recheck today's complaints, Continuance of care, Re-evaluation by your physician Discharge Instructions: - Discharge Summary Sheet snw - Dehydration, Elderly snw - Urinary Tract Infection, Adult snw - Rehydration, Elderly snw Forms: - Medication Reconciliation Form snw - Thank You Letter snw - Antibiotic Education snw - Prescription Opioid Use snw - [email or web address] snw Prescriptions: - Cipro 500 mg Oral Tablet - take 1 tablet by ORAL route every 12 hours for 7 days; 14 tablet; Refills: 0, snw Product Selection Permitted Addendum: 11/23/2022 20:01 Co-signature as Attending Physician, Keegan Garg MD I reviewed the patient's care r t provided by the Advanced Practice Provider and agree with the diagnosis and treatment plan. Signatures: Dispatcher [employer] EDStacey Chun, JEWELRY BENCH MOLDER-C JEWELRY BENCH MOLDER-Csnw Fish Horton RN RN jl7 Johanna Ribeiro RN RN vc1 Keegan Garg MD MD rt Scooby Batista RN RN os
[2022-11-21] MEDS ORDERED: CEFTRIAXONE 1000 MG/VIAL ONE (01:55)
[2022-11-21 03:11] VITALS: TEMP 97.8
[2022-11-21 03:14] VITALS: BP 121/96; O2SAT 100
--- NOTE | 2022-11-21 12:29 | EKG ---
Test Date: 2022-11-20 Test Time: 20:28:32 Warp Yarn Sorter: HUMA MEASUREMENT RESULTS: Intervals: Rate: 0 ID: QRSD: 0 QT: 0 QTc: 0 [place]: P: ID: QRS: 0 T: 0 INTERPRETIVE STATEMENTS: No QRS complexes found, no ECG analysis possible Electronically Signed On 11-21-22 12:28:57 CDT by Jaden Mock
--- NOTE | 2022-11-21 12:29 | EKG ---
Test Date: 2022-11-20 Test Time: 20:32:21 Screw Remover: LL MEASUREMENT RESULTS: Intervals: Rate: 49 OR: 136 QRSD: 90 QT: 448 QTc: 404 [place]: P: 38 OR: 136 QRS: 58 T: 81 INTERPRETIVE STATEMENTS: Sinus bradycardia with sinus arrhythmia Otherwise normal ECG Compared to ECG 11/20/2022 20:28:32 No significant changes Electronically Signed On 11-21-22 12:28:49 CDT by Jaden Mock
== END 2022-11-21 02:13 | disposition home or self-care (01) ==
LOC: ER 18:44
DX: E86.9 Volume depletion, unspecified (principal); N39.0 Urinary tract infection, site not specified; G30.9 Alzheimer's disease, unspecified; F02.80 Dementia in other diseases classified elsewhere, unspecified severity, without behavioral disturbance, psychotic disturbance, mood disturbance, and anxiety; I10 Essential (primary) hypertension; Z88.0 Allergy status to penicillin
CPT/HCPCS: 93005 ×2; 87040 ×2; 87088; 85025; 81001; 87086; 80048; 36415; 86900; 83735; 86850; 85610; 86901; 80076; 83605; 84443; 84484; 84145; 83880; 80307; 70450; 71045; 51702; 96374; 99284; J7030 ×2; J0696

== ENCOUNTER 2023-04-19 13:13 | Inpatient (IN) | payer OTHER ==
--- OUTSIDE RECORDS SUMMARY | 2023-04-19 13:17 | XMS REPORT | Continuity of Care Document ---
:1945 Author Organization [facility] t Address [address] [place] [address] Care Team Providers Name Role Phone Asked, No Pcp Primary Care Physician Unavailable SYSTEM, PROVIDER NOT IN Attending Clinician Unavailable BIANCA IGLESIAS Attending Clinician Unavailable ARAMIS BRADY Attending Clinician Unavailable RUBEN HANSEN Attending Clinician Unavailable Payers Payer Name Policy Type Policy Number Effective Date Expiration Date S ouraida MEDICARE PART A AND [id number] 2010 B 00:00:00 MEDICARE PART A \T\ [id number] 2010 B 00:00:00 [facility] [id number] 2012 MEDICARE SUPPLEMENT 00:00:00 [employer]-SECONDARY ONLY [id number] 2017 00:00:00 Problems Condition Condition Condition Status [...] Univers INS Class - ity of 00:00: [address] [facility] [facility] Active Itching unknown Meth jin ins ty to 02-13 st adverse 00:00: Hospita reaction 00 l s to drug Social History Social Habit Start Date Stop Date Quantity Comments Source Gender identity [facility] History of Social 2018-04-02 2018-04-[address] function 00:00:00 00:00:00 Hospital Alcohol intake 2017-12-05 2017-12-05 Current [facility] 00:[facility]:00 00:00:00 non-drinker of Hospital alcohol (finding) Tobacco use and 2017-11-12 2017-11-12 Smokeless [facility] 00:00:00 00:00:00 tobacco non-user Hospital Sex Assigned At [birth year] [facility] Smoking Status Start Date Stop Date Source Never smoked tobacco [facility] Medications Ordered Filled Start Stop Current Ordering Indication Dosage Frequency Signature Comments Components Source Medication Medication Date Date Medication? Clinician (SIG) Name Name oxybutynin 2018 Yes 5mg [id number] Take 5 mg [facility] (DITROPAN) 7-13 [id number] mouth [address] 5 MG tablet [...] tablet 24 times a l day. carvedilol 2017-0 Yes 12.5mg Q.5D Take 12.5 [facility] (COREG) [...] hours as needed for moderate pain. escitalopra 2017-0 Yes 10mg QD Take 10 mg [facility] (LEXAPRO) 7-[address] 10 MG 14:58: daily. Hospita tablet 24 l oxybutynin 2018-0 Yes 5mg Q.30228914 Take 5 mg [facility] (DITROPAN) 7-13 [id number] by mouth 3 [address] 5 MG tablet [...] tablet 24 l oxybutynin 2018-0 Yes 5mg Q.[id number] Take 5 mg [facility] (DITROPAN) 7-13 [id number] by mouth 3 [address] 5 MG tablet [...] tablet 24 l oxybutynin 2018-0 Yes 5mg Q.[id number] Take 5 mg [facility] (DITROPAN) 7-13 [id number] [address] mouth [address] 5 MG tablet 14:58: 3D (three) [facility] [place] 24 times a l day. aspirin 2018-0 Yes 81mg QD Take 81 mg Meth jin (ECOTRIN) 7-[address] 81 MG 14:58: daily. Hospita enteric 24 l coated tablet oxybutynin 2018-0 Yes 5mg Q.03353479 Take 5 mg [facility] (DITROPAN) 7-13 [id number] mouth [address] 5 MG tablet 14:58: 3D (three) [facility] [place] 24 times a l day. pravastatin 2018-0 Yes 10mg Q.5D Take 10 [...] tablet 24 l oxybutynin 2018-0 Yes 5mg Q.62256230 Take 5 mg [facility] (DITROPAN) 7-[id number] mouth [address] 5 MG tablet 14:58: 3D (three) [facility] [place] 24 times a l day. aspirin 2018-0 Yes 81mg QD Take 81 mg Meth jin (ECOTRIN) 7-[address] 81 MG 14:58: daily. Hospita enteric 24 l coated tablet aspirin 2018-0 Yes 81mg QD Take 81 [...] l hours as needed for moderate pain. pravastatin 2018-0 Yes 10mg Q.5D Take 10 mg [facility] (PRAVACHOL) 7-[address] 10 MG 14:58: (two) Hospita tablet 24 times a l day. escitalopra 2018-0 Yes 10mg QD Take 10 mg [facility] (LEXAPRO) 7-[address] 10 MG 14:58: daily. Hospita tablet 24 l oxybutynin 2018-0 Yes 5mg Q.[id number] Take 5 mg [facility] (DITROPAN) 7-[id number] mouth [address] 5 MG tablet [...] tablet 24 (two) l times a day. carvedilol 2018-0 Yes 12.5mg Q.5D Take 12.5 [facility] (COREG) 7-[address] 12.5 MG 14:58: mouth 2 Hospita tablet 24 (two) l times a day with meals. traMADol 2018-0 Yes 50mg Q6H Take 50 mg [facility] (ULTRAM) 50 7-[address] mg tablet 14:58: every 6 Hospi ta 24 (six) l hours as needed for moderate pain. escitalopra 2018-0 Yes 10mg QD Take 10 mg [facility] (LEXAPRO) 7-[address] 10 MG 14:58: daily. Hospita tablet 24 l oxybutynin 2018-0 Yes 5mg Q.[id number] Take 5 mg [facility] (DITROPAN) 7-[id number] mouth [address] 5 MG tablet 14:58: 3D (three) [facility] [place] 24 times a l day. ciprofloxac 2018-0 Yes 500mg Q.5D Take 500 M [facility] in (CIPRO) 7-[address] 500 MG 14:58: mouth 2 Hospita tablet 24 (two) l times a day. traMADol 2018-0 Yes 50mg Q6H Take 50 mg [facility] (ULTRAM) 50 7-[address] mg tablet 14:58: every 6 Hospi ta 24 (six) l hours as needed for moderate pain. aspirin 2018-0 Yes 81mg QD Take 81 [...] (two) l times a day with meals. traMADol 2018-0 Yes 50mg Q6H Take 50 mg [facility] (ULTRAM) 50 7-[address] mg tablet 14:58: every 6 Hospi ta 24 (six) l hours as needed for moderate pain. ciprofloxac 2018-0 Yes 500mg Q.5D Take 500 [...] Planned Date Details Comments Source Future Scheduled 2023-03-13 COVID-19 VACCINE (#1) [facility] Test 19:40:45 [code = COVID-19 VACCINE (#1)] Future Scheduled 2023-03-13 SHINGLES VACCINES (1 [facility] Test 19:40:45 of 2) [code = SHINGLES VACCINES (1 of 2)] Future Scheduled 2023-03-13 65+ [facility]OCOCC[address] [facility] Test 19:40:45 VACCINE (1 - PCV) [code = 65+ PNEUMOCOCCAL VACCINE (1 - PCV)] Future Scheduled 2023-03-13 INFLUENZA VACCINE (#1) [facility] Test 19:40:45 [code = INFLUENZA VACCINE (#1)] Future Scheduled 2023-01-19 COVID-19 VACCINE (#1) [facility] Test 23:59:15 [code = COVID-19 VACCINE (#1)] Future Scheduled 2023-01-19 SHINGLES VACCINES (1 [facility] Test 23:59:15 of 2) [code = SHINGLES VACCINES (1 of 2)] Future Scheduled 2023-01-19 65+ PNEUMOCOCCAL [facility] Test 23:59:15 VACCINE (1 - PCV) [code = 65+ PNEUMOCOCCAL VACCINE (1 - PCV)] Future Scheduled 2023-01-19 INFLUENZA VACCINE (#1) [facility] Test 23:59:15 [code = INFLUENZA VACCINE (#1)] Future Scheduled 2022-11-08 65+ P[facility]UMOCOCCAL [facility] Test 01:42:40 VACCINE (1 - PCV) [code = 65+ PNEUMOCOCCAL VACCINE (1 - PCV)] Future Scheduled 2022-11-08 INFLUENZA VACCINE [facility] Test 01:42:40 [code = INFLUENZA VACCINE] Future Scheduled 2022-11-08 COVID-19 [facility]ACCINE (#[facility] Test 01:42:40 [code = COVID-19 VACCINE (#1)] Future Scheduled 2022-11-08 SHINGLES VACCINES (1 [facility] Test 01:42:40 of 2) [code = SHINGLES VACCINES (1 of 2)] Future Scheduled 2022-11-08 65+ [facility]OCO[address] [facility] Test 01:42:40 VACCINE (1 - PCV) [code = 65+ PNEUMOCOCCAL VACCINE (1 - PCV)] Future Scheduled 2022-11-08 INFLUENZA VACCINE [facility] Test 01:42:40 [code = INFLUENZA VACCINE] Future Scheduled 2022-11-08 COVID-19 VACCINE (#1) [facility] Hospital Test 01:42:40 [code = COVID-19 VACCINE (#1)] Future Scheduled 2022-11-08 SHINGLES VACCINES (1 [facility] Test 01:42:40 of 2) [code = SHINGLES VACCINES (1 of 2)] Future Scheduled 2022-08-23 COVID-19 VACCINE (#1) [facility] Test 05:06:22 [code = COVID-19 VACCINE (#1)] Future Scheduled 2022-08-23 SHINGLES VACCINES (1 [facility] Test 05:06:22 of 2) [code = SHINGLES VACCINES (1 of 2)] Future Scheduled 2022-08-23 65+ PNEUMOCOCCAL [facility] Test 05:06:22 VACCINE (1 - PCV) [code = 65+ PNEUMOCOCCAL VACCINE (1 - PCV)] Future Scheduled 2022-08-23 INFLUENZA VACCINE [facility] Test 05:06:22 [code = INFLUENZA VACCINE] Future Scheduled 2022-05-03 COVID-19 VACCINE (#1) [facility] Hospital Test 01:22:26 [code = COVID-19 VACCINE (#1)] Future Scheduled 2022-05-03 SHINGLES VACCINES (1 [facility] Test 01:22:26 of 2) [code = SHINGLES VACCINES (1 of 2)] Future Scheduled 2022-05-03 65+ PNEUMOCOCCAL [facility] Test 01:22:26 VACCINE (1 - PCV) [code = 65+ PNEUMOCOCCAL VACCINE (1 - PCV)] Future Scheduled 2022-05-03 INFLUENZA VACCINE [facility] Test 01:22:26 [code = INFLUENZA VACCINE] Future Scheduled 2022-05-03 COVID-19 VACCINE (#1) [facility] Hospital Test 01:22:26 [code = COVID-19 VACCINE (#1)] Future Scheduled 2022-05-03 SHINGLES VACCINES (1 [facility] Test 01:22:26 of 2) [code = SHINGLES VACCINES (1 of 2)] Future Scheduled 2022-05-03 65+ PNEUMOCOCCAL [facility] Test 01:22:26 VACCINE (1 - PCV) [code = 65+ PNEUMOCOCCAL VACCINE (1 - PCV)] Future Scheduled 2022-05-03 INFLUENZA VACCINE [facility] Test 01:22:26 [code = INFLUENZA VACCINE] Future Scheduled 2022-05-03 COVID-19 VACCINE (#1) [facility] Hospital Test 01:22:26 [code = COVID-19 [...] Clinicians Facility Department ID 2020-01-29 Outpatient SYSTEM, GAIVNO MANCIA [id number] 20:22:38 LILA carrillo 2021-08-19 2021-08-19 Outpatient MORRO URQULISA, GAVINO MDA [id number] 06:34:36 23:59:00 BIANCA erazoo n 2021-08-19 2021-08-19 Outpatient MORRO IGLESIAS [place] [id number] 06:06:29 06:33:00 BIANCA carrillo 2021-04-25 2021-04-25 Outpatient MORRO BRADY GAVINO MANCIA [id number] 17:48:21 17:48:25 ARAMIS carrillo 2021-04-15 2021-04-15 Outpatient EL URQUIOLAlley, GAVINO MDA [id number] 06:26:03 23:59:00 BIANCA erazoo n 2021-04-15 2021-04-15 Outpatient EL URQULISA, GAVINO MANCIA [id number] 06:15:00 06:25:00 BIANCA erazoo lorena 2020-12-12 2020-12-12 Outpatient MORRO BRADY, GAVINO MDA [id number] 14:46:20 17:06:45 ARAMIS carrillo 2020-12-10 2020-12-10 Outpatient EL URQUIOLAlley, [facility] MDA [id number] 06:15:00 23:59:00 BIANCA Senior rso n 2020-12-10 2020-12-10 Outpatient EL URQUIOLA, MDA MDA [id number] 06:04:33 06:14:00 BIANCA Senior rso n 2020-08-16 2020-08-16 Outpatient Olya HANSEN, [facility] [id number] Univers 10:50:00 10:50:00 RUBEN [facility] 2020-08-15 2020-08-15 Outpatient EL ZARZOUR, MDA MDA [id number] 14:45:57 17:20:42 ARAMIS carrillo 2020-08-13 2020-08-13 Outpatient EL URQUIOLA, MDA MDA [id number] 06:40:00 23:59:00 BIANCA Senior rso n 2020-08-13 2020-08-13 Outpatient EL URQUIOLA, MDA MDA [id number] 06:15:00 06:39:00 BIANCA Senior rso n 2020-07-26 2020-07-26 Outpatient [facility] [id number] Univers 10:40:00 10:40:00 [facility] 2020-01-28 2020-01-28 Outpatient EL URQUIOLA, MDA MDA [id number] 07:11:52 23:59:00 BIANCASIMEON Pisanoe rso n 2020-01-28 2020-01-28 Outpatient EL ZARZOUR, MDA MDA [id number] 10:15:42 11:42:57 ARAMIS carrillo 2020-01-28 2020-01-28 Outpatient EL URQUIOLA, MDA MDA [id number] 06:58:36 07:10:00 BIANCASIMEON Pisanoe rso n 2020-01-28 2020-01-28 Outpatient EL URQUIOLA, MDA MDA [id number] 06:31:12 06:57:00 BIANCASIMEON Pisanoe rso n 2019-10-03 2019-10-03 Outpatient EL ZARZOUR, MDA MDA [id number] MD 09:06:18 23:59:00 ARAMIS carrillo Results This patient has no known results.
[2023-04-19 14:16] LABS: SARS-CoV-2 Antigen Rapid Res Negative (Negative)
--- NOTE | 2023-04-19 14:17 | RAD REPORT ---
EXAM DESCRIPTION: CT - Head Brain Wo Cont - 04/19/2023 1:54 pm CLINICAL HISTORY: AMS COMPARISON: Head Brain Wo Cont dated 02/16/2023; Head Brain Wo Cont dated 12/10/2022 TECHNIQUE: Noncontrast head CT images ad were obtained without IV contrast. Multiplanar reformats we re generated and reviewed. All CT scans are performed using dose optimization technique as appropriate and may include automated exposure control or mA/KV adjustment according to patient size. FINDINGS: No intracranial hemorrhage, mass, or edema. Midline structures are unremarkable. Stable ventricular caliber, moderate diffuse parenchymal volume loss. Pyle-white matter differentiation is preserved, without evidence of acute infarct. No abnormal extra- axial fluid collections. Stable burden of patchy periventricular and deep white matter hypodensities, nonspecific, but suggest abdulaziz of chronic small vessel ischemic changes. Mastoid air cells and visualized portions of the paranasal sinuses are clear. No acute bony findings. IMPRESSION: No evidence of an acute intracranial process. Stable chronic findings as above.
[2023-04-19 14:42] LABS: Absolute Lymphocytes (CBC) 1.1 K/uL (0.7-4.9); Hematocrit 45.6 % (36.0-45.0); Lymphocytes % 24.1 % (15.3-44.8); MCV 102.1 fL (80-100); MPV 9.9 fL (7.6-11.3); Platelets 189 thou/uL (152-406); RBC Red Blood Cell Count 4.47 M/uL (3.86-4.86)
--- NOTE | 2023-04-19 14:44 | RAD REPORT ---
EXAM DESCRIPTION: RADChest Single View04/19/2023 2:17 pm CLINICAL HISTORY: AMS COMPARISON: Chest Single View dated 02/16/2023; Chest Single View dated 12/10/2022; Chest Single View dated 11/20/2022; Chest Single View dated 11/03/2022 TECHNIQUE: Portable AP view of the chest. FINDINGS: Decreased inspiratory effort limits evaluation. Central interstitial prominence. No discre te focal airspace opacities. No pneumothorax or effusion. Stable cardiomegaly. Tortuosity of the tho racic aorta with questionable widening of the superior mediastinum, which may be related to portable technique, appearance is not significantly changed since 12/10/2022. IMPRESSION: Central interstitial prominence, suggesting central congestion/ CHF. Otherwise stable fi ndings as above.
[2023-04-19 14:47] LABS: Protime INR 1.65
[2023-04-19 15:01] LABS: AST/SGOT 9 U/L (15-37); Albumin 2.9 g/dL (3.4-5.0); Alkaline Phosphatase 61 U/L (45-117); BUN Blood Urea Nitrogen 22 mg/dL (7-18); Bicarbonate 33 mEq/L (21-32); Bilirubin Total 0.7 mg/dL (0.2-1.0); Glomerular Filtration Rate 53 ml/min (=/>90); Glucose Level 112 mg/dL (74-106); Potassium 3.8 mEq/L (3.5-5.1); Protein, Total 7.5 g/dL (6.4-8.2); Sodium Level 148 mEq/L (136-145)
[2023-04-19 15:04] LABS: ALT/SGPT < 10 U/L (13-56)
[2023-04-19 15:19] LABS: Specific Gravity 1.022 (1.005-1.030); Urine Bacteria <20 /HPF (<20); Urine Bilirubin NEGATIVE (Negative); Urine Blood 3+ (OVER) (Negative); Urine Clarity Extremely Turbid (Clear); Urine Color Yellow (Yellow); Urine Glucose NEGATIVE (Negative); Urine Mucus 4+ /HPF (None Seen); Urine Protein 1+ (Negative); Urine RBC >50 /HPF (None Seen); Urine Urobilinogen 2+ (Normal); Urine WBC Clump Rare /HPF (None Seen); Urine pH 5.5 (5.0-7.0)
--- NOTE | 2023-04-19 16:43 | RAD REPORT ---
EXAM DESCRIPTION: CT - Abdomen Pelvis W Contrast - 04/19/2023 3:46 pm CLINICAL HISTORY: AMS, hematuria COMPARISON: Abdomen Pelvis W Contrast dated 10/15/2020; Abdomen Pelvis W Contrast dated 05/24/2020; CT ABD PELVIS W CONTRAST dated 11/07/2013 TECHNIQUE: Thin cut axial CT imaging of the abdomen and pelvis was performed following intravenous a dministration of 100 Isovue 300. Multiplanar reformats were generated and reviewed. All CT scans are performed using dose optimization technique as appropriate and may include automated exposure control or mA/KV adjustment according to patient size. FINDINGS: Breathing motion artifact somewhat limits evaluation. Prominent caliber of the included main pulmonary artery exceeding that of the aorta. No suspicious fi ndings in the lung bases. The liver demonstrates numerous hypoattenuating parenchymal lesions throughout the right lobe, larges t near the dome measuring 2.4 cm. These appear to be new since the comparison CT. Spleen, adrenal gla nds, and pancreas show no suspicious findings. Gallbladder was surgically removed. Symmetric renal function is seen with no hydronephrosis or suspicious renal mass. No dilated bowel loops or bowel wall thickening. Moderate stool burden along the distal sigmoid and r ectum. No free air, free fluid or inflammatory stranding. No hernia, mass or bulky lymphadenopathy. T he urinary bladder is without significant finding. No suspicious bony findings. IMPRESSION: No acute intra-abdominal process. Breathing motion somewhat limits evaluation. New hypoattenuating hepatic lesions largest near the right lobe dome measuring 2.4 cm. These raise co ncern for metastatic disease. Prominent caliber of the main pulmonary artery, would correlate to presence of pulmonary hypertension in the appropriate clinical setting.
[2023-04-19 16:54] LABS: White Blood Cell Scan OK (OK)
[2023-04-19 16:55] LABS: Anisocytosis 1+; Blood Morphology Comment NOTED (NOT SEEN); Macrocytosis 1+; Platelet Estimate ADEQ
[2023-04-19 16:56] LABS: Platelets, Giant FEW
--- NOTE | 2023-04-19 16:56 | ER ---
Nurse's Notes [facility] Name: Lisa Camacho Age: 78 yrs Sex: Female : 1945 Arrival Date: 04/19/2023 Time: 13:13 Bed 18 Private MD: Diagnosis: Altered mental status, unspecified;Lactic acidosis Presentation: 04/19 13:15 Chief complaint: EMS states: toned out to [place], reported pt was "unresponsive with eh3 no pulse and not breathing", EMS found pt A\\T\\O x 2, respirations even and unlabored, skin warm and dry, BP 120/70, HR in 90s, temp 98.3, BGL 146. Coronavirus screen: Vaccine status: Patient reports receiving the 2nd dose of the covid vaccine. Ebola Screen: No symptoms or risks identified at this time. Initial Sepsis Screen: Does the patient meet any 2 criteria? No. Patient's initial sepsis screen is negative. Does the patient have a suspected source of infection? No. Patient's initial sepsis screen is negative. Risk Assessment: Do you want to hurt yourself or someone else? Patient reports no desire to harm self or others. Onset of symptoms was April 19, 2023. 13:15 Method Of Arrival: EMS: [facility] 13:15 Acuity: ERIKA 3 eh3 Triage Assessment: 13:15 General: Appears in no apparent distress. comfortable, Behavior is calm, cooperative. eh3 Pain: Denies pain. Neuro: Level of Consciousness is awake, alert, Oriented to person, place. Cardiovascular: Capillary refill < 3 seconds Patient's skin is warm and dry. Respiratory: Airway is patent Respiratory effort is even, unlabored, Respiratory pattern is regular, symmetrical. Historical: - Allergies: 13:15 PENICILLINS; eh3 - PMHx: 13:15 Alzheimers; depressive disorder; Atrial fibrillation; Hyperlipidemia; Hypertension; eh3 - Immunization history:: Adult Immunizations up to date. - Social history:: Smoking status: unknown. - Family history:: not pertinent. - Hospitalizations: : No recent hospitalization is reported. - History obtained from: EMS. Screenin:15 [facility] ED Fall Risk Assessment (Adult) Score/Fall Risk Level 0 - 2 = Low Risk. Abuse eh3 screen: Denies threats or abuse. Denies injuries from another. Nutritional screening: No deficits noted. Tuberculosis screening: No symptoms or risk factors identified. Assessment: 13:15 Reassessment: No changes from previously documented assessment. See triage assessment. ld1 14:00 Reassessment: Patient appears in no apparent distress at this time. Patient and/or ld1 family updated on plan of care and expected duration. Pain level reassessed. Pt is alert, oriented x 2, equal unlabored respirations, skin warm/dry/pink. 15:00 Reassessment: Patient appears in no apparent distress at this time. Patient and/or ld1 family updated on plan of care and expected duration. Pain level reassessed. Pt is alert, oriented x 2, equal unlabored respirations, skin warm/dry/pink. 16:00 Reassessment: Patient appears in no apparent distress at this time. Patient and/or ld1 family updated on plan of care and expected duration. Pain level reassessed. 20:59 Reassessment: Patient and/or family updated on plan of care and expected duration. Pain fu level reassessed. Patient is alert, oriented x 3, equal unlabored respirations, skin warm/dry/pink. for admission, awaiting for room assisgnment. 21:30 Reassessment: Patient and/or family updated on plan of care and expected duration. Pain fu level reassessed. Patient is alert, oriented x 3, equal unlabored respirations, skin warm/dry/pink. 23:10 Reassessment: patient awake responsive, making incomprehensible sounds. fu Vital Signs: 13:15 BP 105 / 90; Pulse 100; Resp 15; Temp 98.3(O); Pulse Ox 92% on R/A; eh3 14:00 BP 98 / 81; Pulse 102; Resp 20; Pulse Ox 95% on 2 lpm NC; ld1 15:00 BP 116 / 91; Pulse 97; Resp 14; Pulse Ox 99% on 2 lpm NC; ld1 16:00 BP 131 / 90; Pulse 90; Resp 18; Pulse Ox 98% on 2 lpm NC; ld1 17:00 BP 137 / 84; Pulse 89; Resp 16; Pulse Ox 100% on 2 lpm NC; eh3 19:30 BP 115 / 87; Pulse 87; Resp 18; fu 20:30 BP 110 / 85; Pulse 86; Resp 18; fu 21:30 BP 115 / 81; Pulse 85; Pulse Ox 100% on 2 lpm NC; fu 22:30 BP 124 / 107; Pulse 79; Pulse Ox 94% on 2 lpm NC; fu 23:12 BP 140 / 41; Pulse 79; Resp 28; Temp 98.4(A); Pulse Ox 93% on 2 lpm NC; fu ED Course: 13:14 Patient arrived in ED. ld1 13:15 Arm band placed on. eh3 13:15 Patient has correct armband on for positive identification. Placed in gown. Bed in low eh3 position. Call light in reach. Side rails up X2. 13:15 Oxygen administration via nasal cannula \\T\\ 2L/min. eh3 13:23 Kirill Castaneda MD is Attending Physician. rn 13:25 Elva Bernard RN is Primary Nurse. eh3 13:31 Triage completed. eh3 13:38 Flu Sent. eh3 13:38 SARS RAPID Sent. eh3 13:48 Ptt, Activated Sent. ld1 13:56 CT Head Brain wo Cont In Process Unspecified. EDMS 14:15 Inserted saline lock: 22 gauge in left antecubital area, using aseptic technique. Blood ld1 collected. 14:18 Chest Single View XRAY In Process Unspecified. EDMS 15:00 Straight cath inserted, using sterile technique, 14 Fr. Specimen obtained. Returned ld1 mirna urine. Patient tolerated well. 15:48 CT Abd/Pelvis - IV Contrast Only In Process Unspecified. EDMS 16:55 Cisco Hartley MD is Hospitalizing Provider. rn 23:09 No provider procedures requiring assistance completed. fu 23:10 Patient admitted, IV remains in place. intact. fu Administered Medications: 16:50 Drug: Cefepime IVPB 1 grams IVPB at 200 ml/hr once over 30 mins; (mix in NS 100 mL) ld1 Route: IVPB; Rate: 200 ml/hr; Infused Over: 30 mins; Site: left antecubital; 19:00 Follow up: Response: No adverse reaction fu Medication: 23:10 VIS not applicable for this client. fu Outcome: 16:56 Decision to Hospitalize by Provider. rn 23:09 Admitted to Med/surg accompanied by nurse, room 228, Report called to WINSTON Muhammad fu 23:09 Instructed on the need for admit, Demonstrated understanding of instructions, 23:10 Condition: stable fu 23:36 Patient left the ED. fu Signatures: Dispatcher [employer] Kirill Huggins MD MD rn James Lassiter, RN RN fu Karolina Rodríguez RN RN ld1 Elva Bernard RN RN eh3
--- NOTE | 2023-04-19 16:57 | EDPHYS ---
Physician Documentation [facility] Name: Lisa Camacho Age: 78 yrs Sex: Female : 1945 Arrival Date: 04/19/2023 Time: 13:13 Bed 18 Private MD: ED Physician Kirill Castaneda HPI: 04/19 14:24 This 78 yrs old Black Female presents to ER via EMS with complaints of Altered Mental rn Status. 14:24 The patient presents with decreased responsiveness. Onset: The symptoms/episode rn began/occurred at an unknown time. Possible causes: unknown. Associated signs and symptoms: Pertinent positives: confusion. Current symptoms: In the emergency department the patient's symptoms have improved. It is unknown whether or not the patient has had similar symptoms in the past. [facility] EMS was told unresponsive, they were not sure if she was breathing or had a pulse. No CPR administered. EMS arrived and was alert, agitated but definitely not unresponsive. Stable vital signs for EMS. Afebrile. No other information given by prison.. Historical: - Allergies: 13:15 PENICILLINS; eh3 - PMHx: 13:15 Alzheimers; depressive disorder; Atrial fibrillation; Hyperlipidemia; Hypertension; eh3 - Immunization history:: Adult Immunizations up to date. - Social history:: Smoking status: unknown. - Family history:: not pertinent. - Hospitalizations: : No recent hospitalization is reported. - History obtained from: EMS. ROS: 14:24 Unable to obtain ROS due to altered mental status, rn Exam: 14:24 Constitutional: This is a well developed, well nourished patient who is awake, rn slightly agitated, does not follow commands Head/Face: Normocephalic, atraumatic. ENT: Dry mucous membranes, no stridor Neck: No neck swelling noted Cardiovascular: Regular rate and rhythm. No pulse deficits. Respiratory: No increased work of breathing, no retractions or nasal flaring. Abdomen/GI: Soft, nontender Skin: No rash or cyanosis MS/ Extremity: No cyanosis. Moves all 4 extremities without pain, right upper extremity with slight contracture. Full range of motion bilateral lower extremities and hips. No deformities noted or trauma noted. Neuro: Awake, not cooperative, slightly agitated, moves all 4 extremities. Withdraws from pain. 16:00 ECG was reviewed by the Attending Physician. rn Vital Signs: 13:15 BP 105 / 90; Pulse 100; Resp 15; Temp 98.3(O); Pulse Ox 92% on R/A; eh3 14:00 BP 98 / 81; Pulse 102; Resp 20; Pulse Ox 95% on 2 lpm NC; ld1 15:00 BP 116 / 91; Pulse 97; Resp 14; Pulse Ox 99% on 2 lpm NC; ld1 16:00 BP 131 / 90; Pulse 90; Resp 18; Pulse Ox 98% on 2 lpm NC; ld1 17:00 BP 137 / 84; Pulse 89; Resp 16; Pulse Ox 100% on 2 lpm NC; eh3 19:30 BP 115 / 87; Pulse 87; Resp 18; fu 20:30 BP 110 / 85; Pulse 86; Resp 18; fu 21:30 BP 115 / 81; Pulse 85; Pulse Ox 100% on 2 lpm NC; fu 22:30 BP 124 / 107; Pulse 79; Pulse Ox 94% on 2 lpm NC; fu 23:12 BP 140 / 41; Pulse 79; Resp 28; Temp 98.4(A); Pulse Ox 93% on 2 lpm NC; fu MDM: 13:23 Patient medically screened. rn 16:53 Differential Diagnosis: CVA, electrolyte abnormality, hypoglycemia, intracranial bleed, rn pneumonia, seizure, sepsis, UTI, volume depletion. Data reviewed: vital signs, nurses notes, lab test result(s), EKG, radiologic studies, CT scan, plain films, and as a result, I will admit patient. Consideration of Admission/Observation Patient was admitted/placed on observation. Escalation of care including admission/observation considered. Management of patient was discussed with the following: Hospitalist: . Independent interpretation of the following test(s) in the Emergency Department EKG: See my EKG interpretation above X-Ray: My interpretation is Chest x-ray images negative for pneumonia or pneumothorax per my interpretation. Care significantly affected by the following chronic conditions: Hypertension, Congestive Heart Failure, Dementia. Counseling: I had a detailed discussion with the patient and/or guardian regarding the historical points, exam findings, and any diagnostic results supporting the discharge/admit diagnosis, lab results, radiology results, the need for further work-up and treatment in the hospital. Response to treatment: There is no appreciated change of the patient's symptoms at this time, and as a result, I will admit patient. ED course: No source of infection identified inpatient. Elevated lactate. Volume depletion. CT head and CT abdomen pelvis without acute findings. There are concerns and CT abdomen with hepatic lesions that might have malignancy of unknown location. Urine negative for UTI, does show blood but was catheterized for specimen and CT does not show any reason otherwise for hematuria. Will admit to hospitalist service for further evaluation and care. Cefepime administered IV empirically.. 04/19 13:27 Order name: Blood Culture Adult (2) rn 04/19 13:27 Order name: CBC with Diff; Complete Time: 01:19 rn 04/19 13:27 Order name: CMP; Complete Time: 15:23 rn 04/19 13:27 Order name: Lactate w/ 2H reflex if indic.; Complete Time: 15:23 rn 04/19 13:27 Order name: Protime (+inr); Complete Time: 15:02 rn 04/19 13:27 Order name: Ptt, Activated; Complete Time: 15:02 rn 04/19 13:27 Order name: Urinalysis w/ reflexes; Complete Time: 15:27 rn 04/19 13:27 Order name: SARS RAPID; Complete Time: 14:43 rn 04/19 13:27 Order name: Flu; Complete Time: 14:43 rn 04/19 14:53 Order name: CBC Smear Scan; Complete Time: 01:19 EDFL 04/19 15:30 Order name: Urine Culture EDFL 04/19 23:24 Order name: Lactate Sepsis 2 HR Follow-up; Complete Time: 01:19 EDFL 04/19 13:27 Order name: Chest Single View XRAY; Complete Time: 14:45 rn 04/19 13:27 Order name: CT Head Brain wo Cont; Complete Time: 14:43 rn 04/19 15:28 Order name: CT Abd/Pelvis - IV Contrast Only; Complete Time: 16:47 rn 04/19 13:27 Order name: EKG; Complete Time: 13:28 rn 04/19 13:27 Order name: Accucheck; Complete Time: 15:09 rn 04/19 13:27 Order name: Cardiac monitoring; Complete Time: 13:36 rn 04/19 13:27 Order name: Cath; Complete Time: 15:09 rn 04/19 13:27 Order name: EKG - Nurse/Tech; Complete Time: 13:38 rn 04/19 13:27 Order name: IV Saline Lock - Large Bore; Complete Time: 15:09 rn 04/19 13:27 Order name: Labs collected and sent; Complete Time: 15:09 rn 04/19 13:27 Order name: O2 Per Protocol; Complete Time: 13:36 rn 04/19 13:27 Order name: O2 Sat Monitoring; Complete Time: 13:36 rn 04/19 13:27 Order name: Vital Signs; Complete Time: 13:38 rn EC:00 Rate is 101 beats/min. Rhythm is regular. QRS [place] is Normal. MO interval is normal. rn QRS interval is normal. QT interval is normal. No Q waves. T waves are Normal. No ST changes noted. Clinical impression: Sinus tachycardia. Interpreted by me. Reviewed by me. Administered Medications: 16:50 Drug: Cefepime IVPB 1 grams IVPB at 200 ml/hr once over 30 mins; (mix in NS 100 mL) ld1 Route: IVPB; Rate: 200 ml/hr; Infused Over: 30 mins; Site: left antecubital; 19:00 Follow up: Response: No adverse reaction fu Disposition Summary: 04/19/23 16:56 Hospitalization Ordered Notes: Hospitalization Status: Observation rn Provider: Cisco Hartley rn Location: Telemetry/[facility] (Inpatient) rn Condition: Stable rn Problem: new rn Symptoms: are unchanged rn Bed/Room Type: Standard rn Room Assignment: 228(04/19/23 22:51) kl Diagnosis - Altered mental status, unspecified rn - Lactic acidosis rn Forms: - Medication Reconciliation Form rn - SBAR form rn - Leadership Thank You Letter rn Signatures: Dispatcher [employer] Lisa Morgan RN RN Kirill Durán MD MD rn Sims, Lauren, RN RN ld1 Elva Bernard RN RN deonna3 Freida Conn PA-C PA-C sb4 Umadhay, Felix RN fu Corrections: (The following items were deleted from the chart) 22:51 16:56 rn britt
[2023-04-19] MEDS ORDERED: CEFEPIME 1 GM/VIAL ONE (17:01)
[2023-04-19] MEDS ORDERED: NA CHLORIDE 0.9% 100 ML ONE (17:01)
--- NOTE | 2023-04-19 22:42 | P.HP ---
Certification for Inpatient Patient admitted to: Inpatient With expected LOS: <2 Midnights Patient will require the following post-hospital care: None Practitioner: I am a practitioner with admitting privileges, knowledge of patient current condition, hospital course, and medical plan of care. Services: Services provided to patient in accordance with Admission requirements found in Title 42 Section 412.3 of the Code of Federal Regulations Patient History Date of Service: 04/20/23 Reason for admission: AMS History of Present Illness: Ms. Camacho is a 78-year-old female with past medical history of atrial fibrillation on chronic anticoagulation, hypertension, hyperlipidemia, and advanced dementia who presented the emergency department from the intermediate with concerns of decreased responsiveness. EMS reports that she was alert and agitated for them with stable vitals, unchanged in ED. She was worked up and labs were significant for sodium 148, chloride 112, bicarb 33, BUN 22, creatinine 1.07, lactate 2.3. CT did not reveal any acute abnormalities. Cefepime was administered empirically in the ED. ED provider wishes to admit patient for further management. Allergies Penicillins Allergy (Verified 09/11/19 06:36) Unknown Home medications list reviewed: Yes Home Medications: Acetaminophen [Tylenol] 650 mg PO Q6HP PRN 11/02/22 Cholecalciferol (Vitamin D3) [Vitamin D 5,000 IU Cap*] 5,000 unit PO DAILY 11/02/22 Divalproex [Depakote Sprinkle*] 250 mg PO BID 11/02/22 Donepezil HCl 23 mg PO BEDTIME 11/02/22 Escitalopram Oxalate [Lexapro] 10 mg PO DAILY 11/02/22 Folic Acid 1 mg PO DAILY 11/02/22 Memantine HCl [Namenda*] 10 mg PO BID 11/02/22 Mirabegron [Myrbetriq] 50 mg PO DAILY 11/02/22 Potassium Chloride [Klor-Con M20] 1 tab PO DAILY 11/02/22 Rivaroxaban [Xarelto] 20 mg PO DAILY 11/02/22 carvediloL [Coreg*] 3.125 mg PO BID 11/02/22 - Past Medical/Surgical History Diabetic: No -: Hyperlipidemia -: HTN -: Sarcoma (stomach) -: Alzheimer's -: atrial fibrilation -: depressive disorder -: sarcoma sx (stomach) Psychosocial/ Personal History: Resides at [facility] - Family History Mother -: Hypertension - Social History Smoking Status: Never smoker Alcohol use: No CD- Drugs: No Caffeine use: No Place of Residence: [facility] Review of Systems Unremarkable Physical Examination - Vital Signs Temperature: 98.3 F Blood Pressure: 110/85 Pulse: 86 Respirations: 18 Pulse Ox (%): 100 - Physical Exam General: In no apparent distress, Oriented x2 HEENT: Atraumatic, EOMI, Sclerae nonicteric Neck: Supple, 2+ carotid pulse no bruit Respiratory: Clear to auscultation bilaterally, Normal air movement Cardiovascular: Regular rate/rhythm, Normal S1 S2 Gastrointestinal: Normal bowel sounds, No tenderness Musculoskeletal: No tenderness Integumentary: No rashes Neurological: Normal speech, Normal affect - Studies Laboratory Data (last 24 hrs) 04/19/23 04/19/23 04/19/23 14:30 14:30 14:30 WBC 4.80 Hgb 15.2 H Hct 45.6 H Plt Count 189 PT 18.1 H INR 1.65 APTT 35.5 Sodium 148 H Potassium 3.8 BUN 22 H Creatinine 1.07 H Glucose 112 H Total Bilirubin 0.7 AST 9 L ALT < 10 L Alkaline Phosphatase 61 Microbiology Data (last 24 hrs): 04/19/23 13:35 Nasopharnyx Influenza Type A Antigen Screen - Final 04/19/23 13:35 Nasopharnyx Influenza Type B Antigen Screen - Final Assessment and Plan - Problems (Diagnosis) (1) Altered mental status Current Visit: Yes Status: Acute Qualifiers: Altered mental status type: unspecified Qualified Code(s): R41.82 - Altered mental status, unspecified (2) Elevated lactic acid level Current Visit: Yes Status: Acute (3) HTN (hypertension) Current Visit: Yes Status: Chronic Qualifiers: Hypertension type: primary hypertension Qualified Code(s): I10 - Essential (primary) hypertension (4) Atrial fibrillation Current Visit: Yes Status: Chronic Qualifiers: Atrial fibrillation type: unspecified Qualified Code(s): I48.91 - Unspecified atrial fibrillation (5) Alzheimer disease Current Visit: Yes Status: Chronic - Plan Patient is admitted for further management of AMS/elevated lactate. Lactate now within normal limits. Unclear what patient's baseline mental status is, but she does not appear altered during my assessment, + history alzheimers dementia. No UTI, but + yeast. Will give diflucan, send for culture. Blood cultures obtained as well. Given cefepime in ED. IV hydration. Check depakote level. Discharge Plan: [facility] Plan to discharge in: 48 Hours - Advance Directives Does patient have a Living Will: No Does patient have a Durable POA for Healthcare: No - Code Status/Comfort Care Code Status Assessed: Yes Code Status: Full Code Physician Review: Patient Assessed, Agree with Above Assessment and Plan Critical Care: No Time Spent Managing Pts Care (In Minutes): 50
[2023-04-19] MEDS ORDERED: ACETAMINOPHEN 325 MG TABLET PO PRN (23:16)
[2023-04-19] MEDS ORDERED: ONDANSETRON 4 MG/2 ML VIAL IV PRN (23:16)
[2023-04-20 00:35] VITALS: BMI 29.2
[2023-04-20] MEDS: NA CHLORIDE 0.9% 1,000 ML IV SCH ×2 (01:01→10:47)
[2023-04-20] MEDS: FLUCONAZOLE 200mg IVPB 200 MG/100 ML BAG IV SCH (02:40)
--- NOTE | 2023-04-20 08:28 | P.PN ---
Subjective Date of Service: 04/20/23 Chief Complaint: AMS AOX1, HPI limited due to confusion Review of Systems PER HPI Physical Examination - Vital Signs Temperature: 97.1 F Blood Pressure: 106/66 Pulse: 80 Respirations: 17 Pulse Ox (%): 98 - Physical Exam General: Alert, Oriented x1, Confused HEENT: Atraumatic, Normocephalic Neck: Supple, 2+ carotid pulse no bruit Respiratory: Clear to auscultation bilaterally, Normal air movement Cardiovascular: Normal pulses, Regular rate/rhythm Capillary refill: <2 Seconds Gastrointestinal: Normal bowel sounds, Soft and benign Musculoskeletal: No clubbing, No swelling Integumentary: No rashes, No breakdown Neurological: Normal speech, Normal tone - Studies Laboratory Data (last 24 hrs) 04/19/23 04/19/23 04/19/23 14:30 14:30 14:30 WBC 4.80 Hgb 15.2 H Hct 45.6 H Plt Count 189 PT 18.1 H INR 1.65 APTT 35.5 Sodium 148 H Potassium 3.8 BUN 22 H Creatinine 1.07 H Glucose 112 H Total Bilirubin 0.7 AST 9 L ALT < 10 L Alkaline Phosphatase 61 Microbiology Data (last 24 hrs): 04/19/23 13:35 Nasopharnyx Influenza Type A Antigen Screen - Final 04/19/23 13:35 Nasopharnyx Influenza Type B Antigen Screen - Final Assessment And Plan - Plan - Problems (Diagnosis) Metabolic encephalopathy secondary to hypernatremia acute Current Visit: Yes Status: Acute Qualifiers: Altered mental status type: unspecified Qualified Code(s): R41.82 - Altered mental status, unspecified D51/2 NS, repeat BMP, depakote level added Elevated lactic acid level acute Current Visit: Yes Status: Acute Hypoglyemia acute ACHS BG, hypoglycemia protocol, D5 1/2 add to IVF HTN (hypertension) Current Visit: Yes Status: Chronic Qualifiers: Hypertension type: primary hypertension Qualified Code(s): I10 - Essential (primary) hypertension Atrial fibrillation Current Visit: Yes Status: Chronic Qualifiers: Atrial fibrillation type: unspecified Qualified Code(s): I48.91 - Unspecified atrial fibrillation (5) Alzheimer disease Current Visit: Yes Status: Chronic - Plan Patient is admitted for further management of AMS/elevated lactate. Lactate now within normal limits. Unclear what patient's baseline mental status is, but she does not appear altered during my assessment, + history alzheimers dementia. No UTI, but + yeast. Will give diflucan, send for culture. Blood cultures obtained as well. Given cefepime in ED. IV hydration. Check depakote level. Discharge Plan: Intermediate Plan to discharge in: 48 Hours Discharge Plan: Intermediate - Code Status/Comfort Care Code Status: Full Code Physician Review: Patient Assessed, Agree with Above Assessment and Plan Critical Care: No Time Spent Managing PTS Care (In Minutes): 35
[2023-04-20] MEDS: CEFTRIAXONE 1,000 MG in NA CHLORIDE 0.9% 50 ML IVPB SCH (09:58)
[2023-04-20] MEDS ORDERED: GLUCAGON 1 MG/VIAL IM PRN (11:27)
[2023-04-20] MEDS ORDERED: GLUCAGON 1 MG/VIAL IV PRN (11:28)
[2023-04-20] MEDS: INSULIN REGULAR (HUMAN) 100 UNIT/ML SQ SCH ×3 (11:30→21:00)
[2023-04-20] MEDS ORDERED: D10W 250 ML BAG IV PRN (11:33)
[2023-04-20 12:11] LABS: Absolute Lymphocytes (CBC) 1.4 K/uL (0.7-4.9); Hematocrit 42.2 % (36.0-45.0); Lymphocytes % 26.9 % (15.3-44.8); MCV 103.8 fL (80-100); MPV 9.8 fL (7.6-11.3); Platelets 147 thou/uL (152-406); RBC Red Blood Cell Count 4.07 M/uL (3.86-4.86)
[2023-04-20 12:30] LABS: Magnesium 1.8 mg/dL (1.6-2.4); Phosphorus 3.4 mg/dL (2.5-4.9); Potassium 4.1 mEq/L (3.5-5.1); Valproic Acid (Depakene) Level 41.4 mcg/mL (50.0-100.0)
[2023-04-20] MEDS: D5 0.45 NS 1,000 ML IV SCH (14:19)
[2023-04-20] MEDS ORDERED: RIVAROXABAN 10 MG TABLET PO SCH (17:00)
[2023-04-20 17:17] LABS: Potassium 3.7 mEq/L (3.5-5.1); Valproic Acid (Depakene) Level 35.4 mcg/mL (50.0-100.0)
[2023-04-20] MEDS: RIVAROXABAN 20 MG TABLET PO SCH (17:44)
[2023-04-20] MEDS: DIVALPROEX NA 125 MG CAP PO SCH (20:49)
[2023-04-20] MEDS: MEMANTINE HCL 10 MG TABLET PO SCH (20:49)
[2023-04-20] MEDS ORDERED: DONEPEZIL HCL 23 MG PO SCH (21:00)
[2023-04-20] MEDS: carvediloL 3.125 MG TAB PO SCH (21:14)
[2023-04-21] MEDS: FLUCONAZOLE 200mg IVPB 200 MG/100 ML BAG IV SCH (01:36)
[2023-04-21] MEDS: D5 0.45 NS 1,000 ML IV SCH ×2 (04:03→15:40)
[2023-04-21] MEDS: INSULIN REGULAR (HUMAN) 100 UNIT/ML SQ SCH ×4 (07:30→21:00)
--- NOTE | 2023-04-21 08:05 | P.PN ---
Subjective Date of Service: 04/21/23 Chief Complaint: AMS AOX1, HPI limited due to confusion - Physical Exam General: Alert, Oriented x1, Confused HEENT: Atraumatic, Normocephalic Neck: Supple, 2+ carotid pulse no bruit Respiratory: Clear to auscultation bilaterally, Normal air movement Cardiovascular: Normal pulses, Regular rate/rhythm Capillary refill: <2 Seconds Gastrointestinal: Normal bowel sounds, Soft and benign Musculoskeletal: No clubbing, No swelling Integumentary: No rashes, No breakdown Neurological: Normal speech, Normal tone Review of Systems per HPI Physical Examination - Vital Signs Temperature: 96.8 F Blood Pressure: 115/74 Pulse: 74 Respirations: 16 Pulse Ox (%): 93 - Studies Microbiology Data (last 24 hrs): 04/19/23 15:05 Clean Catch Urine [place] Count - Final >100,000 CFU/ML. 04/19/23 15:05 Clean Catch Urine - Final Escherichia Coli Gram Neg Ry Assessment And Plan - Plan - Problems (Diagnosis) Metabolic encephalopathy secondary to hypernatremia acute Current Visit: Yes Status: Acute Qualifiers: Altered mental status type: unspecified Qualified Code(s): R41.82 - Altered mental status, unspecified Normal saline changed D51/2 NS, repeat BMP, depakote level added Repeat BMP added Elevated lactic acid level acute Current Visit: Yes Status: Acute Hypoglyemia acute ACHS BG, hypoglycemia protocol, D5 1/2 add to IVF HTN (hypertension) Current Visit: Yes Status: Chronic Qualifiers: Hypertension type: primary hypertension Qualified Code(s): I10 - Essential (primary) hypertension Atrial fibrillation Current Visit: Yes Status: Chronic Qualifiers: Atrial fibrillation type: unspecified Qualified Code(s): I48.91 - Unspecified atrial fibrillation (5) Alzheimer disease Current Visit: Yes Status: Chronic - Plan Patient is admitted for further management of AMS/elevated lactate. Lactate now within normal limits. Unclear what patient's baseline mental status is, but she does not appear altered during my assessment, + history alzheimers dementia. No UTI, but + yeast. Will give diflucan, send for culture. Blood cultures obtained as well. Given cefepime in ED. IV hydration. Check depakote level. Discharge Plan: Halfway Plan to discharge in: 48 Hours Physician Review: Patient Assessed, Agree with Above Assessment and Plan Time Spent Managing PTS Care (In Minutes): 35
[2023-04-21] MEDS ORDERED: POTASSIUM CL SA 10 MEQ TAB PO ONE (09:00)
[2023-04-21] MEDS: CEFTRIAXONE 1,000 MG in NA CHLORIDE 0.9% 50 ML IVPB SCH (09:58)
[2023-04-21] MEDS: MEMANTINE HCL 10 MG TABLET PO SCH ×2 (09:58→21:25)
[2023-04-21] MEDS: DIVALPROEX NA 125 MG CAP PO SCH ×2 (09:59→21:25)
[2023-04-21] MEDS: carvediloL 3.125 MG TAB PO SCH ×2 (09:59→21:24)
[2023-04-21 12:37] LABS: Absolute Lymphocytes (CBC) 1.4 K/uL (0.7-4.9); Hematocrit 38.2 % (36.0-45.0); Lymphocytes % 25.9 % (15.3-44.8); MCV 103.2 fL (80-100); MPV 10.7 fL (7.6-11.3); Platelets 136 thou/uL (152-406)
[2023-04-21] MEDS: RIVAROXABAN 20 MG TABLET PO SCH (17:00)
[2023-04-21] MEDS: DONEPEZIL HCL 5 MG TAB PO SCH (21:27)
[2023-04-22] MEDS: FLUCONAZOLE 200mg IVPB 200 MG/100 ML BAG IV SCH (01:46)
[2023-04-22] MEDS: D5 0.45 NS 1,000 ML IV SCH ×3 (05:00→18:20)
[2023-04-22] MEDS: INSULIN REGULAR (HUMAN) 100 UNIT/ML SQ SCH ×4 (07:30→21:00)
[2023-04-22] MEDS: carvediloL 3.125 MG TAB PO SCH ×2 (09:00→21:31)
[2023-04-22 09:59] LABS: Absolute Lymphocytes (CBC) 1.6 K/uL (0.7-4.9); Hematocrit 39.8 % (36.0-45.0); Lymphocytes % 34.3 % (15.3-44.8); MCV 102.3 fL (80-100); MPV 10.7 fL (7.6-11.3); Platelets 118 thou/uL (152-406); RBC Red Blood Cell Count 3.89 M/uL (3.86-4.86)
[2023-04-22] MEDS: CEFTRIAXONE 1,000 MG in NA CHLORIDE 0.9% 50 ML IVPB SCH (10:30)
[2023-04-22] MEDS: MEMANTINE HCL 10 MG TABLET PO SCH ×2 (10:31→21:32)
[2023-04-22] MEDS: DIVALPROEX NA 125 MG CAP PO SCH ×2 (10:32→21:30)
[2023-04-22] MEDS: DONEPEZIL HCL 5 MG TAB PO SCH ×2 (10:32→21:30)
--- NOTE | 2023-04-22 11:36 | P.PN ---
Subjective Date of Service: 04/22/23 Chief Complaint: AMS Subjective: No new changes, Improving, New changes Patient is sleeping Arousable to call Discussed with the nursing staff, episode of hypoglycemia x1 in the night D51/2 NS @75 cc running at this time Continuing to monitor blood glucose <Kim Pena - Last Filed: 04/22/23 11:42> Date of Service: 04/22/23 <Woody Boswellcheyenne Natalia - Last Filed: 04/22/23 18:09> Review of Systems 10-point ROS is otherwise unremarkable <Kim Pena - Last Filed: 04/22/23 11:42> Physical Examination - Vital Signs Temperature: 97.0 F Blood Pressure: 124/86 Pulse: 69 Respirations: 16 Pulse Ox (%): 96 - Physical Exam General: Alert, Oriented x1 HEENT: Atraumatic, Normocephalic Neck: Supple, 2+ carotid pulse no bruit Respiratory: Clear to auscultation bilaterally, Normal air movement Cardiovascular: No edema, Normal pulses, Normal S1 S2 Capillary refill: <2 Seconds Gastrointestinal: Normal bowel sounds, Soft and benign Musculoskeletal: No clubbing, No swelling Integumentary: No rashes, No breakdown Neurological: Normal tone, Normal affect - Studies Microbiology Data (last 24 hrs): 04/19/23 15:05 Clean Catch Urine Zanoni Count - Final >100,000 CFU/ML. 04/19/23 15:05 Clean Catch Urine - Final Escherichia Coli Gram Neg Ry <Kim Pena - Last Filed: 04/22/23 11:42> Assessment And Plan - Current Problems (Diagnosis) (1) Altered mental status Current Visit: Yes Status: Acute Qualifiers: Altered mental status type: unspecified Qualified Code(s): R41.82 - Altered mental status, unspecified (2) Hypoglycemia Current Visit: Yes Status: Acute (3) Alzheimer disease Current Visit: Yes Status: Chronic (4) Atrial fibrillation Current Visit: Yes Status: Chronic Qualifiers: Atrial fibrillation type: unspecified Qualified Code(s): I48.91 - Unspecified atrial fibrillation (5) HTN (hypertension) Current Visit: Yes Status: Chronic Qualifiers: Hypertension type: primary hypertension Qualified Code(s): I10 - Essential (primary) hypertension - Plan - Plan Metabolic encephalopathy secondary to hypernatremia acute Alzheimer disease Current Visit: Yes Status: Acute -Improving, arousable to call, denies any discomfort at this time -We will continue to monitor the patient closely -Patient also known for Alzheimer's dementia and getting memantine and donepezil Elevated lactic acid level acute Lactate now within normal limits. Continuing the IV antibiotic Hypoglyemia acute ACHS BG, hypoglycemia protocol, D5 1/2 add to IVF Normal saline changed D51/2 NS, repeat BMP, depakote level added Repeat BMP added HTN (hypertension) Chronic controlled on carvedilol Continue to monitor Salt diet Atrial fibrillation Chronic, rate controlled anticoagulated on Xarelto 20 p.o. daily Patient denies palpitation or chest chest discomfort Continue the current manage Discharge Plan: Home Plan to discharge in: 24 Hours - Code Status/Comfort Care Code Status Assessed: Yes (full code) Code Status: Full Code Physician Review: Patient Assessed, Agree with Above Assessment and Plan Critical Care: No Time Spent Managing PTS Care (In Minutes): 35 (minutes) <Kim Pena - Last Filed: 04/22/23 11:42> Physician Review Additional Text: 04/22/23 17:58 Pt seen and examined. I agree with the note by the BRAKE OPERATOR HEAVY DUTY. Will continue D5W due to hypernatremia (151). Continue diflucan for yeast infection. <Leatha Boswell - Last Filed: 04/22/23 18:09>
[2023-04-22 13:03] LABS: AST/SGOT 10 U/L (15-37); Albumin 2.2 g/dL (3.4-5.0); BUN Blood Urea Nitrogen 14 mg/dL (7-18); Bicarbonate 32 mEq/L (21-32); Bilirubin Total 0.4 mg/dL (0.2-1.0); Glomerular Filtration Rate 93 ml/min (=/>90); Glucose Level 93 mg/dL (74-106); Magnesium 1.8 mg/dL (1.6-2.4); Potassium 3.7 mEq/L (3.5-5.1); Protein, Total 6.3 g/dL (6.4-8.2); Sodium Level 146 mEq/L (136-145)
[2023-04-22 13:04] LABS: ALT/SGPT < 10 U/L (13-56)
[2023-04-22 13:09] LABS: Alkaline Phosphatase ND U/L (45-117)
[2023-04-22] MEDS: RIVAROXABAN 20 MG TABLET PO SCH (17:55)
[2023-04-22 20:19] VITALS: O2SAT 90
[2023-04-23] MEDS: D5 0.45 NS 1,000 ML IV SCH ×2 (00:18→07:40)
[2023-04-23] MEDS: FLUCONAZOLE 200mg IVPB 200 MG/100 ML BAG IV SCH (01:39)
[2023-04-23] MEDS: INSULIN REGULAR (HUMAN) 100 UNIT/ML SQ SCH ×2 (07:30→11:30)
[2023-04-23] MEDS: DONEPEZIL HCL 5 MG TAB PO SCH (08:52)
[2023-04-23] MEDS: carvediloL 3.125 MG TAB PO SCH (08:53)
[2023-04-23] MEDS: MEMANTINE HCL 10 MG TABLET PO SCH (08:57)
[2023-04-23] MEDS: CEFTRIAXONE 1,000 MG in NA CHLORIDE 0.9% 50 ML IVPB SCH (08:58)
--- NOTE | 2023-04-23 09:47 | P.PN ---
Subjective Date of Service: 04/23/23 Chief Complaint: AMS Subjective: No new changes, Improving, Doing well Patient is alert and oriented x1 Answering questions appropriately but confused No acute distress at this D51/2 NS @75 cc running at this time Continuing to monitor blood glucose <Kim Pena - Last Filed: 04/23/23 09:44> Date of Service: 04/23/23 <MagdiLeatha miller Natalia - Last Filed: 04/23/23 18:04> Review of Systems 10-point ROS is otherwise unremarkable <Kim Pena - Last Filed: 04/23/23 09:44> Physical Examination - Vital Signs Temperature: 97.2 F Blood Pressure: 154/94 Pulse: 80 Respirations: 20 Pulse Ox (%): 97 - Physical Exam General: Alert, Oriented x1 HEENT: Atraumatic, Normocephalic Neck: Supple, 2+ carotid pulse no bruit Respiratory: Clear to auscultation bilaterally, Normal air movement Cardiovascular: No edema, Normal pulses Capillary refill: <2 Seconds Gastrointestinal: Normal bowel sounds, Soft and benign Musculoskeletal: No clubbing, No swelling, No contractures, No erythema Integumentary: No rashes, No breakdown, No significant lesion Neurological: Normal tone, Normal affect, Dementia <Kim Pena - Last Filed: 04/23/23 09:44> Assessment And Plan - Current Problems (Diagnosis) (1) Altered mental status Status: Acute Qualifiers: Altered mental status type: unspecified Qualified Code(s): R41.82 - Altered mental status, unspecified (2) Hypoglycemia Status: Acute (3) Alzheimer disease Status: Chronic (4) Atrial fibrillation Status: Chronic Qualifiers: Atrial fibrillation type: unspecified Qualified Code(s): I48.91 - Unspecified atrial fibrillation (5) HTN (hypertension) Status: Chronic Qualifiers: Hypertension type: primary hypertension Qualified Code(s): I10 - Essential (primary) hypertension - Plan - Plan Metabolic encephalopathy secondary to hypernatremia acute Alzheimer disease Current Visit: Yes Status: Acute -Improving, arousable to call, denies any discomfort at this time -We will continue to monitor the patient closely -Patient also known for Alzheimer's dementia and getting memantine and donepezil Elevated lactic acid level acute Lactate now within normal limits. Continuing the IV antibiotic Hypoglyemia acute ACHS BG, hypoglycemia protocol, D5 1/2 add to IVF Normal saline changed D51/2 NS, repeat BMP, depakote level added Repeat BMP added HTN (hypertension) Chronic controlled on carvedilol Continue to monitor Salt diet Atrial fibrillation Chronic, rate controlled anticoagulated on Xarelto 20 p.o. daily Patient denies palpitation or chest chest discomfort Continue the current manage Discharge Plan: Home Plan to discharge in: 24 Hours - Code Status/Comfort Care Code Status Assessed: Yes (Full code) Code Status: Full Code Physician Review: Patient Assessed, Agree with Above Assessment and Plan Critical Care: No Time Spent Managing PTS Care (In Minutes): 35 (Minutes) <Kim Pena - Last Filed: 04/23/23 09:44> Physician Review Additional Text: 04/23/23 18:04 Pt seen and examined. I agree withe note by the LEMON GROWER.Pt is back to her baseline. Will dc soon <Leatha Boswell - Last Filed: 04/23/23 18:04>
[2023-04-23 10:55] LABS: Absolute Lymphocytes (CBC) 1.7 K/uL (0.7-4.9); Hematocrit 42.2 % (36.0-45.0); Lymphocytes % 35.6 % (15.3-44.8); MCV 102.2 fL (80-100); Platelets 147 thou/uL (152-406); RBC Red Blood Cell Count 4.12 M/uL (3.86-4.86)
[2023-04-23 11:09] LABS: Potassium 3.3 mEq/L (3.5-5.1)
[2023-04-23 11:19] LABS: Magnesium 1.5 mg/dL (1.6-2.4)
[2023-04-23] MEDS: DIVALPROEX NA 125 MG CAP PO SCH (11:58)
[2023-04-23] MEDS ORDERED: POTASSIUM CL SA 10 MEQ TAB PO ONE (12:13)
--- NOTE | 2023-04-23 12:22 | P.DS ---
Admission Date: 04/19/23 Discharge Date: 04/23/23 Disposition: TRANSFER TO ASSISTED Discharge Condition: GOOD Reason for Admission: AMS - Problems (1) Altered mental status Current Visit: Yes Status: Acute Qualifiers: Altered mental status type: unspecified Qualified Code(s): R41.82 - Altered mental status, unspecified (2) Hypoglycemia Current Visit: Yes Status: Acute (3) Alzheimer disease Current Visit: Yes Status: Chronic (4) Atrial fibrillation Current Visit: Yes Status: Chronic Qualifiers: Atrial fibrillation type: unspecified Qualified Code(s): I48.91 - Unspecified atrial fibrillation (5) HTN (hypertension) Current Visit: Yes Status: Chronic Qualifiers: Hypertension type: primary hypertension Qualified Code(s): I10 - Essential (primary) hypertension Brief History of Present Illness: Patient History Date of admission 04/20/23 Reason for admission: AMS History of Present Illness: Ms. Camacho is a 78-year-old female with past medical history of atrial fibrillation on chronic anticoagulation, hypertension, hyperlipidemia, and advanced dementia who presented the emergency department from the halfway with concerns of decreased responsiveness. EMS reports that she was alert and agitated for them with stable vitals, unchanged in ED. She was worked up and labs were significant for sodium 148, chloride 112, bicarb 33, BUN 22, creatinine 1.07, lactate 2.3. CT did not reveal any acute abnormalities. Cefepime was administered empirically in the ED. ED provider wishes to admit patient for further management. Hospital Course: is a pleasant 78-year-old female patient with a past medical history significant for atrial fibrillation on chronic anticoagulation, hypertension, hyperlipidemia, and advanced dementia who was admitted to the [facility] on 04/20/2023 for concerns of decreased responsiveness. Patient was admitted to the hospital, treated with IV fluid and empirical IV antibiotic. On 04/23/2020, patient was seen on morning rounds and deemed medically stable for discharge. Patient was discharged with instructions to schedule follow-up appointments with PCP. Patient is pleasantly confused, awake responding to questions appropriately. Hypoglycemic precaution Diabetic diet Continue the current medications Follow-up PCP in 1 week Vital Signs/Physical Exam: Temp Pulse Resp BP Pulse Ox 97.2 F 80 20 154/94 H 97 04/23/23 09:47 04/23/23 09:47 04/23/23 09:47 04/23/23 09:47 04/23/23 09:47 General: Alert, Oriented x1 HEENT: Atraumatic, Normocephalic Neck: Supple Respiratory: Clear to auscultation bilaterally, Diminished Cardiovascular: No edema, Normal pulses, Regular rate/rhythm Capillary refill: <2 Seconds Gastrointestinal: Normal bowel sounds, Hypoactive, Soft and benign Musculoskeletal: No clubbing, No swelling Integumentary: No rashes, No breakdown, No significant lesion Neurological: Normal speech, Normal affect, Dementia Laboratory Data at Discharge: WBC 4.70 thou/uL (4.3-10.9) 04/23/23 10:35 Hgb 14.3 g/dL (12.0-15.0) 04/23/23 10:35 Hct 42.2 % (36.0-45.0) 04/23/23 10:35 Plt Count 147 thou/uL (152-406) L 04/23/23 10:35 PT 18.1 SECONDS (9.5-12.5) H 04/19/23 14:30 INR 1.65 04/19/23 14:30 APTT 35.5 SECONDS (24.3-36.9) 04/19/23 14:30 Sodium 141 mEq/L (136-145) D 04/23/23 10:35 Potassium 3.3 mEq/L (3.5-5.1) L 04/23/23 10:35 BUN 8 mg/dL (7-18) 04/23/23 10:35 Creatinine 0.58 mg/dL (0.55-1.02) 04/23/23 10:35 Glucose 91 mg/dL (74-106) 04/23/23 10:35 Phosphorus 3.4 mg/dL (2.5-4.9) 04/20/23 11:34 Magnesium 1.5 mg/dL (1.6-2.4) L 04/23/23 10:35 Total Bilirubin 0.4 mg/dL (0.2-1.0) 04/22/23 09:08 AST 10 U/L (15-37) L 04/22/23 09:08 ALT < 10 U/L (13-56) L 04/22/23 09:08 Alkaline Phosphatase 54 U/L (45-117) 04/23/23 10:35 Triglycerides 143 mg/dL (<150) 04/20/23 11:34 Cholesterol 215 mg/dL (<200) H 04/20/23 11:34 HDL Cholesterol 46 mg/dL (40-60) 04/20/23 11:34 Cholesterol/HDL Ratio 4.67 04/20/23 11:34 Home Medications: Acetaminophen [Tylenol] 650 mg PO Q6HP PRN 11/02/22 Cholecalciferol (Vitamin D3) [Vitamin D 5,000 IU Cap*] 5,000 unit PO DAILY 11/02/22 Divalproex [Depakote Sprinkle*] 250 mg PO BID 11/02/22 Donepezil HCl 23 mg PO BEDTIME 11/02/22 Escitalopram Oxalate [Lexapro] 10 mg PO DAILY 11/02/22 Folic Acid 1 mg PO DAILY 11/02/22 Memantine HCl [Namenda*] 10 mg PO BID 11/02/22 Mirabegron [Myrbetriq] 50 mg PO DAILY 11/02/22 Potassium Chloride [Klor-Con M20] 1 tab PO DAILY 11/02/22 Rivaroxaban [Xarelto] 20 mg PO DAILY 11/02/22 carvediloL [Coreg*] 0.5 tab PO BID 11/02/22 Physician Discharge Instructions: is a pleasant 78-year-old female patient with a past medical history significant for atrial fibrillation on chronic anticoagulation, hypertension, hyperlipidemia, and advanced dementia who was admitted to the [facility] on 04/20/2023 for concerns of decreased responsiveness. Patient was admitted to the hospital, treated with IV fluid and empirical IV antibiotic. On 04/23/2020, patient was seen on morning rounds and deemed medically stable for discharge. Patient was discharged with instructions to schedule follow-up appointments with PCP. Patient is pleasantly confused, awake responding to questions appropriately. Hypoglycemic precaution Diabetic diet Continue the current medications Follow-up PCP in 1 week . Diet: Low sodium Activity: Ad justin Time spent managing pt's care (in minutes): 35 (minutes)
--- NOTE | 2023-04-23 13:44 | EKG ---
Test Date: 2023-04-19 Test Time: 13:26:12 Head Rose Grower: NELIDA MEASUREMENT RESULTS: Intervals: Rate: 101 NE: 130 QRSD: 98 QT: 360 QTc: 466 [place]: P: 66 NE: 130 QRS: 70 T: 80 INTERPRETIVE STATEMENTS: Sinus tachycardia Otherwise normal ECG Compared to ECG 02/16/2023 21:50:12 Sinus rhythm no longer present Electronically Signed On 04-23-23 13:31:31 LAST PULLER by Jaden Mock
[2023-04-23 14:28] VITALS: TEMP 97
[2023-04-23 16:58] VITALS: BP 156/87
== END 2023-04-23 17:10 | DRG 640 ==
LOC: ER 13:13 → 2ND 22:32
PROVIDERS: ADMIT Hospitalist; ATTEND Hospitalist
DX: E87.0 Hyperosmolality and hypernatremia (principal); G93.41 Metabolic encephalopathy; F02.811 Dementia in other diseases classified elsewhere, unspecified severity, with agitation; G30.9 Alzheimer's disease, unspecified; I48.91 Unspecified atrial fibrillation; E87.20 Acidosis, unspecified; E16.2 Hypoglycemia, unspecified; E78.5 Hyperlipidemia, unspecified; I10 Essential (primary) hypertension; B37.9 Candidiasis, unspecified; Z88.0 Allergy status to penicillin; Z11.52 Encounter for screening for COVID-19; Z79.01 Long term (current) use of anticoagulants; Z79.02 Long term (current) use of antithrombotics/antiplatelets; Z79.899 Other long term (current) drug therapy
CPT/HCPCS: 36415; 51702; 70450; 71045; 74177; 80048; 80053; 80061; 80164; 81001; 82947; 83605; 83735; 84075; 84100; 85025; 85610; 85730; 87040; 87077; 87086; 87088; 87186; 87804; 87811; 93005; 96374; 99285; J0692; J0696; J1450; J1610; J7030; J7799; Q9967

== ENCOUNTER 2023-05-29 13:41 | Inpatient (IN) | payer OTHER ==
--- NOTE | 2023-05-29 15:00 | RAD REPORT ---
EXAM DESCRIPTION: CT - Head Brain Wo Cont - 05/29/2023 2:11 pm CLINICAL HISTORY: Alteration of awareness/confusion COMPARISON: April 2023 TECHNIQUE: Computed axial tomography of the head was obtained. IV contrast was not requested. All CT scans are performed using dose optimization technique as appropriate and may include automated exposure control or mA/KV adjustment according to patient size. FINDINGS: An intracranial bleed is not seen The ventricles are normal in caliber No extra-axial fluid collection is noted. Moderate cerebral Moderate low-density areas within periventricular, deep and subcortical white matter likely represent ischemic changes secondary to small vessel disease. Fluid within the sinuses/ mastoids is not seen. Chronic sinusitis IMPRESSION: No acute intracranial abnormality is seen If patient's symptoms persist MRI of the brain would be recommended
[2023-05-29 15:34] LABS: Absolute Lymphocytes (CBC) 1.2 K/uL (0.7-4.9); Hematocrit 35.6 % (36.0-45.0); Lymphocytes % 13.7 % (15.3-44.8); MCV 106.5 fL (80-100); MPV 10.6 fL (7.6-11.3); Platelets 172 thou/uL (152-406); RBC Red Blood Cell Count 3.34 M/uL (3.86-4.86)
--- NOTE | 2023-05-29 15:39 | RAD REPORT ---
EXAM DESCRIPTION: US - UPPER EXTREMITY VENOUS UNILATE - 05/29/2023 3:13 pm CLINICAL HISTORY: Right upper extremity swelling COMPARISON: None. FINDINGS: Echogenic material is present within the brachial vein. The vein is partially compressible . This is compatible with nonocclusive thrombus. The right internal jugular, subclavian, axillary, cephalic, basilic, radial and ulnar veins demonstra te phasic signal.The veins are generally compressible. Doppler demonstrates good flow Grayscale, color and spectral analysis performed on all vessels IMPRESSION: Nonocclusive partial thrombus right brachial vein
[2023-05-29 15:43] LABS: Protime INR 1.95
[2023-05-29 15:55] LABS: Albumin 1.7 g/dL (3.4-5.0); Bilirubin Direct 0.2 mg/dL (0-0.2); Bilirubin Indirect, Calculated 0.2 mg/dL (0.2-0.8); Bilirubin Total 0.4 mg/dL (0.2-1.0); Magnesium 2.3 mg/dL (1.6-2.4); Potassium 4.1 mEq/L (3.5-5.1)
--- NOTE | 2023-05-29 16:12 | ER ---
Nurse's Notes [facility] Name: Lisa Camacho Age: 78 yrs Sex: Female : 1945 Arrival Date: 05/29/2023 Time: 13:41 Bed 5 Private MD: Diagnosis: Hyponatremia, DVT partial right upper extremity Presentation: 05/29 13:55 Chief complaint: EMS states: from [place], toned for ams and high sodium. She is ko1 nonverbal which is her normal, right arm is swollen which is not normal, hx of hypoglycemia, blood sugar is 73. Coronavirus screen: At this time, the client does not indicate any symptoms associated with coronavirus-19. Ebola Screen: No symptoms or risks identified at this time. Initial Sepsis Screen: Does the patient meet any 2 criteria? No. Patient's initial sepsis screen is negative. Does the patient have a suspected source of infection? No. Patient's initial sepsis screen is negative. Risk Assessment: Do you want to hurt yourself or someone else? Patient reports no desire to harm self or others. Onset of symptoms is unknown. 13:55 Method Of Arrival: EMS: [facility] ko1 13:55 Acuity: ERIKA 3 ko1 Triage Assessment: 14:06 General: Appears in no apparent distress. Behavior is calm. Pain: Unable to use pain ko1 scale. Does not appear to understand pain scale. Historical: - Allergies: 14:06 PENICILLINS; ko1 - PMHx: 14:06 Alzheimers; Atrial fibrillation; depressive disorder; Hyperlipidemia; Hypertension; ko1 - Immunization history:: Adult Immunizations unknown. - Social history:: Smoking status: unknown. Screenin:56 [facility] ED Fall Risk Assessment (Adult) History of falling in the last 3 months, ko1 including since admission No falls in past 3 months (0 pts) Confusion or Disorientation No (0 pts) Intoxicated or Sedated No (0 pts) Impaired Gait Yes (1 pt) Mobility Assist Device Used Yes (1 pt) Altered Elimination Yes (1 pt) Score/Fall Risk Level 3 or more points = High Risk Oriented to surroundings, Maintained a safe environment, Educated pt \T\ family on fall prevention, incl call for assistance when getting out of bed, Assessed \T\ reinforced patient's understanding of fall precautions, Provided non-skid footwear, Hourly rounding (assess needs \T\ fall precautionary measures) done, Used ambulatory aids as needed (educated on \T\ assisted with), Used gait belt as appropriate Remained w/in arm's length of patient and in sight while toileting, Offered frequent toileting (1:1 observation), Remained with patient while ambulating, Utilized family, sitter, or virtual team lead as indicated. Abuse screen: Denies threats or abuse. Denies injuries from another. Nutritional screening: No deficits noted. Tuberculosis screening: No symptoms or risk factors identified. Assessment: 15:26 Reassessment: patient in CT for long period of time, that is the reason for delay in ko1 labs. 16:56 General: Appears in no apparent distress. Pain: Unable to use pain scale. Does not ko1 appear to understand pain scale. Neuro: Level of Consciousness is patient does not speak, this is her baseline. Cardiovascular: No deficits noted. Respiratory: No deficits noted. GI: No deficits noted. : wears diaper, incontinent. EENT: Oral mucosa is dry. Musculoskeletal: Range of motion: limited in lower extremities Swelling present in right arm. 16:56 Derm: Wound noted instep of left foot and medial aspect of left toes and lateral side ko1 of left heel. Vital Signs: 13:55 BP 100 / 68; Pulse 74; Resp 15; Temp 97; Pulse Ox 99% on R/A; ko1 16:56 BP 91 / 58; Pulse 71; Resp 15; Pulse Ox 98% ; ko1 ED Course: 13:55 Patient arrived in ED. ko1 13:55 Thomas Aguiar MD is Attending Physician. sp3 13:55 Meenakshi Medina, WINSTON is Primary Nurse. ko1 14:06 Triage completed. ko1 14:06 Arm band placed on right wrist. Patient placed in an exam room, on a stretcher, on ko1 imaging manager, on pulse oximetry, Patient notified of wait time. 14:12 CT Head Brain wo Cont In Process Unspecified. EDMS 14:35 UPPER EXTREMITY VENOUS UNILATE In Process Unspecified. EDMS 15:28 Basic Metabolic Panel Sent. ko1 15:28 CBC with Diff Sent. ko1 15:28 LFT's Sent. ko1 15:28 Magnesium Sent. ko1 15:28 NT PRO-BNP Sent. ko1 15:28 PT-INR Sent. ko1 15:28 Troponin HS Sent. ko1 15:28 Accessed PICC line. ko1 15:44 XRAY Chest (1 view) In Process Unspecified. EDMS 15:44 Hand Right 2 View XRAY In Process Unspecified. EDMS 15:44 Wrist Right 2 View XRAY In Process Unspecified. EDMS 16:11 Cisco Hartley MD is Hospitalizing Provider. sp3 16:56 Patient has correct armband on for positive identification. Placed in gown. Bed in low ko1 position. Call light in reach. Side rails up X2. Provided Education on: na. Pulse ox on. NIBP on. Door closed. Noise minimized. Lights dimmed. Warm blanket given. Pillow given. 16:56 No provider procedures requiring assistance completed. ko1 17:53 Patient admitted, IV remains in place. ko1 Administered Medications: No medications were administered Medication: 16:56 VIS not applicable for this client. ko1 Outcome: 16:12 Decision to Hospitalize by Provider. sp3 17:53 Admitted to Med/surg accompanied by tech, via wheelchair, room 216, with chart, Report ko1 called to WINSTON Murdock 17:53 Condition: stable 17:53 Instructed on the need for admit, 17:54 Patient left the ED. ko1 Signatures: Dispatcher [employer] Thomas Enciso MD MD sp3 Meenakshi Medina, RN RN ko1 Corrections: (The following items were deleted from the chart) 17:21 16:56 Derm: No deficits noted. ko1 ko1 17:53 16:56 Derm: Wound noted lateral side of left foot and lateral side of left heel ko1 ko1
--- NOTE | 2023-05-29 16:13 | EDPHYS ---
Physician Documentation [facility] Name: Lisa Camacho Age: 78 yrs Sex: Female : 1945 Arrival Date: 05/29/2023 Time: 13:41 Bed 5 Private MD: ED Physician Thomas Aguiar HPI: 05/29 14:57 This 78 yrs old Black Female presents to ER via EMS with complaints of High sodium, sp3 altered mental status, right arm swelling. 14:57 70-year-old female with history of Alzheimer's, atrial fibrillation, hyperlipidemia, sp3 hypertension, nonverbal from [facility] now presents via EMS for chief complaint altered mental status and hypernatremia as reported by patient's PCP who made rounds today. Patient also has swelling in her right upper extremity in the hand wrist and forearm. No known trauma reported. long term staff report baseline mental status however PCP states that she appears to be a bit more altered. History, physical, ROS all limited secondary to dementia and patient being nonverbal.. Historical: - Allergies: 14:06 PENICILLINS; ko1 - PMHx: 14:06 Alzheimers; Atrial fibrillation; depressive disorder; Hyperlipidemia; Hypertension; ko1 - Immunization history:: Adult Immunizations unknown. - Social history:: Smoking status: unknown. ROS: 14:58 Unable to obtain ROS due to altered mental status, baseline dementia, sp3 Exam: 14:58 Eyes: Pupils equal round and reactive to light, extra-ocular motions intact. Lids and sp3 lashes normal. Conjunctiva and sclera are non-icteric and not injected. Cornea within normal limits. Periorbital areas with no swelling, redness, or edema. Neck: Trachea midline, no thyromegaly or masses palpated, and no cervical lymphadenopathy. Supple, full range of motion without nuchal rigidity, or vertebral point tenderness. No Meningismus. Chest/axilla: Normal chest wall appearance and motion. Nontender with no deformity. No lesions are appreciated. Cardiovascular: Regular rate and rhythm with a normal S1 and S2. No gallops, murmurs, or rubs. Normal PMI, no JVD. No pulse deficits. Respiratory: Lungs have equal breath sounds bilaterally, clear to auscultation and percussion. No rales, rhonchi or wheezes noted. No increased work of breathing, no retractions or nasal flaring. Abdomen/GI: Soft, non-tender, with normal bowel sounds. No distension or tympany. No guarding or rebound. No evidence of tenderness throughout. 14:58 Musculoskeletal/extremity: Right upper extremity swelling and proximal hand, wrist and distal forearm. No fracture palpated. Distal neurovascular exam is normal.. 14:58 Neuro: Limited neurological exam. Patient opens eyes spontaneously and grunts to painful stimuli. No communication. Patient moves his body and what appears to be a spontaneous fashion. No gross unilateral deficits noted. However exam is severely limited., 16:16 ECG was reviewed by the Attending Physician. EKG demonstrates sinus tachycardia at 103 sp3 bpm with QTc of 458, normal QRS, normal axis, nonspecific diffuse ST's ST changes without evidence of acute ischemia. Vital Signs: 13:55 BP 100 / 68; Pulse 74; Resp 15; Temp 97; Pulse Ox 99% on R/A; ko1 16:56 BP 91 / 58; Pulse 71; Resp 15; Pulse Ox 98% ; ko1 MDM: 13:59 Patient medically screened. sp3 15:00 Data reviewed: vital signs, nurses notes, EMS record, [facility] records, old medical sp3 records, lab test result(s), EKG, radiologic studies. ED course: 78-year-old female with reported altered mental status and hyper natremia with a sodium of 166. Will recheck all labs, CT, EKG and probable admission after workup is reviewed.. 16:12 ED course: Patient has partial DVT right upper extremity. Sodium is 158. Vital signs sp3 are normal. Patient is anticoagulated with Xarelto.. 05/29 13:59 Order name: Basic Metabolic Panel; Complete Time: 16:00 sp3 05/29 13:59 Order name: CBC with Diff; Complete Time: 16:25 sp3 05/29 13:59 Order name: LFT's; Complete Time: 16:00 sp3 05/29 13:59 Order name: Magnesium; Complete Time: 16:00 sp3 05/29 13:59 Order name: NT PRO-BNP; Complete Time: 16:00 sp3 05/29 13:59 Order name: PT-INR; Complete Time: 16:00 sp3 05/29 13:59 Order name: Troponin HS; Complete Time: 16:00 sp3 05/29 16:18 Order name: CBC Smear Scan; Complete Time: 16:25 EDMS 05/29 13:59 Order name: XRAY Chest (1 view); Complete Time: 16:25 sp3 05/29 13:59 Order name: Hand Right 2 View XRAY; Complete Time: 16:25 sp3 05/29 13:59 Order name: Wrist Right 2 View XRAY; Complete Time: 16:25 sp3 05/29 13:59 Order name: CT Head Brain wo Cont; Complete Time: 16:00 sp3 05/29 14:04 Order name: UPPER EXTREMITY VENOUS UNILATE; Complete Time: 16:00 EDMS 05/29 13:59 Order name: EKG; Complete Time: 14:00 sp3 05/29 13:59 Order name: Cardiac monitoring; Complete Time: 15:27 sp3 05/29 13:59 Order name: EKG - Nurse/Tech; Complete Time: 16:14 sp3 05/29 13:59 Order name: IV Saline Lock; Complete Time: 15:27 sp3 05/29 13:59 Order name: Labs collected and sent; Complete Time: 15:27 sp3 05/29 13:59 Order name: O2 Per Protocol; Complete Time: 15:27 sp3 05/29 13:59 Order name: O2 Sat Monitoring; Complete Time: 15:27 sp3 Administered Medications: No medications were administered Disposition Summary: 05/29/23 16:12 Hospitalization Ordered Notes: Hospitalization Status: Inpatient Admission sp3 Provider: Cisco Hartley3 Location: Telemetry/[facility] (Inpatient) sp3 Condition: Stable sp3 Problem: new sp3 Symptoms: have worsened sp3 Bed/Room Type: Standard sp3 Room Assignment: 216(05/29/23 16:53) bd Diagnosis - Hyponatremia, DVT partial right upper extremity sp3 Forms: - Medication Reconciliation Form sp3 - SBAR form sp3 - Leadership Thank You Letter sp3 Signatures: Dispatcher [employer] [facility] Lisa Benites Setul, MD MD sp3 Meenakshi Medina RN RN ko1 Corrections: (The following items were deleted from the chart) 14:02 14:00 Extremity Venous [email or web address] ordered. [facility] EDNJ 16:53 16:12 sp3 bd
[2023-05-29 16:17] LABS: Blood Morphology Comment NOT SEEN (NOT SEEN); Platelet Estimate ADEQ
[2023-05-29 16:20] LABS: White Blood Cell Scan OK (OK)
--- NOTE | 2023-05-29 16:21 | RAD REPORT ---
EXAM DESCRIPTION: Najma Single View05/29/2023 3:42 pm CLINICAL HISTORY: Hypertension COMPARISON: April 2023 FINDINGS: The lungs appear clear of acute infiltrate. The heart is normal size IMPRESSION: No acute abnormalities displayed
--- NOTE | 2023-05-29 16:22 | RAD REPORT ---
EXAM DESCRIPTION: RAD - Wrist Right 2 View - 05/29/2023 3:44 pm CLINICAL HISTORY: Right wrist swelling FINDINGS: No fracture or dislocation seen. Osteoporosis. Soft tissue swelling Negative ulnar variance
--- NOTE | 2023-05-29 16:24 | RAD REPORT ---
EXAM DESCRIPTION: RAD - Hand Right 2 View - 05/29/2023 3:45 pm CLINICAL HISTORY: Right hand swelling FINDINGS: No fracture or dislocation seen. Osteoporosis. Soft tissue swelling Mild narrowing of the first IP joint
--- NOTE | 2023-05-29 16:26 | P.HP ---
Certification for Inpatient Patient admitted to: Inpatient With expected LOS: <2 Midnights Patient will require the following post-hospital care: None Practitioner: I am a practitioner with admitting privileges, knowledge of patient current condition, hospital course, and medical plan of care. Services: Services provided to patient in accordance with Admission requirements found in Title 42 Section 412.3 of the Code of Federal Regulations Patient History Date of Service: 05/29/23 Reason for admission: RUE DVT, hypernatremia History of Present Illness: 78-year-old female with past medical history of atrial fibrillation on chronic anticoagulation, hypertension, hyperlipidemia, and advanced dementia who presented the emergency department from the senior care with concerns of altered mental status, right arm swelling. swelling in her right upper extremity in the hand wrist and forearm. No known trauma reported, per report from senior living states she is at her baseline mental status however PCP states that she appears to be a bit more altered. HPI limited due to confusion. Plan to admit for metabolic encephalopathy due to hypernatremia, DVT right upper extremity. By report sodium 158, acute kidney injury unknown baseline BUN 53 creatinine 1.02. Severe hypoalbumin albumin 1.7 BNP normal at 323 troponin normal at 20.0, head CT IMPRESSION: No acute intracranial abnormality is seen If patient's symptoms persist MRI of the brain would be recommended, venous Doppler right upper extremity IMPRESSION: Nonocclusive partial thrombus right brachial vein. Hand Xray FINDINGS: No fracture or dislocation seen. Osteoporosis. Soft tissue swelling Mild narrowing of the first IP joint. Chest x-rayIMPRESSION: No acute abnormalities displayed Allergies Penicillins Allergy (Verified 09/11/19 06:36) Unknown Home Medications: Acetaminophen [Tylenol] 650 mg PO Q6HP PRN 11/02/22 Cholecalciferol (Vitamin D3) [Vitamin D 5,000 IU Cap*] 5,000 unit PO DAILY 11/02/22 Divalproex [Depakote Sprinkle*] 250 mg PO BID 11/02/22 Donepezil HCl 23 mg PO BEDTIME 11/02/22 Escitalopram Oxalate [Lexapro] 10 mg PO DAILY 11/02/22 Folic Acid 1 mg PO DAILY 11/02/22 Memantine HCl [Namenda*] 10 mg PO BID 11/02/22 Mirabegron [Myrbetriq] 50 mg PO DAILY 11/02/22 Potassium Chloride [Klor-Con M20] 1 tab PO DAILY 11/02/22 Rivaroxaban [Xarelto] 20 mg PO DAILY 11/02/22 carvediloL [Coreg*] 0.5 tab PO BID 11/02/22 - Past Medical/Surgical History Diabetic: No -: Hyperlipidemia -: HTN -: Sarcoma (stomach) -: Alzheimer's -: atrial fibrilation -: depressive disorder -: sarcoma sx (stomach) Psychosocial/ Personal History: Resides at [facility] - Family History Mother -: Hypertension - Social History Alcohol use: No CD- Drugs: No Caffeine use: No Review of Systems per HPI Physical Examination - Physical Exam General: Alert, In no apparent distress, Confused, Obese HEENT: Atraumatic, Normocephalic, PERRLA Neck: 2+ carotid pulse no bruit, JVD not distended Respiratory: Clear to auscultation bilaterally, Normal air movement Cardiovascular: Regular rate/rhythm, Normal S1 S2, Other (RUE edema) Capillary refill: <2 Seconds Gastrointestinal: Normal bowel sounds, Soft and benign Musculoskeletal: Other (contracutres BLE) Integumentary: Other (stage 2 pressure ulcer foot pressure point) Neurological: Other (moderate generalized weakness), Abnormal speech, Abnormal strength, Dementia - Studies Laboratory Data (last 24 hrs) 05/29/23 05/29/23 05/29/23 15:20 15:20 15:20 WBC 8.70 Hgb 12.1 Hct 35.6 L Plt Count 172 PT 21.0 H INR 1.95 Sodium 158 H* Potassium 4.1 BUN 53 H Creatinine 1.02 Glucose 106 Magnesium 2.3 Total Bilirubin 0.4 AST 15 ALT 11 L Alkaline Phosphatase 53 Assessment and Plan - Plan Assessment plan Hypernatremia likely secondary dehydration. Poor p.o. intake Metabolic encephalopathy likely secondary to hypernatremia Speech eval for swallow evaluation Fall precautions sodium 158, Every 4 hours BMPs Half-normal saline at 90 an hour per MD Calc hypernatremia BNP normal at 323, troponin normal at 20.0, head CT IMPRESSION: No acute intracranial abnormality is seen If patient's symptoms persist MRI of the brain would be recommended, hest x-rayIMPRESSION: No acute abnormalities displayed UA ordered, patient prev had UTI Acute kidney injury unknown baseline acute kidney injury unknown baseline BUN 53 creatinine 1.02, gentle IV fluids Protein calorie malnutrition Severe hypoalbumin albumin 1.7 DVT right upper extremity Pressure ulcer foot Wound care eval venous Doppler right upper extremity IMPRESSION: Nonocclusive partial thrombus right brachial vein. Hand Xray FINDINGS: No fracture or dislocation seen. Osteoporosis. Soft tissue swelling Mild narrowing of the first IP joint. History atrial fibrillation on chronic anticoagulation hypertension hyperlipidemia advanced dementia Telemetry, Resume appropriate home meds Full code DVT continue home Xarelto Diet cardiac Discharge Plan: Alf Plan to discharge in: 48 Hours - Advance Directives Does patient have a Living Will: No Does patient have a Durable POA for Healthcare: No - Code Status/Comfort Care Code Status: Full Code Critical Care: No Time Spent Managing Pts Care (In Minutes): 55
--- NOTE | 2023-05-29 17:09 | P.DS ---
Admission Date: 05/29/23 Discharge Date: 05/29/23 Reason for Admission: RUE DVT, hypernatremia Brief History of Present Illness: 78-year-old female with past medical history of atrial fibrillation on chronic anticoagulation, hypertension, hyperlipidemia, and advanced dementia who pres [facility] with concerns of altered mental status, right arm swelling. swelling in her right upper extremity in the hand wrist and forearm. No known trauma reported, per report from residential states she is at her baseline mental status however PCP states that she appears to be a bit more altered. HPI limited due to confusion. Plan to admit for metabolic encephalopathy due to hypernatremia, DVT right upper extremity. By report sodium 158, acute kidney injury unknown baseline BUN 53 creatinine 1.02. Severe hypoalbumin albumin 1.7 BNP normal at 323 troponin normal at 20.0, head CT IMPRESSION: No acute intracranial abnormality is seen If patient's symptoms persist MRI of the brain would be recommended, venous Doppler right upper extremity IMPRESSION: Nonocclusive partial thrombus right brachial vein. Hand Xray FINDINGS: No fracture or dislocation seen. Osteoporosis. Soft tissue swelling Mild narrowing of the first IP joint. Chest x-rayIMPRESSION: No acute abnormalities displayed Hospital Course: Patient presented from [facility] with altered mental status and right upper extremity swelling. Was noted to have DVT in the right upper extremity, hyponatremia. Was treated with half-normal saline, every 4 hour monitoring BMPs to lower her hypernatremia. Confusion, metabolic encephalopathy evaluated by speech for swallow eval....Condition improved with correction of electrolytes, continue Xarelto for DVT. Stable for discharge with follow-up appointment primary care at the nursing facility . PROBLEM: GOAL: Clear understanding of disease process Assessment Hypernatremia likely secondary dehydration. Poor p.o. intake Metabolic encephalopathy likely secondary to hypernatremia Acute kidney injury unknown baseline likely due to dehydration Protein calorie malnutrition albumin 1.7 DVT right upper extremity Pressure ulcer foot INSTRUCTIONS: Physician Discharge Instructions: -DC IV and DC home -Follow-up with PCP in 1 to 2 weeks -Please call [phone] if any questions regarding hospital stay -Please call nursing station at [phone] if any nursing or medication questions -Return to the emergency room if symptoms worsen Diet: ADA, low sodium Activity: Fall precautions DME: Date Ordered: Name of Company: [employer] Services Needed: None Date or Referral: IMMUNIZATION Influenza Vaccine Indicated: Influenza Vaccine Given: Date Given: Pneumonia Vaccine Indicated: Pneumonia Vaccine Given: Date Given: Laboratory Data at Discharge: WBC 8.70 thou/uL (4.3-10.9) 05/29/23 15:20 Hgb 12.1 g/dL (12.0-15.0) 05/29/23 15:20 Hct 35.6 % (36.0-45.0) L 05/29/23 15:20 Plt Count 172 thou/uL (152-406) 05/29/23 15:20 PT 21.0 SECONDS (9.5-12.5) H 05/29/23 15:20 INR 1.95 05/29/23 15:20 Sodium 158 mEq/L (136-145) H* 05/29/23 15:20 Potassium 4.1 mEq/L (3.5-5.1) 05/29/23 15:20 BUN 53 mg/dL (7-18) H 05/29/23 15:20 Creatinine 1.02 mg/dL (0.55-1.02) 05/29/23 15:20 Glucose 106 mg/dL (74-106) 05/29/23 15:20 Magnesium 2.3 mg/dL (1.6-2.4) 05/29/23 15:20 Total Bilirubin 0.4 mg/dL (0.2-1.0) 05/29/23 15:20 AST 15 U/L (15-37) 05/29/23 15:20 ALT 11 U/L (13-56) L 05/29/23 15:20 Alkaline Phosphatase 53 U/L (45-117) 05/29/23 15:20 Home Medications: Acetaminophen [Tylenol] 650 mg PO Q6HP PRN 11/02/22 Cholecalciferol (Vitamin D3) [Vitamin D 5,000 IU Cap*] 5,000 unit PO DAILY 11/02/22 Divalproex [Depakote Sprinkle*] 250 mg PO BID 11/02/22 Donepezil HCl 23 mg PO BEDTIME 11/02/22 Escitalopram Oxalate [Lexapro] 10 mg PO DAILY 11/02/22 Folic Acid 1 mg PO DAILY 11/02/22 Memantine HCl [Namenda*] 10 mg PO BID 11/02/22 Mirabegron [Myrbetriq] 50 mg PO DAILY 11/02/22 Potassium Chloride [Klor-Con M20] 1 tab PO DAILY 11/02/22 Rivaroxaban [Xarelto] 20 mg PO DAILY 11/02/22 carvediloL [Coreg*] 0.5 tab PO BID 11/02/22 Followup: Myah Hightower MD [Primary Care Provider] -
--- NOTE | 2023-05-29 17:43 | P.HP ---
Certification for Inpatient Patient admitted to: Observation With expected LOS: >2 Midnights Practitioner: I am a practitioner with admitting privileges, knowledge of patient current condition, hospital course, and medical plan of care. Services: Services provided to patient in accordance with Admission requirements found in Title 42 Section 412.3 of the Code of Federal Regulations Patient History Date of Service: 05/30/23 Reason for admission: RUE DVT, hypernatremia History of Present Illness: Lisa Camacho is a 78-year-old female with past medical history of atrial fibrillation on chronic anticoagulation, hypertension, hyperlipidemia, and advanced dementia who [facility] concerns of altered mental status and right arm swelling. Swelling in her right upper extremity in the hand wrist and forearm. No known trauma reported, per report from long term states she is at her baseline mental status however PCP states that she appears to be a bit more altered. HPI limited due to confusion. Significant laboratory evaluation showing sodium 158, BUN 53, creatinine 1.02, albumin 1.7, BNP normal at 323, troponin normal at 20.0. Head CT reports "No acute intracranial abnormality is seen If patient's symptoms persist MRI of the brain would be recommended". Venous Doppler right upper extremity reports "Nonocclusive partial thrombus right brachial vein". Hand Xray reports "No fracture or dislocation seen. Osteoporosis. Soft tissue swelling Mild narrowing of the first IP joint". Chest x-ray reports "No acute abnormalities displayed." She presents with a stage 2 partial thickness pressure ulcer to the left foot. Lisa will be admitted to the hospitalist service for further evaluation and treatment of metabolic encephalopathy due to hypernatremia, DVT right upper extremity, EWELINA, and severe hypoalbuminemia. Allergies Penicillins Allergy (Verified 09/11/19 06:36) Unknown Home Medications: Acetaminophen [Tylenol] 650 mg PO Q6HP PRN 11/02/22 Cholecalciferol (Vitamin D3) [Vitamin D 5,000 IU Cap*] 5,000 unit PO DAILY 11/02/22 Divalproex [Depakote Sprinkle*] 250 mg PO BID 11/02/22 Donepezil HCl 23 mg PO BEDTIME 11/02/22 Escitalopram Oxalate [Lexapro] 10 mg PO DAILY 11/02/22 Folic Acid 1 mg PO DAILY 11/02/22 Memantine HCl [Namenda*] 10 mg PO BID 11/02/22 Mirabegron [Myrbetriq] 50 mg PO DAILY 11/02/22 Potassium Chloride [Klor-Con M20] 1 tab PO DAILY 11/02/22 Rivaroxaban [Xarelto] 20 mg PO DAILY 11/02/22 carvediloL [Coreg*] 0.5 tab PO BID 11/02/22 - Past Medical/Surgical History Diabetic: No -: Hyperlipidemia -: HTN -: Sarcoma (stomach) -: Alzheimer's -: atrial fibrilation -: depressive disorder -: sarcoma sx (stomach) Psychosocial/ Personal History: Resides at [facility] - Family History Mother -: Hypertension - Social History Alcohol use: No CD- Drugs: No Caffeine use: No Review of Systems is unable to be obtained (She is nonverbal) Physical Examination - Physical Exam General: Alert, In no apparent distress, Confused, Obese HEENT: Atraumatic, Normocephalic, PERRLA Neck: 2+ carotid pulse no bruit, JVD not distended Respiratory: Clear to auscultation bilaterally, Normal air movement Cardiovascular: Regular rate/rhythm, Normal S1 S2, Other (RUE edema) Capillary refill: <2 Seconds Gastrointestinal: Normal bowel sounds, Soft and benign Musculoskeletal: Contractures (BLE ) Integumentary: Pressure ulcer (Stage 2 partial thickness pressure ulcer left foot) Neurological: Other (moderate generalized weakness), Abnormal speech, Abnormal strength, Dementia - Studies Laboratory Data (last 24 hrs) 05/29/23 05/29/23 05/29/23 15:20 15:20 15:20 WBC 8.70 Hgb 12.1 Hct 35.6 L Plt Count 172 PT 21.0 H INR 1.95 Sodium 158 H* Potassium 4.1 BUN 53 H Creatinine 1.02 Glucose 106 Magnesium 2.3 Total Bilirubin 0.4 AST 15 ALT 11 L Alkaline Phosphatase 53 Assessment and Plan - Plan Plan Assessment plan Hypernatremia likely secondary to dehydration including poor p.o. intake Metabolic encephalopathy likely secondary to hypernatremia Speech eval for swallow evaluation Fall precautions sodium 158, Every 4 hours BMPs Half-normal saline at 90 an hour per MD Calc hypernatremia BNP normal at 323, troponin normal at 20.[address] reports "No acute intracranial abnormality is seen If patient's symptoms persist MRI of the brain would be recommended" chest x-ray reports "No acute abnormalities displayed UA ordered, she had a previous UTI Acute kidney injury unknown baseline acute kidney injury unknown baseline BUN 53 creatinine 1.02 gentle IV fluids Protein calorie malnutrition Severe hypoalbumin albumin 1.7 DVT right upper extremity Stage 2-partial thickness Pressure ulcer to left foot Wound care eval venous Doppler right upper extremity reports "Nonocclusive partial thrombus right brachial vein." Right Hand/wrist Xray reoprts "No fracture or dislocation seen. Osteoporosis. Soft tissue swelling Mild narrowing of the first IP joint." History atrial fibrillation on chronic anticoagulation hypertension hyperlipidemia advanced dementia Telemetry Resume appropriate home meds Full code DVT continue home Xarelto Diet cardiac Discharge Plan: Correction Plan to discharge in: 48 Hours - Advance Directives Does patient have a Living Will: No Does patient have a Durable POA for Healthcare: No Time Spent Managing Pts Care (In Minutes): 55
[2023-05-29] MEDS ORDERED: NACHLORIDE 0.45% 1,000 ML IV SCH (17:54)
[2023-05-29 18:32] VITALS: BMI 33.3
[2023-05-29 18:50] LABS: Potassium 4.5 mEq/L (3.5-5.1)
[2023-05-29] MEDS ORDERED: HEPARIN/D5W 25,000 UNIT/500 ML BAG IV SCH (19:00)
[2023-05-29] MEDS: DONEPEZIL HCL 23 MG PO SCH (21:00)
[2023-05-29] MEDS: MEMANTINE HCL 10 MG TABLET PO SCH (21:00)
[2023-05-29] MEDS: DIVALPROEX NA 125 MG CAP PO SCH (21:00)
[2023-05-29] MEDS: carvediloL 3.125 MG TAB PO SCH (21:00)
[2023-05-29 22:42] LABS: Potassium 4.3 mEq/L (3.5-5.1)
[2023-05-29 23:07] LABS: SARS-COV-2 RT PCR POSITIVE (NEGATIVE)
[2023-05-30 03:30] LABS: Specific Gravity 1.029 (1.005-1.030); Urine Bacteria None Seen /HPF (<20); Urine Bilirubin NEGATIVE (Negative); Urine Blood Negative (Negative); Urine Clarity Clear (Clear); Urine Color Yellow (Yellow); Urine Glucose NEGATIVE (Negative); Urine Mucus Slight /HPF (None Seen); Urine Protein TRACE (Negative); Urine RBC None Seen /HPF (None Seen); Urine Urobilinogen Normal (Normal); Urine pH 5.5 (5.0-7.0)
[2023-05-30] MEDS ORDERED: LABETALOL 20 MG/4ML SYRINGE IV ONE (04:42)
[2023-05-30] MEDS ORDERED: D5W 1,000 ML IV SCH ×2 (06:00→11:52)
[2023-05-30] MEDS: FOLIC ACID 1 MG TABLET PO SCH (07:34)
[2023-05-30] MEDS: POTASSIUM CL SA 10 MEQ TAB PO SCH (07:34)
[2023-05-30] MEDS: carvediloL 3.125 MG TAB PO SCH ×2 (07:34→17:06)
[2023-05-30] MEDS: ESCITALOPRAM 20 MG TAB PO SCH (07:34)
[2023-05-30] MEDS: DIVALPROEX NA 125 MG CAP PO SCH ×2 (07:34→20:42)
[2023-05-30] MEDS: VITAMIN D 5,000 UNIT CAP PO SCH (07:35)
[2023-05-30] MEDS: MEMANTINE HCL 10 MG TABLET PO SCH ×2 (07:35→20:42)
[2023-05-30] MEDS: MIRABEGRON 50 MG PO SCH (07:35)
[2023-05-30] MEDS ORDERED: HOME MED 1 EA UNK (Escitalopram Oxalate [Lexapro] 10 MG Tablet) PO SCH (09:00)
[2023-05-30] MEDS ORDERED: POTASSIUM CHLORIDE 20 MEQ PO SCH (09:00)
[2023-05-30 09:03] LABS: Absolute Lymphocytes (CBC) 1.3 K/uL (0.7-4.9); Hematocrit 32.8 % (36.0-45.0); Lymphocytes % 15.8 % (15.3-44.8); MCV 106.3 fL (80-100); MPV 10.5 fL (7.6-11.3); Platelets 155 thou/uL (152-406); RBC Red Blood Cell Count 3.09 M/uL (3.86-4.86)
[2023-05-30 09:09] LABS: Magnesium 2.5 mg/dL (1.6-2.4); Phosphorus 3.6 mg/dL (2.5-4.9); Potassium 4.4 mEq/L (3.5-5.1)
--- NOTE | 2023-05-30 10:41 | P.CNS ---
Date of Consult: 05/30/23 Reason for Consult: Hypernatremia Requesting Physician: micheal guevara Chief Complaint: RUE DVT, hypernatremia History of Present Illness: Lisa Camacho is a 78-year-old female with past medical history of atrial fibrillation on chronic anticoagulation, hypertension, hyperlipidemia, and advanced dementia who presented the emergency department from the shelter with concerns of altered mental status and right arm swelling. Swelling in her right upper extremity in the hand wrist and forearm. No known trauma reported, per report from alf states she is at her baseline mental status however PCP states that she appears to be a bit more altered. HPI limited due to confusion. Significant laboratory evaluation showing sodium 158, BUN 53, creatinine 1.02, albumin 1.7, BNP normal at 323, troponin normal at 20.0. Head CT reports "No acute intracranial abnormality is seen If patient's symptoms persist MRI of the brain would be recommended". Venous Doppler right upper extremity reports "Nonocclusive partial thrombus right brachial vein". Hand Xray reports "No fracture or dislocation seen. Osteoporosis. Soft tissue swelling Mild narrowing of the first IP joint". Chest x-ray reports "No acute abnormal ities displayed." She presents with a stage 2 partial thickness pressure ulcer to the left foot. Lisa will be admitted to the hospitalist service for further evaluation and treatment of metabolic encephalopathy due to hypernatremia, DVT right upper extremity, EWELINA, and severe hypoalbuminemia. 14:57 This 78 yrs old Black Female presents to ER via EMS with complaints of High sodium, sp3 altered mental status, right arm swelling. 14:57 70-year-old female with history of Alzheimer's, atrial fibrillation, hyperlipidemia, sp3 hypertension, nonverbal from shelter now presents via EMS for chief complaint altered mental status and hypernatremia as reported by patient's PCP who made rounds today. Patient also has swelling in her right upper extremity in the hand wrist and forearm. No known trauma reported. alf staff report baseline mental status however PCP states that she appears to be a bit more altered. History, physical, ROS all limited secondary to dementia and patient being nonverbal. Limited HPI/ ROS due to mental status. Greater than 30min patient care. Allergies Penicillins Allergy (Verified 09/11/19 06:36) Unknown Home medications list reviewed: Yes Home Medications: Acetaminophen [Tylenol] 650 mg PO Q6HP PRN 11/02/22 Cholecalciferol (Vitamin D3) [Vitamin D 5,000 IU Cap*] 5,000 unit PO DAILY 11/02/22 Divalproex [Depakote Sprinkle*] 250 mg PO BID 11/02/22 Donepezil HCl 23 mg PO BEDTIME 11/02/22 Escitalopram Oxalate [Lexapro] 10 mg PO DAILY 11/02/22 Folic Acid 1 mg PO DAILY 11/02/22 Memantine HCl [Namenda*] 10 mg PO BID 11/02/22 Mirabegron [Myrbetriq] 50 mg PO DAILY 11/02/22 Potassium Chloride [Klor-Con M20] 1 tab PO DAILY 11/02/22 Rivaroxaban [Xarelto] 20 mg PO DAILY 11/02/22 carvediloL [Coreg*] 0.5 tab PO BID 11/02/22 - Past Medical/Surgical History Diabetic: No -: HLD -: HTN -: Sarcoma (stomach) -: Alzheimer's -: Afib -: depressive disorder -: Hx Hypernatremia (Dr. Ta/ Dr. Trinh) -: sarcoma sx (stomach) Psychosocial/ Personal History: Resides at [facility] - Family History Mother Medical History: Hypertension - Social History Smoking Status: Unknown if ever smoked Alcohol use: No CD- Drugs: No Caffeine use: No Place of Residence: [facility] Review of Systems is unable to be obtained General: Weakness Physical Examination Temp Pulse Resp BP Pulse Ox 978.4 F H 76 18 132/60 95 05/30/23 08:00 05/30/23 08:00 05/30/23 08:00 05/30/23 08:00 05/30/23 08:00 General: In no apparent distress HEENT: Atraumatic Neck: Supple Respiratory: Clear to auscultation bilaterally, Normal air movement Cardiovascular: No edema, Regular rate/rhythm Gastrointestinal: Soft and benign, Non-distended Musculoskeletal: No clubbing, No contractures Integumentary: No rashes, No cyanosis Laboratory Data (last 24 hrs) 05/29/23 05/29/23 05/29/23 15:20 15:20 15:20 WBC 8.70 Hgb 12.1 Hct 35.6 L Plt Count 172 PT 21.0 H INR 1.95 Sodium 158 H* Potassium 4.1 BUN 53 H Creatinine 1.02 Glucose 106 Magnesium 2.3 Total Bilirubin 0.4 AST 15 ALT 11 L Alkaline Phosphatase 53 Imagings Data: EXAM DESCRIPTION: Najma Single View05/29/2023 3:42 pm CLINICAL HISTORY: Hypertension COMPARISON: April 2023 FINDINGS: The lungs appear clear of acute infiltrate. The heart is normal size IMPRESSION: No acute abnormalities displayed EXAM DESCRIPTION: US - UPPER EXTREMITY VENOUS UNILATE - 05/29/2023 3:13 pm CLINICAL HISTORY: Right upper extremity swelling COMPARISON: None. FINDINGS: Echogenic material is present within the brachial vein. The vein is partially compressible. This is compatible with nonocclusive thrombus. The right internal jugular, subclavian, axillary, cephalic, basilic, radial and ulnar veins demonstrate phasic signal.The veins are generally compressible. Doppler demonstrates good flow Grayscale, color and spectral analysis performed on all vessels IMPRESSION: Nonocclusive partial thrombus right brachial vein Conclusions/Impression: State I EWELINA likely due to dehydration -No NSAIDs -Continue IVF Hypernatremia/ Dehydration -Continue IVF with D5W; will adjust IVF as needed -BMP q4h Severe Hypoalbuminemia -Protein supplementation as tolerated Anemia in chronic illness Macrocytosis -Monitor H&H Metabolic Encephalopathy -Continue IVF Case reviewed with Dr. Guevara Thank you kindly for the consultation
[2023-05-30 15:31] LABS: Potassium 3.7 mEq/L (3.5-5.1)
[2023-05-30] MEDS: RIVAROXABAN 20 MG TABLET PO SCH (17:00)
[2023-05-30 18:02] LABS: Potassium 4.2 mEq/L (3.5-5.1)
[2023-05-30] MEDS: DONEPEZIL HCL 23 MG PO SCH (20:42)
[2023-05-30 20:47] LABS: Potassium 3.6 mEq/L (3.5-5.1)
--- NOTE | 2023-05-30 20:48 | P.PN ---
Date of Service: 05/30/23 Subjective Lisa's eyes are open and she is moaning not responding to commands Sodium level is gradually improving will use heparin subq while she is NPO ROS unable to assess Physical Exam General: eyes open, unresponsive, lethargic, Obese HEENT: Atraumatic, Normocephalic, PERRLA Neck: 2+ carotid pulse no bruit, JVD not distended Respiratory: Clear to auscultation bilaterally, Normal air movement Cardiovascular: Regular rate/rhythm, Normal S1 S2, Other (RUE edema) Capillary refill: <2 Seconds Gastrointestinal: Normal bowel sounds, Soft and benign Musculoskeletal: Contractures (BLE ) Integumentary: Pressure ulcer (Stage 2 partial thickness pressure ulcer left foot) Neurological: Other (moderate generalized weakness), Abnormal speech, Abnormal strength, Dementia Vitals Reviewed Problem list Hypernatremia likely secondary to dehydration including poor p.o. intake Metabolic encephalopathy likely secondary to hypernatremia Acute kidney injury unknown baseline Protein calorie malnutrition DVT right upper extremity Stage 2-partial thickness Pressure ulcer to left foot Assessment and Plan Hypernatremia likely secondary to dehydration including poor p.o. intake Metabolic encephalopathy likely secondary to hypernatremia Speech eval for swallow evaluation- could not evaluate d/t lethargy, lack of responsiveness Fall precautions sodium 161 with 6.1 liter deficit, IVF changed to D5W showing improvement to 5.7 Every 4 hours BMPs BNP normal at 323, troponin normal at 20.[address] reports "No acute intracranial abnormality is seen If patient's symptoms persist MRI of the brain would be recommended" chest x-ray reports "No acute abnormalities displayed UA ordered, she had a previous UTI Acute kidney injury unknown baseline acute kidney injury unknown baseline BUN 62 creatinine 1.09 gentle IV fluids Nephrology consulted Protein calorie malnutrition Severe hypoalbumin albumin 1.7 DVT right upper extremity Stage 2-partial thickness Pressure ulcer to left foot Wound care eval venous Doppler right upper extremity reports "Nonocclusive partial thrombus right brachial vein." - heparin Subq while NPO Right Hand/wrist Xray reoprts "No fracture or dislocation seen. Osteoporosis. Soft tissue swelling Mild narrowing of the first IP joint." History atrial fibrillation on chronic anticoagulation hypertension hyperlipidemia advanced dementia Telemetry Resume appropriate home meds when appropriate Heparin Subq q8hr while NPO Full code DVT continue home Xarelto held, heparin while NPO Diet cardiac LOS 2-3 days Time Spent Managing Pts Care (In Minutes): 35
[2023-05-30] MEDS: NACHLORIDE 0.45% 1,000 ML IV SCH (22:47)
[2023-05-31] MEDS: HEPARIN 5000 UNIT/ML 1 ML VIAL SQ SCH ×3 (00:05→16:47)
[2023-05-31] MEDS: carvediloL 3.125 MG TAB PO SCH ×2 (05:23→17:54)
--- NOTE | 2023-05-31 07:57 | P.PN ---
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 and can tolerate pureed diet with thin liquids but will require feeding ROS unable to assess Physical Exam General: awake, lifting head, making eye contact Obese HEENT: Atraumatic, Normocephalic, PERRLA Neck: 2+ carotid pulse no bruit, JVD not distended, supple Respiratory: Clear to auscultation bilaterally, Normal air movement Cardiovascular: Regular rate/rhythm, Normal S1 S2, Other (RUE edema) Capillary refill: <2 Seconds Gastrointestinal: Normal bowel sounds, Soft and benign Musculoskeletal: Contractures (BLE ) Integumentary: Pressure ulcer (Stage 2 partial thickness pressure ulcer left foot) Neurological: Other (moderate generalized weakness), nonverbal, Dementia Vitals Reviewed Problem list Hypernatremia likely secondary to dehydration including poor p.o. intake Metabolic encephalopathy likely secondary to hypernatremia Acute kidney injury unknown baseline Protein calorie malnutrition DVT right upper extremity Stage 2-partial thickness Pressure ulcer to left foot Assessment and Plan Hypernatremia likely secondary to dehydration including poor p.o. intake Metabolic encephalopathy likely secondary to hypernatremia Speech eval for swallow evaluation- recommendations "Patient will tolerate pureed diet and thin liquids by consuming 50% of the meals with no overt s/s of aspiration." Fall precautions sodium 155/157/153/155- now on 05/[address] Ta Every 4 hours BMPs BNP normal at 323, troponin normal at 20.[address] reports "No acute intracranial abnormality is seen If patient's symptoms persist MRI of the brain would be recommended" chest x-ray reports "No acute abnormalities displayed UA negative COVID positive holding paxlovid d/t poor kidney function isolation precautions Acute kidney injury unknown baseline acute kidney injury unknown baseline BUN 52 creatinine 1.04, GFR 55 gentle IV fluids Nephrology consulted Protein calorie malnutrition Severe hypoalbumin albumin 1.7 DVT right upper extremity Stage 2-partial thickness Pressure ulcer to left foot Wound care eval venous Doppler right upper extremity reports "Nonocclusive partial thrombus right brachial vein." - heparin Subq while NPO Right Hand/wrist Xray reoprts "No fracture or dislocation seen. Osteoporosis. Soft tissue swelling Mild narrowing of the first IP joint." History atrial fibrillation on chronic anticoagulation hypertension hyperlipidemia advanced dementia Telemetry Resume appropriate home meds when appropriate Heparin Subq q8hr unknown if she can swallow pills at this time Full code DVT home Xarelto held, heparin unknown if she can swallow pills Diet cardiac LOS 2-3 days Time Spent Managing Pts Care (In Minutes): 35
[2023-05-31] MEDS: POTASSIUM CL SA 10 MEQ TAB PO SCH (08:52)
[2023-05-31] MEDS: ESCITALOPRAM 20 MG TAB PO SCH (08:52)
[2023-05-31] MEDS: FOLIC ACID 1 MG TABLET PO SCH (08:52)
[2023-05-31] MEDS: MEMANTINE HCL 10 MG TABLET PO SCH ×2 (08:52→21:29)
[2023-05-31] MEDS: DIVALPROEX NA 125 MG CAP PO SCH ×2 (08:52→21:29)
[2023-05-31] MEDS: VITAMIN D 5,000 UNIT CAP PO SCH (08:52)
[2023-05-31] MEDS: MIRABEGRON 50 MG PO SCH (08:52)
[2023-05-31] MEDS: NACHLORIDE 0.45% 1,000 ML IV SCH (09:05)
[2023-05-31 09:07] LABS: Hematocrit 32.9 % (36.0-45.0); Lymphocytes % 15.5 % (15.3-44.8); MCV 106.5 fL (80-100); MPV 10.2 fL (7.6-11.3); Platelets 165 thou/uL (152-406); RBC Red Blood Cell Count 3.09 M/uL (3.86-4.86)
[2023-05-31 09:26] LABS: Magnesium 2.3 mg/dL (1.6-2.4)
[2023-05-31 09:39] LABS: Albumin 1.6 g/dL (3.4-5.0); Phosphorus 2.7 mg/dL (2.5-4.9); Potassium 3.8 mEq/L (3.5-5.1)
[2023-05-31] MEDS ORDERED: D5W 1,000 ML IV SCH (11:00)
--- NOTE | 2023-05-31 13:28 | EKG ---
Test Date: 2023-05-29 Test Time: 16:11:27 Awake Overnight Monitor: SRIRAM MEASUREMENT RESULTS: Intervals: Rate: 103 [place]: 124 QRSD: 96 QT: 350 QTc: 458 [place]: P: 53 [place]: 124 QRS: 44 T: 109 INTERPRETIVE STATEMENTS: Sinus tachycardia Lateral infarct, age undetermined Abnormal ECG Compared to ECG 04/19/2023 13:26:12 Myocardial infarct finding now present Electronically Signed On 05-31-23 13:24:17 INSURANCE CLAIM REPRESENTATIVE by Jaden Mock
--- NOTE | 2023-05-31 19:48 | P.PN ---
Date of Service: 05/31/23 Vital Signs Temp Pulse Resp BP Pulse Ox 97.4 F 84 16 130/70 96 05/31/23 16:00 05/31/23 17:54 05/31/23 16:00 05/31/23 17:54 05/31/23 16:00 Medications Carvedilol (Carvedilol 3.125 Mg Tab) 3.125 mg PO BID 6AM 6PM [facility] Last Admin: 05/31/23 17:54 Dose: Not Given Cholecalciferol (Vitamin D 5,000 Unit Cap) 5,000 unit PO DAILY [facility] Last Admin: 05/31/23 08:52 Dose: Not Given Divalproex Sodium (Divalproex Na 125 Mg Cap) 250 mg PO BID [facility] Last Admin: 05/31/23 08:52 Dose: Not Given Escitalopram Oxalate (Escitalopram 20 Mg Tab) 10 mg PO DAILY [facility] Last Admin: 05/31/23 08:52 Dose: Not Given Folic Acid (Folic Acid 1 Mg Tablet) 1 mg PO DAILY [facility] Last Admin: 05/31/23 08:52 Dose: Not Given Home Med (Donepezil Hcl [Donepezil Hcl]) 23 mg PO BEDTIME [facility] Last Admin: 05/30/23 20:42 Dose: Not Given Home Med (Mirabegron [Myrbetriq]) 50 mg PO DAILY [facility] Last Admin: 05/31/23 08:52 Dose: Not Given Sodium Chloride (Sodium Chloride 0.45%) 1,000 mls @ 100 mls/hr IV .Q10H [facility] Last Admin: 05/31/23 09:05 Dose: 1,000 mls Dextrose/Water (Dextrose In Water (1-Liter)) 1,000 mls @ 90 mls/hr IV .Q11H7M [facility] Last Admin: 05/31/23 11:40 Dose: 1,000 mls Memantine (Memantine Hcl 10 Mg Tablet) 10 mg PO BID [facility] Last Admin: 05/31/23 08:52 Dose: Not Given Potassium Chloride (Potassium Cl Sa 10 Meq Tab) 20 meq PO DAILY [facility] Last Admin: 05/31/23 08:52 Dose: Not Given Rivaroxaban (Rivaroxaban 20 Mg Tablet) 20 mg PO DAILY AT SUPPER [facility] Last Admin: 05/30/23 17:00 Dose: Not Given Assessment/ Plan: Nephrology No dyspnea No chest pain No acute events overnight Limited IH/ ROS due to mental status Vitals, medications, blood work and imaging reviewed in the chart. General: In no apparent distress HEENT: Atraumatic Neck: Supple Respiratory: Clear to auscultation bilaterally, Normal air movement Cardiovascular: No edema, Regular rate/rhythm Gastrointestinal: Soft and benign, Non-distended Musculoskeletal: No clubbing, No contractures Integumentary: No rashes, No cyanosis Laboratory Data (last 24 hrs) 05/29/23 05/29/23 05/29/23 15:20 15:20 15:20 WBC 8.70 Hgb 12.1 Hct 35.6 L Plt Count 172 PT 21.0 H INR 1.95 Sodium 158 H* Potassium 4.1 BUN 53 H Creatinine 1.02 Glucose 106 Magnesium 2.3 Total Bilirubin 0.4 AST 15 ALT 11 L Alkaline Phosphatase 53 Imagings Data: EXAM DESCRIPTION: ANGELChest Single View05/29/2023 3:42 pm CLINICAL HISTORY: Hypertension COMPARISON: April 2023 FINDINGS: The lungs appear clear of acute infiltrate. The heart is normal size IMPRESSION: No acute abnormalities displayed EXAM DESCRIPTION: US - UPPER EXTREMITY VENOUS UNILATE - 05/29/2023 3:13 pm CLINICAL HISTORY: Right upper extremity swelling COMPARISON: None. FINDINGS: Echogenic material is present within the brachial vein. The vein is partially compressible. This is compatible with nonocclusive thrombus. The right internal jugular, subclavian, axillary, cephalic, basilic, radial and ulnar veins demonstrate phasic signal.The veins are generally compressible. Doppler demonstrates good flow Grayscale, color and spectral analysis performed on all vessels IMPRESSION: Nonocclusive partial thrombus right brachial vein Conclusions/Impression: State I EWELINA likely due to dehydration -No NSAIDs -Continue IVF Hypernatremia/ Dehydration -Continue IVF; will adjust IVF as needed -Timed BMP ordered today X2; will adjust IVF according to results Severe Hypoalbuminemia -Protein supplementation as tolerated Anemia in chronic illness Macrocytosis -Monitor H&H -Continue Folic Acid -Check B12 level Metabolic Encephalopathy -Continue IVF Hospitalist note reviewed Case reviewed with the hospitalist team
[2023-05-31 21:12] LABS: Potassium 3.7 mEq/L (3.5-5.1)
[2023-05-31] MEDS: DONEPEZIL HCL 23 MG PO SCH (21:31)
[2023-06-01] MEDS: NACHLORIDE 0.45% 1,000 ML IV SCH (04:31)
[2023-06-01 04:54] LABS: Absolute Lymphocytes (CBC) 1.3 K/uL (0.7-4.9); Hematocrit 32.4 % (36.0-45.0); Lymphocytes % 22.8 % (15.3-44.8); MCV 106.4 fL (80-100); MPV 10.7 fL (7.6-11.3); Platelets 147 thou/uL (152-406); RBC Red Blood Cell Count 3.04 M/uL (3.86-4.86)
[2023-06-01] MEDS: carvediloL 3.125 MG TAB PO SCH ×2 (05:19→17:10)
[2023-06-01 05:51] LABS: Albumin 1.6 g/dL (3.4-5.0); Magnesium 1.9 mg/dL (1.6-2.4); Phosphorus 2.4 mg/dL (2.5-4.9); Potassium 3.7 mEq/L (3.5-5.1); Uric Acid 8.3 mg/dL (2.6-6.0)
[2023-06-01] MEDS ORDERED: POTASS/SODIUM PHOSPHATE 1 PKT POWD.PACK PO SCH (07:00)
[2023-06-01] MEDS: POTASSIUM CL SA 10 MEQ TAB PO SCH (09:00)
[2023-06-01] MEDS ORDERED: POTASSIUM PHOS IN 0.9 % NACL 15 MMOL/250 ML BAG IV ONE (09:00)
[2023-06-01] MEDS: MIRABEGRON 50 MG PO SCH (09:00)
[2023-06-01] MEDS: MEMANTINE HCL 10 MG TABLET PO SCH ×2 (09:35→20:58)
[2023-06-01] MEDS: ESCITALOPRAM 20 MG TAB PO SCH (09:35)
[2023-06-01] MEDS: VITAMIN D 5,000 UNIT CAP PO SCH (09:36)
[2023-06-01] MEDS: DIVALPROEX NA 125 MG CAP PO SCH ×2 (09:36→20:58)
[2023-06-01] MEDS: FOLIC ACID 1 MG TABLET PO SCH (09:36)
[2023-06-01] MEDS: D5W 1,000 ML IV SCH (11:54)
--- NOTE | 2023-06-01 12:38 | P.PN ---
Nephrology (S) Pt does not voice complaints, remains on IVF hydration Vitals, medications, blood work and imaging reviewed in the chart. General: In no apparent distress HEENT: Atraumatic, not on O2 Neck: Supple Respiratory: Non tachypnec, no wheezing Cardiovascular: No sig edema, Regular rate/rhythm Gastrointestinal: Soft and benign, Non-distended Musculoskeletal: Shins non tender Neuro: Awake, does not engage in conversation but tracks movements Imagings Data: EXAM DESCRIPTION: ANGELChest Single View05/29/2023 3:42 pm CLINICAL HISTORY: Hypertension COMPARISON: April 2023 FINDINGS: The lungs appear clear of acute infiltrate. The heart is normal size IMPRESSION: No acute abnormalities displayed EXAM DESCRIPTION: US - UPPER EXTREMITY VENOUS UNILATE - 05/29/2023 3:13 pm CLINICAL HISTORY: Right upper extremity swelling COMPARISON: None. FINDINGS: Echogenic material is present within the brachial vein. The vein is partially compressible. This is compatible with nonocclusive thrombus. The right internal jugular, subclavian, axillary, cephalic, basilic, radial and ulnar veins demonstrate phasic signal.The veins are generally compressible. Doppler demonstrates good flow Grayscale, color and spectral analysis performed on all vessels IMPRESSION: Nonocclusive partial thrombus right brachial vein Conclusions/Impression: State I EWELINA due to dehydration -Cr level downward trended with hydration Hypernatremia, severe -Appropriate rate of correction, calculated water deficit still showing ~ 2L. Cont hypotonic IVF, switch back to lower rate of D5W
[2023-06-01] MEDS: RIVAROXABAN 20 MG TABLET PO SCH (17:09)
--- NOTE | 2023-06-01 17:44 | P.PN ---
Date of Service: 06/01/23 Subjective She is awake and tracking movements around the room. She is making an attempt to speak. She attempted to squeeze my hand with her left hand. Swelling to the right arm has remained the same. ROS unable to assess Physical Exam General: awake, lifting head, making eye contact, attempting to speak Obese HEENT: Atraumatic, Normocephalic, PERRLA Neck: 2+ carotid pulse no bruit, JVD not distended, supple Respiratory: Clear to auscultation bilaterally, Normal air movement Cardiovascular: Regular rate/rhythm, Normal S1 S2, Other (RUE edema) Capillary refill: <2 Seconds Gastrointestinal: Normal bowel sounds, Soft and benign Musculoskeletal: Contractures (BLE ) Integumentary: Pressure ulcer (Stage 2 partial thickness pressure ulcer left foot) Neurological: Other (moderate generalized weakness), nonverbal, Dementia, facial movements present Vitals Reviewed Problem list Hypernatremia likely secondary to dehydration including poor p.o. intake Metabolic encephalopathy likely secondary to hypernatremia COVID positive Acute kidney injury unknown baseline Protein calorie malnutrition DVT right upper extremity Stage 2-partial thickness Pressure ulcer to left foot Assessment and Plan Hypernatremia likely secondary to dehydration including poor p.o. intake Metabolic encephalopathy likely secondary to hypernatremia Speech eval for swallow evaluation- recommendations "Patient will tolerate pureed diet and thin liquids by consuming 50% of the meals with no overt s/s of aspiration." Fall precautions sodium 148/147- now on D5W per Dr. Trinh BMP at 1800 then again 06/02 at 5am BNP normal at 323, troponin normal at 20.[address] reports "No acute intracranial abnormality is seen If patient's symptoms persist MRI of the brain would be recommended" chest x-ray reports "No acute abnormalities displayed UA negative COVID positive holding paxlovid d/t poor kidney function isolation precautions Acute kidney injury unknown baseline acute kidney injury unknown baseline BUN 42 creatinine 0.71, GFR 87 gentle IV fluids Nephrology consulted Protein calorie malnutrition Severe hypoalbumin albumin 1.7 DVT right upper extremity Stage 2-partial thickness Pressure ulcer to left foot Wound care eval venous Doppler right upper extremity reports "Nonocclusive partial thrombus right brachial vein." - restarted xarelto Right Hand/wrist Xray reoprts "No fracture or dislocation seen. Osteoporosis. Soft tissue swelling Mild narrowing of the first IP joint." History atrial fibrillation on chronic anticoagulation hypertension hyperlipidemia advanced dementia Telemetry Resume appropriate home meds when appropriate Full code DVT Xarleto restarted Diet cardiac LOS 2-3 days Time Spent Managing Pts Care (In Minutes): 37
[2023-06-01] MEDS: DONEPEZIL HCL 23 MG PO SCH (20:58)
[2023-06-01 23:40] VITALS: O2SAT 97
[2023-06-02] MEDS: D5W 1,000 ML IV SCH (02:11)
[2023-06-02 03:57] LABS: Absolute Lymphocytes (CBC) 1.5 K/uL (0.7-4.9); MPV 10.5 fL (7.6-11.3); Platelets 143 thou/uL (152-406); RBC Red Blood Cell Count 2.95 M/uL (3.86-4.86)
[2023-06-02 04:16] LABS: Magnesium 1.9 mg/dL (1.6-2.4); Phosphorus 2.5 mg/dL (2.5-4.9)
[2023-06-02] MEDS: carvediloL 3.125 MG TAB PO SCH ×2 (06:02→16:53)
[2023-06-02] MEDS: POTASSIUM CL SA 10 MEQ TAB PO SCH (08:55)
[2023-06-02] MEDS ORDERED: POTASSIUM 25 MEQ EFFERV TAB PO ONE (08:55)
[2023-06-02] MEDS: VITAMIN D 5,000 UNIT CAP PO SCH (08:56)
[2023-06-02] MEDS: MEMANTINE HCL 10 MG TABLET PO SCH (08:57)
[2023-06-02] MEDS: FOLIC ACID 1 MG TABLET PO SCH (08:57)
[2023-06-02] MEDS: ESCITALOPRAM 20 MG TAB PO SCH (08:57)
[2023-06-02] MEDS: DIVALPROEX NA 125 MG CAP PO SCH (08:57)
[2023-06-02] MEDS: MIRABEGRON 50 MG PO SCH (08:58)
[2023-06-02] MEDS: RIVAROXABAN 20 MG TABLET PO SCH (16:53)
[2023-06-02 18:24] VITALS: BP 152/112; TEMP 97
--- NOTE | 2023-06-02 19:12 | P.DS ---
Admission Date: 05/29/23 Discharge Date: 06/02/23 Disposition: TRANSFER TO CUSTODIAL Discharge Condition: FAIR Reason for Admission: RUE DVT, hypernatremia Brief History of Present Illness: Diagnosis Hypernatremia likely secondary dehydration. Poor p.o. intake Metabolic encephalopathy likely secondary to hypernatremia Acute kidney injury unknown baseline likely due to dehydration Protein calorie malnutrition albumin 1.7 DVT right upper extremity Pressure ulcer foot HPI 05/29/23 Lisa Camacho is a 78-year-old female with past medical history of atrial fibrillation on chronic anticoagulation, hypertension, hyperlipidemia, and advanced dementia who presented the emergency department from the [place] [facility] with concerns of altered mental status and right arm swelling. Swelling in her r ight upper extremity in the hand wrist and forearm. No known trauma reported, per report from long-term states she is at her baseline mental status however PCP states that she appears to be a bit more altered. HPI limited due to confusion. Significant laboratory evaluation showing sodium 158, BUN 53, creatinine 1.02, albumin 1.7, BNP normal at 323, troponin normal at 20.0. Head CT reports "No acute intracranial abnormality is seen If patient's symptoms persist MRI of the brain would be recommended". Venous Doppler right upper extremity reports "Nonocclusive partial thrombus right brachial vein". Hand Xray reports "No fracture or dislocation seen. Osteoporosis. Soft tissue swelling Mild narrowing of the first IP joint". Chest x-ray reports "No acute abnormalities displayed." She presents with a stage 2 partial thickness pressure ulcer to the left foot. Lisa will be admitted to the hospitalist service for further evaluation and treatment of metabolic encephalopathy due to hypernatremia, DVT right upper extremity, EWELINA, and severe hypoalbuminemia. Hospital Course: Patient presented from [facility] with altered mental status and right upper extremity swelling. She was admitted to [facility] on 05/29/23 for DVT of RUE and hyponatremia. She Was treated with both D5W and half- normal saline for controlled sodium correction. Q4 hour BMPs to monitor all electrolye levels while lowering her hypernatremia. Confusion and metabolic encephalopathy required evaluating by speech pathology for swallow eval and the recommendation is pureed diet and thin liquid. She has tolerated swallowing her medication crushed. Her condition has improved with correction of electrolytes, continue Xarelto for DVT. She is stable for discharge with follow-up appointments primary care at the nursing facility and Dr. Ta for kidney function management. She is hemodynamically stable, tolerating diet and medications, significantly imrpoved mental status, and ready for discharge. She was discharged 06/02/23 to [facility] where she is a intermediate resident. No new prescriptions this admission GOAL: Clear understanding of disease process Physical Exam General: Obese, sleeping but arouses, lifting head, making eye contact, attempting to speak HEENT: Atraumatic, Normocephalic, PERRLA Neck: 2+ carotid pulse no bruit, JVD not distended, supple Respiratory: Clear to auscultation bilaterally, Normal air movement Cardiovascular: Regular rate/rhythm, Normal S1 S2, Other (RUE edema) Capillary refill: <2 Seconds Gastrointestinal: Normal bowel sounds, Soft and benign, nontender Musculoskeletal: Contractures (BLE ) Integumentary: Pressure ulcer (Stage 2 partial thickness pressure ulcer left foot) Neurological: Other (moderate generalized weakness), nonverbal, Dementia, facial movements present Vital Signs/Physical Exam: Temp Pulse Resp BP Pulse Ox 97.0 F 77 16 152/112 H 97 06/02/23 16:00 06/02/23 16:00 06/02/23 16:00 06/02/23 16:00 06/02/23 16:00 Laboratory Data at Discharge: WBC 5.50 thou/uL (4.3-10.9) 06/02/23 03:24 Hgb 10.8 g/dL (12.0-15.0) L 06/02/23 03:24 Hct 31.0 % (36.0-45.0) L 06/02/23 03:24 Plt Count 143 thou/uL (152-406) L 06/02/23 03:24 PT 21.0 SECONDS (9.5-12.5) H 05/29/23 15:20 INR 1.95 05/29/23 15:20 Sodium 146 mEq/L (136-145) H 06/02/23 03:24 Potassium 4.0 mEq/L (3.5-5.1) 06/02/23 03:24 BUN 29 mg/dL (7-18) H 06/02/23 03:24 Creatinine 0.57 mg/dL (0.55-1.02) 06/02/23 03:24 Glucose 91 mg/dL (74-106) 06/02/23 03:24 Uric Acid 8.3 mg/dL (2.6-6.0) H 06/01/23 04:45 Phosphorus 2.5 mg/dL (2.5-4.9) 06/02/23 03:24 Magnesium 1.9 mg/dL (1.6-2.4) 06/02/23 03:24 Total Bilirubin 0.4 mg/dL (0.2-1.0) 05/29/23 15:20 AST 15 U/L (15-37) 05/29/23 15:20 ALT 11 U/L (13-56) L 05/29/23 15:20 Alkaline Phosphatase 53 U/L (45-117) 05/29/23 15:20 Home Medications: Acetaminophen [Tylenol] 650 mg PO Q6HP PRN 11/02/22 Cholecalciferol (Vitamin D3) [Vitamin D 5,000 IU Cap*] 5,000 unit PO DAILY 11/02/22 Divalproex [Depakote Sprinkle*] 250 mg PO BID 11/02/22 Donepezil HCl 23 mg PO BEDTIME 11/02/22 Escitalopram Oxalate [Lexapro] 10 mg PO DAILY 11/02/22 Folic Acid 1 mg PO DAILY 11/02/22 Memantine HCl [Namenda*] 10 mg PO BID 11/02/22 Mirabegron [Myrbetriq] 50 mg PO DAILY 11/02/22 Potassium Chloride [Klor-Con M20] 1 tab PO DAILY 11/02/22 Rivaroxaban [Xarelto] 20 mg PO DAILY 11/02/22 carvediloL [Coreg*] 0.5 tab PO BID 11/02/22 Physician Discharge Instructions: Hospital Course: Hospital Course: Patient presented from [facility] with altered mental status and right upper extremity swelling. Was noted to have DVT in the right upper extremity, hyponatremia. Was treated with half-normal saline, every 4 hour monitoring BMPs to lower her hypernatremia. Confusion, metabolic encephalopathy evaluated by speech for swallow eval recommend pureed diet and thin liquid. She has tolerated swallowing her crushed medication. Condition improved with correction of electrolytes, continue Xarelto for DVT. Stable for discharge with follow-up appointment primary care at the nursing facility . Diagnosis Hypernatremia likely secondary dehydration. Poor p.o. intake Metabolic encephalopathy likely secondary to hypernatremia Acute kidney injury unknown baseline likely due to dehydration Protein calorie malnutrition albumin 1.7 DVT right upper extremity Pressure ulcer foot GOAL: Clear understanding of disease process INSTRUCTIONS: Physician Discharge Instructions: -DC IV and DC [facility] [facility] [place] -Follow-up with PCP in 1 to 2 weeks -Please call nursing station at [phone] if any nursing or medication questions -Return to the emergency room if symptoms worsen Diet: ADA, low sodium Activity: Fall precautions Diet: AHA Followup: Myah Hightower MD [Primary Care Provider] - Oumar Ta DO [ACTIVE - CAN ADMIT] - Time spent managing pt's care (in minutes): 50
== END 2023-06-02 16:00 | DRG 640 ==
LOC: ER 13:41 → ERHOLD 16:39 → 2ND 17:24
PROVIDERS: ADMIT Internal Medicine; ATTEND Internal Medicine
DX: E87.0 Hyperosmolality and hypernatremia (principal); G93.41 Metabolic encephalopathy; U07.1 COVID-19; I82.621 Acute embolism and thrombosis of deep veins of right upper extremity; N17.9 Acute kidney failure, unspecified; E86.0 Dehydration; G30.9 Alzheimer's disease, unspecified; F02.80 Dementia in other diseases classified elsewhere, unspecified severity, without behavioral disturbance, psychotic disturbance, mood disturbance, and anxiety; I48.91 Unspecified atrial fibrillation; Z79.01 Long term (current) use of anticoagulants; F32.A Depression, unspecified; E78.5 Hyperlipidemia, unspecified; I10 Essential (primary) hypertension; Z88.0 Allergy status to penicillin; L89.622 Pressure ulcer of left heel, stage 2; E88.09 Other disorders of plasma-protein metabolism, not elsewhere classified; Z85.831 Personal history of malignant neoplasm of soft tissue; D64.9 Anemia, unspecified; Z66 Do not resuscitate
CPT/HCPCS: 0240U; 36415; 70450; 71045; 80048; 80069; 80076; 81001; 82607; 83735; 83880; 84100; 84484; 84550; 85025; 85610; 92526; 92610; 93005; 93971; 99285; J1644